=== PATIENT | female | born 1950 | race Caucasian/White ===

== ENCOUNTER 2018-10-26 18:30 | Inpatient (IN) | payer MEDICARE, OTHER, SELFPAY ==
[2018-10-26] VITALS (10 sets, daily range): BP systolic 107–151; BP diastolic 46–83; PULSE 103–120; RESP 16–28; TEMP 37.7–39.3; O2SAT 94–99; BMI 42.9
--- NOTE | 2018-10-26 18:46 | ED.SKABFB ---
HPI - Skin/Abscess/Foreign Bdy General Chief complaint: Skin/Abscess/Foreign Body Stated complaint: Sepsis, leg infection Time Seen by Provider: 10/26/18 18:36 Source: patient, family and EMS Mode of arrival: EMS Limitations: no limitations History of Present Illness HPI narrative: Patient is a 68-year-old female who presents by EMS with fever and confusion. She was actually at pharmacy on the [place] and is followed by infectious disease there as well. She history of chronic lymphedema and is prophylactically on Keflex. 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 The Augmentin apparently was just while traveling she is post be going to [place] next week. Infectious Disease put her on a stronger antibiotic when she returns the plan is for her to return to routine penicillin. She was seen by infectious disease who states that the wound in her leg is not actively infected at this time. states last night she was at her baseline and appropriate. This morning has been did not see her he was at work but patient says something was not right. She thinks it is 1997 she is unable to give good history. There has not been any noted coughing. She has had previous UTIs but denies painful or frequent urination. She is tachycardic and febrile in the ED. Related Data Home Medications Medication Instructions Recorded Confirmed albuterol sulfate 2 puff INHALATION Q6H PRN 10/26/18 10/26/18 celecoxib 200 mg PO DAILY 10/26/18 10/26/18 cholecalciferol (vitamin D3) 5,000 unit PO DAILY 10/26/18 10/26/18 [Vitamin D3] cyclobenzaprine 10 mg PO TID PRN 10/26/18 10/26/18 fexofenadine [Janet Allergy] 180 mg PO DAILY 10/26/18 10/26/18 fluticasone propionate [Flonase 1 spray INTRANASAL DAILY PRN 10/26/18 10/26/18 Allergy Relief] glipizide [Glucotrol XL] 5 mg PO DAILY 10/26/18 10/26/18 hydrochlorothiazide 50 mg PO DAILY PRN 10/26/18 10/26/18 hydrocodone-acetaminophen 2 tab PO Q4HR 10/26/18 10/26/18 insulin degludec [Tresiba 55 units SUBCUT DAILY 10/26/18 10/26/18 FlexTouch U-100] levothyroxine [Synthroid] 200 mcg PO DAILY 10/26/18 10/26/18 liraglutide [Victoza 2-Rodriguez] 1.2 mg SUBCUT DAILY 10/26/18 10/26/18 losartan 25 mg PO DAILY 10/26/18 10/26/18 montelukast [Singulair] 10 mg PO QPM 10/26/18 10/26/18 qukscckh-mhk-SG-lycopen-lutein 1 tab PO DAILY 10/26/18 10/26/18 [Centrum Silver] pregabalin 50 mg PO TID 10/26/18 10/26/18 rabeprazole [Aciphex] 20 mg PO DAILY 10/26/18 10/26/18 tolterodine [Detrol LA] 4 mg PO DAILY 10/26/18 10/26/18 Allergies Allergy/AdvReac Type Severity Reaction Status Date / Time cefamandole [From Mandol] AdvReac Verified 10/26/18 19:11 clindamycin AdvReac Verified 10/26/18 19:11 heparin AdvReac Verified 10/26/18 19:11 meperidine [From Demerol] AdvReac Verified 10/26/18 19:11 naproxen AdvReac Verified 10/26/18 19:11 NSAIDS (Non-Steroidal AdvReac Verified 10/26/18 19:11 Anti-Inflamma promethazine [From Phenergan] AdvReac Verified 10/26/18 19:11 rofecoxib [From Vioxx] AdvReac Verified 10/26/18 19:11 sulfamethoxazole AdvReac Verified 10/26/18 19:11 [From Septra] trimethoprim [From Septra] AdvReac Verified 10/26/18 19:11 Review of Systems Review of Systems ROS Unobtainable: All systems reviewed & are unremarkable except as noted in HPI and below Constitutional Denies chills, Reports fever(s), Denies lethargy and Denies weakness Eyes Denies change in vision, Denies eye discharge, Denies irritation and Denies loss of vision ENT Ears, Nose, Mouth, and Throat: Denies change in voice, Denies neck pain and Denies sore throat Cardiovascular Denies chest pain, Denies irregular heart rhythm, Denies lightheadedness, Denies palpitations, Denies dyspnea, Denies dyspnea on exertion and Denies orthopnea Respiratory Denies cough, Denies dyspnea, Denies dyspnea on exertion and Denies wheezing Gastrointestinal Gastrointestinal: Denies abdominal pain, Denies change in bowel habits, Denies diarrhea, Denies nausea and Denies vomiting Genitourinary Denies hematuria, Denies flank pain, Denies urinary incontinence and Denies urinary urgency Musculoskeletal Denies neck pain Integumentary/Breasts Denies pruritus, Denies erythema, Denies rash and Denies wounds Neurologic Denies loss of vision and Denies weakness Endocrine Denies palpitations Allergic/Immunologic Denies wheezing [facility] Medical History Bilateral leg edema (Acute) 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) Lymphedema of both lower extremities (Acute) Venous stasis dermatitis of both lower extremities (Acute) Surgical History History of total knee arthroplasty (Acute) Social History marital status: household members: spouse Smoking Status: Never smoker alcohol intake: current Social History marital status: household members: spouse Smoking Status: Never smoker alcohol intake: current Exam Initial Vital Signs Initial Vital Signs: Vital Signs Temperature 100.7 F H 10/26/18 18:50 Pulse Rate 120 H 10/26/18 18:50 Respiratory Rate 18 10/26/18 18:50 Blood Pressure 142/81 H 10/26/18 18:50 Pulse Oximetry 96 10/26/18 18:50 GENERAL: Alert confused overweight female HEENT: Head atraumatic,EOMI, pupils reactive, face symmetric, moist mucous membranes CARDIOVASCULAR: Tachycardic regular no murmur RESPIRATORY: Breath sounds equal bilaterally, no wheezes rales or rhonchi. ABDOMEN: Soft, large ventral hernia nontender EXTREMITIES: Normal range of motion, no clubbing or edema. Neurovascularly intact NEUROLOGICAL: Alert to person. Commercial Account Officer strength equal bilaterally. SKIN: Chronic wounds noted on left lateral knee packing in place no significant erythema. She does have some slight oozing. Her knee overall is tender Scores GCS [place] coma scale eye opening: Spontaneous [place] coma scale verbal response: Confused [place] coma scale motor response: Obey commands [place] coma scale total score: 14 Course Orders Ordered: ED Orders 10/26/18 18:54 XR chest 1V Stat 10/26/18 19:05 Urine Microscopic Stat 10/26/18 19:23 Blood Culture Stat Complete Blood Count AUTO DIFF Stat Comprehensive Metabolic Panel Stat Lactate (Lactic Acid) Stat Procalcitonin Stat 10/26/18 19:49 CT head/brain wo con Stat 10/27/18 00:45 Consult to Respiratory Therapy Evaluate & Treat 10/27/18 06:00 Basic Metabolic Panel Routine Complete Blood Count AUTO DIFF Routine Magnesium Routine Procalcitonin Routine 10/28/18 06:00 XR chest 2V Routine Acetaminophen (Tylenol) 650 mg PO Q6HR PRN PRN Reason: As Needed for Fever/Mild Pain Albuterol/Ipratropium (Duoneb) 3 ml INH RTQ6HR PRN PRN Reason: Shortness Of Breath Discontinued Medications Acetaminophen (Tylenol) 975 mg PO NOW ONE Stop: 10/26/18 18:54 Last Admin: 10/26/18 19:12 Dose: 975 mg Sodium Chloride (Normal Saline 0.9%) 1,000 mls @ 1,000 mls/hr IV BOLUS ONE Stop: 10/26/18 19:54 Last Infusion: 10/26/18 20:10 Dose: 0 mls/hr Admin: 10/26/18 19:29 Dose: 1,000 mls/hr Levofloxacin (Levaquin) 750 mg in 150 mls @ 100 mls/hr IV NOW ONE Stop: 10/26/18 21:31 Last Infusion: 10/26/18 23:14 Dose: 0 mls/hr Infusion: 10/26/18 23:12 Dose: 100 mls/hr Infusion: 10/26/18 22:46 Dose: 0 mls/hr Infusion: 10/26/18 21:39 Dose: 100 mls/hr Infusion: 10/26/18 20:55 Dose: 0 mls/hr Admin: 10/26/18 20:39 Dose: 100 mls/hr Vancomycin HCl 2,000 mg/ (Sodium Chloride) 500 mls @ 250 mls/hr IV NOW ONE Stop: 10/26/18 20:03 Last Infusion: 10/26/18 23:18 Dose: 250 mls/hr Infusion: 10/26/18 22:46 Dose: 0 mls/hr Infusion: 10/26/18 21:39 Dose: 250 mls/hr Infusion: 10/26/18 20:55 Dose: 0 mls/hr Admin: 10/26/18 20:40 Dose: 250 mls/hr Sodium Chloride (Normal Saline 0.9%) 1,917 mls @ 639 mls/hr 30 ml/kg infuse over 3 hr (1917 ml) IV NOW ONE Stop: 10/26/18 23:06 Last Infusion: 10/26/18 22:47 Dose: 0 mls/hr Infusion: 10/26/18 21:40 Dose: 200 mls/hr Infusion: 10/26/18 20:55 Dose: 0 mls/hr Infusion: 10/26/18 20:40 Dose: 200 mls/hr Admin: 10/26/18 19:30 Dose: 639 mls/hr Ketorolac Tromethamine (Toradol) 15 mg IV NOW ONE Stop: 10/26/18 21:19 Last Admin: 10/26/18 21:36 Dose: 15 mg Vital Signs - 8 hr 10/26/18 18:50 10/26/18 19:12 10/26/18 20:00 Temperature 100.7 F H 100.7 F H Pulse Rate 120 H 114 H Respiratory Rate 18 24 Blood Pressure 142/81 H Blood Pressure [Right Arm] 151/73 H Pulse Oximetry 96 99 10/26/18 20:45 10/26/18 21:05 10/26/18 21:14 Temperature 101.3 F H Pulse Rate 103 H 104 H Respiratory Rate 16 24 Blood Pressure Blood Pressure [Right Arm] 123/46 L 109/49 L Pulse Oximetry 96 96 10/26/18 22:00 10/26/18 22:39 10/26/18 22:40 Temperature 102.7 F H Pulse Rate 115 H 112 H Respiratory Rate 28 H 22 Blood Pressure 107/83 Blood Pressure [Right Arm] 118/78 Pulse Oximetry 96 94 10/26/18 22:55 Temperature 99.9 F H Pulse Rate 109 H Respiratory Rate 20 Blood Pressure 117/59 L Blood Pressure [Right Arm] Pulse Oximetry 95 MDM - Skin/Abscess/Foreign Bdy Lab Data Attestation: I reviewed the patient's lab results. Result diagrams: 10/26/18 19:23 10/26/18 19:23 Lab Results 10/26/18 10/26/18 10/26/18 Range/Units 19:05 19:23 19:23 WBC 19.2 H (4.5-11.0) X10^3/uL RBC 4.42 (4.0-5.2) X10^6/uL Hgb 12.7 (12.0-16.0) g/dL Hct 38.3 (36-46) % MCV 86.6 (80-100) fL MCH 28.7 (26-34) PG MCHC 33.1 (30-36) % RDW 13.3 (11.6-14.8) % Plt Count 261 (150-400) X10^3/uL Neut % (Auto) 90.2 H (50-75) % Lymph % (Auto) 3.2 L (25-40) % [place] % (Auto) 6.2 (3-14) % Eos % (Auto) 0.1 L (2-4) % Baso % (Auto) 0.3 (0-2) % Neut # (Auto) 94876 H (3733-2322) /uL Lymph # (Auto) 600 L (5606-0541) /uL [place] # (Auto) 1200 H (0-900) /uL Eos # (Auto) 0 (0-450) /uL Baso # (Auto) 100 (0-100) /uL Sodium (137-145) mmol/L Potassium (3.4-5.1) mmol/L Chloride (98-107) mmol/L Carbon Dioxide (22-32) mmol/L BUN (7-17) mg/dL Creatinine (0.52-1.04) mg/dL Estimated GFR (>60) mL/min BUN/Creatinine Ratio (6-22) Glucose (80-110) mg/dL Lactate (0.7-2.1) mmol/L Calcium (8.4-10.2) mg/dL Total Bilirubin (0.2-1.3) mg/dL AST (14-36) IU/L ALT (9-52) IU/L Alkaline Phosphatase (38-126) U/L Total Protein (6.3-8.2) g/dL Albumin (3.5-5.0) g/dL Globulin (1.7-4.1) g/dL Albumin/Globulin Ratio (1.0-2.8) Procalcitonin 1.04 H (<0.5) ng/mL Urine RBC None seen (0-5/HPF) Urine WBC 0-1/hpf (0-5/HPF) Ur Squamous Epith Cells 1-5 /hpf (0-5/HPF) Urine Bacteria None seen (None) Ur Culture Indicated? Cult not indicated 10/26/18 10/26/18 Range/Units 19:23 19:23 WBC (4.5-11.0) X10^3/uL RBC (4.0-5.2) X10^6/uL Hgb (12.0-16.0) g/dL Hct (36-46) % MCV (80-100) fL MCH (26-34) PG MCHC (30-36) % RDW (11.6-14.8) % Plt Count (150-400) X10^3/uL Neut % (Auto) (50-75) % Lymph % (Auto) (25-40) % [place] % (Auto) (3-14) % Eos % (Auto) (2-4) % Baso % (Auto) (0-2) % Neut # (Auto) (8447-7803) /uL Lymph # (Auto) (4802-8243) /uL [place] # (Auto) (0-900) /uL Eos # (Auto) (0-450) /uL Baso # (Auto) (0-100) /uL Sodium 135 L (137-145) mmol/L Potassium 3.8 (3.4-5.1) mmol/L Chloride 100 (98-107) mmol/L Carbon Dioxide 28 (22-32) mmol/L BUN 29 H (7-17) mg/dL Creatinine 0.80 (0.52-1.04) mg/dL Estimated GFR > 60.0 (>60) mL/min BUN/Creatinine Ratio 36.3 H (6-22) Glucose 128 H (80-110) mg/dL Lactate 1.0 (0.7-2.1) mmol/L Calcium 9.1 (8.4-10.2) mg/dL Total Bilirubin 0.3 (0.2-1.3) mg/dL AST 30 (14-36) IU/L ALT 26 (9-52) IU/L Alkaline Phosphatase 86 (38-126) U/L Total Protein 7.5 (6.3-8.2) g/dL Albumin 4.1 (3.5-5.0) g/dL Globulin 3.4 (1.7-4.1) g/dL Albumin/Globulin Ratio 1.2 (1.0-2.8) Procalcitonin (<0.5) ng/mL Urine RBC (0-5/HPF) Urine WBC (0-5/HPF) Ur Squamous Epith Cells (0-5/HPF) Urine Bacteria (None) Ur Culture Indicated? Urine Dip Bedside Urine Glucose Negative Bedside Urine Bilirubin - Negative Bedside Urine Ketone - Negative Urine Specific [place] 1.025 Bedside Urine Occult Blood - Negative Bedside Urine Protein +/- 15 Bedside Urine Urobilinogen - Negative Bedside Urine Nitrite - Negative Bedside Urine Leukocytes - Negative Esterase Imaging Data Chest x-ray: Radiologist's impression: PROCEDURE: XR CHEST 1V INDICATIONS: fever confusion TECHNIQUE: One view of the chest was acquired. COMPARISON: None. FINDINGS: Surgical changes and devices: None. Lungs and pleura: There is mild patchy bilateral perihilar and peribronchial opacity. No pleural effusions or pneumothorax. Mediastinum: Mediastinal contours appear normal. Heart size is normal. Bones and chest wall: No suspicious bony lesions. Overlying soft tissues appear unremarkable. IMPRESSION: Mild atypical pneumonia. Dictated by: Arnie Hayes M.D. on 10/26/2018 at 19:21 Approved by: Arnie Hayes M.D. on 10/26/2018 at 19:22 CT scan - head: Radiologist's impression: PROCEDURE: CT HEAD/BRAIN WO CON INDICATIONS: confusion TECHNIQUE: Noncontrast 4.5 mm thick angled axial sections acquired from the foramen magnum to the vertex, with coronal and sagittal reformats. For radiation dose reduction, the following was used: automated exposure control, adjustment of mA and/or kV according to patient size. COMPARISON: None. FINDINGS: Image quality: Excellent. CSF spaces: Basal cisterns are patent. No extra-axial fluid collections. The ventricles are symmetric in size and shape. Brain: No intracranial bleeds or masses. There is cerebral volume loss for age, with resultant ventricular and sulcal prominence. There are periventricular and deep white matter chronic small vessel ischemic changes. There is intracranial internal carotid artery atherosclerosis. Skull and face: Calvarium and visualized facial bones appear intact, without suspicious lesions. Sinuses: Visualized sinuses and mastoids are clear. IMPRESSION: No acute intracranial abnormality. Dictated by: Arnie Hayes M.D. on 10/26/2018 at 20:34 MDM Narrative Medical decision making narrative: Patient is clearly confused tachycardic febrile has positive SIRS. Only source of infection appears to be pneumonia. She denies any cough. Chronic wound on her left leg really does not appear infected. Infectious Disease from evaluation today notes reviewed also states that is not infected. No sign of meningitis. Previously on penicillin will give Levaquin and vancomycin. Ian MCGEE, updated patient's symptoms test results agree with admission. Discharge Plan Departure Patient Disposition: Admitted As Inpatient Clinical Impression: Pneumonia Qualifiers: Pneumonia type: due to unspecified organism Laterality: unspecified laterality Lung location: unspecified part of lung Qualified Code(s): J18.9 - Pneumonia, unspecified organism Discharge Date/Time: 10/26/18 22:46 Interventions: ED Discharge Assessment Last Done: 10/26/18 22:40 Admit Date/Time: 10/26/18 21:54 Admit Provider: Miley Edmonds
--- NOTE | 2018-10-26 18:54 | DI.RAD.S_ITS ---
PROCEDURE: XR CHEST 1V INDICATIONS: fever confusion TECHNIQUE: One view of the chest was acquired. COMPARISON: None. FINDINGS: Surgical changes and devices: None. Lungs and pleura: There is mild patchy bilateral perihilar and peribronchial opacity. No pleural effusions or pneumothorax. Mediastinum: Mediastinal contours appear normal. Heart size is normal. Bones and chest wall: No suspicious bony lesions. Overlying soft tissues appear unremarkable. IMPRESSION: Mild atypical pneumonia. Dictated by: Arnie Hayes M.D. on 10/26/2018 at 19:21 Approved by: Arnie Hayes M.D. on 10/26/2018 at 19:22
[2018-10-26 19:12] LABS: Bacteria Urine None Seen; RBC Urine None Seen (0-5/HPF)
[2018-10-26] MEDS: ACETAMINOPHEN 325 MG TABLET 975 MG PO (19:12)
[2018-10-26 19:28] LABS: Culture Indicated Urine Cult Not Indicated; Squamous Epithelial Cell Urine 1-5 /HPF (0-5/HPF); WBC Urine 0-1/HPF (0-5/HPF)
[2018-10-26] MEDS: SODIUM CHLORIDE 0.9% 1,000 ML 1000 ML IV (19:29)
[2018-10-26] MEDS: SODIUM CHLORIDE 0.9% 639 ML IV (19:30)
[2018-10-26 19:35] LABS: Add Manual Diff / Slide Review NO; Basophils Absolute Auto 100 /uL (0-100); Basophils Percent Auto 0.3 % (0-2); Eosinophils Absolute Auto 0 /uL (0-450); Eosinophils Percent Auto 0.1 % (2-4); Hematocrit 38.3 % (36-46); Hemoglobin 12.7 g/dL (12.0-16.0); Lymphocytes Absolute Auto 600 /uL (1100-4500); Lymphocytes Percent Auto 3.2 % (25-40); Mean Corpuscular HGB Conc 33.1 % (30-36); Mean Corpuscular Hemoglobin 28.7 PG (26-34); Mean Corpuscular Volume 86.6 fL (80-100); Monocytes Absolute Auto 1200 /uL (0-900); Monocytes Percent Auto 6.2 % (3-14); Neutrophils Absolute Auto 17300 /uL (1500-7000); Neutrophils Percent Auto 90.2 % (50-75); Platelet Count 261 X10^3/uL (150-400); Red Blood Cell Count 4.42 X10^6/uL (4.0-5.2); Red Cell Distribution Width 13.3 % (11.6-14.8); White Blood Cell Count 19.2 X10^3/uL (4.5-11.0)
[2018-10-26 19:47] LABS: Alanine Aminotransferase 26 IU/L (9-52); Albumin 4.1 g/dL (3.5-5.0); Albumin Globulin Ratio 1.2 (1.0-2.8); Alkaline Phosphatase 86 U/L (38-126); Aspartate Aminotransferase 30 IU/L (14-36); BUN Creatinine Ratio 36.3 (6-22); Bilirubin Total 0.3 mg/dL (0.2-1.3); Blood Urea Nitrogen 29 mg/dL (7-17); Calcium 9.1 mg/dL (8.4-10.2); Carbon Dioxide 28 mmol/L (22-32); Chloride 100 mmol/L (98-107); Estimated Glomerular Filt Rate > 60.0 mL/min (>60); Globulin 3.4 g/dL (1.7-4.1); Glucose 128 mg/dL (80-110); HEMOLYSIS < 15 (0-50); Potassium 3.8 mmol/L (3.4-5.1); Sodium 135 mmol/L (137-145); Total Protein 7.5 g/dL (6.3-8.2)
--- NOTE | 2018-10-26 19:49 | ED_ITS ---
HPI - Skin/Abscess/Foreign Bdy General Chief complaint: Skin/Abscess/Foreign Body Stated complaint: Sepsis, leg infection Time Seen by Provider: 10/26/18 18:36 Source: patient, family and EMS Mode of arrival: EMS Limitations: no limitations History of Present Illness HPI narrative: Patient is a 68-year-old female who presents by EMS with fever and confusion. She was actually at pharmacy on the [place] and is followed by infectious disease there as well. She history of chronic lymphedema and is prophylactically on Keflex. 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 The Augmentin apparently was just while traveling she is post be going to [place] next week. Infectious Disease put her on a stronger antibiotic when she returns the plan is for her to return to routine penicillin. She was seen by infectious disease who states that the wound in her leg is not actively infected at this time. states last night she was at her baseline and appropriate. This morning has been did not see her he was at work but patient says something was not right. She thinks it is 1997 she is unable to give good history. There has not been any noted coughing. She has had previous UTIs but denies painful or frequent urination. She is tachycardic and febrile in the ED. Related Data Home Medications Medication Instructions Recorded Confirmed albuterol sulfate 2 puff INHALATION Q6H PRN 10/26/18 10/26/18 celecoxib 200 mg PO DAILY 10/26/18 10/26/18 cholecalciferol (vitamin D3) 5,000 unit PO DAILY 10/26/18 10/26/18 [Vitamin D3] cyclobenzaprine 10 mg PO TID PRN 10/26/18 10/26/18 fexofenadine [Janet Allergy] 180 mg PO DAILY 10/26/18 10/26/18 fluticasone propionate [Flonase 1 spray INTRANASAL DAILY PRN 10/26/18 10/26/18 Allergy Relief] glipizide [Glucotrol XL] 5 mg PO DAILY 10/26/18 10/26/18 hydrochlorothiazide 50 mg PO DAILY PRN 10/26/18 10/26/18 hydrocodone-acetaminophen 2 tab PO Q4HR 10/26/18 10/26/18 insulin degludec [Tresiba 55 units SUBCUT DAILY 10/26/18 10/26/18 FlexTouch U-100] levothyroxine [Synthroid] 200 mcg PO DAILY 10/26/18 10/26/18 liraglutide [Victoza 2-Rodriguez] 1.2 mg SUBCUT DAILY 10/26/18 10/26/18 losartan 25 mg PO DAILY 10/26/18 10/26/18 montelukast [Singulair] 10 mg PO QPM 10/26/18 10/26/18 [id number]-lutein 1 tab PO DAILY 10/26/18 10/26/18 [Centrum Silver] pregabalin 50 mg PO TID 10/26/18 10/26/18 rabeprazole [Aciphex] 20 mg PO DAILY 10/26/18 10/26/18 tolterodine [Detrol LA] 4 mg PO DAILY 10/26/18 10/26/18 Allergies Allergy/AdvReac Type Severity Reaction Status Date / Time cefamandole [From Mandol] AdvReac Verified 10/26/18 19:11 clindamycin AdvReac Verified 10/26/18 19:11 heparin AdvReac Verified 10/26/18 19:11 meperidine [From Demerol] AdvReac Verified 10/26/18 19:11 naproxen AdvReac Verified 10/26/18 19:11 NSAIDS (Non-Steroidal AdvReac Verified 10/26/18 19:11 Anti-Inflamma promethazine [From Phenergan] AdvReac Verified 10/26/18 19:11 rofecoxib [From Vioxx] AdvReac Verified 10/26/18 19:11 sulfamethoxazole AdvReac Verified 10/26/18 19:11 [From Septra] trimethoprim [From Septra] AdvReac Verified 10/26/18 19:11 Review of Systems Review of Systems ROS Unobtainable: All systems reviewed & are unremarkable except as noted in HPI and below Constitutional Denies chills, Reports fever(s), Denies lethargy and Denies weakness Eyes Denies change in vision, Denies eye discharge, Denies irritation and Denies loss of vision ENT Ears, Nose, Mouth, and Throat: Denies change in voice, Denies neck pain and Denies sore throat Cardiovascular Denies chest pain, Denies irregular heart rhythm, Denies lightheadedness, Denies palpitations, Denies dyspnea, Denies dyspnea on exertion and Denies orthopnea Respiratory Denies cough, Denies dyspnea, Denies dyspnea on exertion and Denies wheezing Gastrointestinal Gastrointestinal: Denies abdominal pain, Denies change in bowel habits, Denies diarrhea, Denies nausea and Denies vomiting Genitourinary Denies hematuria, Denies flank pain, Denies urinary incontinence and Denies urinary urgency Musculoskeletal Denies neck pain Integumentary/Breasts Denies pruritus, Denies erythema, Denies rash and Denies wounds Neurologic Denies loss of vision and Denies weakness Endocrine Denies palpitations Allergic/Immunologic Denies wheezing [facility] Medical History Bilateral leg edema (Acute) 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) Lymphedema of both lower extremities (Acute) Venous stasis dermatitis of both lower extremities (Acute) Surgical History History of total knee arthroplasty (Acute) Social History marital status: household members: spouse Smoking Status: Never smoker alcohol intake: current Social History marital status: household members: spouse Smoking Status: Never smoker alcohol intake: current Exam Initial Vital Signs Initial Vital Signs: Vital Signs Temperature 100.7 F H 10/26/18 18:50 Pulse Rate 120 H 10/26/18 18:50 Respiratory Rate 18 10/26/18 18:50 Blood Pressure 142/81 H 10/26/18 18:50 Pulse Oximetry 96 10/26/18 18:50 GENERAL: Alert confused overweight female HEENT: Head atraumatic,EOMI, pupils reactive, face symmetric, moist mucous membranes CARDIOVASCULAR: Tachycardic regular no murmur RESPIRATORY: Breath sounds equal bilaterally, no wheezes rales or rhonchi. ABDOMEN: Soft, large ventral hernia nontender EXTREMITIES: Normal range of motion, no clubbing or edema. Neurovascularly intact NEUROLOGICAL: Alert to person. Harness Preparer strength equal bilaterally. SKIN: Chronic wounds noted on left lateral knee packing in place no significant erythema. She does have some slight oozing. Her knee overall is tender Scores GCS [place] coma scale eye opening: Spontaneous [place] coma scale verbal response: Confused [place] coma scale motor response: Obey commands [place] coma scale total score: 14 Course Orders Ordered: ED Orders 10/26/18 18:54 XR chest 1V Stat 10/26/18 19:05 Urine Microscopic Stat 10/26/18 19:23 Blood Culture Stat Complete Blood Count AUTO DIFF Stat Comprehensive Metabolic Panel Stat Lactate (Lactic Acid) Stat Procalcitonin Stat 10/26/18 19:49 CT head/brain wo con Stat 10/27/18 00:45 Consult to Respiratory Therapy Evaluate & Treat 10/27/18 06:00 Basic Metabolic Panel Routine Complete Blood Count AUTO DIFF Routine Magnesium Routine Procalcitonin Routine 10/28/18 06:00 XR chest 2V Routine Acetaminophen (Tylenol) 650 mg PO Q6HR PRN PRN Reason: As Needed for Fever/Mild Pain Albuterol/Ipratropium (Duoneb) 3 ml INH RTQ6HR PRN PRN Reason: Shortness Of Breath Discontinued Medications Acetaminophen (Tylenol) 975 mg PO NOW ONE Stop: 10/26/18 18:54 Last Admin: 10/26/18 19:12 Dose: 975 mg Sodium Chloride (Normal Saline 0.9%) 1,000 mls @ 1,000 mls/hr IV BOLUS ONE Stop: 10/26/18 19:54 Last Infusion: 10/26/18 20:10 Dose: 0 mls/hr Admin: 10/26/18 19:29 Dose: 1,000 mls/hr Levofloxacin (Levaquin) 750 mg in 150 mls @ 100 mls/hr IV NOW ONE Stop: 10/26/18 21:31 Last Infusion: 10/26/18 23:14 Dose: 0 mls/hr Infusion: 10/26/18 23:12 Dose: 100 mls/hr Infusion: 10/26/18 22:46 Dose: 0 mls/hr Infusion: 10/26/18 21:39 Dose: 100 mls/hr Infusion: 10/26/18 20:55 Dose: 0 mls/hr Admin: 10/26/18 20:39 Dose: 100 mls/hr Vancomycin HCl 2,000 mg/ (Sodium Chloride) 500 mls @ 250 mls/hr IV NOW ONE Stop: 10/26/18 20:03 Last Infusion: 10/26/18 23:18 Dose: 250 mls/hr Infusion: 10/26/18 22:46 Dose: 0 mls/hr Infusion: 10/26/18 21:39 Dose: 250 mls/hr Infusion: 10/26/18 20:55 Dose: 0 mls/hr Admin: 10/26/18 20:40 Dose: 250 mls/hr Sodium Chloride (Normal Saline 0.9%) 1,917 mls @ 639 mls/hr 30 ml/kg infuse over 3 hr (1917 ml) IV NOW ONE Stop: 10/26/18 23:06 Last Infusion: 10/26/18 22:47 Dose: 0 mls/hr Infusion: 10/26/18 21:40 Dose: 200 mls/hr Infusion: 10/26/18 20:55 Dose: 0 mls/hr Infusion: 10/26/18 20:40 Dose: 200 mls/hr Admin: 10/26/18 19:30 Dose: 639 mls/hr Ketorolac Tromethamine (Toradol) 15 mg IV NOW ONE Stop: 10/26/18 21:19 Last Admin: 10/26/18 21:36 Dose: 15 mg Vital Signs - 8 hr 10/26/18 18:50 10/26/18 19:12 10/26/18 20:00 Temperature 100.7 F H 100.7 F H Pulse Rate 120 H 114 H Respiratory Rate 18 24 Blood Pressure 142/81 H Blood Pressure [Right Arm] 151/73 H Pulse Oximetry 96 99 10/26/18 20:45 10/26/18 21:05 10/26/18 21:14 Temperature 101.3 F H Pulse Rate 103 H 104 H Respiratory Rate 16 24 Blood Pressure Blood Pressure [Right Arm] 123/46 L 109/49 L Pulse Oximetry 96 96 10/26/18 22:00 10/26/18 22:39 10/26/18 22:40 Temperature 102.7 F H Pulse Rate 115 H 112 H Respiratory Rate 28 H 22 Blood Pressure 107/83 Blood Pressure [Right Arm] 118/78 Pulse Oximetry 96 94 10/26/18 22:55 Temperature 99.9 F H Pulse Rate 109 H Respiratory Rate 20 Blood Pressure 117/59 L Blood Pressure [Right Arm] Pulse Oximetry 95 MDM - Skin/Abscess/Foreign Bdy Lab Data Attestation: I reviewed the patient's lab results. Result diagrams: 10/26/18 19:23 10/26/18 19:23 Lab Results 10/26/18 10/26/18 10/26/18 Range/Units 19:05 19:23 19:23 WBC 19.2 H (4.5-11.0) X10^3/uL RBC 4.42 (4.0-5.2) X10^6/uL Hgb 12.7 (12.0-16.0) g/dL Hct 38.3 (36-46) % MCV 86.6 (80-100) fL MCH 28.7 (26-34) PG MCHC 33.1 (30-36) % RDW 13.3 (11.6-14.8) % Plt Count 261 (150-400) X10^3/uL Neut % (Auto) 90.2 H (50-75) % Lymph % (Auto) 3.2 L (25-40) % [place] % (Auto) 6.2 (3-14) % Eos % (Auto) 0.1 L (2-4) % Baso % (Auto) 0.3 (0-2) % Neut # (Auto) 75041 H (5743-8785) /uL Lymph # (Auto) 600 L (0992-0982) /uL [place] # (Auto) 1200 H (0-900) /uL Eos # (Auto) 0 (0-450) /uL Baso # (Auto) 100 (0-100) /uL Sodium (137-145) mmol/L Potassium (3.4-5.1) mmol/L Chloride (98-107) mmol/L Carbon Dioxide (22-32) mmol/L BUN (7-17) mg/dL Creatinine (0.52-1.04) mg/dL Estimated GFR (>60) mL/min BUN/Creatinine Ratio (6-22) Glucose (80-110) mg/dL Lactate (0.7-2.1) mmol/L Calcium (8.4-10.2) mg/dL Total Bilirubin (0.2-1.3) mg/dL AST (14-36) IU/L ALT (9-52) IU/L Alkaline Phosphatase (38-126) U/L Total Protein (6.3-8.2) g/dL Albumin (3.5-5.0) g/dL Globulin (1.7-4.1) g/dL Albumin/Globulin Ratio (1.0-2.8) Procalcitonin 1.04 H (<0.5) ng/mL Urine RBC None seen (0-5/HPF) Urine WBC 0-1/hpf (0-5/HPF) Ur Squamous Epith Cells 1-5 /hpf (0-5/HPF) Urine Bacteria None seen (None) Ur Culture Indicated? Cult not indicated 10/26/18 10/26/18 Range/Units 19:23 19:23 WBC (4.5-11.0) X10^3/uL RBC (4.0-5.2) X10^6/uL Hgb (12.0-16.0) g/dL Hct (36-46) % MCV (80-100) fL MCH (26-34) PG MCHC (30-36) % RDW (11.6-14.8) % Plt Count (150-400) X10^3/uL Neut % (Auto) (50-75) % Lymph % (Auto) (25-40) % [place] % (Auto) (3-14) % Eos % (Auto) (2-4) % Baso % (Auto) (0-2) % Neut # (Auto) (8572-3375) /uL Lymph # (Auto) (5229-4325) /uL [place] # (Auto) (0-900) /uL Eos # (Auto) (0-450) /uL Baso # (Auto) (0-100) /uL Sodium 135 L (137-145) mmol/L Potassium 3.8 (3.4-5.1) mmol/L Chloride 100 (98-107) mmol/L Carbon Dioxide 28 (22-32) mmol/L BUN 29 H (7-17) mg/dL Creatinine 0.80 (0.52-1.04) mg/dL Estimated GFR > 60.0 (>60) mL/min BUN/Creatinine Ratio 36.3 H (6-22) Glucose 128 H (80-110) mg/dL Lactate 1.0 (0.7-2.1) mmol/L Calcium 9.1 (8.4-10.2) mg/dL Total Bilirubin 0.3 (0.2-1.3) mg/dL AST 30 (14-36) IU/L ALT 26 (9-52) IU/L Alkaline Phosphatase 86 (38-126) U/L Total Protein 7.5 (6.3-8.2) g/dL Albumin 4.1 (3.5-5.0) g/dL Globulin 3.4 (1.7-4.1) g/dL Albumin/Globulin Ratio 1.2 (1.0-2.8) Procalcitonin (<0.5) ng/mL Urine RBC (0-5/HPF) Urine WBC (0-5/HPF) Ur Squamous Epith Cells (0-5/HPF) Urine Bacteria (None) Ur Culture Indicated? Urine Dip Bedside Urine Glucose Negative Bedside Urine Bilirubin - Negative Bedside Urine Ketone - Negative Urine Specific [place] 1.025 Bedside Urine Occult Blood - Negative Bedside Urine Protein +/- 15 Bedside Urine Urobilinogen - Negative Bedside Urine Nitrite - Negative Bedside Urine Leukocytes - Negative Esterase Imaging Data Chest x-ray: Radiologist's impression: PROCEDURE: XR CHEST 1V INDICATIONS: fever confusion TECHNIQUE: One view of the chest was acquired. COMPARISON: None. FINDINGS: Surgical changes and devices: None. Lungs and pleura: There is mild patchy bilateral perihilar and peribronchial opacity. No pleural effusions or pneumothorax. Mediastinum: Mediastinal contours appear normal. Heart size is normal. Bones and chest wall: No suspicious bony lesions. Overlying soft tissues appear unremarkable. IMPRESSION: Mild atypical pneumonia. Dictated by: Arnie Hayes M.D. on 10/26/2018 at 19:21 Approved by: Arnie Hayes M.D. on 10/26/2018 at 19:22 CT scan - head: Radiologist's impression: PROCEDURE: CT HEAD/BRAIN WO CON INDICATIONS: confusion TECHNIQUE: Noncontrast 4.5 mm thick angled axial sections acquired from the foramen magnum to the vertex, with coronal and sagittal reformats. For radiation dose reduction, the following was used: automated exposure control, adjustment of mA and/or kV according to patient size. COMPARISON: None. FINDINGS: Image quality: Excellent. CSF spaces: Basal cisterns are patent. No extra-axial fluid collections. The ventricles are symmetric in size and shape. Brain: No intracranial bleeds or masses. There is cerebral volume loss for age, with resultant ventricular and sulcal prominence. There are periventricular and deep white matter chronic small vessel ischemic changes. There is intracranial internal carotid artery atherosclerosis. Skull and face: Calvarium and visualized facial bones appear intact, without suspicious lesions. Sinuses: Visualized sinuses and mastoids are clear. IMPRESSION: No acute intracranial abnormality. Dictated by: Arnie Hayes M.D. on 10/26/2018 at 20:34 MDM Narrative Medical decision making narrative: Patient is clearly confused tachycardic febrile has positive SIRS. Only source of infection appears to be pneumonia. She denies any cough. Chronic wound on her left leg really does not appear infected. Infectious Disease from evaluation today notes reviewed also states that is not infected. No sign of meningitis. Previously on penicillin will give Levaquin and vancomycin. Ian MCGEE, updated patient's symptoms test results agree with admission. Discharge Plan Departure Patient Disposition: Admitted As Inpatient Clinical Impression: Pneumonia Qualifiers: Pneumonia type: due to unspecified organism Laterality: unspecified laterality Lung location: unspecified part of lung Qualified Code(s): J18.9 - Pneumonia, unspecified organism Discharge Date/Time: 10/26/18 22:46 Interventions: ED Discharge Assessment Last Done: 10/26/18 22:40 Admit Date/Time: 10/26/18 21:54 Admit Provider: Miley Edmonds
[2018-10-26 20:02] LABS: Procalcitonin 1.04 ng/mL (<0.5)
[2018-10-26] MEDS: levoFLOXacin 750 MG/150 ML PIGGYBACK 100 MG IV (20:39)
[2018-10-26] MEDS: VANCOMYCIN 2,000 MG in SODIUM CHLORIDE 0.9% 500 ML 250 ML IV (20:40)
--- NOTE | 2018-10-26 20:55 | PC.NURSE ---
Pt began feeling SOB and nasal congestion after intiation of abx infusion. Infusion paused, Dr. Hastings aware, says she will go in and reassess her. Breath sounds clear. Pt's was looking for pt's afrin, informed pt that while she is here we will administered all medications, states 'well i need it now.' This RN walked to discuss with Dr. Hastings about obtaining order, while out of the room pt took her own afrin.
[2018-10-26] MEDS: KETOROLAC 60 MG/2 ML VIAL 15 MG IV (21:36)
--- NOTE | 2018-10-26 23:10 | PC.ADMIT ---
[address] [facility] [address] [facility] Admission Note: The patient,Leticia Posey,68 y/o, was given written information regarding hospital policies, unit procedures and contact persons. Patient's smoking status: Never smoker. Vital Signs - 8 hr 10/26/18 18:50 10/26/18 19:12 10/26/18 20:00 Temperature 100.7 F H 100.7 F H Pulse Rate 120 H 114 H Respiratory Rate 18 24 Blood Pressure 142/81 H Blood Pressure [Right Arm] 151/73 H Pulse Oximetry 96 99 10/26/18 20:45 10/26/18 21:05 10/26/18 21:14 Temperature 101.3 F H Pulse Rate 103 H 104 H Respiratory Rate 16 24 Blood Pressure Blood Pressure [Right Arm] 123/46 L 109/49 L Pulse Oximetry 96 96 10/26/18 22:00 10/26/18 22:39 10/26/18 22:40 Temperature 102.7 F H Pulse Rate 115 H 112 H Respiratory Rate 28 H 22 Blood Pressure 107/83 Blood Pressure [Right Arm] 118/78 Pulse Oximetry 96 94 10/26/18 22:55 Temperature 99.9 F H Pulse Rate 109 H Respiratory Rate 20 Blood Pressure 117/59 L Blood Pressure [Right Arm] Pulse Oximetry 95 Patient up from ED via stretcher. Pt was able to get out of the stretcher and ambulate to the bathroom with one assist and FWW. with patient at that time. Pt had some trouble finding words to answer admit questions, was able to fill in the blanks. Call light in reach and bed alarm on.
[2018-10-27] VITALS (13 sets, daily range): BP systolic 101–159; BP diastolic 49–72; PULSE 77–109; RESP 16–20; TEMP 36.6–37.4; O2SAT 96–100
--- NOTE | 2018-10-27 00:22 | P.HP_ITS ---
History of Present Illness Date Patient Seen: 10/27/18 Time Patient Seen: 00:21 Chief complaint: Sepsis, leg infection Narrative: The patient is a 68-year-old female with complex PMH. 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 Patient is known to have a history of re-current cellulitis of left lower extremity (with last recurrent several years ago) and lifetime penicillin prophylaxis. Recently (1 month ago by report) has had an excision of a cyst from left lower extremity. Post-procedure patient was started on 2 week course of cephalexin. She is followed by orthopedic surgery and I/D. She was seen by the infectious disease, Roni Acuna on 10/26/18. Per note from patient's visit, the I/D did not think that there was an active infectin in the LLE and did not deem drainage coming from the incision site infectious. At time of her visit cephalexin was discontinued and patient was started on ampicillin/sulbactam. Change in medication is temporary and was being made because patient has plans to travel to [place], [place]. After her return, she is to resume her routine prophylactic regimen w/ penicillin. Patient presented to the ED with fever and confusion. Until 10/26/2018 patient reports being asymptomatic. Earlier in the morning today she has developed subjective fever, chills, and confusion as the day progressed. She reports significantly more pain in the left lower extremity at around the side of an incision. There is no new left knee pain (known to have left knee orthopedic hardware in place). The drainage patient has been experiencing has been clear; however, patient's notes the drainage to be slightly more darker than before. There is no blood. There is underlying left lower extremity edema. No erythema or warmth. Known to have neuropathy and diminished sensation of lower extremities. Patient is known to have recurrent pneumonias, which frequently are classified as atypical. She is unable to recall any specific organisms that have been grown in the past. Also known to have recurrent UTIs. Denies cough, URI symptoms, purulence, chest pain, palpitations, dizziness, lightheadedness, abdominal pain, nausea, vomiting, and diarrhea. Denies urinary frequency and hematuria. ED presentation & work-up Labs, 10/26/2018 at 7:23 p.m. WBC 19.2 HGB 12.7 PLT 261 lactate 1.0 PCT 1.04 NA 135 K 3.8 CL 100 CA 9.1 ALB 4.1 GLU 128 CO2 28 BUN 29 CR 0.8 BUN/CR 36 T.Bili 0.3 AST 30 ALT 26 ALK PHOS 86 Urine (dip stick) not indicative of an infection CXR, 10/26/2018 Mild atypical pneumonia. Mild patchy bilateral linda-hilar and linda-bronchial opacity. No pleural effusions or pneumothorax. Mediastinal contours appear normal. Heart size is normal. CT Head, 10/26/2018 No intracranial bleeds or masses. Cervical volume loss for age, with resultant ventricular and sulcal prominence. Linda-ventricular and deep white matter chronic small vessel ischemic changes present. Intracranial internal carotid artery atherosclerosis. Visualized sinuses and mastoids are clear. 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) Lymphedema of both lower extremities (Acute) Venous stasis dermatitis of both lower extremities (Acute) Surgical History History of total knee arthroplasty (Acute) Social History marital status: household members: spouse Smoking Status: Never smoker alcohol intake: current Family & Social History Social History: household members spouse Prior Living Arrangements House Safety & Behavioral: Feels Safe in Current Yes Environment Been Physically Hurt or No Threatened By a Person Suicidal Ideation Description None Suicide Plan Description No Plan Tobacco & Substance use: Smoking Status Never smoker alcohol intake current alcohol intake frequency holiday/special occasion Substance Use Type does not use Meds Home Medications Medication Instructions Recorded Confirmed Type albuterol sulfate 2 puff INHALATION Q6H PRN 10/26/18 10/26/18 History celecoxib 200 mg PO DAILY 10/26/18 10/26/18 History cholecalciferol (vitamin D3) 5,000 unit PO DAILY 10/26/18 10/26/18 History [Vitamin D3] cyclobenzaprine 10 mg PO TID PRN 10/26/18 10/26/18 History fexofenadine [Janet Allergy] 180 mg PO DAILY 10/26/18 10/26/18 History fluticasone propionate [Flonase 1 spray INTRANASAL DAILY PRN 10/26/18 10/26/18 History Allergy Relief] glipizide [Glucotrol XL] 5 mg PO DAILY 10/26/18 10/26/18 History hydrochlorothiazide 50 mg PO DAILY PRN 10/26/18 10/26/18 History hydrocodone-acetaminophen 2 tab PO Q4HR 10/26/18 10/26/18 History insulin degludec [Tresiba 55 units SUBCUT DAILY 10/26/18 10/26/18 History FlexTouch U-100] levothyroxine [Synthroid] 200 mcg PO DAILY 10/26/18 10/26/18 History liraglutide [Victoza 2-Rodriguez] 1.2 mg SUBCUT DAILY 10/26/18 10/26/18 History losartan 25 mg PO DAILY 10/26/18 10/26/18 History montelukast [Singulair] 10 mg PO QPM 10/26/18 10/26/18 History moniplqf-zey-OZ-lycopen-lutein 1 tab PO DAILY 10/26/18 10/26/18 History [Centrum Silver] pregabalin 50 mg PO TID 10/26/18 10/26/18 History rabeprazole [Aciphex] 20 mg PO DAILY 10/26/18 10/26/18 History tolterodine [Detrol LA] 4 mg PO DAILY 10/26/18 10/26/18 History Allergies Allergy/AdvReac Type Severity Reaction Status Date / Time cefamandole [From Mandol] AdvReac Verified 10/26/18 19:11 clindamycin AdvReac Verified 10/26/18 19:11 heparin AdvReac Verified 10/26/18 19:11 meperidine [From Demerol] AdvReac Verified 10/26/18 19:11 naproxen AdvReac Verified 10/26/18 19:11 NSAIDS (Non-Steroidal AdvReac Verified 10/26/18 19:11 Anti-Inflamma promethazine [From Phenergan] AdvReac Verified 10/26/18 19:11 rofecoxib [From Vioxx] AdvReac Verified 10/26/18 19:11 sulfamethoxazole AdvReac Verified 10/26/18 19:11 [From Septra] trimethoprim [From Septra] AdvReac Verified 10/26/18 19:11 Review of Systems Review of Systems All systems reviewed & are unremarkable except as noted in HPI and below Exam Vital Signs (past 8 hours): - 10/26/18 18:50 10/26/18 19:12 10/26/18 20:00 Temperature 100.7 F H 100.7 F H Pulse Rate 120 H 114 H Respiratory Rate 18 24 Blood Pressure 142/81 H Blood Pressure [Right Arm] 151/73 H Pulse Oximetry 96 99 10/26/18 20:45 10/26/18 21:05 10/26/18 21:14 Temperature 101.3 F H Pulse Rate 103 H 104 H Respiratory Rate 16 24 Blood Pressure Blood Pressure [Right Arm] 123/46 L 109/49 L Pulse Oximetry 96 96 10/26/18 22:00 10/26/18 22:39 10/26/18 22:40 Temperature 102.7 F H Pulse Rate 115 H 112 H Respiratory Rate 28 H 22 Blood Pressure 107/83 Blood Pressure [Right Arm] 118/78 Pulse Oximetry 96 94 10/26/18 22:55 Temperature 99.9 F H Pulse Rate 109 H Respiratory Rate 20 Blood Pressure 117/59 L Blood Pressure [Right Arm] Pulse Oximetry 95 Oxygen Delivery Method Room Air Oxygen Flow Rate 0 Narrative Exam Narrative: Constitutional: NAD Neurologic: Awake. Alert to self and reason for hospital admission. States incorrect year and season. Forgetful. Difficulty with short-term memory. No facial asymmetry or unilateral deficits. Head: NC, AT Eyes: PERRL, EOMI, Ears: external ears normal, no otorrhea Nose: external nose normal, no rhinorrhea or epistaxis Throat: dry MM, oropharynx w/o exudate Neck: no masses, lymphadenopathy, or JVD Chest / Respiratory: equal chest rise, unlabored respiratory effort, no dyspnea or tachypnea, CTAB Heart / CV: S1S2, tachycardic, no murmur Abdomen / GI: Apparent abdominal deformity, abdominal hernia noted, soft, hyperactive bowel sounds, nontender to palpation : no suprapubic tenderness, no CVA Peripheral / Vascular: warm to touch, DP and PT pulses palpable, BLE edema L 3+ > R 1+, chronic lymphedema Musc: full ROM of upper, diminished lower extremity ROM (chronic); no pain with palpation of lower extremity joints No tenderness of left or right knee with palpation, there is tenderness of the left lateral aspect of the leg surrounding the incision site Skin: no ecchymosis or suspicious lesions / ulcers, chronic lymphedema, Left lower extremity lateral incision with purulent drainage (it's difficult to note if it's completely cloudy) Objective Labs Result Diagrams: 10/26/18 19:23 10/26/18 19:23 Labs: Laboratory Results - last 24 hr 10/26/18 10/26/18 10/26/18 19:05 19:23 19:23 WBC 19.2 H RBC 4.42 Hgb 12.7 Hct 38.3 MCV 86.6 MCH 28.7 MCHC 33.1 RDW 13.3 Plt Count 261 Neut % (Auto) 90.2 H Lymph % (Auto) 3.2 L [place] % (Auto) 6.2 Eos % (Auto) 0.1 L Baso % (Auto) 0.3 Neut # (Auto) 63577 H Lymph # (Auto) 600 L [place] # (Auto) 1200 H Eos # (Auto) 0 Baso # (Auto) 100 Sodium Potassium Chloride Carbon Dioxide BUN Creatinine Estimated GFR BUN/Creatinine Ratio Glucose Lactate Calcium Total Bilirubin AST ALT Alkaline Phosphatase Total Protein Albumin Globulin Albumin/Globulin Ratio Procalcitonin 1.04 H Urine RBC None seen Urine WBC 0-1/hpf Ur Squamous Epith Cells 1-5 /hpf Urine Bacteria None seen Ur Culture Indicated? Cult not indicated 10/26/18 10/26/18 19:23 19:23 WBC RBC Hgb Hct MCV MCH MCHC RDW Plt Count Neut % (Auto) Lymph % (Auto) [place] % (Auto) Eos % (Auto) Baso % (Auto) Neut # (Auto) Lymph # (Auto) [place] # (Auto) Eos # (Auto) Baso # (Auto) Sodium 135 L Potassium 3.8 Chloride 100 Carbon Dioxide 28 BUN 29 H Creatinine 0.80 Estimated GFR > 60.0 BUN/Creatinine Ratio 36.3 H Glucose 128 H Lactate 1.0 Calcium 9.1 Total Bilirubin 0.3 AST 30 ALT 26 Alkaline Phosphatase 86 Total Protein 7.5 Albumin 4.1 Globulin 3.4 Albumin/Globulin Ratio 1.2 Procalcitonin Urine RBC Urine WBC Ur Squamous Epith Cells Urine Bacteria Ur Culture Indicated? Assessment & Plan Assessment & Plan narrative: Patient is being admitted for atypical pneumonia, sepsis, and acute metabolic encephalopathy. Atypical pneumonia, acute, present on admission, active - blood cx pending - cxr w/ findings of atypical pneumonia, repeat CXR (pa and lateral) on 10/28/2018 - urine w/o evidence of an infection - empiric thepapy w/ vancomycin and levofloxacin - consult RT eval and treat - incentive spirometry - labs: Urine antigens, repeat CBC/BMP/Mg/PCT in am Acute metabolic encephalopathy, acute, present on admission, active - improving Suspected to be in the setting of an underlying infection - continue treating underlying infection - avoid HEAD WRESTLING COACH depressing agents, anticholinergics and opioids of possible - IV fluids and empiric therapy - neuro and LOC checks Q4H Sepsis, present on admission, active WBC 19.2, PCT 1.04, presence of an acute organ dysfunction (encephalopathy), potentially purulence drainage from the LLE wound Sources not entirely known... PNA vs atypical pneumonia - receiving IV of bolus per sepsis protocol; then continue IVF at 100 ml/hr - continue empiric therapy with vancomycin and levofloxacin - blood cultures collected in the ED, pending to be followed - obtain wound culture from draining wound site - supportive care LLE wound w/ active copious drainage, subacute, present on admission, active Known to have history of recurrent left lower extremity cellulitis (+ strep sp.), last recurrent several years ago One month s/p excision of cyst, since then has had purulent drainage which has been clear and no concern for an infection until day of admission Patient believes now the drainage is more cloudy than baseline. Developed fever and chills. - obtain wound culture - consult wound care - treat underlying sepsis - continue vancomycin and levofloxacin Essential hypertension, chronic condition, present on admission, active Normotensive. PT regimen consists of losartan 25 mg daily and HCTZ 50 mg daily. - Trend BP - Will hold home antihypertensive regimen at this time in the setting of an acute infection DM 2T, chronic condition, present on admission, stable DM controlled by reports w/ most recent A1C of 6.4% (w/in last 3 mon). AVIATION MAINTENANCE TECHNICIAN regimen consists of Glucotrol, Treciba, and Victoza. - Resume AVIATION MAINTENANCE TECHNICIAN anti glycemic regimen. Patient wishes to use own supply of proceed when Victoza. Plans to provide on 10/19/2018. In the meantime will use SSI. - Glu POC AC/HS Hypothyroidism, chronic condition, present on admission, stable - Resume AVIATION MAINTENANCE TECHNICIAN regimen of Synthroid Patient is a DNR status. Surrogate decision maker is Dereck Posey (, primary) and Nick Taty (son, secondary) Home medications reviewed and reconciled accordingly VTE prophylaxis w/ SCDs, NO HEPARIN h/o HIT Quality VTE Deep Vein Thrombosis/Pulmonary Embolism Present on Admission: No
--- NOTE | 2018-10-27 00:33 | PC.NURSE ---
Addendum entered by Collins Robb R.N. 10/27/18 01:42: 0115: Pt up to bedside commode with assistance. Wound on lt lateral lower leg draining. Allevyn dressing removed; wound is packed with gauze, which remains in wound. Drainage is creamy cash exudate, large amount. Wound cultured as ordered by EVERARDO Edmonds who is at bedside and examined wound. Culture swab sent to lab. Original Note: Data Entry Processor Note: 0020: Awake, alert, oriented X3. Vital signs stable. IVs in place in rt AC and lt hand. Vancomycin infusing in rt AC IV. Resting in bed. at bedside. Awaiting admission orders from EVERARDO Edmonds.
[2018-10-27] MEDS: ACETAMINOPHEN 325 MG TABLET 650 MG PO ×4 (02:08→23:57)
[2018-10-27 07:41] LABS: Add Manual Diff / Slide Review NO; Basophils Absolute Auto 0 /uL (0-100); Basophils Percent Auto 0.2 % (0-2); Eosinophils Absolute Auto 100 /uL (0-450); Eosinophils Percent Auto 0.3 % (2-4); Hematocrit 33.1 % (36-46); Hemoglobin 11.2 g/dL (12.0-16.0); Lymphocytes Absolute Auto 1200 /uL (1100-4500); Lymphocytes Percent Auto 7.3 % (25-40); Mean Corpuscular HGB Conc 33.8 % (30-36); Mean Corpuscular Hemoglobin 29.2 PG (26-34); Mean Corpuscular Volume 86.6 fL (80-100); Monocytes Absolute Auto 1300 /uL (0-900); Monocytes Percent Auto 7.8 % (3-14); Neutrophils Absolute Auto 13600 /uL (1500-7000); Neutrophils Percent Auto 84.4 % (50-75); Platelet Count 235 X10^3/uL (150-400); Red Blood Cell Count 3.82 X10^6/uL (4.0-5.2); Red Cell Distribution Width 13.3 % (11.6-14.8); White Blood Cell Count 16.1 X10^3/uL (4.5-11.0)
[2018-10-27 07:45] LABS: BUN Creatinine Ratio 38.6 (6-22); Blood Urea Nitrogen 27 mg/dL (7-17); Calcium 8.5 mg/dL (8.4-10.2); Carbon Dioxide 28 mmol/L (22-32); Chloride 102 mmol/L (98-107); Estimated Glomerular Filt Rate > 60.0 mL/min (>60); Glucose 99 mg/dL (80-110); HEMOLYSIS < 15 (0-50); Magnesium 1.6 mg/dL (1.6-2.3); Potassium 3.4 mmol/L (3.4-5.1); Sodium 137 mmol/L (137-145)
[2018-10-27 08:14] LABS: Procalcitonin 3.49 ng/mL (<0.5)
[2018-10-27] MEDS: glipiZIDE XL 5 MG TAB PO (08:34)
[2018-10-27] MEDS: MULTIVIT,CALC,MINS/IRON/FOLIC 1 TABLET 1 TAB PO (08:34)
[2018-10-27] MEDS: PREGABALIN 50 MG CAPSULE PO ×3 (08:35→21:55)
[2018-10-27] MEDS: CHOLECALCIFEROL (VITAMIN D3) 5,000 UNIT TABLET 5000 UNIT PO (08:35)
[2018-10-27] MEDS: LEVOTHYROXINE 100 MCG TABLET 200 MCG PO (08:35)
[2018-10-27] MEDS: LORATADINE 10 MG TABLET PO (08:36)
[2018-10-27] MEDS: VANCOMYCIN 1,500 MG/300 ML FROZ.PIGGY 200 MG IV ×2 (08:55→22:02)
[2018-10-27 09:47] LABS: Alanine Aminotransferase 17 IU/L (9-52); Albumin 3.5 g/dL (3.5-5.0); Albumin Globulin Ratio 1.1 (1.0-2.8); Alkaline Phosphatase 73 U/L (38-126); Aspartate Aminotransferase 29 IU/L (14-36); Bilirubin Total 0.4 mg/dL (0.2-1.3); Bilirubin Unconjugated 0.3 mg/dL (0.0-1.1); Globulin 3.2 g/dL (1.7-4.1); HEMOLYSIS < 15 (0-50); Total Protein 6.7 g/dL (6.3-8.2)
[2018-10-27] MEDS: OXYCODONE IR 5 MG TABLET PO ×4 (09:47→23:58)
[2018-10-27 12:10] LABS: INR 1.4 (0.9-1.3); Prothrombin Time 16.5 SECONDS (10.1-12.7)
[2018-10-27 12:12] LABS: PTT Partial Thromboplastin Tim 33 SECONDS (26.4-36.2)
[2018-10-27] MEDS: levoFLOXacin 750 MG/150 ML PIGGYBACK 100 MG IV (13:47)
--- NOTE | 2018-10-27 14:19 | PC.NURSE ---
1415 Wnd care done x 3 this shift. Wnd cont to drain yellow colored fluid, no odor noted. Wnd care consult ordered.
[2018-10-27] MEDS: MONTELUKAST 10 MG TABLET PO (17:40)
[2018-10-27] MEDS: WARFARIN 7.5 MG TABLET PO (17:40)
[2018-10-27] MEDS: INSULIN ASPART 100 UNIT/ML INSULN PEN SUBCUT (17:41)
[2018-10-27] MEDS: SODIUM CHLORIDE 0.9% FLUSH 10 ML IV ×2 (21:55)
[2018-10-27] MEDS: Liraglutide 1.2 MG 1.2 EACH SUBCUT (21:56)
[2018-10-28] VITALS (11 sets, daily range): BP systolic 124–161; BP diastolic 58–97; PULSE 79–88; RESP 16–20; TEMP 36.6–37.3; O2SAT 95–99
[2018-10-28] MEDS: OXYCODONE IR 5 MG TABLET PO ×5 (03:47→20:56)
--- NOTE | 2018-10-28 06:00 | DI.RAD.S_ITS ---
PROCEDURE: XR CHEST 2V INDICATIONS: pneumonia TECHNIQUE: 2 views of the chest were acquired. COMPARISON: [facility], [place], XR CHEST 1V, 10/26/2018, 19:05. FINDINGS: Surgical changes and devices: None. Lungs and pleura: Previous areas of bibasilar and perihilar opacities are less prominent. Mediastinum: Mediastinal contours are normal. Heart size is normal. Bones and chest wall: No suspicious bony abnormalities. Soft tissues appear unremarkable. IMPRESSION: Less prominent appearance of the previous identified these are perihilar opacities suggestive of atypical pneumonia. Dictated by: Ami Calvillo M.D. on 10/28/2018 at 12:41 Approved by: Ami Calvillo M.D. on 10/28/2018 at 12:42
[2018-10-28] MEDS: VANCOMYCIN TROUGH 1 REQUEST MISC (08:30)
[2018-10-28] MEDS: glipiZIDE XL 5 MG TAB PO (08:48)
[2018-10-28] MEDS: CHOLECALCIFEROL (VITAMIN D3) 5,000 UNIT TABLET 5000 UNIT PO (08:48)
[2018-10-28] MEDS: PREGABALIN 50 MG CAPSULE PO ×3 (08:48→20:55)
[2018-10-28] MEDS: MULTIVIT,CALC,MINS/IRON/FOLIC 1 TABLET 1 TAB PO (08:48)
[2018-10-28] MEDS: LEVOTHYROXINE 100 MCG TABLET 200 MCG PO (08:48)
[2018-10-28] MEDS: ACETAMINOPHEN 325 MG TABLET 650 MG PO ×2 (08:48→17:21)
[2018-10-28] MEDS: LORATADINE 10 MG TABLET PO (08:49)
--- NOTE | 2018-10-28 09:01 | P.PN_ITS ---
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 The patient is resting in bed comfortably. She reports decreased range of motion of left lower extremity due to swelling with mild pain. She otherwise denies any pain of her left lower extremity due to peripheral neuropathy. She endorses intermittent chronic cough with clear sputum (usually yellow or green). She endorses subjective fever and chills overnight. She has no other complaints and denies headache, ear pain, rhinitis, sore throat, shortness of breath, chest pain, abdominal pain, nausea, vomiting, fever, chills, dysuria, diarrhea or constipation. She reports chronic intermittent nausea related to large ventral hernia. She is voiding and eliminating without difficulty. She is up ambulating with assistance. Exam Vital Signs (past 8 hours): - 10/28/18 02:59 10/28/18 07:40 Temperature 99.1 F 97.8 F Pulse Rate 82 80 Respiratory Rate 18 16 Blood Pressure 124/87 161/97 H Pulse Oximetry 99 98 Fraction of Inspired Oxygen 21 Oxygen Delivery Method Room Air Oxygen Flow Rate 0 Narrative Exam Narrative: General: Older female sitting in bed and in now acute distress, well-developed, well-nourished, appropriately interactive. HEENT: Normocephalic, atraumatic. External ears without defect. Pupils equal, round, and reactive to light. Anicteric sclerae, moist conjunctivae, and no lid lag. Oropharynx free of erythema and cobble stoning with moist mucosa. Neck: Supple with full range of motion. No jugular venous distension. No lymphadenopathy or thyromegaly. Cardiovascular: Regular rate and rhythm without murmurs, rubs, or gallops appreciated. Pulmonary: Clear to auscultation bilaterally with occassional fine crackle at bases. No wheezes or rhonchi. Normal respiratory effort with no use of accessory muscles. Abdomen: Soft, bowel tones present, non-tender. Large ventral hernia that is soft but due to size non reducible and without pain. No hepatosplenomegaly or masses appreciated. Extremities: No clubbing or cyanosis. Chronic mild to moderate lower extremity lymphedema with bilateral stasis dermatitis. Chronic wound of left leg adjacent and posterior to knee with granulation tissue and milky/serous exudate. Skin: Normal temperature, turgor, and texture; no rash, ulcers, or subcutaneous nodules appreciated. Neurological: Cranial nerves grossly intact. Psychiatric: Normal mood and affect. Alert and oriented to person, place, and time. Objective Labs Result Diagrams: 10/28/18 08:34 10/27/18 06:43 Labs: Laboratory Results - last 24 hr 10/27/18 10/27/18 06:43 06:43 PT 16.5 H INR 1.4 H APTT 33 Total Bilirubin 0.4 Conjugated Bilirubin 0.0 Unconjugated Bilirubin 0.3 AST 29 ALT 17 Alkaline Phosphatase 73 Total Protein 6.7 Albumin 3.5 Globulin 3.2 Albumin/Globulin Ratio 1.1 Assessment & Plan Assessment & Plan narrative: Leticia Posey is a 68-year-old female with a complex past medical history including hypertension, morbid obesity (BMI 42.9) with prior history of gastric bypass surgery, hypothyroidism, osteoarthritis (h/o repair of multiple joints and presence of orthopedic hardware), diabetes mellitus type 2, insulin using, chronic left lower extremity lymphedema, previous left lower extremity DVT ( saphenous vein, 2000), AMBER syndrome (2004), 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 1. Acute sepsis, present on admission. Resolved. -Sepsis criteria met including: Leukocytosis (WBC 19.2), tachycardic (HR 120) PCT 1.04, presence of an acute organ dysfunction (encephalopathy) and source LLE surgical wound with purulence drainage. -Early goal-directed therapy met including: IV fluid resuscitation and broad- spectrum antibiotics.- receiving IV of bolus per sepsis protocol; then continue IVF at 100 ml/hr 2. Acute metabolic encephalopathy, present on admission. Resolved. -Secondary to underlying infection and continue to treat as below. -Avoid SWEEP PRESS OPERATOR depressing agents, anticholinergics and opioids if possible. -Continue IV fluids until adequately hydrated then discontinued. -Continued neuro checks every 4 hours until encephalopathy resolved. 3. Infected left lower extremity surgical wound with copious purulent drainage, subacute, present on admission. Active. -Known to have history of recurrent strep left lower extremity cellulitis due to chronic lymphedema with last recurrence several years ago. Patient is chronically on penicillin VK per Infectious Disease at [facility]. -Patient now status post excision of chronic left lower extremity with copious drainage which has been clear and no concern for an infection until day of admission when became purulent with associated fever and chills. -Initial WBC 19.2 and procalcitonin 1.04. Continued to monitor white count and procalcitonin now resolving. -Obtained wound culture which is preliminarily growing gram-positive cocci. -Consulted wound care for evaluation and treatment. We appreciate their time and care of the patient. Per previous provider Dr. Giraldo he had a discussion with patient's Orthopedic surgeon, Dr. Anderson, yesterday who recommended wound VAC and continued antibiotics based on wound culture results. Patient's orthopedic surgeon does not believe this is communicating with knee joint. -Continue vancomycin with dosing per pharmacist and levofloxacin 750 mg daily pending wound culture results. 4. Possible atypical pneumonia, present on admission. Resolving. -Patient presented with confusion and fever without any complaints of upper respiratory tract symptoms. Do not believe this is infectious source of sepsis and less likely that patient has atypical pneumonia. -Chest x-ray read as atypical pneumonia. Repeat chest x-ray demonstrated resolving atypical pneumonia. -Complete pneumonia workup ordered including: Respiratory viral PCR negative. Legionella urine antigen pending. Strep pneumoniae urine antigen not ordered for unclear reasons. Blood cultures have no growth to date. -Continue antibiotics as above. 5. Hypertension, chronic, present on admission. Stable. -Held antihypertensives initially due to sepsis from infection. Restarted losartan 25 mg daily today and continue to hold hydrochlorothiazide which is dosed as needed. 6. Diabetes mellitus type II, insulin using, chronic, present on admission. Stable. -Hemoglobin A1c 6.0%. -Continue home anti-hyperglycemic regimen as the patient wishes to use her own supply of Tresiba and Victoza. -Patient refusing correctional scale insulin. -Continue ACHS blood glucose checks. -Continue carbohydrate consistent diet. 7. Hypothyroidism, chronic, present on admission. Stable. -Continue home levothyroxine 200 mcg daily. Patient is a DNR status. Surrogate decision maker is Dereck Posey (, primary) and Nick Taty (son, secondary). VTE prophylaxis with SCDs and warfarin. NO HEPARIN as patient has history of AMBER. Disposition: Patient likely to discharge in 1-2 days depending on improvement in left lower extremity wound infection and plan for wound care follow-up with Orthopedic surgery and wound Care Clinic. Quality VTE Deep Vein Thrombosis/Pulmonary Embolism Present on Admission: No
[2018-10-28 09:24] LABS: Add Manual Diff / Slide Review NO; Basophils Absolute Auto 0 /uL (0-100); Basophils Percent Auto 0.3 % (0-2); Eosinophils Absolute Auto 100 /uL (0-450); Eosinophils Percent Auto 0.7 % (2-4); Hematocrit 33.3 % (36-46); Hemoglobin 11.2 g/dL (12.0-16.0); Lymphocytes Absolute Auto 1100 /uL (1100-4500); Lymphocytes Percent Auto 10.6 % (25-40); Mean Corpuscular HGB Conc 33.7 % (30-36); Mean Corpuscular Hemoglobin 29.1 PG (26-34); Mean Corpuscular Volume 86.4 fL (80-100); Monocytes Absolute Auto 900 /uL (0-900); Monocytes Percent Auto 8.6 % (3-14); Neutrophils Absolute Auto 8100 /uL (1500-7000); Neutrophils Percent Auto 79.8 % (50-75); Platelet Count 219 X10^3/uL (150-400); Red Blood Cell Count 3.85 X10^6/uL (4.0-5.2); Red Cell Distribution Width 13.7 % (11.6-14.8); White Blood Cell Count 10.2 X10^3/uL (4.5-11.0)
[2018-10-28 09:58] LABS: Vancomycin Trough 6.5 ug/mL (10-20)
[2018-10-28] MEDS: VANCOMYCIN 1,500 MG/300 ML FROZ.PIGGY 200 MG IV ×2 (10:26→20:55)
[2018-10-28] MEDS: SODIUM CHLORIDE 0.9% FLUSH 10 ML IV ×2 (10:27→21:03)
[2018-10-28 10:34] LABS: Procalcitonin 1.82 ng/mL (<0.5)
[2018-10-28 10:46] LABS: Adenovirus Not Detected (Not Detect); Bordetella pertussis Not Detected (Not Detect); Chlamydophila pneumoniae Not Detected (Not Detect); Coronavirus 229E Not Detected (Not Detect); Coronavirus HKU1 Not Detected (Not Detect); Coronavirus NL 63 Not Detected (Not Detect); Coronavirus OC43 Not Detected (Not Detect); Human Metapneumovirus Not Detected (Not Detect); Human Rhinovirus/Enterovirus Not Detected (Not Detect); Influenza A Not Detected (Not Detect); Influenza B Not Detected (Not Detect); Mycoplasma pneumoniae Not Detected (Not Detect); Parainfluenza Virus 1 Not Detected (Not Detect); Parainfluenza Virus 2 Not Detected (Not Detect); Parainfluenza Virus 3 Not Detected (Not Detect); Parainfluenza Virus 4 Not Detected (Not Detect); Respiratory Syncytial Virus Not Detected (Not Detect)
--- NOTE | 2018-10-28 13:10 | PC.NURSE ---
Wound Care Consult Note: Jadyn Alfaro RN and Dr. Darron Greer 10/27/18 Patient sitting in the recliner chair with legs elevated. Her is at her side. She has a dressing, border foam, over her left leg wound. Dr Greer removed dressing and there is a large amount of purulent drainage. The wound base is not visualized as there is slough in the base. The wound drains continuously. The wound measures 1.2 x 0.6 x 1.9. There is a tunnel at 1:00 measuring 4.0cm. This is a surgical wound from removal of seroma. Her left leg is visibly larger and it is warmer to touch. There is not erythema noted. Patient states that she has lymphedema in her left leg due to several surgeries. She has had a knee replacement and is in contact with her orthopedic surgeon. Dr. Greer cleaned the wound and took a swab culture. I redressed the wound with a superasorbant dressing and kerlix since there were no border foams available. We would like to follow up with Mrs. Posey in the wound care center upon discharge.
[2018-10-28] MEDS: levoFLOXacin 750 MG/150 ML PIGGYBACK 100 MG IV (13:25)
--- NOTE | 2018-10-28 14:34 | PC.NURSE ---
1230 Pt has been refusing coverage w/Novolog insuliln. Pt using the approved meds from home. Pt states she ate 2 cookies and drank some mocha beverage her friend gave her. Glucose is 283 per finger stick. Pt states her AM dose of insulin will cover this.
--- NOTE | 2018-10-28 16:19 | CM.IDA ---
DCP: Met w/pt and spouse at bedside, pt is a retired ICU nurse. Pt/spouse both frustrated this afternoon waiting to hear what is next in medical POC, when/how will wound vac be placed, when will pt be ready for DC home ? Kept this visit brief. Pt eager to return home, spouse to assist. Pt asks this [employer] for a walker upon DC to assist w/unsteady gait sec to edema in legs. Will discuss w/therapy team. P: DC home w/family and likely wound vac, ordered by Jadyn Alfaro RN, if pt requires it. pt wants to f/u at wound care clinic upon DC. Spouse pov to transport home. MARCELINO Mckeon
[2018-10-28] MEDS: MONTELUKAST 10 MG TABLET PO (17:21)
[2018-10-28] MEDS: WARFARIN 5 MG TABLET 10 MG PO (19:30)
[2018-10-28] MEDS: Liraglutide 1.2 MG 1.2 EACH SUBCUT (21:00)
[2018-10-29] MEDS: OXYCODONE IR 5 MG TABLET PO ×2 (00:35→11:31)
[2018-10-29] MEDS: ACETAMINOPHEN 325 MG TABLET 650 MG PO ×2 (00:35→10:04)
--- NOTE | 2018-10-29 01:53 | PC.NURSE ---
Reassessed medication administration at this time. Patient is currently sleeping.
[2018-10-29 01:58] VITALS: O2SAT 95
--- NOTE | 2018-10-29 03:57 | PC.NURSE ---
Addendum entered by Clare Maldonado R.N. 10/29/18 04:21: Left lateral knee dressing changed, weeping serous drainage noted, no swelling, redness or odor noted. Allevyn dsg applied. Patient tolerated procedure well. Original Note: Patient sitting up at bedside, able to ambulate with walker to restroom independently. Dressing on left lateral knee CDI. Denies pain at this time.
[2018-10-29 04:15] VITALS: BP 127/101; PULSE 76; RESP 16; TEMP 36.9; O2SAT 99
[2018-10-29 05:58] LABS: Add Manual Diff / Slide Review NO; Basophils Absolute Auto 0 /uL (0-100); Basophils Percent Auto 0.5 % (0-2); Eosinophils Absolute Auto 100 /uL (0-450); Eosinophils Percent Auto 1.5 % (2-4); Hemoglobin 11.1 g/dL (12.0-16.0); Lymphocytes Absolute Auto 1400 /uL (1100-4500); Lymphocytes Percent Auto 15.6 % (25-40); Mean Corpuscular HGB Conc 33.7 % (30-36); Mean Corpuscular Volume 86.1 fL (80-100); Monocytes Absolute Auto 700 /uL (0-900); Monocytes Percent Auto 7.3 % (3-14); Neutrophils Absolute Auto 6900 /uL (1500-7000); Neutrophils Percent Auto 75.1 % (50-75); Platelet Count 226 X10^3/uL (150-400); Red Blood Cell Count 3.84 X10^6/uL (4.0-5.2); Red Cell Distribution Width 13.6 % (11.6-14.8); White Blood Cell Count 9.2 X10^3/uL (4.5-11.0)
[2018-10-29 06:17] LABS: BUN Creatinine Ratio 33.3 (6-22); Blood Urea Nitrogen 20 mg/dL (7-17); Calcium 9.3 mg/dL (8.4-10.2); Carbon Dioxide 25 mmol/L (22-32); Chloride 107 mmol/L (98-107); Estimated Glomerular Filt Rate > 60.0 mL/min (>60); Glucose 97 mg/dL (80-110); HEMOLYSIS < 15 (0-50); Magnesium 1.7 mg/dL (1.6-2.3); Potassium 3.7 mmol/L (3.4-5.1); Sodium 138 mmol/L (137-145)
[2018-10-29 06:35] LABS: Procalcitonin 1.06 ng/mL (<0.5)
[2018-10-29 08:00] VITALS: BP 157/98; PULSE 77; RESP 18; TEMP 36.7; O2SAT 98
[2018-10-29 08:56] LABS: INR 1.2 (0.9-1.3); Prothrombin Time 14.5 SECONDS (10.1-12.7)
[2018-10-29 09:00] VITALS: O2SAT 98
[2018-10-29] MEDS: PREGABALIN 50 MG CAPSULE PO (10:02)
[2018-10-29] MEDS: CHOLECALCIFEROL (VITAMIN D3) 5,000 UNIT TABLET 5000 UNIT PO (10:03)
[2018-10-29] MEDS: MULTIVIT,CALC,MINS/IRON/FOLIC 1 TABLET 1 TAB PO (10:03)
[2018-10-29] MEDS: LOSARTAN 25 MG TABLET PO (10:04)
[2018-10-29] MEDS: LEVOTHYROXINE 100 MCG TABLET 200 MCG PO (10:04)
[2018-10-29] MEDS: LORATADINE 10 MG TABLET PO (10:04)
--- NOTE | 2018-10-29 10:41 | P.DS_ITS ---
History of Present Illness History of Present Illness Date Patient Seen: 10/27/18 Chief complaint: Sepsis, leg infection Narrative: Written by Miley MCGEE: The patient is a 68-year-old female with complex PMH. 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 Patient is known to have a history of re-current cellulitis of left lower extremity (with last recurrent several years ago) and lifetime penicillin prophylaxis. Recently (1 month ago by report) has had an excision of a cyst from left lower extremity. Post-procedure patient was started on 2 week course of cephalexin. She is followed by orthopedic surgery and I/D. She was seen by the infectious disease, Roni Acuna on 10/26/18. Per note from patient's visit, the I/D did not think that there was an active infectin in the LLE and did not deem drainage coming from the incision site infectious. At time of her visit cephalexin was discontinued and patient was started on ampicillin/sulbactam. Change in medication is temporary and was being made because patient has plans to travel to [place], [place]. After her return, she is to resume her routine prophylactic regimen w/ penicillin. Patient presented to the ED with fever and confusion. Until 10/26/2018 patient reports being asymptomatic. Earlier in the morning today she has developed subjective fever, chills, and confusion as the day progressed. She reports significantly more pain in the left lower extremity at around the side of an incision. There is no new left knee pain (known to have left knee orthopedic hardware in place). The drainage patient has been experiencing has been clear; however, patient's notes the drainage to be slightly more darker than before. There is no blood. There is underlying left lower extremity edema. No erythema or warmth. Known to have neuropathy and diminished sensation of lower extremities. Patient is known to have recurrent pneumonias, which frequently are classified as atypical. She is unable to recall any specific organisms that have been grown in the past. Also known to have recurrent UTIs. Denies cough, URI symptoms, purulence, chest pain, palpitations, dizziness, lightheadedness, abdominal pain, nausea, vomiting, and diarrhea. Denies urinary frequency and hematuria. Discharge Providers Provider Date of admission: 10/26/18 21:54 Discharge Date: 10/29/18 Consults: 10/27/18 00:45 Consult to Respiratory Therapy Evaluate & Treat Comment: Physician Instructions: Evaluate and treat 10/27/18 02:16 Consult to Wound Care Routine Comment: Consulting Provider: [facility] 10/27/18 17:28 Consult to General Surgery Routine Comment: Consulting Provider: Trevor Lema Reason for consultation: evaluation of possible L knee abscess Has provider been notified: Yes 10/28/18 09:00 Consult to Physical Therapy Evaluate & Treat Comment: Physician Instructions: Evaluate and Treat Discharge provider: Aspen Powers DO Summary Hospital Course Discharge Diagnosis: 1. Acute sepsis, present on admission. Resolved. 2. Acute metabolic encephalopathy, present on admission. Resolved. 3. Infected left lower extremity surgical wound with copious purulent drainage, subacute, present on admission. Active. 4. Unlikely atypical pneumonia. 5. Hypertension, chronic, present on admission. Stable. 6. Diabetes mellitus type II, insulin using, chronic, present on admission. Stable. 7. Hypothyroidism, chronic, present on admission. Stable. 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 1. Acute sepsis, present on admission. Resolved. -Sepsis criteria met including: Leukocytosis (WBC 19.2), tachycardic (HR 120) PCT 1.04, presence of an acute organ dysfunction (encephalopathy) and source LLE surgical wound with purulence drainage. -Early goal-directed therapy met including: IV fluid resuscitation and broad- spectrum antibiotics.- receiving IV of bolus per sepsis protocol; then continue IVF at 100 ml/hr 2. Acute metabolic encephalopathy, present on admission. Resolved. -Secondary to underlying infection and continue to treat as below. -Avoid [employer] depressing agents, anticholinergics and opioids if possible. -Continued IV fluids until adequately hydrated then discontinued. -Continued neuro checks every 4 hours until encephalopathy resolved. 3. Infected left lower extremity surgical wound with copious purulent drainage, subacute, present on admission. Active. -Known to have history of recurrent strep left lower extremity cellulitis due to chronic lymphedema with last recurrence several years ago. Patient is chronically on penicillin VK per Infectious Disease at [facility]. -Patient now status post excision of chronic left lower extremity with copious drainage which has been clear and no concern for an infection until day of admission when became purulent with associated fever and chills. -Initial WBC 19.2 and procalcitonin 1.04. Continued to monitor white count and procalcitonin now resolving. -Obtained wound culture which is preliminarily growing gram-positive cocci. -Consulted wound care for evaluation and treatment. We appreciate their time and care of the patient. Per previous provider Dr. Giraldo he had a discussion with patient's Orthopedic surgeon, Dr. Anderson, yesterday who recommended wound VAC and continued antibiotics based on wound culture results and does not believe this is communicating with knee joint. Patient to have wound vac placed next week per Dr. Sandhu at wound care clinic. -Continued vancomycin with dosing per pharmacist and levofloxacin 750 mg daily pending wound culture results which grew enterococcus faecalis senstive to amoxicillin. Attempted to contact patient's infectious disease specialist Dr. Acuna and was unsuccessful. [facility] ID recommended short 7 day course of Augmentin and resume pen VK with close follow-up with her ID provider. -Provided FWW for stability as patient has mild limited ROM and mild instability due to infected wound and chronic lymphedema. 4. Unlikely atypical pneumonia. -Patient presented with confusion and fever without any complaints of upper respiratory tract symptoms. Do not believe this is an active infection or source of sepsis and less likely that patient has atypical pneumonia. -Chest x-ray read as atypical pneumonia. Repeat chest x-ray demonstrated resolving possible atypical pneumonia vs atelctasis. -Complete pneumonia workup ordered including: Respiratory viral PCR negative. Legionella urine antigen pending. Strep pneumoniae urine antigen not ordered for unclear reasons. Blood cultures have no growth to date. -Continued antibiotics as above. 5. Hypertension, chronic, present on admission. Stable. -Held antihypertensives initially due to sepsis from infection. Restarted losartan 25 mg daily today and continue to hold hydrochlorothiazide which is dosed as needed. 6. Diabetes mellitus type II, insulin using, chronic, present on admission. Stable. -Hemoglobin A1c 6.0%. -Continued home anti-hyperglycemic regimen as the patient wishes to use her own supply of Tresiba and Victoza. -Patient refusing correctional scale insulin. -Continued [facility] blood glucose checks. -Continue dcarbohydrate consistent diet. 7. Hypothyroidism, chronic, present on admission. Stable. -Continued home levothyroxine 200 mcg daily. Exam Vital Signs (past 8 hours): - 10/29/18 04:15 10/29/18 08:00 Temperature 98.4 F 98.1 F Pulse Rate 76 77 Respiratory Rate 16 18 Blood Pressure 127/101 H 157/98 H Pulse Oximetry 99 98 Fraction of Inspired Oxygen 21 Oxygen Delivery Method Room Air Oxygen Flow Rate 0 Narrative Exam Narrative: General: Older female sitting in bed and in now acute distress, well-developed, well-nourished, appropriately interactive. HEENT: Normocephalic, atraumatic. External ears without defect. Pupils equal, round, and reactive to light. Anicteric sclerae, moist conjunctivae, and no lid lag. Oropharynx free of erythema and cobble stoning with moist mucosa. Neck: Supple with full range of motion. No jugular venous distension. No lymphadenopathy or thyromegaly. Cardiovascular: Regular rate and rhythm without murmurs, rubs, or gallops appreciated. Pulmonary: Clear to auscultation bilaterally with occassional fine crackle at bases. No wheezes or rhonchi. Normal respiratory effort with no use of accessory muscles. Abdomen: Soft, bowel tones present, non-tender. Large ventral hernia that is soft but due to size non reducible and without pain. No hepatosplenomegaly or masses appreciated. Extremities: No clubbing or cyanosis. Chronic mild to moderate lower extremity lymphedema with bilateral stasis dermatitis. Surgical wound of left leg adjacent and posterior to knee with mild warmth and purulent exudate, slightly improved. Skin: Normal temperature, turgor, and texture; no rash, ulcers, or subcutaneous nodules appreciated. Neurological: Cranial nerves grossly intact. Psychiatric: Anxious mood and normal affect. Alert and oriented to person, place, and time. Objective Labs Result Diagrams: 10/29/18 05:41 10/29/18 05:41 Labs: Laboratory Results - last 24 hr 10/28/18 10/29/18 10/29/18 09:03 05:41 05:41 WBC 9.2 RBC 3.84 L Hgb 11.1 L Hct 33.0 L MCV 86.1 MCH 29.0 MCHC 33.7 RDW 13.6 Plt Count 226 Neut % (Auto) 75.1 H Lymph % (Auto) 15.6 L Dukes % (Auto) 7.3 Eos % (Auto) 1.5 L Baso % (Auto) 0.5 Neut # (Auto) 6900 Lymph # (Auto) 1400 Dukes # (Auto) 700 Eos # (Auto) 100 Baso # (Auto) 0 PT INR Sodium Potassium Chloride Carbon Dioxide BUN Creatinine Estimated GFR BUN/Creatinine Ratio Glucose Calcium Magnesium Procalcitonin 1.06 H Chlamy pneumoniae PCR Not detected Adenovirus (PCR) Not detected B.parapertussis DNA PCR Not detected Coronavirus OC43 (PCR) Not detected Coronavirus HKU1 (PCR) Not detected Coronavirus 229E (PCR) Not detected Coronavirus NL63 (PCR) Not detected Human Metapneumovir PCR Not detected Influenza Type A (PCR) Not detected Influenza Type B (PCR) Not detected M. pneumoniae (PCR) Not detected Parainfluenza 1 (PCR) Not detected Parainfluenza 2 (PCR) Not detected Parainfluenza 3 (PCR) Not detected Parainfluenza 4 (PCR) Not detected RSV (PCR) Not detected Entero/Rhino (PCR) Not detected 10/29/18 10/29/18 05:41 08:28 WBC RBC Hgb Hct MCV MCH MCHC RDW Plt Count Neut % (Auto) Lymph % (Auto) Dukes % (Auto) Eos % (Auto) Baso % (Auto) Neut # (Auto) Lymph # (Auto) Dukes # (Auto) Eos # (Auto) Baso # (Auto) PT 14.5 H INR 1.2 Sodium 138 Potassium 3.7 Chloride 107 Carbon Dioxide 25 BUN 20 H Creatinine 0.60 Estimated GFR > 60.0 BUN/Creatinine Ratio 33.3 H Glucose 97 Calcium 9.3 Magnesium 1.7 Procalcitonin Chlamy pneumoniae PCR Adenovirus (PCR) B.parapertussis DNA PCR Coronavirus OC43 (PCR) Coronavirus HKU1 (PCR) Coronavirus 229E (PCR) Coronavirus NL63 (PCR) Human Metapneumovir PCR Influenza Type A (PCR) Influenza Type B (PCR) M. pneumoniae (PCR) Parainfluenza 1 (PCR) Parainfluenza 2 (PCR) Parainfluenza 3 (PCR) Parainfluenza 4 (PCR) RSV (PCR) Entero/Rhino (PCR) Discharge Plan Discharge Plan Patient Disposition: Home Discharge comment: You're being discharged home. Please follow-up at your scheduled appointment with wound care next week for your wound VAC placement and continued management of your wound, as well as, your PCP, Dr. Tam, regarding your hospitalization and continued diabetic management. Recommend your glipizide be discontinued due to risk of hypoglycemic emergency as your A1c is 6.0% and then continued titration down on your insulin as appropriate per your PCP. Please make appointments to see both Dr. Holloway and Dr. Acuna regarding continued management of your left lower extremity surgical wound. Please continue Augmentin for 7 days and then resume penicillin VK until you receive further recommendations from Dr. Acuna. You have been provided a forward wheeled walker to help with ambulation and balance and stability. Discharge Med Rec/Prescriptions Prescriptions: New amoxicillin-pot clavulanate 875-125 mg tablet 1 tab PO BID 7 Days Qty: 14 RF: 0 Continued celecoxib 200 mg capsule 200 mg PO DAILY RF: 0 rabeprazole [Aciphex] 20 mg Tablet,Delayed Release (Dr/Ec) 20 mg PO DAILY RF: 0 hydrochlorothiazide 50 mg tablet 50 mg PO DAILY PRN (Reason: Pain (Scale Score 4-6)) RF: 0 tolterodine 4 mg capsule,extended release 24hr 4 mg PO DAILY RF: 0 losartan 25 mg Tablet 25 mg PO DAILY RF: 0 montelukast [Singulair] 10 mg Tablet 10 mg PO QPM RF: 0 levothyroxine 200 mcg tablet 200 mcg PO DAILY RF: 0 pregabalin 50 mg Capsule 50 mg PO TID RF: 0 liraglutide 0.6 mg/0.1 mL (18 mg/3 mL) pen injector 1.2 mg subcut DAILY RF: 0 insulin degludec 100 unit/mL (3 mL) insulin pen 55 units subcut DAILY RF: 0 cyclobenzaprine 10 mg tablet 10 mg PO TID PRN (Reason: Muscle Spasm) RF: 0 fexofenadine [Janet Allergy] 180 mg Tablet 180 mg PO DAILY RF: 0 hydrocodone-acetaminophen 7.5-325 mg tablet 2 tab PO Q4HR RF: 0 albuterol sulfate 90 mcg/actuation Hfa Aerosol Inhaler 2 puff INHALATION Q6H PRN (Reason: SOB) RF: 0 fluticasone propionate [Flonase Allergy Relief] 50 mcg/actuation [place],Susp ension 1 spray intranasal DAILY PRN (Reason: Congestion) RF: 0 Centrum Silver 0.4-300-250 mg-mcg-mcg Tablet 1 tab PO DAILY RF: 0 cholecalciferol (vitamin D3) [Vitamin D3] 5,000 unit Tablet 5,000 unit PO DAILY RF: 0 warfarin 10 mg Tablet 10 mg PO [id number] RF: 0 Discontinued glipizide [Glucotrol XL] 5 mg Tablet Extended Release 24hr 5 mg PO DAILY RF: 0 Follow up/Referrals: Rosi Tam MD [Non-Staff] - 11/04/18 10:40 am (appt:11/04 @ 10:40 dr rios please arrive 15 minutes prior to your scheduled appointment ) Darron Sandhu MD [Physician] - 11/03/18 2:45 pm (appt:11/03 (thu) @ 2:45 check in will be seen @ 3:[address] sandhu @ wound care center located at [facility] [phone]) Provider Discharge Instructions Diet: Carb-consistent/Diabetic, Low-fat, Low-sodium and Low-cholesterol Activity: Activity as tolerated with 4 wheeled walker Other treatments: PER DR. SANDHU: CLEANSE W/ NS AND GAUZE, PAT DRY. APPLY ALGISITE, THEN XTRASORB AND SECURE WITH GAUZE ROLL. CHANGE DRESSING ONCE A DAY AND NEEDED IF SATURATING. FOLLOW UP WITH DR. SANDHU NEXT WEEK. Visit Report/Discharge Packet Instructions: DI for Wound Infection Discharges patient from system. Discharge Date/Time: 10/29/18 13:15 Quality VTE Deep Vein Thrombosis/Pulmonary Embolism Present on Admission: No
--- NOTE | 2018-10-29 11:24 | CM.DPNOTE ---
DC Note: Patient discussed in multidisciplinary rounds this morning. Pt will be DC home today and pt is eager to return home and f/u w/established outpt providers, Ortho and ID doc. Pt will f/u at the wound care clinic and wound vac will be placed in the outpt setting. Patient can be given a walker upon DC per PT team, order placed by PAULINA Jones w/verbal sign off from Dr Powers this morning. Pt experiencing decreased range of motion, pain and weakness d/t severity of her leg swelling and infection but has reported she can get around w/use of walker. P: DC home today w/spouse via pov and close outpt f/u for infection and wound healing. MARCELINO Mckeon
[2018-10-29 12:00] VITALS: BP 154/71; PULSE 78; RESP 19; TEMP 36.6; O2SAT 98
--- NOTE | 2018-10-29 13:20 | PC.NURSE ---
DISCHARGE: ALYSA NAVAS CAME UP AND GAVE WOUND DRSG SUPPLIES AND ORDERS FROM DR. SANDHU. DRSG CHANGED PER ORDERS, OLD DRSG SATURATED 50%. SEROUS FLUID. NO ODOR. WOUND EDGES INTACT. WOUND BASE WHITE ADHERENT SLOUGH. CLEANSED W/ NS AND GAUZE, APPLIED ALGISITE, AND MAXORB THEN WRAPPED WITH CLING. THE EXTRA DRSG SUPPLIES WERE SUPPLIED TO PATIENT PER ELOISE INSTRUCTION FROM WOUND CARE STOCK. PATIENT CONFIRMS UNDERSTANDING OF INSTRUCTIONS FOR DRSG CHANGE AND WOUND CARE INSTRUCTIONS, AND ALL OF THE DC INSTRUCTIONS PROVIDED INCLUDING F/U APPTS AND APPTS SHE STILL NEEDS TO SCHEDULE. PATIENT LEFT W/ SPOUSE AND ALL BELONGINGS AND PAPERWORK IN NO S/SX'S OF DISTRESS BY WC WITH BATCH OPERATOR ESCORT.
== END 2018-10-29 13:15 | disposition home or self-care (01) | DRG 862 ==
LOC: ED 21:37 → AC 21:55
PROVIDERS: Internal Medicine; Admitting Provider Nurse Practitioner Gerontology; Emergency Provider Emergency Medicine; Visit Provider Nurse Practitioner Gerontology
DX: T81.41XA Infection following a procedure, superficial incisional surgical site, initial encounter (principal); A41.9 Sepsis, unspecified organism; G93.41 Metabolic encephalopathy; R65.20 Severe sepsis without septic shock; L03.116 Cellulitis of left lower limb; Z68.41 Body mass index [BMI] 40.0-44.9, adult; E66.01 Morbid (severe) obesity due to excess calories; B95.2 Enterococcus as the cause of diseases classified elsewhere; Z16.29 Resistance to other single specified antibiotic; I10 Essential (primary) hypertension; Z98.84 Bariatric surgery status; E03.9 Hypothyroidism, unspecified; E11.9 Type 2 diabetes mellitus without complications; Z79.84 Long term (current) use of oral hypoglycemic drugs
CPT/HCPCS: 36415; 36591; 70450; 71045; 71046; 80048; 80053; 80076; 80202; 81003; 81015; 82962; 83036; 83605; 83735; 84145; 85025; 85610; 85730; 87040; 87070; 87075; 87077; 87186; 87205; 87449; 87633; 94760; 94762; 96365; 96368; 96375; 99284; 99285; J1885; J1956

== ENCOUNTER → 2018-11-03 14:57 | Outpatient (CLI) | payer OTHER, MEDICARE, SELFPAY ==
[2018-10-26 22:45] VITALS: BMI 42.9
== END ==
PROVIDERS: PCP Internal Medicine; Visit Provider Family Medicine
DX: E11.628 Type 2 diabetes mellitus with other skin complications (principal); E11.622 Type 2 diabetes mellitus with other skin ulcer; T81.31XA Disruption of external operation (surgical) wound, not elsewhere classified, initial encounter; S81.802A Unspecified open wound, left lower leg, initial encounter; I89.0 Lymphedema, not elsewhere classified; L03.116 Cellulitis of left lower limb; Z79.01 Long term (current) use of anticoagulants; I10 Essential (primary) hypertension
CPT/HCPCS: 11042; 97607; 99203; 99213

== ENCOUNTER → 2018-11-05 08:31 | Outpatient (CLI) | payer OTHER, MEDICARE, SELFPAY ==
[2018-10-26 22:45] VITALS: BMI 42.9
== END ==
PROVIDERS: PCP Internal Medicine; Visit Provider Family Medicine
DX: S81.802A Unspecified open wound, left lower leg, initial encounter (principal)
CPT/HCPCS: 99213

== ENCOUNTER → 2018-11-09 09:56 | Outpatient (CLI) | payer OTHER, MEDICARE, SELFPAY ==
[2018-10-26 22:45] VITALS: BMI 42.9
== END ==
PROVIDERS: PCP Internal Medicine; Visit Provider Family Medicine
DX: E11.628 Type 2 diabetes mellitus with other skin complications (principal); S81.802A Unspecified open wound, left lower leg, initial encounter; T81.31XA Disruption of external operation (surgical) wound, not elsewhere classified, initial encounter; I89.0 Lymphedema, not elsewhere classified; Z79.01 Long term (current) use of anticoagulants
CPT/HCPCS: 11043; 97605

== ENCOUNTER → 2018-11-12 08:51 | Outpatient (CLI) | payer MEDICARE, OTHER, SELFPAY ==
[2018-10-26 22:45] VITALS: BMI 42.9
== END ==
PROVIDERS: PCP Internal Medicine; Visit Provider Family Medicine
DX: S81.802A Unspecified open wound, left lower leg, initial encounter (principal)
CPT/HCPCS: 97605

== ENCOUNTER → 2018-11-16 09:55 | Outpatient (CLI) | payer MEDICARE, OTHER, SELFPAY ==
[2018-10-26 22:45] VITALS: BMI 42.9
== END ==
PROVIDERS: PCP Internal Medicine; Visit Provider Family Medicine
DX: T81.31XA Disruption of external operation (surgical) wound, not elsewhere classified, initial encounter (principal); I89.0 Lymphedema, not elsewhere classified; Z79.01 Long term (current) use of anticoagulants; E11.628 Type 2 diabetes mellitus with other skin complications
CPT/HCPCS: 11043; 97605

== ENCOUNTER → 2018-11-19 08:45 | Outpatient (CLI) | payer OTHER, MEDICARE, SELFPAY ==
[2018-10-26 22:45] VITALS: BMI 42.9
== END ==
PROVIDERS: PCP Internal Medicine; Visit Provider Family Medicine
DX: T81.31XA Disruption of external operation (surgical) wound, not elsewhere classified, initial encounter (principal)
CPT/HCPCS: 97605

== ENCOUNTER → 2018-11-23 09:57 | Outpatient (CLI) | payer OTHER, MEDICARE, SELFPAY ==
[2018-10-26 22:45] VITALS: BMI 42.9
== END ==
PROVIDERS: PCP Internal Medicine; Visit Provider Family Medicine
DX: E11.628 Type 2 diabetes mellitus with other skin complications (principal); S81.802A Unspecified open wound, left lower leg, initial encounter; T81.31XA Disruption of external operation (surgical) wound, not elsewhere classified, initial encounter; I89.0 Lymphedema, not elsewhere classified
CPT/HCPCS: 97597; 99214

== ENCOUNTER → 2018-11-23 11:18 | Outpatient (CLI) | payer MEDICARE, OTHER, SELFPAY ==
[2018-10-26 22:45] VITALS: BMI 42.9
[2018-11-23 12:57] LABS: Add Manual Diff / Slide Review NO; Basophils Absolute Auto 0 /uL (0-100); Basophils Percent Auto 0.5 % (0-2); Eosinophils Absolute Auto 100 /uL (0-450); Eosinophils Percent Auto 1.4 % (2-4); Hematocrit 33.7 % (36-46); Hemoglobin 11.5 g/dL (12.0-16.0); Lymphocytes Absolute Auto 1300 /uL (1100-4500); Lymphocytes Percent Auto 14.5 % (25-40); Mean Corpuscular Hemoglobin 28.9 PG (26-34); Mean Corpuscular Volume 85.1 fL (80-100); Monocytes Absolute Auto 600 /uL (0-900); Monocytes Percent Auto 6.9 % (3-14); Neutrophils Absolute Auto 7000 /uL (1500-7000); Neutrophils Percent Auto 76.7 % (50-75); Platelet Count 280 X10^3/uL (150-400); Red Blood Cell Count 3.96 X10^6/uL (4.0-5.2); Red Cell Distribution Width 13.1 % (11.6-14.8); White Blood Cell Count 9.1 X10^3/uL (4.5-11.0)
[2018-11-23 13:42] LABS: C-Reactive Protein Quant 8.7 mg/dL (<1.0)
[2018-11-23 13:57] LABS: Procalcitonin < 0.05 ng/mL (<0.5)
[2018-11-23 14:13] LABS: Erythrocyte Sedimentation Rate 105 MM/HR (0-20)
== END ==
PROVIDERS: PCP Internal Medicine; Visit Provider Family Medicine
DX: L08.9 Local infection of the skin and subcutaneous tissue, unspecified (principal)
CPT/HCPCS: 36415; 84145; 85025; 85651; 86140

== ENCOUNTER → 2018-11-26 08:34 | Outpatient (CLI) | payer OTHER, MEDICARE, SELFPAY ==
[2018-10-26 22:45] VITALS: BMI 42.9
== END ==
PROVIDERS: PCP Internal Medicine; Visit Provider Family Medicine
DX: S81.802A Unspecified open wound, left lower leg, initial encounter (principal)
CPT/HCPCS: 97605

== ENCOUNTER → 2018-11-30 09:51 | Outpatient (CLI) | payer OTHER, MEDICARE, SELFPAY ==
[2018-10-26 22:45] VITALS: BMI 42.9
== END ==
PROVIDERS: PCP Internal Medicine; Visit Provider Family Medicine
DX: E11.628 Type 2 diabetes mellitus with other skin complications (principal); T81.31XA Disruption of external operation (surgical) wound, not elsewhere classified, initial encounter; S81.802A Unspecified open wound, left lower leg, initial encounter; I89.0 Lymphedema, not elsewhere classified; Z79.01 Long term (current) use of anticoagulants
CPT/HCPCS: 11042; 97605

== ENCOUNTER → 2018-12-02 11:06 | Outpatient (CLI) | payer OTHER, MEDICARE, SELFPAY ==
[2018-10-26 22:45] VITALS: BMI 42.9
== END ==
PROVIDERS: PCP Internal Medicine; Visit Provider Family Medicine
DX: S81.802A Unspecified open wound, left lower leg, initial encounter (principal)
CPT/HCPCS: 97605; 99213

== ENCOUNTER → 2018-12-07 09:55 | Outpatient (CLI) | payer OTHER, MEDICARE, SELFPAY ==
[2018-10-26 22:45] VITALS: BMI 42.9
== END ==
PROVIDERS: PCP Internal Medicine; Visit Provider Family Medicine
DX: E11.628 Type 2 diabetes mellitus with other skin complications (principal); T81.31XA Disruption of external operation (surgical) wound, not elsewhere classified, initial encounter; S81.802A Unspecified open wound, left lower leg, initial encounter; I89.0 Lymphedema, not elsewhere classified; Z79.01 Long term (current) use of anticoagulants
CPT/HCPCS: 11042

== ENCOUNTER → 2018-12-10 10:14 | Outpatient (CLI) | payer OTHER, MEDICARE, SELFPAY ==
[2018-10-26 22:45] VITALS: BMI 42.9
== END ==
PROVIDERS: PCP Internal Medicine; Visit Provider Family Medicine
DX: S81.802A Unspecified open wound, left lower leg, initial encounter (principal)
CPT/HCPCS: 97605

== ENCOUNTER → 2018-12-14 09:52 | Outpatient (CLI) | payer OTHER, MEDICARE, SELFPAY ==
[2018-10-26 22:45] VITALS: BMI 42.9
== END ==
PROVIDERS: PCP Internal Medicine; Visit Provider Family Medicine
DX: S81.802A Unspecified open wound, left lower leg, initial encounter (principal)
CPT/HCPCS: 97605

== ENCOUNTER → 2018-12-17 09:25 | Outpatient (CLI) | payer OTHER, MEDICARE, SELFPAY ==
[2018-10-26 22:45] VITALS: BMI 42.9
== END ==
PROVIDERS: PCP Internal Medicine; Visit Provider Family Medicine
DX: S81.802A Unspecified open wound, left lower leg, initial encounter (principal)
CPT/HCPCS: 97605

== ENCOUNTER → 2018-12-21 16:57 | Outpatient (CLI) | payer OTHER, MEDICARE, SELFPAY ==
[2018-10-26 22:45] VITALS: BMI 42.9
== END ==
PROVIDERS: PCP Internal Medicine; Visit Provider Family Medicine
DX: E11.628 Type 2 diabetes mellitus with other skin complications (principal); T81.31XA Disruption of external operation (surgical) wound, not elsewhere classified, initial encounter; I89.0 Lymphedema, not elsewhere classified; Z79.01 Long term (current) use of anticoagulants
CPT/HCPCS: 11042; 97605

== ENCOUNTER → 2018-12-24 08:27 | Outpatient (CLI) | payer MEDICARE, OTHER, SELFPAY ==
[2018-10-26 22:45] VITALS: BMI 42.9
== END ==
PROVIDERS: PCP Internal Medicine; Visit Provider Family Medicine
DX: S81.802A Unspecified open wound, left lower leg, initial encounter (principal)
CPT/HCPCS: 97605

== ENCOUNTER → 2018-12-28 10:06 | Outpatient (CLI) | payer OTHER, MEDICARE, SELFPAY ==
[2018-10-26 22:45] VITALS: BMI 42.9
== END ==
PROVIDERS: PCP Internal Medicine; Visit Provider Family Medicine
DX: E11.628 Type 2 diabetes mellitus with other skin complications (principal); T81.31XA Disruption of external operation (surgical) wound, not elsewhere classified, initial encounter; S81.802A Unspecified open wound, left lower leg, initial encounter; I89.0 Lymphedema, not elsewhere classified; Z79.01 Long term (current) use of anticoagulants
CPT/HCPCS: 11042; 97605

== ENCOUNTER → 2018-12-31 10:21 | Outpatient (CLI) | payer MEDICARE, OTHER, SELFPAY ==
[2018-10-26 22:45] VITALS: BMI 42.9
== END ==
PROVIDERS: PCP Internal Medicine; Visit Provider Family Medicine
DX: S81.802A Unspecified open wound, left lower leg, initial encounter (principal)
CPT/HCPCS: 97605

== ENCOUNTER 2019-01-01 04:43 | Emergency (ER) | payer OTHER, MEDICARE, SELFPAY ==
[2018-10-26 22:45] VITALS: BMI 42.9
--- NOTE | 2019-01-01 04:49 | ED_ITS ---
HPI - General Adult General Chief complaint: Abdominal Pain Stated complaint: belly pain big time/humongous hernia Time Seen by Provider: 01/01/19 04:45 Source: patient Mode of arrival: Wheelchair Limitations: no limitations History of Present Illness HPI narrative: 68-year-old female prior history of a Christine-en-Y gastric bypass with subsequent internal hernia with a known large ventral hernia which she states she can normally reduced here for evaluation of constipation since Thursday of this week. Vomited earlier today which caused the hernia to come out and then not be able to be reduced. Patient states that normally the hernia is out however she could normally pushed back in fairly easily however she has been unable do that this evening. Related Data Home Medications Medication Instructions Recorded Confirmed Centrum Silver 1 tab PO DAILY 10/26/18 10/26/18 albuterol sulfate 2 puff INHALATION Q6H PRN 10/26/18 10/26/18 celecoxib 200 mg PO DAILY 10/26/18 10/26/18 cholecalciferol (vitamin D3) 5,000 unit PO DAILY 10/26/18 10/26/18 [Vitamin D3] cyclobenzaprine 10 mg PO TID PRN 10/26/18 10/26/18 fexofenadine [Janet Allergy] 180 mg PO DAILY 10/26/18 10/26/18 fluticasone propionate [Flonase 1 spray INTRANASAL DAILY PRN 10/26/18 10/26/18 Allergy Relief] hydrochlorothiazide 50 mg PO DAILY PRN 10/26/18 10/26/18 hydrocodone-acetaminophen 2 tab PO Q4HR 10/26/18 10/26/18 insulin degludec 55 units SUBCUT DAILY 10/26/18 10/26/18 levothyroxine 200 mcg PO DAILY 10/26/18 10/26/18 liraglutide 1.2 mg SUBCUT DAILY 10/26/18 10/26/18 losartan 25 mg PO DAILY 10/26/18 10/26/18 montelukast [Singulair] 10 mg PO QPM 10/26/18 10/26/18 pregabalin 50 mg PO TID 10/26/18 10/26/18 rabeprazole [AcipHex] 20 mg PO DAILY 10/26/18 10/26/18 tolterodine 4 mg PO DAILY 10/26/18 10/26/18 warfarin 10 mg PO QTUTHSASU 10/28/18 10/28/18 Allergies Allergy/AdvReac Type Severity Reaction Status Date / Time cefamandole [From Mandol] AdvReac Verified 10/26/18 19:11 clindamycin AdvReac Verified 10/26/18 19:11 heparin AdvReac Verified 10/26/18 19:11 meperidine [From Demerol] AdvReac Verified 10/26/18 19:11 naproxen AdvReac Verified 10/26/18 19:11 NSAIDS (Non-Steroidal AdvReac Verified 10/26/18 19:11 Anti-Inflamma promethazine [From Phenergan] AdvReac Verified 10/26/18 19:11 rofecoxib [From Vioxx] AdvReac Verified 10/26/18 19:11 sulfamethoxazole AdvReac Verified 10/26/18 19:11 [From Septra] trimethoprim [From Septra] AdvReac Verified 10/26/18 19:11 Review of Systems Constitutional Constitutional: Denies fever(s) Cardiovascular Cardiovascular: Denies chest pain and Denies dyspnea Respiratory Respiratory: Denies dyspnea Gastrointestinal Gastrointestinal: Reports abdominal pain, Reports bloating, Reports constipation and Reports vomiting Musculoskeletal Musculoskeletal: Denies myalgias and Denies arthralgias Integumentary/Breasts Skin/Breast: Denies new lesions Neurologic Neurologic: Denies behavioral changes Psychiatric Psychiatric: Denies behavioral changes Hematologic/Lymphatic Hematologic/Lymphatic: Denies easy bleeding and Denies easy bruising Patient History Medical History (Updated 01/01/19 @ 06:31 by Avelino Tavares DO) Bilateral leg edema (Acute) 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) Lymphedema of both lower extremities (Acute) Venous stasis dermatitis of both lower extremities (Acute) Surgical History (Updated 01/01/19 @ 05:08 by Avelino Tavares DO) History of Christine-en-Y gastric bypass (Acute) History of total knee arthroplasty (Acute) Social History marital status: household members: spouse Smoking Status: Never smoker alcohol intake: current alcohol intake frequency: holidays/special occasions only Substance Use Type: does not use Exam Initial Vital Signs Initial Vital Signs: Vital Signs Temperature 98.7 F 01/01/19 04:57 Pulse Rate 96 H 01/01/19 04:57 Respiratory Rate 16 01/01/19 04:57 Blood Pressure 129/48 L 01/01/19 04:57 Pulse Oximetry 93 01/01/19 04:57 Const General: cooperative Orientation: alert and awake HENMT Head: normal to inspection and normocephalic Resp Effort & Inspection: normal respiratory effort Cardio Rate: regular rate GI Palpation: soft Other: Very large ventral hernia. Somewhat able to be reduced however not completely. Patient does have tenderness to palpation in the area. Hernia comes out a soon as pressures taken off from the reduction. Skin Rashes: no rashes Neuro General: alert and awake Cognition: normal cognition Speech: speech normal Extrem General: normal to inspection and capillary refill normal Psych Appearance: grossly normal and well kempt Course Orders Ordered: ED Orders 01/01/19 04:57 CT abdomen pelvis w con Stat 01/01/19 05:00 Complete Blood Count AUTO DIFF Stat Comprehensive Metabolic Panel Stat Lactate (Lactic Acid) Stat Lipase Stat Partial Thromboplastin Time Stat Prothrombin Time INR Stat 01/01/19 06:20 Urinalysis and Microscopic Stat 01/01/19 07:00 Consult to Hospitalist Service Stat Discontinued Medications Sodium Chloride (Normal Saline 0.9%) 1,000 mls @ 1,000 mls/hr IV BOLUS ONE Stop: 01/01/19 05:55 Last Admin: 01/01/19 05:20 Dose: 1,000 mls/hr Documented by: ANA Lidocaine HCl (Urojet) 5 ml TOP NOW ONE Stop: 01/01/19 07:20 Last Admin: 01/01/19 07:36 Dose: 5 ml Documented by: [place] Morphine Sulfate (Morphine) 4 mg IV NOW ONE Stop: 01/01/19 05:17 Last Admin: 01/01/19 05:21 Dose: 4 mg Documented by: ANA Morphine Sulfate (Morphine) 4 mg IV NOW ONE Stop: 01/01/19 07:29 Last Admin: 01/01/19 07:36 Dose: 4 mg Documented by: [place] Ondansetron HCl (Zofran) 4 mg IV NOW ONE Stop: 01/01/19 05:17 Last Admin: 01/01/19 05:21 Dose: 4 mg Documented by: ANA Vital Signs Vital signs: Vital Signs - 8 hr 01/01/19 04:57 Temperature 98.7 F Pulse Rate 96 H Respiratory Rate 16 Blood Pressure 129/48 L Pulse Oximetry 93 Medical Decision Making Lab Data Lab results reviewed: Yes I reviewed the patient's lab results. Result diagrams: 01/01/19 05:00 01/01/19 05:00 Labs: Lab Results 01/01/19 01/01/19 01/01/19 Range/Units 05:00 05:00 05:00 WBC 9.7 (4.5-11.0) X10^3/uL RBC 3.96 L (4.0-5.2) X10^6/uL Hgb 11.1 L (12.0-16.0) g/dL Hct 33.0 L (36-46) % MCV 83.3 (80-100) fL MCH 27.9 (26-34) PG MCHC 33.5 (30-36) % RDW 13.7 (11.6-14.8) % Plt Count 501 H (150-400) X10^3/uL Neut % (Auto) 83.9 H (50-75) % Lymph % (Auto) 8.4 L (25-40) % [place] % (Auto) 6.0 (3-14) % Eos % (Auto) 1.3 L (2-4) % Baso % (Auto) 0.4 (0-2) % Neut # (Auto) 8200 H (8569-3857) /uL Lymph # (Auto) 800 L (2786-9064) /uL [place] # (Auto) 600 (0-900) /uL Eos # (Auto) 100 (0-450) /uL Baso # (Auto) 0 (0-100) /uL PT 22.4 H (10.1-12.7) SECONDS INR 1.9 H (0.9-1.3) APTT 41 H D (26.4-36.2) SECONDS Sodium 138 (137-145) mmol/L Potassium 3.4 (3.4-5.1) mmol/L Chloride 89 L (98-107) mmol/L Carbon Dioxide 40 H* (22-32) mmol/L BUN 34 H (7-17) mg/dL Creatinine 0.70 (0.52-1.04) mg/dL Estimated GFR > 60.0 (>60) mL/min BUN/Creatinine Ratio 48.6 H (6-22) Glucose 202 H (80-110) mg/dL Lactate (0.7-2.1) mmol/L Calcium 9.1 (8.4-10.2) mg/dL Total Bilirubin 0.5 (0.2-1.3) mg/dL AST 30 (14-36) IU/L ALT 18 (<35) IU/L Alkaline Phosphatase 129 H (38-126) U/L Total Protein 7.6 (6.3-8.2) g/dL Albumin 3.9 (3.5-5.0) g/dL Globulin 3.7 (1.7-4.1) g/dL Albumin/Globulin Ratio 1.1 (1.0-2.8) Lipase 31 (23-300) U/L Urine Color Urine Appearance Urine pH (4.5-8.0) Ur Specific [place] (1.000-1.035) Urine Protein (Negative) Urine Glucose (UA) (Negative) g/dL Urine Ketones (NEGATIVE) Urine Occult Blood (Negative) Urine Nitrate (Negative) Urine Bilirubin (NEGATIVE) Urine Urobilinogen (0.2) E.U./dL Ur Leukocyte Esterase (NEGATIVE) Urine RBC (0-5/HPF) Urine WBC (0-5/HPF) Ur Squamous Epith Cells (0-5/HPF) Urine Bacteria (None) Ur Culture Indicated? 01/01/19 01/01/19 Range/Units 05:00 06:20 WBC (4.5-11.0) X10^3/uL RBC (4.0-5.2) X10^6/uL Hgb (12.0-16.0) g/dL Hct (36-46) % MCV (80-100) fL MCH (26-34) PG MCHC (30-36) % RDW (11.6-14.8) % Plt Count (150-400) X10^3/uL Neut % (Auto) (50-75) % Lymph % (Auto) (25-40) % [place] % (Auto) (3-14) % Eos % (Auto) (2-4) % Baso % (Auto) (0-2) % Neut # (Auto) (0973-9625) /uL Lymph # (Auto) (5418-9231) /uL [place] # (Auto) (0-900) /uL Eos # (Auto) (0-450) /uL Baso # (Auto) (0-100) /uL PT (10.1-12.7) SECONDS INR (0.9-1.3) APTT (26.4-36.2) SECONDS Sodium (137-145) mmol/L Potassium (3.4-5.1) mmol/L Chloride (98-107) mmol/L Carbon Dioxide (22-32) mmol/L BUN (7-17) mg/dL Creatinine (0.52-1.04) mg/dL Estimated GFR (>60) mL/min BUN/Creatinine Ratio (6-22) Glucose (80-110) mg/dL Lactate 0.9 (0.7-2.1) mmol/L Calcium (8.4-10.2) mg/dL Total Bilirubin (0.2-1.3) mg/dL AST (14-36) IU/L ALT (<35) IU/L Alkaline Phosphatase (38-126) U/L Total Protein (6.3-8.2) g/dL Albumin (3.5-5.0) g/dL Globulin (1.7-4.1) g/dL Albumin/Globulin Ratio (1.0-2.8) Lipase (23-300) U/L Urine Color Yellow Urine Appearance Clear Urine pH 7.5 (4.5-8.0) Ur Specific [place] 1.010 (1.000-1.035) Urine Protein Negative (Negative) Urine Glucose (UA) Negative (Negative) g/dL Urine Ketones Trace H (NEGATIVE) Urine Occult Blood Negative (Negative) Urine Nitrate Negative (Negative) Urine Bilirubin Negative (NEGATIVE) Urine Urobilinogen 0.2 (0.2) E.U./dL Ur Leukocyte Esterase Trace H (NEGATIVE) Urine RBC None seen (0-5/HPF) Urine WBC 0-1/hpf (0-5/HPF) Ur Squamous Epith Cells 0-1 /hpf (0-5/HPF) Urine Bacteria None seen (None) Ur Culture Indicated? Cult not indicated Imaging Data CT scan - abdomen: Radiologist's impression: Large ventral wall hernia in the mid to lower abdomen with bowel extending through the hernia defect and distal small-bowel obstruction with transition zone within the hernia sac MDM Narrative Medical decision making narrative: Patient does not have an elevated white coun t, lactate unremarkable, CT scan concerning for small bowel obstruction. Discussed the case with Dr. Caal which General surgery who agrees to admit the patient. Discussed the case with Dr. Powers with Medicine who will follow to manage chronic medical issues. NG tube ordered here in the emergency department. Discussed the admission with the patient. She expressed understanding and agreement with plan. Discharge Plan Departure Patient Disposition: Admitted As Inpatient Clinical Impression: Small bowel obstruction Admit Date/Time: 01/01/19 07:00 Admit Provider: Marley Caal
[2019-01-01 04:57] VITALS: BP 129/48; PULSE 96; RESP 16; TEMP 37.1; O2SAT 93; BMI 42.4
--- NOTE | 2019-01-01 04:57 | DI.CT.S_ITS ---
PROCEDURE: CT ABDOMEN PELVIS W CON INDICATIONS: history of gastric bypass and known hernia with pain TECHNIQUE: After the administration of oral and intravenous contrast, 5 mm thick sections acquired from the diaphragms to the symphysis. 5 mm thick coronal and sagittal reformats were performed. For radiation dose reduction, the following was used: automated exposure control, adjustment of mA and/or kV according to patient size. COMPARISON: None. FINDINGS: Image quality: Diagnostic. ABDOMEN: Lung bases: Lung bases are clear. Heart size is normal. Solid organs: Liver is normal in size and enhancement. Gallbladder is surgically absent. Biliary system is non-dilated. A rectal mild pneumobilia probably is related to previous sphincterotomy. Pancreas enhances normally. Spleen is normal in size and enhancement. No adrenal nodules. Kidneys are normal in size and enhancement, without hydronephrosis. Inferior left renal calculi are present. Peritoneum and bowel: Mild prominence of the wall of the distal esophagus is present. There are postoperative changes of the stomach, likely related to prior gastric bypass. There is distention of the duodenum and jejunal bowel loops, which are noted to be fluid-filled and measure up to approximately 7 cm in diameter with the largest bowel loop noted to be positioned at the distal gastric bypass anastomosis site. The distal most portion of the small bowel near the terminal ileum is decompressed as it enters the cecum of the colon. There is an associated very large ventral hernia that extends into a pedunculated pannus. The transition point does occur at the inferior margin of this bowel containing hernia and likely is on the basis of the hernia itself. The colon is unremarkable with the exception of mild to moderate residual stool within the colon. No pericolonic inflammation is evident. No free fluid, loculated fluid collection or free air is identified. Nodes and vessels: No retroperitoneal or mesenteric adenopathy. Aorta and inferior vena cava are normal in caliber. There is mild aortic atherosclerosis. Bones: No acute fracture or suspicious osseous lesion is evident. Moderate degenerative changes of the mid spine are present. PELVIS: Soft tissues: The soft tissues of the lower pelvis are not well evaluated related to metallic hardware artifact from bilateral hip arthroplasties. The bladder probably is within normal limits. The uterus is not identified. The ovaries are not definitely seen. No free fluid or loculated fluid collections appreciated. There is no pelvic adenopathy. No inguinal hernias are appreciated. Bones: No suspicious bony lesions. No acute pelvic fractures are identified. There are bilateral hip arthroplasties. IMPRESSION: 1. Small obstruction with transition point noted to be within the distal ileum, which likely is related to the patient's large ventral hernia. Adhesions may also be resulting in this appearance. 2. No free fluid or free air. 3. Status post gastric bypass surgery. 4. Nonspecific wall thickening of the distal esophagus may be related to reflux esophagitis. Please correlate clinically. 5. Pneumobilia probably is related to a prior sphincterotomy and clinical correlation is advised. 6. Nonobstructing inferior left renal calculi. Note: The preliminary report provided by [facility]. is concordant with the final report. Dictated by: Keyur Mustafa M.D. on 01/01/2019 at 6:47 Approved by: Keyur Mustafa M.D. on 01/01/2019 at 6:55
[2019-01-01] MEDS: SODIUM CHLORIDE 0.9% 1,000 ML 1000 ML IV (05:20)
[2019-01-01] MEDS: ONDANSETRON 4 MG/2 ML INJ IV ×2 (05:21→08:21)
[2019-01-01] MEDS: MORPHINE 4 MG/ML INJ IV ×3 (05:21→11:27)
--- NOTE | 2019-01-01 05:28 | PC.NURSE ---
started oral contrast at 0525. after first few drinks, started with emesis. Provider aware.
[2019-01-01 05:30] LABS: Add Manual Diff / Slide Review NO; Basophils Absolute Auto 0 /uL (0-100); Basophils Percent Auto 0.4 % (0-2); Eosinophils Absolute Auto 100 /uL (0-450); Eosinophils Percent Auto 1.3 % (2-4); Hemoglobin 11.1 g/dL (12.0-16.0); Lymphocytes Absolute Auto 800 /uL (1100-4500); Lymphocytes Percent Auto 8.4 % (25-40); Mean Corpuscular HGB Conc 33.5 % (30-36); Mean Corpuscular Hemoglobin 27.9 PG (26-34); Mean Corpuscular Volume 83.3 fL (80-100); Monocytes Absolute Auto 600 /uL (0-900); Neutrophils Absolute Auto 8200 /uL (1500-7000); Neutrophils Percent Auto 83.9 % (50-75); Platelet Count 501 X10^3/uL (150-400); Red Blood Cell Count 3.96 X10^6/uL (4.0-5.2); Red Cell Distribution Width 13.7 % (11.6-14.8); White Blood Cell Count 9.7 X10^3/uL (4.5-11.0)
[2019-01-01 05:31] LABS: INR 1.9 (0.9-1.3); Prothrombin Time 22.4 SECONDS (10.1-12.7)
[2019-01-01 05:33] LABS: PTT Partial Thromboplastin Tim 41 SECONDS (26.4-36.2)
[2019-01-01 05:34] LABS: Lactate (Lactic Acid) 0.9 mmol/L (0.7-2.1)
[2019-01-01 05:35] LABS: Alanine Aminotransferase 18 IU/L (<35); Albumin 3.9 g/dL (3.5-5.0); Albumin Globulin Ratio 1.1 (1.0-2.8); Alkaline Phosphatase 129 U/L (38-126); Aspartate Aminotransferase 30 IU/L (14-36); BUN Creatinine Ratio 48.6 (6-22); Bilirubin Total 0.5 mg/dL (0.2-1.3); Blood Urea Nitrogen 34 mg/dL (7-17); Calcium 9.1 mg/dL (8.4-10.2); Chloride 89 mmol/L (98-107); Estimated Glomerular Filt Rate > 60.0 mL/min (>60); Globulin 3.7 g/dL (1.7-4.1); Glucose 202 mg/dL (80-110); HEMOLYSIS < 15 (0-50); Lipase 31 U/L (23-300); Potassium 3.4 mmol/L (3.4-5.1); Sodium 138 mmol/L (137-145); Total Protein 7.6 g/dL (6.3-8.2)
[2019-01-01 05:37] LABS: Carbon Dioxide 40 mmol/L (22-32)
[2019-01-01 07:00] LABS: Bacteria Urine None Seen; RBC Urine None Seen (0-5/HPF)
[2019-01-01 07:02] LABS: Appearance Urine UA CLEAR; Bilirubin Urine UA NEGATIVE (NEGATIVE); Color Urine UA YELLOW; Glucose Urine UA NEGATIVE (Negative); Ketones Urine UA TRACE (NEGATIVE); Leukocyte Esterase Urine UA TRACE (NEGATIVE); Nitrite Urine UA NEGATIVE (Negative); Occult Blood Urine UA NEGATIVE (Negative); Protein Urine UA NEGATIVE (Negative); Urobilinogen Urine UA 0.2 E.U./dL (0.2)
[2019-01-01 07:07] LABS: pH Urine UA 7.5 (4.5-8.0)
--- NOTE | 2019-01-01 07:09 | DI.RAD.S_ITS ---
PROCEDURE: XR CHEST 1V INDICATIONS: post NG tube placement TECHNIQUE: One view of the chest was acquired. COMPARISON: [facility], , XR CHEST 2V, 10/28/2018, 9:10. FINDINGS: Surgical changes and devices: Nasogastric tube is identified. The tip is not clearly evident, but appears to extend below the naeem. Lungs and pleura: Lungs are clear. No pleural effusions or pneumothorax. Mediastinum: Mediastinal contours appear normal. Heart size is normal. Bones and chest wall: No suspicious bony lesions. Overlying soft tissues appear unremarkable. IMPRESSION: 1. Nasogastric tube extends below the naeem. The tip is not well seen. 2. No acute cardiopulmonary process is evident. Dictated by: Keyur Mustafa M.D. on 01/01/2019 at 7:23 Approved by: Keyur Mustafa M.D. on 01/01/2019 at 7:24
[2019-01-01 07:10] LABS: Culture Indicated Urine Cult Not Indicated; Squamous Epithelial Cell Urine 0-1 /HPF (0-5/HPF); WBC Urine 0-1/HPF (0-5/HPF)
[2019-01-01] MEDS: LIDOCAINE 2% (UROJET) 5 ML GEL TOP (07:36)
--- NOTE | 2019-01-01 08:29 | DI.RAD.S_ITS ---
PROCEDURE: XR CHEST 1V INDICATIONS: NG tube placement TECHNIQUE: One view of the chest was acquired. COMPARISON: [facility], , XR CHEST 1V, 01/01/2019, 8:09. FINDINGS: Surgical changes and devices: Nasogastric tube is identified with the tip overlying the expected location of the stomach. Lungs and pleura: Lungs are clear. No pleural effusions or pneumothorax. Mediastinum: Mediastinal contours appear normal. Heart size is normal. There is aortic atherosclerosis. Bones and chest wall: No suspicious bony lesions. Overlying soft tissues appear unremarkable. IMPRESSION: NG tube is positioned with the tip overlying the upper portion of the stomach. Dictated by: Keyur Mustafa M.D. on 01/01/2019 at 7:55 Approved by: Keyur Mustafa M.D. on 01/01/2019 at 7:56
--- NOTE | 2019-01-01 08:44 | PC.NURSE ---
ng tube placed/ x ray done, pt states she is not to have ng or et tube placed. no ng, because of previous gastric bypass and has a pouch/ md aware/ surgeon who accepted admission will be notifed of this
--- NOTE | 2019-01-01 09:02 | PC.NURSE ---
surgeon here to see/ told about ng tube
--- NOTE | 2019-01-01 09:39 | P.CONS_ITS ---
History of Present Illness Consult details Date Patient Seen: 01/01/19 Time Patient Seen: 09:00 Chief complaint: abdominal pain, SBO, massive ventral hernia Reason for consult: SBO, ventral hernia Requesting provider: Avelino Tavares Narrative: This is a 68-year-old woman with complicated medical and surgical history who presents to the ER with obstructive symptoms. She normally has 2 bowel movements per week, but she has now not had a bowel movement since Thursday, 6 days ago. She had some vomiting yesterday for which she came into the ER during the night. She says she did pass gas yesterday. She had a CT scan done in the ER which shows a massive ventral hernia, extensively dilated small bowel, with a transition point within the hernia sac. It does not look like the hernia itself is causing an obstruction, rather adhesions within the hernia sac. She has a history of gastric bypass in 2010, with internal hernia and bowel perforation in 2011 requiring an open operation and small-bowel resection at [facility]. She subsequently developed a wound infection requiring an a wound VAC, and ultimately she developed a massive ventral hernia. The patient tells me it has not been repaired up until now because she was initially told that it was not dangerous because it was large and unlikely to obstruct. She had an evaluation at [facility] and was told to lose 50 lb prior to hernia repair. She tells me that she has lost 50 lb, but she has not gone back to be re-evaluated at [facility]. The patient also has a coagulopathy which includes a factory disorder as well as history of AMBER. She is on Coumadin for this. 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 She apparently has been offered an IVC filter in the past but refused to have 1. She stopped her Coumadin last week for procedure on her knee, and has restarted it. Her INR is currently 1.9. She also has an infection in her left knee, which she explains was tapped last week and a wound VAC was placed. The specific details of this procedure not known to me. She currently denies nausea. Risks of NGT placement after RYGB were discussed and declined by the patient. ROS: Ten systems negative other than as mentioned in HPI and below Constitutional: Denies fevers Cardiovascular: Denies chest pain Respiratory: Denies dyspnea; denies SOB Gastrointestinal: Reports abdominal pain, Reports bloating, Reports constipation and Reports vomiting Musculoskeletal: Denies myalgias and Denies arthralgias; left knee joint infection Skin/Breast: wound vac, knee wound; recent procedure Neurologic: Denies neurologic changes Psychiatric: Denies behavioral changes Hematologic/Lymphatic: As per HPI; baseline coagulopathy PE: GENERAL: Appears fatigued. Appears stated age. Answers questions promptly and appropriately. Vital signs noted. HENT: Normocephalic, atraumatic. Hearing intact. Oral mucosa is pink and moist. EYES: Conjunctiva pink, sclera white, no periorbital swelling. CARDIOVASCULAR: Regular rate and rhythm RESPIRATORY: Normal respiratory rate, breathing comfortably on room air. GASTROINTESTINAL: Massive ventral hernia, partially reducible; minimally TTP GENITALURINARY: No flank tenderness. MUSCULOSKELETAL: Equal tone and mass bilaterally. BLE edema SKIN: Warm, dry, soft, appropriate color for ethnicity. Left knee wound vac in place; No other lesions, rashes, or wounds. NEURO: Alert and Oriented X 3. No gross sensory deficits, or cognitive issues. PSYCH: Appropriate affect and mood. [facility] Medical History (Updated 01/01/19 @ 10:05 by Marley Caal MD) Bilateral leg edema (Acute) 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) Lymphedema of both lower extremities (Acute) Venous stasis dermatitis of both lower extremities (Acute) Surgical History (Updated 01/01/19 @ 10:05 by Marley Caal MD) History of Christine-en-Y gastric bypass (Acute) History of total knee arthroplasty (Acute) Social History marital status: household members: spouse Smoking Status: Never smoker alcohol intake: current Meds Home Medications and Allergies Home Medications Medication Instructions Recorded Confirmed Type Centrum Silver 1 tab PO DAILY 10/26/18 10/26/18 History albuterol sulfate 2 puff INHALATION Q6H PRN 10/26/18 10/26/18 History celecoxib 200 mg PO DAILY 10/26/18 10/26/18 History cholecalciferol (vitamin D3) 5,000 unit PO DAILY 10/26/18 10/26/18 History [Vitamin D3] cyclobenzaprine 10 mg PO TID PRN 10/26/18 10/26/18 History fexofenadine [Janet Allergy] 180 mg PO DAILY 10/26/18 10/26/18 History fluticasone propionate [Flonase 1 spray INTRANASAL DAILY PRN 10/26/18 10/26/18 History Allergy Relief] hydrochlorothiazide 50 mg PO DAILY PRN 10/26/18 10/26/18 History hydrocodone-acetaminophen 2 tab PO Q4HR 10/26/18 10/26/18 History insulin degludec 55 units SUBCUT DAILY 10/26/18 10/26/18 History levothyroxine 200 mcg PO DAILY 10/26/18 10/26/18 History liraglutide 1.2 mg SUBCUT DAILY 10/26/18 10/26/18 History losartan 25 mg PO DAILY 10/26/18 10/26/18 History montelukast [Singulair] 10 mg PO QPM 10/26/18 10/26/18 History pregabalin 50 mg PO TID 10/26/18 10/26/18 History rabeprazole [AcipHex] 20 mg PO DAILY 10/26/18 10/26/18 History tolterodine 4 mg PO DAILY 10/26/18 10/26/18 History warfarin 10 mg PO QTUTHSASU 10/28/18 10/28/18 History Allergies Allergy/AdvReac Type Severity Reaction Status Date / Time cefamandole [From Mandol] AdvReac Verified 10/26/18 19:11 clindamycin AdvReac Verified 10/26/18 19:11 heparin AdvReac Verified 10/26/18 19:11 meperidine [From Demerol] AdvReac Verified 10/26/18 19:11 naproxen AdvReac Verified 10/26/18 19:11 NSAIDS (Non-Steroidal AdvReac Verified 10/26/18 19:11 Anti-Inflamma promethazine [From Phenergan] AdvReac Verified 10/26/18 19:11 rofecoxib [From Vioxx] AdvReac Verified 10/26/18 19:11 sulfamethoxazole AdvReac Verified 10/26/18 19:11 [From Septra] trimethoprim [From Septra] AdvReac Verified 10/26/18 19:11 Exam Vital Signs (past 8 hours): - 01/01/19 04:57 Temperature 98.7 F Pulse Rate 96 H Respiratory Rate 16 Blood Pressure 129/48 L Pulse Oximetry 93 Oxygen Delivery Method Room Air Objective Labs Result Diagrams: 01/01/19 05:00 01/01/19 05:00 Labs: Laboratory Results - last 24 hr 01/01/19 01/01/19 01/01/19 05:00 05:00 05:00 WBC 9.7 RBC 3.96 L Hgb 11.1 L Hct 33.0 L MCV 83.3 MCH 27.9 MCHC 33.5 RDW 13.7 Plt Count 501 H Neut % (Auto) 83.9 H Lymph % (Auto) 8.4 L [place] % (Auto) 6.0 Eos % (Auto) 1.3 L Baso % (Auto) 0.4 Neut # (Auto) 8200 H Lymph # (Auto) 800 L [place] # (Auto) 600 Eos # (Auto) 100 Baso # (Auto) 0 PT 22.4 H INR 1.9 H APTT 41 H D Sodium 138 Potassium 3.4 Chloride 89 L Carbon Dioxide 40 H* BUN 34 H Creatinine 0.70 Estimated GFR > 60.0 BUN/Creatinine Ratio 48.6 H Glucose 202 H Lactate Calcium 9.1 Total Bilirubin 0.5 AST 30 ALT 18 Alkaline Phosphatase 129 H Total Protein 7.6 Albumin 3.9 Globulin 3.7 Albumin/Globulin Ratio 1.1 Lipase 31 Urine Color Urine Appearance Urine pH Ur Specific [place] Urine Protein Urine Glucose (UA) Urine Ketones Urine Occult Blood Urine Nitrate Urine Bilirubin Urine Urobilinogen Ur Leukocyte Esterase Urine RBC Urine WBC Ur Squamous Epith Cells Urine Bacteria Ur Culture Indicated? 01/01/19 01/01/19 05:00 06:20 WBC RBC Hgb Hct MCV MCH MCHC RDW Plt Count Neut % (Auto) Lymph % (Auto) [place] % (Auto) Eos % (Auto) Baso % (Auto) Neut # (Auto) Lymph # (Auto) [place] # (Auto) Eos # (Auto) Baso # (Auto) PT INR APTT Sodium Potassium Chloride Carbon Dioxide BUN Creatinine Estimated GFR BUN/Creatinine Ratio Glucose Lactate 0.9 Calcium Total Bilirubin AST ALT Alkaline Phosphatase Total Protein Albumin Globulin Albumin/Globulin Ratio Lipase Urine Color Yellow Urine Appearance Clear Urine pH 7.5 Ur Specific [place] 1.010 Urine Protein Negative Urine Glucose (UA) Negative Urine Ketones Trace H Urine Occult Blood Negative Urine Nitrate Negative Urine Bilirubin Negative Urine Urobilinogen 0.2 Ur Leukocyte Esterase Trace H Urine RBC None seen Urine WBC 0-1/hpf Ur Squamous Epith Cells 0-1 /hpf Urine Bacteria None seen Ur Culture Indicated? Cult not indicated Assessment & Plan Assessment and plan (1) Small bowel obstruction: Problem details: Transition point within hernia sac, obstructive symptoms likely due to ad hesions. The patient is passing gas as of yesterday, but no stool since Thursday. Current visit: No Status: Acute (2) Heparin induced thrombocytopenia (HIT): Problem details: Can not have heparin Current visit: No Status: Acute (3) Anticoagulated on Coumadin: Problem details: INR 1.9; recently stopped her coumadin for a procedure and restarted three days ago Current visit: Yes Status: Acute (4) Ventral hernia: Problem details: Massive ventral hernia with loss of domain; not a likely cause of her obstruction Current visit: Yes Status: Acute (5) Joint infection: Problem details: Recently had knee tapped and wound vac placed; details of this procedure are not available Current visit: Yes Status: Acute (6) Morbid obesity: Problem details: Pt says she has lost 50lbs as instructed by surgeon at prior to hernia repair. Current BMI 42.4 Current visit: Yes Status: Acute (7) History of Christine-en-Y gastric bypass: Problem details: in 2010, subsequent internal hernia and bowel perforation Current visit: Yes Status: Acute Assessment & Plan narrative: This is a 68-year-old woman with a complicated medical and surgical history. I have discussed the risks and benefits of keeping her here at [facility] and managing her obstruction nonsurgically. My initial intention I spoke with the emergency room doctor this morning was to keep her at our hospital and managed her with NPO, NG tube if we could place 1 safely, and IV fluids. Based on looking her CT scan and the fact that she was still passing gas as of yesterday, I think she truly has a partial obstruction due to adhesions, and is likely to be able to get through this without any immediate surgery, but I cannot guarantee her that. When I discussed this with the patient and her son on the phone, who is a PA in Cardiothoracic surgery, the preference of the patient and her family is to go ahead and transfer to a tertiary center in case the need for surgery arises. We have discussed the risks of going ahead with surgery here if we should be forced to do that, and with the complexity of her medical and surgical history she may be better managed at a tertiary center. She has been previously evaluated by a surgical service at [facility], and was told to lose 50 lb before she could have her ventral hernia repaired. She says she has lost this weight, and has not gone back for a re-evaluation. After lengthy discussion with the patient and her family, as well as the hospitalist and ER doctor, ultimately we have decided to attempt to transfer her back to [facility] for hopefully conservative management of her obstruction, but surgical intervention if needed. Plan: Hold anticoagulation Hold off on NG tube placement IV fluids, NPO, no need for antibiotics at this point Work on transfer to [facility] If transfer is unsuccessful please call me back
[2019-01-01 11:25] VITALS: BP 142/58; PULSE 86; RESP 18; O2SAT 97
[2019-01-01] MEDS: SODIUM CHLORIDE 0.9% 1,000 ML 150 ML IV (11:27)
--- NOTE | 2019-01-26 13:18 | PC.NURSE ---
IV fluids stopped at 1235 in ER upon transfer.
--- NOTE | 2019-03-05 14:51 | PC.NURSE ---
LATE ENTRY IV STOP TIME 1236 NS.
== END 2019-01-01 12:36 | disposition admitted as inpatient to this hospital (09) ==
LOC: ED 06:31 → AC 08:47
PROVIDERS: Emergency Medicine; Emergency Provider Emergency Medicine; PCP Internal Medicine
DX: K56.609 Unspecified intestinal obstruction, unspecified as to partial versus complete obstruction (principal); Z98.84 Bariatric surgery status; K43.9 Ventral hernia without obstruction or gangrene; E66.01 Morbid (severe) obesity due to excess calories; Z79.01 Long term (current) use of anticoagulants; R79.89 Other specified abnormal findings of blood chemistry
CPT/HCPCS: 36415; 71045; 74177; 80053; 81001; 83605; 83690; 85025; 85610; 85730; 96361; 96374; 96375; 96376; 99285; J2270; J2405; Q9967

== ENCOUNTER → 2019-01-04 09:49 | Outpatient (CLI) | payer MEDICARE, OTHER, SELFPAY ==
[2018-10-26 22:45] VITALS: BMI 42.9
== END ==
PROVIDERS: PCP Internal Medicine; Visit Provider Family Medicine
DX: E11.628 Type 2 diabetes mellitus with other skin complications (principal); T81.31XA Disruption of external operation (surgical) wound, not elsewhere classified, initial encounter; I89.0 Lymphedema, not elsewhere classified; Z79.01 Long term (current) use of anticoagulants
CPT/HCPCS: 11042; 97605

== ENCOUNTER → 2019-01-07 08:22 | Outpatient (CLI) | payer MEDICARE, OTHER, SELFPAY ==
[2018-10-26 22:45] VITALS: BMI 42.9
== END ==
PROVIDERS: PCP Internal Medicine; Visit Provider Family Medicine
DX: S81.802D Unspecified open wound, left lower leg, subsequent encounter (principal)
CPT/HCPCS: 99213

== ENCOUNTER → 2019-01-11 09:58 | Outpatient (CLI) | payer MEDICARE, OTHER, SELFPAY ==
[2018-10-26 22:45] VITALS: BMI 42.9
== END ==
PROVIDERS: PCP Internal Medicine; Visit Provider Family Medicine
DX: E11.622 Type 2 diabetes mellitus with other skin ulcer (principal); T81.31XA Disruption of external operation (surgical) wound, not elsewhere classified, initial encounter; I89.0 Lymphedema, not elsewhere classified; Z79.01 Long term (current) use of anticoagulants
CPT/HCPCS: 11042; 97605

== ENCOUNTER → 2019-01-14 08:49 | Outpatient (CLI) | payer MEDICARE, OTHER, SELFPAY ==
[2018-10-26 22:45] VITALS: BMI 42.9
== END ==
PROVIDERS: PCP Internal Medicine; Visit Provider Family Medicine
DX: S81.802A Unspecified open wound, left lower leg, initial encounter (principal)
CPT/HCPCS: 97605

== ENCOUNTER → 2019-01-18 09:46 | Outpatient (CLI) | payer OTHER, MEDICARE, SELFPAY ==
[2018-10-26 22:45] VITALS: BMI 42.9
== END ==
PROVIDERS: PCP Internal Medicine; Visit Provider Family Medicine
DX: E11.628 Type 2 diabetes mellitus with other skin complications (principal); T81.31XA Disruption of external operation (surgical) wound, not elsewhere classified, initial encounter; I89.0 Lymphedema, not elsewhere classified
CPT/HCPCS: 15271; Q4110

== ENCOUNTER → 2019-01-21 09:10 | Outpatient (CLI) | payer MEDICARE, OTHER, SELFPAY ==
[2018-10-26 22:45] VITALS: BMI 42.9
== END ==
PROVIDERS: PCP Internal Medicine; Visit Provider Family Medicine
DX: S81.802A Unspecified open wound, left lower leg, initial encounter (principal)
CPT/HCPCS: 97605

== ENCOUNTER 2019-01-21 18:49 | Emergency (ER) | payer OTHER, MEDICARE, SELFPAY ==
[2018-10-26 22:45] VITALS: BMI 42.9
[2019-01-21 18:50] VITALS: BP 158/89; PULSE 104; RESP 22; TEMP 38.2; O2SAT 99; BMI 37.5
--- NOTE | 2019-01-21 19:07 | DI.RAD.S_ITS ---
PROCEDURE: XR CHEST 1V INDICATIONS: suspected sepsis TECHNIQUE: One view of the chest was acquired. COMPARISON: [facility], CR, XR CHEST 1V, 01/01/2019, 8:30. [facility], CR, XR CHEST 1V, 01/01/2019, 8:09. FINDINGS: Surgical changes and devices: None. Lungs and pleura: Lungs are abnormal with mild interstitial prominence and reduced inspiratory volume. No pleural effusions or pneumothorax. Mediastinum: Mediastinal contours appear normal. Heart size is normal. Bones and chest wall: No suspicious bony lesions. Overlying soft tissues appear unremarkable. IMPRESSION: Pneumonia is not. Mild chronic interstitial prominence and mildly reduced inspiratory volume. Dictated by: Howard High M.D. on 01/21/2019 at 20:04 Approved by: Howard High M.D. on 01/21/2019 at 20:04
[2019-01-21] MEDS: SODIUM CHLORIDE 0.9% 1,000 ML 1000 ML IV (19:22)
[2019-01-21 19:31] LABS: Add Manual Diff / Slide Review NO; Basophils Absolute Auto 0 /uL (0-100); Basophils Percent Auto 0.4 % (0-2); Eosinophils Absolute Auto 0 /uL (0-450); Eosinophils Percent Auto 0.3 % (2-4); Hematocrit 30.8 % (36-46); Hemoglobin 10.3 g/dL (12.0-16.0); Lymphocytes Absolute Auto 700 /uL (1100-4500); Lymphocytes Percent Auto 6.1 % (25-40); Mean Corpuscular HGB Conc 33.3 % (30-36); Mean Corpuscular Hemoglobin 27.6 PG (26-34); Mean Corpuscular Volume 82.8 fL (80-100); Monocytes Absolute Auto 500 /uL (0-900); Monocytes Percent Auto 4.2 % (3-14); Neutrophils Absolute Auto 10000 /uL (1500-7000); Platelet Count 281 X10^3/uL (150-400); Red Blood Cell Count 3.72 X10^6/uL (4.0-5.2); Red Cell Distribution Width 15.1 % (11.6-14.8); White Blood Cell Count 11.2 X10^3/uL (4.5-11.0)
[2019-01-21 19:37] LABS: INR 2.4 (0.9-1.3); Prothrombin Time 28.7 SECONDS (10.1-12.7)
[2019-01-21 19:39] LABS: PTT Partial Thromboplastin Tim 42 SECONDS (26.4-36.2)
[2019-01-21 19:56] LABS: Alanine Aminotransferase 17 IU/L (<35); Albumin 3.9 g/dL (3.5-5.0); Albumin Globulin Ratio 1.1 (1.0-2.8); Alkaline Phosphatase 101 U/L (38-126); Aspartate Aminotransferase 22 IU/L (14-36); BUN Creatinine Ratio 36.7 (6-22); Bilirubin Total 0.4 mg/dL (0.2-1.3); Blood Urea Nitrogen 22 mg/dL (7-17); Carbon Dioxide 27 mmol/L (22-32); Chloride 99 mmol/L (98-107); Estimated Glomerular Filt Rate > 60.0 mL/min (>60); Globulin 3.5 g/dL (1.7-4.1); Glucose 200 mg/dL (80-110); HEMOLYSIS < 15 (0-50); Lipase 29 U/L (23-300); Potassium 4.1 mmol/L (3.4-5.1); Sodium 134 mmol/L (137-145); Total Protein 7.4 g/dL (6.3-8.2)
--- NOTE | 2019-01-21 19:56 | ED.FEVER ---
HPI - Fever General Chief Complaint: Fever Stated Complaint: Rule Out Sepsis Time Seen by Provider: 01/21/19 19:13 Source: patient and EMS Mode of arrival: EMS Limitations: no limitations History of Present Illness HPI Narrative: Patient is a 68-year-old female here for evaluation of which she thinks is a sepsis infection. She states that she has a chronic left leg/knee wound. She is currently on antibiotics for this. This is a long-term antibiotic treatment. She has a wound VAC on a small area of her left knee. She states that it was changed earlier today. States she has not been feeling well for the past couple days. Does have sinus congestion. Subjective fevers. Body aches. Related Data Home Medications Medication Instructions Recorded Confirmed Centrum Silver 1 tab PO DAILY 10/26/18 10/26/18 albuterol sulfate 2 puff INHALATION Q6H PRN 10/26/18 10/26/18 celecoxib 200 mg PO DAILY 10/26/18 10/26/18 cholecalciferol (vitamin D3) 5,000 unit PO DAILY 10/26/18 10/26/18 [Vitamin D3] cyclobenzaprine 10 mg PO TID PRN 10/26/18 10/26/18 fexofenadine [Janet Allergy] 180 mg PO DAILY 10/26/18 10/26/18 fluticasone propionate [Flonase 1 spray INTRANASAL DAILY PRN 10/26/18 10/26/18 Allergy Relief] hydrochlorothiazide 50 mg PO DAILY PRN 10/26/18 10/26/18 hydrocodone-acetaminophen 2 tab PO Q4HR 10/26/18 10/26/18 insulin degludec 55 units SUBCUT DAILY 10/26/18 10/26/18 levothyroxine 200 mcg PO DAILY 10/26/18 10/26/18 liraglutide 1.2 mg SUBCUT DAILY 10/26/18 10/26/18 losartan 25 mg PO DAILY 10/26/18 10/26/18 montelukast [Singulair] 10 mg PO QPM 10/26/18 10/26/18 pregabalin 50 mg PO TID 10/26/18 10/26/18 rabeprazole [AcipHex] 20 mg PO DAILY 10/26/18 10/26/18 tolterodine 4 mg PO DAILY 10/26/18 10/26/18 warfarin 10 mg PO QTUTHSASU 10/28/18 10/28/18 Allergies Allergy/AdvReac Type Severity Reaction Status Date / Time cefamandole [From Mandol] AdvReac Verified 10/26/18 19:11 clindamycin AdvReac Verified 10/26/18 19:11 heparin AdvReac Verified 10/26/18 19:11 meperidine [From Demerol] AdvReac Verified 10/26/18 19:11 naproxen AdvReac Verified 10/26/18 19:11 NSAIDS (Non-Steroidal AdvReac Verified 10/26/18 19:11 Anti-Inflamma promethazine [From Phenergan] AdvReac Verified 10/26/18 19:11 rofecoxib [From Vioxx] AdvReac Verified 10/26/18 19:11 sulfamethoxazole AdvReac Verified 10/26/18 19:11 [From Septra] trimethoprim [From Septra] AdvReac Verified 10/26/18 19:11 Review of Systems Constitutional Constitutional: Reports fatigue, Reports fever(s), Reports lethargy, Reports malaise and Reports weakness ENT Ears, Nose, Mouth, and Throat: Denies sore throat Comments: Sinus congestion Cardiovascular Cardiovascular: Denies chest pain and Denies dyspnea Respiratory Respiratory: Denies cough and Denies dyspnea Gastrointestinal Gastrointestinal: Denies abdominal pain and Denies vomiting Genitourinary Genitourinary: Denies dysuria Musculoskeletal Musculoskeletal: Reports myalgias and Denies arthralgias Integumentary/Breasts Skin/Breast: Denies rash Neurologic Neurologic: Denies abnormal movements, Reports confusion and Reports weakness Psychiatric Psychiatric: Reports confusion Endocrine Endocrine: Reports fatigue Hematologic/Lymphatic Hematologic/Lymphatic: Denies easy bleeding and Denies easy bruising Allergic/Immunologic Allergic/Immunologic: Denies urticaria Patient History Medical History Bilateral leg edema (Acute) 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) Lymphedema of both lower extremities (Acute) Venous stasis dermatitis of both lower extremities (Acute) Surgical History History of Christine-en-Y gastric bypass (Acute) History of total knee arthroplasty (Acute) Social History (Reviewed 01/22/19 @ 02:08 by HASMUKH Haque marital status: household members: spouse Smoking Status: Never smoker alcohol intake: current alcohol intake frequency: holidays/special occasions only Alcohol type: wine Substance Use Type: does not use Exam Initial Vital Signs Initial Vital Signs: Vital Signs Temperature 100.8 F H 01/21/19 18:50 Pulse Rate 104 H 01/21/19 18:50 Respiratory Rate 22 01/21/19 18:50 Blood Pressure 158/89 H 01/21/19 18:50 Pulse Oximetry 99 01/21/19 18:50 Const General: cooperative, healthy appearing, comfortable, well developed and No acute distress Orientation: alert, awake and oriented x3 HENMT Head: normal to inspection and normocephalic Resp Effort & Inspection: normal respiratory effort Auscultation: clear to auscultation bilaterally Cardio Rate: regular rate Rhythm: regular rhythm GI Inspection: non-distended Palpation: soft Skin Other: Wound VAC lateral aspect left knee. No surrounding erythema. Appears to be working well Neuro General: alert and awake Cognition: normal cognition Speech: speech normal Motor: muscle tone normal throughout Extrem General: normal to inspection and capillary refill normal Psych Appearance: grossly normal and well kempt Course Orders Ordered: ED Orders 01/21/19 19:07 XR chest 1V Stat EKG-12 Lead Stat RT Consult Eval and Treat Now 01/21/19 19:20 Complete Blood Count AUTO DIFF Stat Comprehensive Metabolic Panel Stat Lactate (Lactic Acid) Stat Lipase Stat Partial Thromboplastin Time Stat Procalcitonin Stat Prothrombin Time INR Stat 01/21/19 19:52 Blood Culture Stat Discontinued Medications Hydrocodone Bitart/Acetaminophen ([place] 5/325) 1 tab PO NOW ONE Stop: 01/21/19 21:40 Last Admin: 01/21/19 21:45 Dose: 1 tab Documented by: OLIVIER Sodium Chloride (Normal Saline 0.9%) 1,000 mls @ 1,000 mls/hr IV BOLUS ONE Stop: 01/21/19 20:06 Last Infusion: 01/21/19 21:01 Dose: 0 mls/hr Documented by: Admin: 01/21/19 19:22 Dose: 1,000 mls/hr Documented by: UNA Oxymetazoline HCl (Afrin) 2 sprays NASAL NOW ONE Stop: 01/21/19 19:58 Last Admin: 01/21/19 20:32 Dose: 2 sprays Documented by: OLIVIER Vital Signs Vital signs: Vital Signs - 8 hr 01/21/19 18:50 01/21/19 21:15 Temperature 100.8 F H Pulse Rate 104 H 98 H Respiratory Rate 22 18 Blood Pressure 158/89 H Blood Pressure [Left Arm] 161/83 H Pulse Oximetry 99 98 MDM - Fever Lab Data Attestation: I reviewed the patient's lab results. Result diagrams: 01/21/19 19:20 01/21/19 19:20 Labs: Lab Results 01/21/19 01/21/19 01/21/19 Range/Units 19:20 19:20 19:20 WBC 11.2 H (4.5-11.0) X10^3/uL RBC 3.72 L (4.0-5.2) X10^6/uL Hgb 10.3 L (12.0-16.0) g/dL Hct 30.8 L (36-46) % MCV 82.8 (80-100) fL MCH 27.6 (26-34) PG MCHC 33.3 (30-36) % RDW 15.1 H (11.6-14.8) % Plt Count 281 (150-400) X10^3/uL Neut % (Auto) 89.0 H (50-75) % Lymph % (Auto) 6.1 L (25-40) % [place] % (Auto) 4.2 (3-14) % Eos % (Auto) 0.3 L (2-4) % Baso % (Auto) 0.4 (0-2) % Neut # (Auto) 27444 H (4524-3141) /uL Lymph # (Auto) 700 L (4573-4863) /uL [place] # (Auto) 500 (0-900) /uL Eos # (Auto) 0 (0-450) /uL Baso # (Auto) 0 (0-100) /uL PT 28.7 H (10.1-12.7) SECONDS INR 2.4 H (0.9-1.3) APTT 42 H (26.4-36.2) SECONDS Sodium (137-145) mmol/L Potassium (3.4-5.1) mmol/L Chloride (98-107) mmol/L Carbon Dioxide (22-32) mmol/L BUN (7-17) mg/dL Creatinine (0.52-1.04) mg/dL Estimated GFR (>60) mL/min BUN/Creatinine Ratio (6-22) Glucose (80-110) mg/dL Lactate (0.7-2.1) mmol/L Calcium (8.4-10.2) mg/dL Total Bilirubin (0.2-1.3) mg/dL AST (14-36) IU/L ALT (<35) IU/L Alkaline Phosphatase (38-126) U/L Total Protein (6.3-8.2) g/dL Albumin (3.5-5.0) g/dL Globulin (1.7-4.1) g/dL Albumin/Globulin Ratio (1.0-2.8) Lipase (23-300) U/L Procalcitonin < 0.05 (<0.5) ng/mL 01/21/19 01/21/19 Range/Units 19:20 19:20 WBC (4.5-11.0) X10^3/uL RBC (4.0-5.2) X10^6/uL Hgb (12.0-16.0) g/dL Hct (36-46) % MCV (80-100) fL MCH (26-34) PG MCHC (30-36) % RDW (11.6-14.8) % Plt Count (150-400) X10^3/uL Neut % (Auto) (50-75) % Lymph % (Auto) (25-40) % [place] % (Auto) (3-14) % Eos % (Auto) (2-4) % Baso % (Auto) (0-2) % Neut # (Auto) (3392-3012) /uL Lymph # (Auto) (5055-3114) /uL [place] # (Auto) (0-900) /uL Eos # (Auto) (0-450) /uL Baso # (Auto) (0-100) /uL PT (10.1-12.7) SECONDS INR (0.9-1.3) APTT (26.4-36.2) SECONDS Sodium 134 L (137-145) mmol/L Potassium 4.1 (3.4-5.1) mmol/L Chloride 99 (98-107) mmol/L Carbon Dioxide 27 (22-32) mmol/L BUN 22 H (7-17) mg/dL Creatinine 0.60 (0.52-1.04) mg/dL Estimated GFR > 60.0 (>60) mL/min BUN/Creatinine Ratio 36.7 H (6-22) Glucose 200 H (80-110) mg/dL Lactate 1.0 (0.7-2.1) mmol/L Calcium 9.0 (8.4-10.2) mg/dL Total Bilirubin 0.4 (0.2-1.3) mg/dL AST 22 (14-36) IU/L ALT 17 (<35) IU/L Alkaline Phosphatase 101 (38-126) U/L Total Protein 7.4 (6.3-8.2) g/dL Albumin 3.9 (3.5-5.0) g/dL Globulin 3.5 (1.7-4.1) g/dL Albumin/Globulin Ratio 1.1 (1.0-2.8) Lipase 29 (23-300) U/L Procalcitonin (<0.5) ng/mL Urine Dip Bedside Urine Glucose Negative Bedside Urine Bilirubin - Negative Bedside Urine Ketone - Negative Urine Specific [place] 1.015 Bedside Urine Occult Blood - Negative Bedside Urine pH 6.0 Bedside Urine Protein +/- 15 Bedside Urine Urobilinogen - Negative Bedside Urine Nitrite - Negative Bedside Urine Leukocytes - Negative Esterase Imaging Data Chest x-ray: Radiologist's impression: [address] [address] XRay Report Signed Patient: Leticia Posey [facility]#: [id number] : [id number]:[id number] Age/Sex: 68 / FDate of Service: 01/21/19 Loc: ED Accession Number: [id number] Procedure: XR chest 1V Ordering Provider: Avelino Tavares D.O. PROCEDURE: XR CHEST 1V INDICATIONS: suspected sepsis TECHNIQUE: One view of the chest was acquired. COMPARISON: [facility], CR, XR CHEST 1V, 01/01/2019, 8:30. [facility], CR, XR CHEST 1V, 01/01/2019, 8:09. FINDINGS: Surgical changes and devices: None. Lungs and pleura: Lungs are abnormal with mild interstitial prominence and reduced inspiratory volume. No pleural effusions or pneumothorax. Mediastinum: Mediastinal contours appear normal. Heart size is normal. Bones and chest wall: No suspicious bony lesions. Overlying soft tissues appear unremarkable. IMPRESSION: Pneumonia is not. Mild chronic interstitial prominence and mildly reduced inspiratory volume. Dictated by: Howard High M.D. on 01/21/2019 at 20:04 Approved by: Howard High M.D. on 01/21/2019 at 20:04 ECG Data Attestation: I personally reviewed and interpreted this ECG as follows: Prior ECG tracings: not available for review Interpretation: Sinus tachycardia Ventricular rate 104 Normal axis Normal QRS Normal QTC Nonspecific ST T wave changes MDM Narrative Medical decision making narrative: Patient has a slight leukocytosis and low-grade fever however normal lactate and negative procalcitonin. She is nontoxic appearing. Has generalized body aches. She is currently on long-term antibiotics for an infection of her left leg however this does appear well. There is no signs of cellulitis. The wound VAC is in place and appears to be operating appropriately. Patient clinically does not have pneumonia and chest x-ray is not definitive for pneumonia. Has had abdominal issues in the past however this does not appear to be the case today. I do not feel the patient needs admitted to the hospital. I do not feel that the patient needs changes to any of her antibiotics. I do not feel the patient needs a abdominal CT given her physical exam. Family seems somewhat concerned about her symptoms stating that they are ?not normal ?for her. I did express understanding of this however I told them that her leg looks well when her labs are very reassuring. I informed them that I did not feel that we needed to change any of her antibiotics. I did not have a specific source of infection. Informed them that I did not feel that she needed admitted to the hospital. I did encourage them to return to the emergency department if any of her symptoms worsened. Also informed her that it would be baker for her to stop using her daily Afrin. She states she was very congested upon arrival here to the emergency department and asked for Afrin to help with this. We did discuss other decongestants she could use to include Claritin or Janet or Zyrtec. Discharge Plan Departure Patient Disposition: Home Clinical Impression: Generalized body aches, Congestion of nasal sinus Fatigue Qualifiers: Fatigue type: unspecified Qualified Code(s): R53.83 - Other fatigue Discharge Date/Time: 01/21/19 21:55 Instructions: DI for Fatigue, Antihistamine/Decongestant (By mouth) Activity Restrictions/Additional Instructions: Your labs today do not support a systemic infection such as sepsis. I recommend you continue all of your medications as directed. Contact your primary provider for follow-up. Return to the emergency department for any new or worsening symptoms Prescriptions: No Action celecoxib 200 mg capsule 200 mg PO DAILY RF: 0 rabeprazole [AcipHex] 20 mg Tablet,Delayed Release (Dr/Ec) 20 mg PO DAILY RF: 0 hydrochlorothiazide 50 mg tablet 50 mg PO DAILY PRN (Reason: Pain (Scale Score 4-6)) RF: 0 tolterodine 4 mg capsule,extended release 24hr 4 mg PO DAILY RF: 0 losartan 25 mg Tablet 25 mg PO DAILY RF: 0 montelukast [Singulair] 10 mg Tablet 10 mg PO QPM RF: 0 levothyroxine 200 mcg tablet 200 mcg PO DAILY RF: 0 pregabalin 50 mg Capsule 50 mg PO TID RF: 0 liraglutide 0.6 mg/0.1 mL (18 mg/3 mL) pen injector 1.2 mg subcut DAILY RF: 0 insulin degludec 100 unit/mL (3 mL) insulin pen 55 units subcut DAILY RF: 0 cyclobenzaprine 10 mg tablet 10 mg PO TID PRN (Reason: Muscle Spasm) RF: 0 fexofenadine [Janet Allergy] 180 mg Tablet 180 mg PO DAILY RF: 0 hydrocodone-acetaminophen 7.5-325 mg tablet 2 tab PO Q4HR RF: 0 albuterol sulfate 90 mcg/actuation Hfa Aerosol Inhaler 2 puff INHALATION Q6H PRN (Reason: SOB) RF: 0 fluticasone propionate [Flonase Allergy Relief] 50 mcg/actuation [place],Suspension 1 spray intranasal DAILY PRN (Reason: Congestion) RF: 0 Centrum Silver 0.4-300-250 mg-mcg-mcg Tablet 1 tab PO DAILY RF: 0 cholecalciferol (vitamin D3) [Vitamin D3] 5,000 unit Tablet 5,000 unit PO DAILY RF: 0 war[facility]in 10 [facility]: 0 Referrals: Dannhaur,Rosi C, MD [Primary Care Provider] -
[2019-01-21 20:07] LABS: Procalcitonin < 0.05 ng/mL (<0.5)
[2019-01-21] MEDS: OXYMETAZOLINE NASAL SPRAY 30 ML 2 SPRAYS NASAL (20:32)
[2019-01-21 21:15] VITALS: BP 161/83; PULSE 98; RESP 18; O2SAT 98
[2019-01-21] MEDS: HYDROCODONE/ACET 5/325 TABLET 1 TAB PO (21:45)
--- NOTE | 2019-01-21 22:09 | PC.NURSE ---
Pt has a wound vac to LLE, negative pressure good, intact
== END 2019-01-21 21:55 | disposition home or self-care (01) ==
PROVIDERS: Emergency Provider Emergency Medicine; PCP Internal Medicine
DX: R09.81 Nasal congestion (principal); R52 Pain, unspecified; R53.83 Other fatigue; Z79.01 Long term (current) use of anticoagulants; R00.0 Tachycardia, unspecified
CPT/HCPCS: 36415; 71045; 80053; 81003; 83605; 83690; 84145; 85025; 85610; 85730; 87040; 93005; 99283; 99285

== ENCOUNTER → 2019-01-25 10:23 | Outpatient (CLI) | payer MEDICARE, OTHER, SELFPAY ==
[2018-10-26 22:45] VITALS: BMI 42.9
== END ==
PROVIDERS: PCP Internal Medicine; Visit Provider Family Medicine
DX: E11.628 Type 2 diabetes mellitus with other skin complications (principal); T81.31XA Disruption of external operation (surgical) wound, not elsewhere classified, initial encounter; I89.0 Lymphedema, not elsewhere classified; Z79.01 Long term (current) use of anticoagulants
CPT/HCPCS: 97597

== ENCOUNTER → 2019-02-01 09:42 | Outpatient (CLI) | payer MEDICARE, OTHER, SELFPAY ==
[2018-10-26 22:45] VITALS: BMI 42.9
== END ==
PROVIDERS: PCP Internal Medicine; Visit Provider Family Medicine
DX: E11.628 Type 2 diabetes mellitus with other skin complications (principal); T81.31XA Disruption of external operation (surgical) wound, not elsewhere classified, initial encounter; I89.0 Lymphedema, not elsewhere classified; Z79.01 Long term (current) use of anticoagulants; R60.0 Localized edema
CPT/HCPCS: 15271; Q4110

== ENCOUNTER → 2019-02-04 09:18 | Outpatient (CLI) | payer MEDICARE, OTHER, SELFPAY ==
[2018-10-26 22:45] VITALS: BMI 42.9
== END ==
PROVIDERS: PCP Internal Medicine; Visit Provider Family Medicine
DX: S81.802A Unspecified open wound, left lower leg, initial encounter (principal)
CPT/HCPCS: 97605

== ENCOUNTER → 2019-02-08 09:54 | Outpatient (CLI) | payer MEDICARE, OTHER, SELFPAY ==
[2018-10-26 22:45] VITALS: BMI 42.9
== END ==
PROVIDERS: PCP Internal Medicine; Visit Provider Family Medicine
DX: S81.802A Unspecified open wound, left lower leg, initial encounter (principal)
CPT/HCPCS: 15271; Q4110

== ENCOUNTER → 2019-02-11 08:28 | Outpatient (CLI) | payer MEDICARE, OTHER, SELFPAY ==
[2018-10-26 22:45] VITALS: BMI 42.9
== END ==
PROVIDERS: PCP Internal Medicine; Visit Provider Family Medicine
DX: S81.802A Unspecified open wound, left lower leg, initial encounter (principal); R60.0 Localized edema
CPT/HCPCS: 97605

== ENCOUNTER → 2019-02-15 09:56 | Outpatient (CLI) | payer MEDICARE, OTHER, SELFPAY ==
[2018-10-26 22:45] VITALS: BMI 42.9
== END ==
PROVIDERS: PCP Internal Medicine; Visit Provider Family Medicine
DX: E11.628 Type 2 diabetes mellitus with other skin complications (principal); T81.31XA Disruption of external operation (surgical) wound, not elsewhere classified, initial encounter; I89.0 Lymphedema, not elsewhere classified; Z79.01 Long term (current) use of anticoagulants
CPT/HCPCS: 97597

== ENCOUNTER → 2019-02-18 08:26 | Outpatient (CLI) | payer MEDICARE, OTHER, SELFPAY ==
[2018-10-26 22:45] VITALS: BMI 42.9
== END ==
PROVIDERS: PCP Internal Medicine; Visit Provider Family Medicine
DX: S81.802A Unspecified open wound, left lower leg, initial encounter (principal); R60.0 Localized edema
CPT/HCPCS: 97605

== ENCOUNTER → 2019-02-22 09:49 | Outpatient (CLI) | payer MEDICARE, OTHER, SELFPAY ==
[2018-10-26 22:45] VITALS: BMI 42.9
== END ==
PROVIDERS: PCP Internal Medicine; Visit Provider Family Medicine
DX: E11.628 Type 2 diabetes mellitus with other skin complications (principal); T81.31XA Disruption of external operation (surgical) wound, not elsewhere classified, initial encounter; I89.0 Lymphedema, not elsewhere classified; Z79.01 Long term (current) use of anticoagulants
CPT/HCPCS: 15271; Q4110

== ENCOUNTER → 2019-03-01 11:04 | Outpatient (CLI) | payer MEDICARE, OTHER, SELFPAY ==
[2018-10-26 22:45] VITALS: BMI 42.9
== END ==
PROVIDERS: PCP Internal Medicine; Visit Provider Family Medicine
DX: E11.628 Type 2 diabetes mellitus with other skin complications (principal); T81.31XA Disruption of external operation (surgical) wound, not elsewhere classified, initial encounter; R60.0 Localized edema; Z79.01 Long term (current) use of anticoagulants
CPT/HCPCS: 97597

== ENCOUNTER 2019-03-01 16:48 | Inpatient (IN) | payer MEDICARE, OTHER, SELFPAY ==
[2019-03-01] VITALS (9 sets, daily range): BP systolic 106–175; BP diastolic 39–97; PULSE 95–118; RESP 12–22; TEMP 37.4–39.2; O2SAT 92–96; BMI 43.0
--- NOTE | 2019-03-01 17:08 | DI.RAD.S_ITS ---
PROCEDURE: XR CHEST 1V INDICATIONS: suspected sepsis TECHNIQUE: One view of the chest was acquired. COMPARISON: [facility], CR, XR CHEST 1V, 01/21/2019, 19:42. FINDINGS: Surgical changes and devices: None. Lungs and pleura: Mild chronic interstitial prominence. No acute infiltrates. No pleural effusions or pneumothorax. Mediastinum: Mediastinal contours appear normal. Heart size is normal. Bones and chest wall: No suspicious bony lesions. Overlying soft tissues appear unremarkable. IMPRESSION: Mild chronic interstitial prominence. Dictated by: Dani Murray M.D. on 03/01/2019 at 18:55 Approved by: Dani Murray M.D. on 03/01/2019 at 18:57
[2019-03-01] MEDS: SODIUM CHLORIDE 0.9% 1,000 ML 1000 ML IV (17:30)
--- NOTE | 2019-03-01 17:57 | PC.NURSE ---
Patient was incontinent of urine in bed. Bed linens changed with this EDRN and Daiana BUTTERFIELD. Patient is in severe pain throughout body, especially in left knee and right arm. Patient feels hot to the touch and is in considerable discomfort crying out loudly as we turned her. She has wound vac to left knee from infection from knee surgery. Patient reports she last took ibuprofen this morning, I spoke with Dr. Baca and verbal order for toradol 30mg was given at this time. Knee does not look red, swollen, or inflamed, no output from wound vac.
[2019-03-01 17:58] LABS: Add Manual Diff / Slide Review NO; Basophils Absolute Auto 100 /uL (0-100); Basophils Percent Auto 0.4 % (0-2); Eosinophils Absolute Auto 0 /uL (0-450); Eosinophils Percent Auto 0.1 % (2-4); Hematocrit 33.2 % (36-46); Lymphocytes Absolute Auto 600 /uL (1100-4500); Lymphocytes Percent Auto 4.1 % (25-40); Mean Corpuscular HGB Conc 33.3 % (30-36); Mean Corpuscular Hemoglobin 27.1 PG (26-34); Mean Corpuscular Volume 81.4 fL (80-100); Monocytes Absolute Auto 500 /uL (0-900); Monocytes Percent Auto 3.6 % (3-14); Neutrophils Absolute Auto 13200 /uL (1500-7000); Neutrophils Percent Auto 91.8 % (50-75); Platelet Count 308 X10^3/uL (150-400); Red Blood Cell Count 4.08 X10^6/uL (4.0-5.2); Red Cell Distribution Width 15.9 % (11.6-14.8); White Blood Cell Count 14.3 X10^3/uL (4.5-11.0)
[2019-03-01] MEDS: KETOROLAC 60 MG/2 ML VIAL 30 MG IV (18:02)
[2019-03-01 18:04] LABS: INR 2.1 (0.9-1.3); Prothrombin Time 24.4 SECONDS (10.1-12.7)
[2019-03-01 18:07] LABS: PTT Partial Thromboplastin Tim 38 SECONDS (26.4-36.2)
[2019-03-01 18:08] LABS: Lactate (Lactic Acid) 1.1 mmol/L (0.7-2.1)
[2019-03-01 18:09] LABS: Alanine Aminotransferase 21 IU/L (<35); Albumin 4.1 g/dL (3.5-5.0); Albumin Globulin Ratio 1.1 (1.0-2.8); Alkaline Phosphatase 137 U/L (38-126); Aspartate Aminotransferase 26 IU/L (14-36); BUN Creatinine Ratio 31.4 (6-22); Bilirubin Total 0.4 mg/dL (0.2-1.3); Blood Urea Nitrogen 22 mg/dL (7-17); Calcium 9.1 mg/dL (8.4-10.2); Carbon Dioxide 25 mmol/L (22-32); Chloride 98 mmol/L (98-107); Estimated Glomerular Filt Rate > 60.0 mL/min (>60); Globulin 3.6 g/dL (1.7-4.1); Glucose 204 mg/dL (80-110); HEMOLYSIS < 15 (0-50); Lipase 17 U/L (23-300); Potassium 4.6 mmol/L (3.4-5.1); Sodium 134 mmol/L (137-145); Total Protein 7.7 g/dL (6.3-8.2)
--- NOTE | 2019-03-01 18:11 | ED.FEVER ---
HPI - Fever <Amanda Walterspedrito, DO - Last Filed: 03/09/19 11:42> General Chief Complaint: Fever Stated Complaint: Possible sepsis Time Seen by Provider: 03/01/19 17:37 Source: patient and family Mode of arrival: EMS Limitations: no limitations History of Present Illness HPI Narrative: Patient is a 68-year-old female with history of hypertension, obesity, diabetes lymphedema DVT multiple episodes of sepsis presenting with fever and confusion. states that 2 days ago she was normal and at baseline and yesterday she started feeling his week fatigued today she started complaining of pain all over and is very confused and unable to answer questions. She has a wound VAC on her left leg which is she is followed for by Orthopedics for a cyst removal. She was actually seen evaluated for that today and that appears well there's no gross drainage or erythema. He is currently febrile with a fever of 102 in the emergency department. She was unable to give me the year or explained to be what happened she just says she hurts all over. MD complaint: fever, malaise and weakness Onset (ago): day(s) (2) Related Data Home Medications Medication Instructions Recorded Confirmed Centrum Silver 1 tab PO DAILY 10/26/18 03/03/19 albuterol sulfate 2 puff INHALATION Q6H PRN 10/26/18 03/03/19 celecoxib 200 mg PO DAILY 10/26/18 03/01/19 cholecalciferol (vitamin D3) 5,000 unit PO DAILY 10/26/18 03/03/19 [Vitamin D3] cyclobenzaprine 10 mg PO TID PRN 10/26/18 03/01/19 fexofenadine [Janet Allergy] 180 mg PO DAILY 10/26/18 03/03/19 fluticasone propionate [Flonase 1 spray INTRANASAL DAILY PRN 10/26/18 03/01/19 Allergy Relief] hydrochlorothiazide 50 mg PO DAILY 10/26/18 03/01/19 hydrocodone-acetaminophen 2 tab PO Q4HR PRN 10/26/18 03/01/19 insulin degludec 55 units SUBCUT DAILY 10/26/18 03/03/19 levothyroxine 200 mcg PO DAILY 10/26/18 03/03/19 liraglutide 1.2 mg SUBCUT DAILY 10/26/18 03/01/19 losartan 25 mg PO DAILY 10/26/18 03/01/19 montelukast [Singulair] 10 mg PO QPM 10/26/18 03/01/19 pregabalin 50 mg PO TID 10/26/18 03/01/19 rabeprazole [AcipHex] 20 mg PO DAILY 10/26/18 03/01/19 tolterodine 4 mg PO DAILY 10/26/18 03/01/19 ondansetron HCl 4 mg PO TID PRN 03/01/19 03/01/19 warfarin See Rx Instructions .ROUTE .COMPLEX 03/01/19 03/02/19 Previous Rx's Medication Instructions Recorded doxycycline hyclate 100 mg PO BID 7 Days #14 tab 03/03/19 Allergies Allergy/AdvReac Type Severity Reaction Status Date / Time cefamandole [From Mandol] AdvReac Verified 03/03/19 08:55 clindamycin AdvReac Verified 03/03/19 08:55 heparin AdvReac Verified 03/03/19 08:55 meperidine [From Demerol] AdvReac Verified 03/03/19 08:55 naproxen AdvReac Verified 03/03/19 08:55 NSAIDS (Non-Steroidal AdvReac Verified 03/03/19 08:55 Anti-Inflamma promethazine [From Phenergan] AdvReac Verified 03/03/19 08:55 rofecoxib [From Vioxx] AdvReac Verified 03/03/19 08:55 sulfamethoxazole AdvReac Verified 03/03/19 08:55 [From Septra] trimethoprim [From Septra] AdvReac Verified 03/03/19 08:55 Review of Systems <Amanda Hastings DO - Last Filed: 03/09/19 11:42> Review of Systems ROS Unobtainable: All systems reviewed & are unremarkable except as noted in HPI and below Constitutional Constitutional: Reports body ache(s), Reports fatigue, Reports fever(s) and Reports lethargy Cardiovascular Cardiovascular: Reports chest pain, Reports rapid heart rate, Denies lightheadedness and Denies dyspnea Respiratory Respiratory: Denies cough and Denies dyspnea Gastrointestinal Gastrointestinal: Denies abdominal pain and Denies nausea Integumentary/Breasts Skin/Breast: Reports as per HPI Endocrine Endocrine: Reports fatigue Patient History <Amanda Hastings DO - Last Filed: 03/09/19 11:42> Medical History Bilateral leg edema (Acute) Diabetes (Acute) 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) Lymphedema of both lower extremities (Acute) Venous stasis dermatitis of both lower extremities (Acute) Surgical History History of Christine-en-Y gastric bypass (Acute) History of total knee arthroplasty (Acute) Social History (System 03/03/19 @ 08:55 by Beverley Liz) marital status: household members: spouse Smoking Status: Never smoker alcohol intake: current Smoking Status: Never smoker alcohol intake frequency: holidays/special occasions only Alcohol type: wine Substance Use Type: does not use Exam <Amanda Hastings DO - Last Filed: 03/09/19 11:42> Initial Vital Signs Initial Vital Signs: Vital Signs Temperature 102.6 F H 03/01/19 16:51 Pulse Rate 118 H 03/01/19 16:51 Respiratory Rate 22 03/01/19 16:51 Blood Pressure 175/53 H 03/01/19 16:51 Pulse Oximetry 94 03/01/19 16:51 GENERAL: Confused elderly female HEENT: Head atraumatic,EOMI, pupils reactive, face symmetric CARDIOVASCULAR: Regular rate and rhythm without murmurs, rubs or gallops. RESPIRATORY: Breath sounds equal bilaterally, no wheezes rales or rhonchi. ABDOMEN: Soft, ventral hernia noted, nontender EXTREMITIES: Normal range of motion, no clubbing or edema. Neurovascularly intact NEUROLOGICAL: Alert and oriented x1, moving all extremities SKIN: Warm, dry, no laceration, no petechiae, no rashes or lesions. <Marley Caal MD - Last Filed: 03/01/19 19:39> Initial Vital Signs Initial Vital Signs: Vital Signs Temperature 102.6 F H 03/01/19 16:51 Pulse Rate 118 H 03/01/19 16:51 Respiratory Rate 22 03/01/19 16:51 Blood Pressure 175/53 H 03/01/19 16:51 Pulse Oximetry 94 03/01/19 16:51 Scores <Amanda Hastings DO - Last Filed: 03/09/19 11:42> GCS [place] coma scale eye opening: To sound [place] coma scale verbal response: Confused [place] coma scale motor response: Localising [place] coma scale total score: 12 Course <Amanda Hastings DO - Last Filed: 03/09/19 11:42> Orders Ordered: Discontinued Medications Acetaminophen (Tylenol) 975 mg PO NOW ONE Stop: 03/01/19 18:20 Last Admin: 03/01/19 18:27 Dose: 975 mg Documented by: SHERWIN Acetaminophen (Tylenol) 650 mg PO Q6HR PRN PRN Reason: Fever/Mild Pain (1-3) Last Admin: 03/02/19 19:57 Dose: 650 mg Documented by: Admin: 03/02/19 14:18 Dose: 650 mg Documented by: Admin: 03/02/19 06:47 Dose: 650 mg Documented by: Admin: 03/02/19 01:01 Dose: 650 mg Documented by: ALFRED Acetaminophen (Tylenol) 325 mg PO Q4HR [facility] Last Admin: 03/03/19 14:41 Dose: Not Given Documented by: BALDO Hydrocodone Bitart/Acetaminophen ([place] 10/325) 1 tab PO Q4HR PRN PRN Reason: Pain, Moderate (4-6) Last Admin: 03/03/19 14:42 Dose: 1 tab Documented by: BALDO Hydrocodone Bitart/Acetaminophen ([place] 5/325) 1 tab PO Q4HR PRN PRN Reason: Pain, Moderate (4-6) Last Admin: 03/03/19 14:43 Dose: 1 tab Documented by: BALDO Albuterol (Ventolin Hfa) 2 puff INH RTQ6HR PRN PRN Reason: Shortness Of Breath Amitriptyline HCl (Elavil) 50 mg PO NOW ONE Stop: 03/02/19 06:41 Last Admin: 03/02/19 08:29 Dose: Not Given Documented by: ENEDELIA Amitriptyline HCl (Elavil) 50 mg PO BEDTIME [facility] Last Admin: 03/02/19 22:36 Dose: 50 mg Documented by: DAKOTA Celecoxib (Celebrex) 200 mg PO DAILY [facility] Last Admin: 03/02/19 08:29 Dose: Not Given Documented by: ENEDELIA Cyclobenzaprine HCl (Flexeril) 10 mg PO TID PRN PRN Reason: Muscle Spasm Last Admin: 03/02/19 19:57 Dose: 10 mg Documented by: Admin: 03/02/19 10:17 Dose: 10 mg Documented by: Admin: 03/02/19 01:00 Dose: 10 mg Documented by: ALFRED Dextrose (D50w) 25 gm IV PRN PRN PRN Reason: Hypoglycemia Hydrochlorothiazide (Hydrochlorothiazide) 50 mg PO DAILY [facility] Last Admin: 03/03/19 08:37 Dose: 50 mg Documented by: BALDO Hydromorphone HCl (Dilaudid) 1 mg IV NOW ONE Stop: 03/01/19 19:05 Last Admin: 03/01/19 19:09 Dose: 1 mg Documented by: SHERWIN Hydromorphone HCl (Dilaudid) 0.5 mg IV Q6HR PRN PRN Reason: Pain, Moderate (4-6) Hydromorphone HCl (Dilaudid) 1 mg IV Q6HR PRN PRN Reason: Pain, Severe (7-10) Last Admin: 03/01/19 23:51 Dose: 1 mg Documented by: ALFRED Hydromorphone HCl (Dilaudid) 1 mg IV NOW ONE Stop: 03/02/19 02:21 Last Admin: 03/02/19 02:47 Dose: 1 mg Documented by: ALFRED Hydromorphone HCl (Dilaudid) 1 mg IV Q4HR PRN PRN Reason: Pain, Severe (7-10) Last Admin: 03/03/19 09:47 Dose: 1 mg Documented by: Admin: 03/03/19 01:38 Dose: 1 mg Documented by: Admin: 03/02/19 19:58 Dose: 1 mg Documented by: Admin: 03/02/19 15:57 Dose: 1 mg Documented by: Admin: 03/02/19 06:18 Dose: 1 mg Documented by: ALFRED Hydromorphone HCl (Dilaudid) 0.5 mg IV Q4HR PRN PRN Reason: Pain, Moderate (4-6) Hydromorphone HCl (Dilaudid) 2 mg PO Q3H PRN PRN Reason: Pain, Severe (7-10) Last Admin: 03/03/19 12:23 Dose: 2 mg Documented by: Admin: 03/03/19 08:37 Dose: 2 mg Documented by: Admin: 03/03/19 05:30 Dose: 2 mg Documented by: Admin: 03/03/19 00:14 Dose: 2 mg Documented by: Admin: 03/02/19 20:11 Dose: 2 mg Documented by: Admin: 03/02/19 17:14 Dose: 2 mg Documented by: Admin: 03/02/19 14:22 Dose: 2 mg Documented by: Admin: 03/02/19 11:32 Dose: 2 mg Documented by: Admin: 03/02/19 08:29 Dose: 2 mg Documented by: ENEDELIA Hydromorphone HCl (Dilaudid) 0.5 mg IV Q4HR PRN PRN Reason: Pain, Moderate (4-6) Sodium Chloride (Normal Saline 0.9%) 1,000 mls @ 1,000 mls/hr IV BOLUS ONE Stop: 03/01/19 18:07 Last Infusion: 03/01/19 19:13 Dose: 0 mls/hr Documented by: Admin: 03/01/19 17:30 Dose: 1,000 mls/hr Documented by: SHERWIN Sodium Chloride (Normal Saline 0.9%) 1,000 mls @ 1,000 mls/hr IV BOLUS ONE Stop: 03/01/19 20:45 Last Admin: 03/01/19 19:51 Dose: Not Given Documented by: JC Sodium Chloride (Normal Saline 0.9%) 3,741 mls @ 1,247 mls/hr 30 ml/kg infuse over 3 hr (3741 ml) IV NOW ONE Stop: 03/01/19 22:45 Last Infusion: 03/01/19 21:51 Dose: 1,247 mls/hr Documented by: Admin: 03/01/19 19:50 Dose: 1,247 mls/hr Documented by: JC Ceftriaxone Sodium/Dextrose (Rocephin) 1 gm in 50 mls @ 100 mls/hr IV NOW ONE Stop: 03/01/19 20:39 Last Admin: 03/01/19 21:11 Dose: Not Given Documented by: JC Vancomycin HCl/Dextrose (Vancomycin) 2,000 mg in 400 mls @ 200 mls/hr IV NOW ONE Stop: 03/01/19 22:09 Last Infusion: 03/01/19 21:52 Dose: 200 mls/hr Documented by: Admin: 03/01/19 21:09 Dose: 200 mls/hr Documented by: JC Piperacillin/Tazobactam/Dextrose (Zosyn) 3.375 gm in 50 mls @ 100 mls/hr IV NOW ONE Stop: 03/01/19 20:53 Last Infusion: 03/01/19 21:09 Dose: 0 mls/hr Documented by: Admin: 03/01/19 20:34 Dose: 100 mls/hr Documented by: JC Ceftriaxone Sodium/Dextrose (Rocephin) 1 gm in 50 mls @ 100 mls/hr IV NOW ONE Stop: 03/01/19 21:44 Last Admin: 03/01/19 23:43 Dose: Not Given Documented by: ALFRED Sodium Chloride (Normal Saline 0.9%) 1,000 mls @ 75 mls/hr IV CONT [facility] Last Infusion: 03/02/19 16:00 Dose: 0 mls/hr Documented by: Admin: 03/02/19 14:48 Dose: 75 mls/hr Documented by: Infusion: 03/02/19 07:15 Dose: 75 mls/hr Documented by: Admin: 03/02/19 00:21 Dose: 150 mls/hr Documented by: ALFRED Vancomycin HCl/Dextrose (Vancomycin) 2,000 mg in 400 mls @ 200 mls/hr IV Q12H [facility] Last Admin: 03/02/19 03:21 Dose: Not Given Documented by: ALANAPAVEGA Piperacillin/Tazobactam/Dextrose (Zosyn) 3.375 gm in 50 mls @ 100 mls/hr IV Q8H [facility] Last Admin: 03/03/19 15:14 Dose: 100 mls/hr Documented by: Infusion: 03/03/19 07:51 Dose: 0 mls/hr Documented by: Admin: 03/03/19 06:50 Dose: 100 mls/hr Documented by: Infusion: 03/03/19 00:12 Dose: 0 mls/hr Documented by: Admin: 03/02/19 22:46 Dose: 100 mls/hr Documented by: Infusion: 03/02/19 16:30 Dose: 0 mls/hr Documented by: Admin: 03/02/19 15:55 Dose: 100 mls/hr Documented by: Infusion: 03/02/19 09:00 Dose: 0 mls/hr Documented by: Admin: 03/02/19 08:14 Dose: 100 mls/hr Documented by: Infusion: 03/02/19 00:25 Dose: 100 mls/hr Documented by: Admin: 03/01/19 23:51 Dose: 100 mls/hr Documented by: ALFRED Vancomycin HCl/Dextrose (Vancomycin) 2,000 mg in 400 mls @ 200 mls/hr IV Q12H [facility] Last Infusion: 03/03/19 10:35 Dose: 0 mls/hr Documented by: Admin: 03/03/19 08:31 Dose: 200 mls/hr Documented by: Infusion: 03/02/19 22:39 Dose: 0 mls/hr Documented by: Admin: 03/02/19 20:28 Dose: 200 mls/hr Documented by: Infusion: 03/02/19 12:15 Dose: 0 mls/hr Documented by: Admin: 03/02/19 10:01 Dose: 200 mls/hr Documented by: ENEDELIA Insulin Aspart (Novolog Flexpen) 0 unit SUBCUT [facility]; Protocol Last Admin: 03/03/19 16:29 Dose: 4 unit Documented by: ADDIE Cosigned by: ANSON Admin: 03/03/19 12:20 Dose: 2 unit Documented by: BALDO Cosigned by: YKUN Admin: 03/03/19 07:50 Dose: Not Given Documented by: Admin: 03/02/19 21:18 Dose: 2 unit Documented by: DAKOTA Cosigned by: SERGIO Admin: 03/02/19 17:12 Dose: 2 unit Documented by: DAKOTA Cosigned by: SERGIO Admin: 03/02/19 12:34 Dose: 2 unit Documented by: BALDO Cosigned by: LHROCHERRY Insulin Glargine (Lantus Solostar (Pen)) 50 unit SUBCUT 2100 [facility] Last Admin: 03/02/19 21:19 Dose: 50 unit Documented by: DAKOTA Cosigned by: SERGIO Ketorolac Tromethamine (Toradol) 30 mg IV NOW ONE Stop: 03/01/19 17:56 Last Admin: 03/01/19 18:02 Dose: 30 mg Documented by: SHERWIN Ketorolac Tromethamine (Toradol) 15 mg IV NOW ONE Stop: 03/02/19 00:14 Last Admin: 03/02/19 01:00 Dose: 15 mg Documented by: ALFRED Ketorolac Tromethamine (Toradol) 15 mg IV Q8H [facility] Stop: 03/07/19 21:39 Last Admin: 03/03/19 05:30 Dose: 15 mg Documented by: Admin: 03/02/19 22:35 Dose: 15 mg Documented by: DAKOTA Levothyroxine Sodium (Synthroid) 200 mcg PO 0600 [facility] Losartan Potassium (Cozaar) 25 mg PO DAILY [facility] Last Admin: 03/03/19 08:30 Dose: Not Given Documented by: BALDO Naloxone HCl (Narcan) 0.2 mg IV Q2MIN PRN PRN Reason: Opiate Reversal Ondansetron HCl (Zofran) 4 mg IV Q6HR [facility] Last Admin: 03/03/19 12:19 Dose: Not Given Documented by: Admin: 03/03/19 05:37 Dose: Not Given Documented by: Admin: 03/03/19 00:11 Dose: Not Given Documented by: Admin: 03/02/19 17:21 Dose: Not Given Documented by: Admin: 03/02/19 12:00 Dose: Not Given Documented by: Admin: 03/02/19 06:09 Dose: Not Given Documented by: Admin: 03/02/19 01:01 Dose: Not Given Documented by: ALFRED Ondansetron HCl (Zofran) 4 mg IV Q6HR PRN PRN Reason: Nausea Oxycodone HCl (Percolone) 15 mg PO Q4HR [facility] Last Admin: 03/03/19 14:41 Dose: Not Given Documented by: BALDO Pantoprazole Sodium (Protonix) 20 mg PO 0600 [facility] Last Admin: 03/02/19 06:07 Dose: 20 mg Documented by: ALFRED Pantoprazole Sodium (Protonix) 40 mg PO DAILY [facility] Last Admin: 03/03/19 08:30 Dose: 40 mg Documented by: Admin: 03/02/19 08:27 Dose: Not Given Documented by: ENEDELIA Pregabalin (Lyrica) 50 mg PO TID [facility] Last Admin: 03/03/19 14:44 Dose: 50 mg Documented by: Admin: 03/03/19 08:31 Dose: 50 mg Documented by: Admin: 03/02/19 20:00 Dose: 50 mg Documented by: Admin: 03/02/19 14:18 Dose: 50 mg Documented by: Admin: 03/02/19 08:28 Dose: 50 mg Documented by: ENEDELIA Sodium Chloride (Normal Saline 0.9% Flush) 10 ml IV PRN PRN PRN Reason: Flush Last Admin: 03/03/19 06:50 Dose: 10 ml Documented by: Admin: 03/03/19 05:31 Dose: 10 ml Documented by: Admin: 03/03/19 01:38 Dose: 10 ml Documented by: Admin: 03/02/19 22:36 Dose: 10 ml Documented by: Admin: 03/02/19 19:58 Dose: 10 ml Documented by: SERGIO Tolterodine Tartrate (Detrol La) 4 mg PO DAILY [facility] Last Admin: 03/03/19 08:30 Dose: 4 mg Documented by: Admin: 03/02/19 09:52 Dose: 4 mg Documented by: ENEDELIA Vancomycin HCl (Vancomycin Trough) 1 request [place] 0730 [facility] Stop: 03/03/19 07:31 Last Admin: 03/03/19 08:31 Dose: 1 request Documented by: BALDO Vancomycin HCl (Vancomycin Trough) 1 request [place] NOW ONE Stop: 03/06/19 07:31 Warfarin Sodium (Coumadin) 10 mg PO 1700 [facility] Last Admin: 03/03/19 16:29 Dose: 10 mg Documented by: Admin: 03/02/19 17:10 Dose: 10 mg Documented by: DAKOTA Vital Signs Vital signs: Vital Signs - 8 hr 03/01/19 16:51 03/01/19 18:00 03/01/19 18:27 Temperature 102.6 F H 102 F H Pulse Rate 118 H 115 H Respiratory Rate 22 12 Blood Pressure 175/53 H Blood Pressure [Left Arm] 136/97 H Pulse Oximetry 94 94 03/01/19 18:30 03/01/19 19:15 03/01/19 19:25 Temperature 101.5 F H 101.5 F H Pulse Rate 118 H Respiratory Rate 16 Blood Pressure Blood Pressure [Left Arm] 154/66 H Pulse Oximetry 96 03/01/19 20:01 Temperature 99.9 F H Pulse Rate 116 H Respiratory Rate 16 Blood Pressure Blood Pressure [Left Arm] 120/59 L Pulse Oximetry 92 <Marley Caal MD - Last Filed: 03/01/19 19:39> Orders Ordered: Discontinued Medications Acetaminophen (Tylenol) 975 mg PO NOW ONE Stop: 03/01/19 18:20 Last Admin: 03/01/19 18:27 Dose: 975 mg Documented by: SHERWIN Acetaminophen (Tylenol) 650 mg PO Q6HR PRN PRN Reason: Fever/Mild Pain (1-3) Last Admin: 03/02/19 19:57 Dose: 650 mg Documented by: Admin: 03/02/19 14:18 Dose: 650 mg Documented by: Admin: 03/02/19 06:47 Dose: 650 mg Documented by: Admin: 03/02/19 01:01 Dose: 650 mg Documented by: ALFRED Acetaminophen (Tylenol) 325 mg PO Q4HR [facility] Last Admin: 03/03/19 14:41 Dose: Not Given Documented by: BALDO Hydrocodone Bitart/Acetaminophen ([place] 10/325) 1 tab PO Q4HR PRN PRN Reason: Pain, Moderate (4-6) Last Admin: 03/03/19 14:42 Dose: 1 tab Documented by: BALDO Hydrocodone Bitart/Acetaminophen ([place] 5/325) 1 tab PO Q4HR PRN PRN Reason: Pain, Moderate (4-6) Last Admin: 03/03/19 14:43 Dose: 1 tab Documented by: BALDO Albuterol (Ventolin Hfa) 2 puff INH RTQ6HR PRN PRN Reason: Shortness Of Breath Amitriptyline HCl (Elavil) 50 mg PO NOW ONE Stop: 03/02/19 06:41 Last Admin: 03/02/19 08:29 Dose: Not Given Documented by: ENEDELIA Amitriptyline HCl (Elavil) 50 mg PO BEDTIME [facility] Last Admin: 03/02/19 22:36 Dose: 50 mg Documented by: DAKOTA Celecoxib (Celebrex) 200 mg PO DAILY [facility] Last Admin: 03/02/19 08:29 Dose: Not Given Documented by: ENEDELIA Cyclobenzaprine HCl (Flexeril) 10 mg PO TID PRN PRN Reason: Muscle Spasm Last Admin: 03/02/19 19:57 Dose: 10 mg Documented by: Admin: 03/02/19 10:17 Dose: 10 mg Documented by: Admin: 03/02/19 01:00 Dose: 10 mg Documented by: ALFRED Dextrose (D50w) 25 gm IV PRN PRN PRN Reason: Hypoglycemia Hydrochlorothiazide (Hydrochlorothiazide) 50 mg PO DAILY [facility] Last Admin: 03/03/19 08:37 Dose: 50 mg Documented by: BALDO Hydromorphone HCl (Dilaudid) 1 mg IV NOW ONE Stop: 03/01/19 19:05 Last Admin: 03/01/19 19:09 Dose: 1 mg Documented by: SHERWIN Hydromorphone HCl (Dilaudid) 0.5 mg IV Q6HR PRN PRN Reason: Pain, Moderate (4-6) Hydromorphone HCl (Dilaudid) 1 mg IV Q6HR PRN PRN Reason: Pain, Severe (7-10) Last Admin: 03/01/19 23:51 Dose: 1 mg Documented by: ALFRED Hydromorphone HCl (Dilaudid) 1 mg IV NOW ONE Stop: 03/02/19 02:21 Last Admin: 03/02/19 02:47 Dose: 1 mg Documented by: ALFRED Hydromorphone HCl (Dilaudid) 1 mg IV Q4HR PRN PRN Reason: Pain, Severe (7-10) Last Admin: 03/03/19 09:47 Dose: 1 mg Documented by: Admin: 03/03/19 01:38 Dose: 1 mg Documented by: Admin: 03/02/19 19:58 Dose: 1 mg Documented by: Admin: 03/02/19 15:57 Dose: 1 mg Documented by: Admin: 03/02/19 06:18 Dose: 1 mg Documented by: ALFRED Hydromorphone HCl (Dilaudid) 0.5 mg IV Q4HR PRN PRN Reason: Pain, Moderate (4-6) Hydromorphone HCl (Dilaudid) 2 mg PO Q3H PRN PRN Reason: Pain, Severe (7-10) Last Admin: 03/03/19 12:23 Dose: 2 mg Documented by: Admin: 03/03/19 08:37 Dose: 2 mg Documented by: Admin: 03/03/19 05:30 Dose: 2 mg Documented by: Admin: 03/03/19 00:14 Dose: 2 mg Documented by: Admin: 03/02/19 20:11 Dose: 2 mg Documented by: Admin: 03/02/19 17:14 Dose: 2 mg Documented by: Admin: 03/02/19 14:22 Dose: 2 mg Documented by: Admin: 03/02/19 11:32 Dose: 2 mg Documented by: Admin: 03/02/19 08:29 Dose: 2 mg Documented by: ENEDELIA Hydromorphone HCl (Dilaudid) 0.5 mg IV Q4HR PRN PRN Reason: Pain, Moderate (4-6) Sodium Chloride (Normal Saline 0.9%) 1,000 mls @ 1,000 mls/hr IV BOLUS ONE Stop: 03/01/19 18:07 Last Infusion: 03/01/19 19:13 Dose: 0 mls/hr Documented by: Admin: 03/01/19 17:30 Dose: 1,000 mls/hr Documented by: SHERWIN Sodium Chloride (Normal Saline 0.9%) 1,000 mls @ 1,000 mls/hr IV BOLUS ONE Stop: 03/01/19 20:45 Last Admin: 03/01/19 19:51 Dose: Not Given Documented by: JC Sodium Chloride (Normal Saline 0.9%) 3,741 mls @ 1,247 mls/hr 30 ml/kg infuse over 3 hr (3741 ml) IV NOW ONE Stop: 03/01/19 22:45 Last Infusion: 03/01/19 21:51 Dose: 1,247 mls/hr Documented by: Admin: 03/01/19 19:50 Dose: 1,247 mls/hr Documented by: JC Ceftriaxone Sodium/Dextrose (Rocephin) 1 gm in 50 mls @ 100 mls/hr IV NOW ONE Stop: 03/01/19 20:39 Last Admin: 03/01/19 21:11 Dose: Not Given Documented by: JC Vancomycin HCl/Dextrose (Vancomycin) 2,000 mg in 400 mls @ 200 mls/hr IV NOW ONE Stop: 03/01/19 22:09 Last Infusion: 03/01/19 21:52 Dose: 200 mls/hr Documented by: Admin: 03/01/19 21:09 Dose: 200 mls/hr Documented by: JC Piperacillin/Tazobactam/Dextrose (Zosyn) 3.375 gm in 50 mls @ 100 mls/hr IV NOW ONE Stop: 03/01/19 20:53 Last Infusion: 03/01/19 21:09 Dose: 0 mls/hr Documented by: Admin: 03/01/19 20:34 Dose: 100 mls/hr Documented by: JC Ceftriaxone Sodium/Dextrose (Rocephin) 1 gm in 50 mls @ 100 mls/hr IV NOW ONE Stop: 03/01/19 21:44 Last Admin: 03/01/19 23:43 Dose: Not Given Documented by: ALFRED Sodium Chloride (Normal Saline 0.9%) 1,000 mls @ 75 mls/hr IV CONT [facility] Last Infusion: 03/02/19 16:00 Dose: 0 mls/hr Documented by: Admin: 03/02/19 14:48 Dose: 75 mls/hr Documented by: Infusion: 03/02/19 07:15 Dose: 75 mls/hr Documented by: Admin: 03/02/19 00:21 Dose: 150 mls/hr Documented by: ALFRED Vancomycin HCl/Dextrose (Vancomycin) 2,000 mg in 400 mls @ 200 mls/hr IV Q12H [facility] Last Admin: 03/02/19 03:21 Dose: Not Given Documented by: ALFRED Piperacillin/Tazobactam/Dextrose (Zosyn) 3.375 gm in 50 mls @ 100 mls/hr IV Q8H [facility] Last Admin: 03/03/19 15:14 Dose: 100 mls/hr Documented by: Infusion: 03/03/19 07:51 Dose: 0 mls/hr Documented by: Admin: 03/03/19 06:50 Dose: 100 mls/hr Documented by: Infusion: 03/03/19 00:12 Dose: 0 mls/hr Documented by: Admin: 03/02/19 22:46 Dose: 100 mls/hr Documented by: Infusion: 03/02/19 16:30 Dose: 0 mls/hr Documented by: Admin: 03/02/19 15:55 Dose: 100 mls/hr Documented by: Infusion: 03/02/19 09:00 Dose: 0 mls/hr Documented by: Admin: 03/02/19 08:14 Dose: 100 mls/hr Documented by: Infusion: 03/02/19 00:25 Dose: 100 mls/hr Documented by: Admin: 03/01/19 23:51 Dose: 100 mls/hr Documented by: ALFRED Vancomycin HCl/Dextrose (Vancomycin) 2,000 mg in 400 mls @ 200 mls/hr IV Q12H [facility] Last Infusion: 03/03/19 10:35 Dose: 0 mls/hr Documented by: Admin: 03/03/19 08:31 Dose: 200 mls/hr Documented by: Infusion: 03/02/19 22:39 Dose: 0 mls/hr Documented by: Admin: 03/02/19 20:28 Dose: 200 mls/hr Documented by: Infusion: 03/02/19 12:15 Dose: 0 mls/hr Documented by: Admin: 03/02/19 10:01 Dose: 200 mls/hr Documented by: ENEDELIA Insulin Aspart (Novolog Flexpen) 0 unit SUBCUT ACHS RIGOBERTO; Protocol Last Admin: 03/03/19 16:29 Dose: 4 unit Documented by: ADDIE Cosigned by: ANSON Admin: 03/03/19 12:20 Dose: 2 unit Documented by: BALDO Cosigned by: YKUN Admin: 03/03/19 07:50 Dose: Not Given Documented by: Admin: 03/02/19 21:18 Dose: 2 unit Documented by: DAKOTA Cosigned by: SERGIO Admin: 03/02/19 17:12 Dose: 2 unit Documented by: DAKOTA Cosigned by: ESRGIO Admin: 03/02/19 12:34 Dose: 2 unit Documented by: BALDO Cosigned by: MARIELA Insulin Glargine (Lantus Solostar (Pen)) 50 unit SUBCUT 2100 [facility] Last Admin: 03/02/19 21:19 Dose: 50 unit Documented by: DAKOTA Cosigned by: SERGIO Ketorolac Tromethamine (Toradol) 30 mg IV NOW ONE Stop: 03/01/19 17:56 Last Admin: 03/01/19 18:02 Dose: 30 mg Documented by: SHERWIN Ketorolac Tromethamine (Toradol) 15 mg IV NOW ONE Stop: 03/02/19 00:14 Last Admin: 03/02/19 01:00 Dose: 15 mg Documented by: ALFRED Ketorolac Tromethamine (Toradol) 15 mg IV Q8H [facility] Stop: 03/07/19 21:39 Last Admin: 03/03/19 05:30 Dose: 15 mg Documented by: Admin: 03/02/19 22:35 Dose: 15 mg Documented by: DAKOTA Levothyroxine Sodium (Synthroid) 200 mcg PO 0600 [facility] Losartan Potassium (Cozaar) 25 mg PO DAILY [facility] Last Admin: 03/03/19 08:30 Dose: Not Given Documented by: BALDO Naloxone HCl (Narcan) 0.2 mg IV Q2MIN PRN PRN Reason: Opiate Reversal Ondansetron HCl (Zofran) 4 mg IV Q6HR [facility] Last Admin: 03/03/19 12:19 Dose: Not Given Documented by: Admin: 03/03/19 05:37 Dose: Not Given Documented by: Admin: 03/03/19 00:11 Dose: Not Given Documented by: Admin: 03/02/19 17:21 Dose: Not Given Documented by: Admin: 03/02/19 12:00 Dose: Not Given Documented by: Admin: 03/02/19 06:09 Dose: Not Given Documented by: Admin: 03/02/19 01:01 Dose: Not Given Documented by: ALFRED Ondansetron HCl (Zofran) 4 mg IV Q6HR PRN PRN Reason: Nausea Oxycodone HCl (Percolone) 15 mg PO Q4HR [facility] Last Admin: 03/03/19 14:41 Dose: Not Given Documented by: BALDO Pantoprazole Sodium (Protonix) 20 mg PO 0600 [facility] Last Admin: 03/02/19 06:07 Dose: 20 mg Documented by: ALFRED Pantoprazole Sodium (Protonix) 40 mg PO DAILY [facility] Last Admin: 03/03/19 08:30 Dose: 40 mg Documented by: Admin: 03/02/19 08:27 Dose: Not Given Documented by: ENEDELIA Pregabalin (Lyrica) 50 mg PO TID [facility] Last Admin: 03/03/19 14:44 Dose: 50 mg Documented by: Admin: 03/03/19 08:31 Dose: 50 mg Documented by: Admin: 03/02/19 20:00 Dose: 50 mg Documented by: Admin: 03/02/19 14:18 Dose: 50 mg Documented by: Admin: 03/02/19 08:28 Dose: 50 mg Documented by: ENEDELIA Sodium Chloride (Normal Saline 0.9% Flush) 10 ml IV PRN PRN PRN Reason: Flush Last Admin: 03/03/19 06:50 Dose: 10 ml Documented by: Admin: 03/03/19 05:31 Dose: 10 ml Documented by: Admin: 03/03/19 01:38 Dose: 10 ml Documented by: Admin: 03/02/19 22:36 Dose: 10 ml Documented by: Admin: 03/02/19 19:58 Dose: 10 ml Documented by: SERGIO Tolterodine Tartrate (Detrol La) 4 mg PO DAILY [facility] Last Admin: 03/03/19 08:30 Dose: 4 mg Documented by: Admin: 03/02/19 09:52 Dose: 4 mg Documented by: ENEDELIA Vancomycin HCl (Vancomycin Trough) 1 request MIS 0715 [facility] Stop: 03/03/19 07:31 Last Admin: 03/03/19 08:31 Dose: 1 request Documented by: BALDO Vancomycin HCl (Vancomycin Trough) 1 request [place] [facility] Stop: 03/06/19 07:31 Warfarin Sodium (Coumadin) 10 mg PO 1700 [facility] Last Admin: 03/03/19 16:29 Dose: 10 mg Documented by: Admin: 03/02/19 17:10 Dose: 10 mg Documented by: DAK[place] Vital Signs Vital signs: Vital Signs - 8 hr 03/01/19 16:51 03/01/19 18:00 03/01/19 18:27 Temperature 102.6 F H 102 F H Pulse Rate 118 H 115 H Respiratory Rate 22 12 Blood Pressure 175/53 H Blood Pressure [Left Arm] 136/97 H Pulse Oximetry 94 94 03/01/19 18:30 03/01/19 19:15 03/01/19 19:25 Temperature 101.5 F H 101.5 F H Pulse Rate 118 H Respiratory Rate 16 Blood Pressure Blood Pressure [Left Arm] 154/66 H Pulse Oximetry 96 03/01/19 20:01 Temperature 99.9 F H Pulse Rate 116 H Respiratory Rate 16 Blood Pressure Blood Pressure [Left Arm] 120/59 L Pulse Oximetry 92 MDM - Fever <Amanda Hastings DO - Last Filed: 03/09/19 11:42> Lab Data Attestation: I reviewed the patient's lab results. Result diagrams: 03/03/19 15:25 03/03/19 05:55 Labs: Lab Results 03/01/19 03/01/19 03/01/19 Range/Units 17:05 17:37 17:37 WBC 14.3 H (4.5-11.0) X10^3/uL RBC 4.08 (4.0-5.2) X10^6/uL Hgb 11.0 L (12.0-16.0) g/dL Hct 33.2 L (36-46) % MCV 81.4 (80-100) fL MCH 27.1 (26-34) PG MCHC 33.3 (30-36) % RDW 15.9 H (11.6-14.8) % Plt Count 308 (150-400) X10^3/uL Neut % (Auto) 91.8 H (50-75) % Lymph % (Auto) 4.1 L (25-40) % [place] % (Auto) 3.6 (3-14) % Eos % (Auto) 0.1 L (2-4) % Baso % (Auto) 0.4 (0-2) % Neut # (Auto) 73693 H (2887-1190) /uL Lymph # (Auto) 600 L (6563-7418) /uL [place] # (Auto) 500 (0-900) /uL Eos # (Auto) 0 (0-450) /uL Baso # (Auto) 100 (0-100) /uL PT 24.4 H (10.1-12.7) SECONDS INR 2.1 H (0.9-1.3) APTT 38 H D (26.4-36.2) SECONDS Sodium (137-145) mmol/L Potassium (3.4-5.1) mmol/L Chloride (98-107) mmol/L Carbon Dioxide (22-32) mmol/L BUN (7-17) mg/dL Creatinine (0.52-1.04) mg/dL Estimated GFR (>60) mL/min BUN/Creatinine Ratio (6-22) Glucose (80-110) mg/dL Lactate (0.7-2.1) mmol/L Calcium (8.4-10.2) mg/dL Magnesium (1.6-2.3) mg/dL Total Bilirubin (0.2-1.3) mg/dL AST (14-36) IU/L ALT (<35) IU/L Alkaline Phosphatase (38-126) U/L Total Creatine Kinase (30-135) U/L CK-MB (CK-2) CK-MB (CK-2) Rel Index Troponin I (0.01-0.034) ng/mL Total Protein (6.3-8.2) g/dL Albumin (3.5-5.0) g/dL Globulin (1.7-4.1) g/dL Albumin/Globulin Ratio (1.0-2.8) Lipase (23-300) U/L Procalcitonin (<0.5) ng/mL Urine Color Urine Appearance Urine pH (4.5-8.0) Ur Specific [place] (1.000-1.035) Urine Protein (Negative) Urine Glucose (UA) (Negative) g/dL Urine Ketones (NEGATIVE) Urine Occult Blood (Negative) Urine Nitrate (Negative) Urine Bilirubin (NEGATIVE) Urine Urobilinogen (0.2) E.U./dL Ur Leukocyte Esterase (NEGATIVE) Urine RBC (0-5/HPF) Urine WBC (0-5/HPF) Ur Squamous Epith Cells (0-5/HPF) Amorphous Sediment Urine Bacteria (None) Urine Mucus (Negative) Ur Culture Indicated? Chlamy pneumoniae PCR (Not Detect) Adenovirus (PCR) (Not Detect) B.parapertussis DNA PCR (Not Detect) Coronavirus OC43 (PCR) (Not Detect) Coronavirus HKU1 (PCR) (Not Detect) Coronavirus 229E (PCR) (Not Detect) Coronavirus NL63 (PCR) (Not Detect) Human Metapneumovir PCR (Not Detect) Influenza A (RT-PCR) Flu a negative (NEGATIVE) Influenza Type A (PCR) (Not Detect) Influenza B (RT-PCR) Flu b negative (NEGATIVE) Influenza Type B (PCR) (Not Detect) M. pneumoniae (PCR) (Not Detect) Parainfluenza 1 (PCR) (Not Detect) Parainfluenza 2 (PCR) (Not Detect) Parainfluenza 3 (PCR) (Not Detect) Parainfluenza 4 (PCR) (Not Detect) RSV (PCR) (Not Detect) Entero/Rhino (PCR) (Not Detect) 03/01/19 03/01/19 03/01/19 Range/Units 17:37 17:37 17:37 WBC (4.5-11.0) X10^3/uL RBC (4.0-5.2) X10^6/uL Hgb (12.0-16.0) g/dL Hct (36-46) % MCV (80-100) fL MCH (26-34) PG MCHC (30-36) % RDW (11.6-14.8) % Plt Count (150-400) X10^3/uL Neut % (Auto) (50-75) % Lymph % (Auto) (25-40) % [place] % (Auto) (3-14) % Eos % (Auto) (2-4) % Baso % (Auto) (0-2) % Neut # (Auto) (5091-8651) /uL Lymph # (Auto) (0882-0356) /uL [place] # (Auto) (0-900) /uL Eos # (Auto) (0-450) /uL Baso # (Auto) (0-100) /uL PT (10.1-12.7) SECONDS INR (0.9-1.3) APTT (26.4-36.2) SECONDS Sodium 134 L (137-145) mmol/L Potassium 4.6 (3.4-5.1) mmol/L Chloride 98 (98-107) mmol/L Carbon Dioxide 25 (22-32) mmol/L BUN 22 H (7-17) mg/dL Creatinine 0.70 (0.52-1.04) mg/dL Estimated GFR > 60.0 (>60) mL/min BUN/Creatinine Ratio 31.4 H (6-22) Glucose 204 H (80-110) mg/dL Lactate 1.1 (0.7-2.1) mmol/L Calcium 9.1 (8.4-10.2) mg/dL Magnesium (1.6-2.3) mg/dL Total Bilirubin 0.4 (0.2-1.3) mg/dL AST 26 (14-36) IU/L ALT 21 (<35) IU/L Alkaline Phosphatase 137 H (38-126) U/L Total Creatine Kinase (30-135) U/L CK-MB (CK-2) CK-MB (CK-2) Rel Index Troponin I (0.01-0.034) ng/mL Total Protein 7.7 (6.3-8.2) g/dL Albumin 4.1 (3.5-5.0) g/dL Globulin 3.6 (1.7-4.1) g/dL Albumin/Globulin Ratio 1.1 (1.0-2.8) Lipase 17 L (23-300) U/L Procalcitonin 1.15 H (<0.5) ng/mL Urine Color Urine Appearance Urine pH (4.5-8.0) Ur Specific [place] (1.000-1.035) Urine Protein (Negative) Urine Glucose (UA) (Negative) g/dL Urine Ketones (NEGATIVE) Urine Occult Blood (Negative) Urine Nitrate (Negative) Urine Bilirubin (NEGATIVE) Urine Urobilinogen (0.2) E.U./dL Ur Leukocyte Esterase (NEGATIVE) Urine RBC (0-5/HPF) Urine WBC (0-5/HPF) Ur Squamous Epith Cells (0-5/HPF) Amorphous Sediment Urine Bacteria (None) Urine Mucus (Negative) Ur Culture Indicated? Chlamy pneumoniae PCR (Not Detect) Adenovirus (PCR) (Not Detect) B.parapertussis DNA PCR (Not Detect) Coronavirus OC43 (PCR) (Not Detect) Coronavirus HKU1 (PCR) (Not Detect) Coronavirus 229E (PCR) (Not Detect) Coronavirus NL63 (PCR) (Not Detect) Human Metapneumovir PCR (Not Detect) Influenza A (RT-PCR) (NEGATIVE) Influenza Type A (PCR) (Not Detect) Influenza B (RT-PCR) (NEGATIVE) Influenza Type B (PCR) (Not Detect) M. pneumoniae (PCR) (Not Detect) Parainfluenza 1 (PCR) (Not Detect) Parainfluenza 2 (PCR) (Not Detect) Parainfluenza 3 (PCR) (Not Detect) Parainfluenza 4 (PCR) (Not Detect) RSV (PCR) (Not Detect) Entero/Rhino (PCR) (Not Detect) 03/01/19 03/01/19 03/01/19 Range/Units 17:37 17:37 18:39 WBC (4.5-11.0) X10^3/uL RBC (4.0-5.2) X10^6/uL Hgb (12.0-16.0) g/dL Hct (36-46) % MCV (80-100) fL MCH (26-34) PG MCHC (30-36) % RDW (11.6-14.8) % Plt Count (150-400) X10^3/uL Neut % (Auto) (50-75) % Lymph % (Auto) (25-40) % [place] % (Auto) (3-14) % Eos % (Auto) (2-4) % Baso % (Auto) (0-2) % Neut # (Auto) (8621-3470) /uL Lymph # (Auto) (4004-1411) /uL [place] # (Auto) (0-900) /uL Eos # (Auto) (0-450) /uL Baso # (Auto) (0-100) /uL PT (10.1-12.7) SECONDS INR (0.9-1.3) APTT (26.4-36.2) SECONDS Sodium (137-145) mmol/L Potassium (3.4-5.1) mmol/L Chloride (98-107) mmol/L Carbon Dioxide (22-32) mmol/L BUN (7-17) mg/dL Creatinine (0.52-1.04) mg/dL Estimated GFR (>60) mL/min BUN/Creatinine Ratio (6-22) Glucose (80-110) mg/dL Lactate (0.7-2.1) mmol/L Calcium (8.4-10.2) mg/dL Magnesium 1.6 (1.6-2.3) mg/dL Total Bilirubin (0.2-1.3) mg/dL AST (14-36) IU/L ALT (<35) IU/L Alkaline Phosphatase (38-126) U/L Total Creatine Kinase 25 L (30-135) U/L CK-MB (CK-2) TNP CK-MB (CK-2) Rel Index TNP Troponin I < 0.012 (0.01-0.034) ng/mL Total Protein (6.3-8.2) g/dL Albumin (3.5-5.0) g/dL Globulin (1.7-4.1) g/dL Albumin/Globulin Ratio (1.0-2.8) Lipase (23-300) U/L Procalcitonin (<0.5) ng/mL Urine Color Urine Appearance Urine pH (4.5-8.0) Ur Specific [place] (1.000-1.035) Urine Protein (Negative) Urine Glucose (UA) (Negative) g/dL Urine Ketones (NEGATIVE) Urine Occult Blood (Negative) Urine Nitrate (Negative) Urine Bilirubin (NEGATIVE) Urine Urobilinogen (0.2) E.U./dL Ur Leukocyte Esterase (NEGATIVE) Urine RBC (0-5/HPF) Urine WBC (0-5/HPF) Ur Squamous Epith Cells (0-5/HPF) Amorphous Sediment Urine Bacteria (None) Urine Mucus (Negative) Ur Culture Indicated? Chlamy pneumoniae PCR Not detected (Not Detect) Adenovirus (PCR) Not detected (Not Detect) B.parapertussis DNA PCR Not detected (Not Detect) Coronavirus OC43 (PCR) Not detected (Not Detect) Coronavirus HKU1 (PCR) Not detected (Not Detect) Coronavirus 229E (PCR) Not detected (Not Detect) Coronavirus NL63 (PCR) Not detected (Not Detect) Human Metapneumovir PCR Not detected (Not Detect) Influenza A (RT-PCR) (NEGATIVE) Influenza Type A (PCR) Not detected (Not Detect) Influenza B (RT-PCR) (NEGATIVE) Influenza Type B (PCR) Not detected (Not Detect) M. pneumoniae (PCR) Not detected (Not Detect) Parainfluenza 1 (PCR) Not detected (Not Detect) Parainfluenza 2 (PCR) Not detected (Not Detect) Parainfluenza 3 (PCR) Not detected (Not Detect) Parainfluenza 4 (PCR) Not detected (Not Detect) RSV (PCR) Not detected (Not Detect) Entero/Rhino (PCR) Not detected (Not Detect) 03/01/19 Range/Units 19:00 WBC (4.5-11.0) X10^3/uL RBC (4.0-5.2) X10^6/uL Hgb (12.0-16.0) g/dL Hct (36-46) % MCV (80-100) fL MCH (26-34) PG MCHC (30-36) % RDW (11.6-14.8) % Plt Count (150-400) X10^3/uL Neut % (Auto) (50-75) % Lymph % (Auto) (25-40) % [place] % (Auto) (3-14) % Eos % (Auto) (2-4) % Baso % (Auto) (0-2) % Neut # (Auto) (9232-6638) /uL Lymph # (Auto) (5977-0400) /uL [place] # (Auto) (0-900) /uL Eos # (Auto) (0-450) /uL Baso # (Auto) (0-100) /uL PT (10.1-12.7) SECONDS INR (0.9-1.3) APTT (26.4-36.2) SECONDS Sodium (137-145) mmol/L Potassium (3.4-5.1) mmol/L Chloride (98-107) mmol/L Carbon Dioxide (22-32) mmol/L BUN (7-17) mg/dL Creatinine (0.52-1.04) mg/dL Estimated GFR (>60) mL/min BUN/Creatinine Ratio (6-22) Glucose (80-110) mg/dL Lactate (0.7-2.1) mmol/L Calcium (8.4-10.2) mg/dL Magnesium (1.6-2.3) mg/dL Total Bilirubin (0.2-1.3) mg/dL AST (14-36) IU/L ALT (<35) IU/L Alkaline Phosphatase (38-126) U/L Total Creatine Kinase (30-135) U/L CK-MB (CK-2) CK-MB (CK-2) Rel Index Troponin I (0.01-0.034) ng/mL Total Protein (6.3-8.2) g/dL Albumin (3.5-5.0) g/dL Globulin (1.7-4.1) g/dL Albumin/Globulin Ratio (1.0-2.8) Lipase (23-300) U/L Procalcitonin (<0.5) ng/mL Urine Color Yellow Urine Appearance Clear Urine pH 5.0 (4.5-8.0) Ur Specific [place] 1.015 (1.000-1.035) Urine Protein Negative (Negative) Urine Glucose (UA) Negative (Negative) g/dL Urine Ketones 1+ H (NEGATIVE) Urine Occult Blood 2+ H (Negative) Urine Nitrate Negative (Negative) Urine Bilirubin Negative (NEGATIVE) Urine Urobilinogen 0.2 (0.2) E.U./dL Ur Leukocyte Esterase Negative (NEGATIVE) Urine RBC 10-30/hpf H (0-5/HPF) Urine WBC 1-5/hpf (0-5/HPF) Ur Squamous Epith Cells 0-1 /hpf (0-5/HPF) Amorphous Sediment 1+ Urine Bacteria None seen (None) Urine Mucus 1+ H (Negative) Ur Culture Indicated? Cult not indicated Chlamy pneumoniae PCR (Not Detect) Adenovirus (PCR) (Not Detect) B.parapertussis DNA PCR (Not Detect) Coronavirus OC43 (PCR) (Not Detect) Coronavirus HKU1 (PCR) (Not Detect) Coronavirus 229E (PCR) (Not Detect) Coronavirus NL63 (PCR) (Not Detect) Human Metapneumovir PCR (Not Detect) Influenza A (RT-PCR) (NEGATIVE) Influenza Type A (PCR) (Not Detect) Influenza B (RT-PCR) (NEGATIVE) Influenza Type B (PCR) (Not Detect) M. pneumoniae (PCR) (Not Detect) Parainfluenza 1 (PCR) (Not Detect) Parainfluenza 2 (PCR) (Not Detect) Parainfluenza 3 (PCR) (Not Detect) Parainfluenza 4 (PCR) (Not Detect) RSV (PCR) (Not Detect) Entero/Rhino (PCR) (Not Detect) Imaging Data Chest x-ray: Radiologist's Impression: PROCEDURE: XR CHEST 1V INDICATIONS: suspected sepsis TECHNIQUE: One view of the chest was acquired. COMPARISON: [facility], CR, XR CHEST 1V, 01/21/2019, 19:42. FINDINGS: Surgical changes and devices: None. Lungs and pleura: Mild chronic interstitial prominence. No acute infiltrates. No pleural effusions or pneumothorax. Mediastinum: Mediastinal contours appear normal. Heart size is normal. Bones and chest wall: No suspicious bony lesions. Overlying soft tissues appear unremarkable. IMPRESSION: Mild chronic interstitial prominence. Dictated by: Dani Murray M.D. on 03/01/2019 at 18:55 CT scan - abdomen/pelvis: Radiologist's Impression: PROCEDURE: CT ABDOMEN PELVIS W CON INDICATIONS: pain hx of SBO and hernia TECHNIQUE: After the administration of intravenous contrast, 5 mm thick sections acquired from the diaphragm to the symphysis. 5 mm coronal and sagittal reformats were acquired. For radiation dose reduction, the following was used: automated exposure control, adjustment of mA and/or kV according to patient size. COMPARISON: [facility], CT, CT ABDOMEN PELVIS W CON, 01/01/2019, 5:08. FINDINGS: Image quality: Excellent. ABDOMEN: Lung bases: Lung bases are clear. Heart size is normal. Solid organs: Liver is normal in size and enhancement. Gallbladder is surgically absent.. Biliary system is non dilated. Pancreas enhances normally. Spleen is normal in size and enhancement. No adrenal nodules. Kidneys demonstrate normal size and enhancement, without hydronephrosis. Peritoneum and bowel: Gastric bypass. Question partial bowel obstruction within the very large ventral hernia. A significant portion of the bowel is present within the hernia. Nodes and vessels: No retroperitoneal or mesenteric adenopathy by size criteria. Aorta and inferior vena cava are normal in size. Miscellaneous: Remarkably large ventral hernia containing a significant portion of the bowel loops. Question partial small bowel obstruction within the hernia. PELVIS: Genitourinary: Bladder wall thickness is normal. Miscellaneous: No inguinal hernias or adenopathy. Uterus is surgically absent. Bones: No suspicious bony lesions. No vertebral body compression fractures. IMPRESSION: Very large ventral hernia with question of partial small bowel obstruction within the hernia. Dictated by: Dani Murray M.D. on 03/01/2019 at 20:04 ECG Data Attestation: I personally reviewed and interpreted this ECG as follows: Prior ECG tracings: available for review Interpretation: Sinus tachycardia rate 123 p.r. interval 120 QRS [address] elevation depression or T-wave inversion full similar to previous EKG MDM Narrative Medical decision making narrative: Patient is septic she has a fever of 102 tachycardic extremely confused. She has presented like this in September found to have infection in her wound is. At this time respiratory panel influenza x-ray and urine are negative. She was admitted in December with small bowel obstruction she is not actually vomiting however difficult to examine her abdomen based on her mental status so CT abdomen pelvis was ordered. It does show questionable bowel obstruction however as patient's fever has come down she has become more alert says that she is not vomiting and she has no increased pain to at this time unlikely to be partial bowel obstruction. My she is covered with Zosyn and vancomycin for possible strep in her left lower leg wound she apparently takes Augmentin as a prophylactic daily but has not taken it today due to her confusion <Marley Caal MD - Last Filed: 03/01/19 19:39> Lab Data Labs: Lab Results 03/01/19 03/01/19 03/01/19 Range/Units 17:05 17:37 17:37 WBC 14.3 H (4.5-11.0) X10^3/uL RBC 4.08 (4.0-5.2) X10^6/uL Hgb 11.0 L (12.0-16.0) g/dL Hct 33.2 L (36-46) % MCV 81.4 (80-100) fL MCH 27.1 (26-34) PG MCHC 33.3 (30-36) % RDW 15.9 H (11.6-14.8) % Plt Count 308 (150-400) X10^3/uL Neut % (Auto) 91.8 H (50-75) % Lymph % (Auto) 4.1 L (25-40) % [place] % (Auto) 3.6 (3-14) % Eos % (Auto) 0.1 L (2-4) % Baso % (Auto) 0.4 (0-2) % Neut # (Auto) 72427 H (2054-5232) /uL Lymph # (Auto) 600 L (1629-3218) /uL [place] # (Auto) 500 (0-900) /uL Eos # (Auto) 0 (0-450) /uL Baso # (Auto) 100 (0-100) /uL PT 24.4 H (10.1-12.7) SECONDS INR 2.1 H (0.9-1.3) APTT 38 H D (26.4-36.2) SECONDS Sodium (137-145) mmol/L Potassium (3.4-5.1) mmol/L Chloride (98-107) mmol/L Carbon Dioxide (22-32) mmol/L BUN (7-17) mg/dL Creatinine (0.52-1.04) mg/dL Estimated GFR (>60) mL/min BUN/Creatinine Ratio (6-22) Glucose (80-110) mg/dL Lactate (0.7-2.1) mmol/L Calcium (8.4-10.2) mg/dL Magnesium (1.6-2.3) mg/dL Total Bilirubin (0.2-1.3) mg/dL AST (14-36) IU/L ALT (<35) IU/L Alkaline Phosphatase (38-126) U/L Total Creatine Kinase (30-135) U/L CK-MB (CK-2) CK-MB (CK-2) Rel Index Troponin I (0.01-0.034) ng/mL Total Protein (6.3-8.2) g/dL Albumin (3.5-5.0) g/dL Globulin (1.7-4.1) g/dL Albumin/Globulin Ratio (1.0-2.8) Lipase (23-300) U/L Procalcitonin (<0.5) ng/mL Urine Color Urine Appearance Urine pH (4.5-8.0) Ur Specific [place] (1.000-1.035) Urine Protein (Negative) Urine Glucose (UA) (Negative) g/dL Urine Ketones (NEGATIVE) Urine Occult Blood (Negative) Urine Nitrate (Negative) Urine Bilirubin (NEGATIVE) Urine Urobilinogen (0.2) E.U./dL Ur Leukocyte Esterase (NEGATIVE) Urine RBC (0-5/HPF) Urine WBC (0-5/HPF) Ur Squamous Epith Cells (0-5/HPF) Amorphous Sediment Urine Bacteria (None) Urine Mucus (Negative) Ur Culture Indicated? Chlamy pneumoniae PCR (Not Detect) Adenovirus (PCR) (Not Detect) B.parapertussis DNA PCR (Not Detect) Coronavirus OC43 (PCR) (Not Detect) Coronavirus HKU1 (PCR) (Not Detect) Coronavirus 229E (PCR) (Not Detect) Coronavirus NL63 (PCR) (Not Detect) Human Metapneumovir PCR (Not Detect) Influenza A (RT-PCR) Flu a negative (NEGATIVE) Influenza Type A (PCR) (Not Detect) Influenza B (RT-PCR) Flu b negative (NEGATIVE) Influenza Type B (PCR) (Not Detect) M. pneumoniae (PCR) (Not Detect) Parainfluenza 1 (PCR) (Not Detect) Parainfluenza 2 (PCR) (Not Detect) Parainfluenza 3 (PCR) (Not Detect) Parainfluenza 4 (PCR) (Not Detect) RSV (PCR) (Not Detect) Entero/Rhino (PCR) (Not Detect) 03/01/19 03/01/19 03/01/19 Range/Units 17:37 17:37 17:37 WBC (4.5-11.0) X10^3/uL RBC (4.0-5.2) X10^6/uL Hgb (12.0-16.0) g/dL Hct (36-46) % MCV (80-100) fL MCH (26-34) PG MCHC (30-36) % RDW (11.6-14.8) % Plt Count (150-400) X10^3/uL Neut % (Auto) (50-75) % Lymph % (Auto) (25-40) % [place] % (Auto) (3-14) % Eos % (Auto) (2-4) % Baso % (Auto) (0-2) % Neut # (Auto) (3772-7761) /uL Lymph # (Auto) (7763-2873) /uL [place] # (Auto) (0-900) /uL Eos # (Auto) (0-450) /uL Baso # (Auto) (0-100) /uL PT (10.1-12.7) SECONDS INR (0.9-1.3) APTT (26.4-36.2) SECONDS Sodium 134 L (137-145) mmol/L Potassium 4.6 (3.4-5.1) mmol/L Chloride 98 (98-107) mmol/L Carbon Dioxide 25 (22-32) mmol/L BUN 22 H (7-17) mg/dL Creatinine 0.70 (0.52-1.04) mg/dL Estimated GFR > 60.0 (>60) mL/min BUN/Creatinine Ratio 31.4 H (6-22) Glucose 204 H (80-110) mg/dL Lactate 1.1 (0.7-2.1) mmol/L Calcium 9.1 (8.4-10.2) mg/dL Magnesium (1.6-2.3) mg/dL Total Bilirubin 0.4 (0.2-1.3) mg/dL AST 26 (14-36) IU/L ALT 21 (<35) IU/L Alkaline Phosphatase 137 H (38-126) U/L Total Creatine Kinase (30-135) U/L CK-MB (CK-2) CK-MB (CK-2) Rel Index Troponin I (0.01-0.034) ng/mL Total Protein 7.7 (6.3-8.2) g/dL Albumin 4.1 (3.5-5.0) g/dL Globulin 3.6 (1.7-4.1) g/dL Albumin/Globulin Ratio 1.1 (1.0-2.8) Lipase 17 L (23-300) U/L Procalcitonin 1.15 H (<0.5) ng/mL Urine Color Urine Appearance Urine pH (4.5-8.0) Ur Specific [place] (1.000-1.035) Urine Protein (Negative) Urine Glucose (UA) (Negative) g/dL Urine Ketones (NEGATIVE) Urine Occult Blood (Negative) Urine Nitrate (Negative) Urine Bilirubin (NEGATIVE) Urine Urobilinogen (0.2) E.U./dL Ur Leukocyte Esterase (NEGATIVE) Urine RBC (0-5/HPF) Urine WBC (0-5/HPF) Ur Squamous Epith Cells (0-5/HPF) Amorphous Sediment Urine Bacteria (None) Urine Mucus (Negative) Ur Culture Indicated? Chlamy pneumoniae PCR (Not Detect) Adenovirus (PCR) (Not Detect) B.parapertussis DNA PCR (Not Detect) Coronavirus OC43 (PCR) (Not Detect) Coronavirus HKU1 (PCR) (Not Detect) Coronavirus 229E (PCR) (Not Detect) Coronavirus NL63 (PCR) (Not Detect) Human Metapneumovir PCR (Not Detect) Influenza A (RT-PCR) (NEGATIVE) Influenza Type A (PCR) (Not Detect) Influenza B (RT-PCR) (NEGATIVE) Influenza Type B (PCR) (Not Detect) M. pneumoniae (PCR) (Not Detect) Parainfluenza 1 (PCR) (Not Detect) Parainfluenza 2 (PCR) (Not Detect) Parainfluenza 3 (PCR) (Not Detect) Parainfluenza 4 (PCR) (Not Detect) RSV (PCR) (Not Detect) Entero/Rhino (PCR) (Not Detect) 03/01/19 03/01/19 03/01/19 Range/Units 17:37 17:37 18:39 WBC (4.5-11.0) X10^3/uL RBC (4.0-5.2) X10^6/uL Hgb (12.0-16.0) g/dL Hct (36-46) % MCV (80-100) fL MCH (26-34) PG MCHC (30-36) % RDW (11.6-14.8) % Plt Count (150-400) X10^3/uL Neut % (Auto) (50-75) % Lymph % (Auto) (25-40) % [place] % (Auto) (3-14) % Eos % (Auto) (2-4) % Baso % (Auto) (0-2) % Neut # (Auto) (6044-6384) /uL Lymph # (Auto) (4355-5752) /uL [place] # (Auto) (0-900) /uL Eos # (Auto) (0-450) /uL Baso # (Auto) (0-100) /uL PT (10.1-12.7) SECONDS INR (0.9-1.3) APTT (26.4-36.2) SECONDS Sodium (137-145) mmol/L Potassium (3.4-5.1) mmol/L Chloride (98-107) mmol/L Carbon Dioxide (22-32) mmol/L BUN (7-17) mg/dL Creatinine (0.52-1.04) mg/dL Estimated GFR (>60) mL/min BUN/Creatinine Ratio (6-22) Glucose (80-110) mg/dL Lactate (0.7-2.1) mmol/L Calcium (8.4-10.2) mg/dL Magnesium 1.6 (1.6-2.3) mg/dL Total Bilirubin (0.2-1.3) mg/dL AST (14-36) IU/L ALT (<35) IU/L Alkaline Phosphatase (38-126) U/L Total Creatine Kinase 25 L (30-135) U/L CK-MB (CK-2) TNP CK-MB (CK-2) Rel Index TNP Troponin I < 0.012 (0.01-0.034) ng/mL Total Protein (6.3-8.2) g/dL Albumin (3.5-5.0) g/dL Globulin (1.7-4.1) g/dL Albumin/Globulin Ratio (1.0-2.8) Lipase (23-300) U/L Procalcitonin (<0.5) ng/mL Urine Color Urine Appearance Urine pH (4.5-8.0) Ur Specific [place] (1.000-1.035) Urine Protein (Negative) Urine Glucose (UA) (Negative) g/dL Urine Ketones (NEGATIVE) Urine Occult Blood (Negative) Urine Nitrate (Negative) Urine Bilirubin (NEGATIVE) Urine Urobilinogen (0.2) E.U./dL Ur Leukocyte Esterase (NEGATIVE) Urine RBC (0-5/HPF) Urine WBC (0-5/HPF) Ur Squamous Epith Cells (0-5/HPF) Amorphous Sediment Urine Bacteria (None) Urine Mucus (Negative) Ur Culture Indicated? Chlamy pneumoniae PCR Not detected (Not Detect) Adenovirus (PCR) Not detected (Not Detect) B.parapertussis DNA PCR Not detected (Not Detect) Coronavirus OC43 (PCR) Not detected (Not Detect) Coronavirus HKU1 (PCR) Not detected (Not Detect) Coronavirus 229E (PCR) Not detected (Not Detect) Coronavirus NL63 (PCR) Not detected (Not Detect) Human Metapneumovir PCR Not detected (Not Detect) Influenza A (RT-PCR) (NEGATIVE) Influenza Type A (PCR) Not detected (Not Detect) Influenza B (RT-PCR) (NEGATIVE) Influenza Type B (PCR) Not detected (Not Detect) M. pneumoniae (PCR) Not detected (Not Detect) Parainfluenza 1 (PCR) Not detected (Not Detect) Parainfluenza 2 (PCR) Not detected (Not Detect) Parainfluenza 3 (PCR) Not detected (Not Detect) Parainfluenza 4 (PCR) Not detected (Not Detect) RSV (PCR) Not detected (Not Detect) Entero/Rhino (PCR) Not detected (Not Detect) 03/01/19 Range/Units 19:00 WBC (4.5-11.0) X10^3/uL RBC (4.0-5.2) X10^6/uL Hgb (12.0-16.0) g/dL Hct (36-46) % MCV (80-100) fL MCH (26-34) PG MCHC (30-36) % RDW (11.6-14.8) % Plt Count (150-400) X10^3/uL Neut % (Auto) (50-75) % Lymph % (Auto) (25-40) % [place] % (Auto) (3-14) % Eos % (Auto) (2-4) % Baso % (Auto) (0-2) % Neut # (Auto) (1581-7678) /uL Lymph # (Auto) (2665-1397) /uL [place] # (Auto) (0-900) /uL Eos # (Auto) (0-450) /uL Baso # (Auto) (0-100) /uL PT (10.1-12.7) SECONDS INR (0.9-1.3) APTT (26.4-36.2) SECONDS Sodium (137-145) mmol/L Potassium (3.4-5.1) mmol/L Chloride (98-107) mmol/L Carbon Dioxide (22-32) mmol/L BUN (7-17) mg/dL Creatinine (0.52-1.04) mg/dL Estimated GFR (>60) mL/min BUN/Creatinine Ratio (6-22) Glucose (80-110) mg/dL Lactate (0.7-2.1) mmol/L Calcium (8.4-10.2) mg/dL Magnesium (1.6-2.3) mg/dL Total Bilirubin (0.2-1.3) mg/dL AST (14-36) IU/L ALT (<35) IU/L Alkaline Phosphatase (38-126) U/L Total Creatine Kinase (30-135) U/L CK-MB (CK-2) CK-MB (CK-2) Rel Index Troponin I (0.01-0.034) ng/mL Total Protein (6.3-8.2) g/dL Albumin (3.5-5.0) g/dL Globulin (1.7-4.1) g/dL Albumin/Globulin Ratio (1.0-2.8) Lipase (23-300) U/L Procalcitonin (<0.5) ng/mL Urine Color Yellow Urine Appearance Clear Urine pH 5.0 (4.5-8.0) Ur Specific [place] 1.015 (1.000-1.035) Urine Protein Negative (Negative) Urine Glucose (UA) Negative (Negative) g/dL Urine Ketones 1+ H (NEGATIVE) Urine Occult Blood 2+ H (Negative) Urine Nitrate Negative (Negative) Urine Bilirubin Negative (NEGATIVE) Urine Urobilinogen 0.2 (0.2) E.U./dL Ur Leukocyte Esterase Negative (NEGATIVE) Urine RBC 10-30/hpf H (0-5/HPF) Urine WBC 1-5/hpf (0-5/HPF) Ur Squamous Epith Cells 0-1 /hpf (0-5/HPF) Amorphous Sediment 1+ Urine Bacteria None seen (None) Urine Mucus 1+ H (Negative) Ur Culture Indicated? Cult not indicated Chlamy pneumoniae PCR (Not Detect) Adenovirus (PCR) (Not Detect) B.parapertussis DNA PCR (Not Detect) Coronavirus OC43 (PCR) (Not Detect) Coronavirus HKU1 (PCR) (Not Detect) Coronavirus 229E (PCR) (Not Detect) Coronavirus NL63 (PCR) (Not Detect) Human Metapneumovir PCR (Not Detect) Influenza A (RT-PCR) (NEGATIVE) Influenza Type A (PCR) (Not Detect) Influenza B (RT-PCR) (NEGATIVE) Influenza Type B (PCR) (Not Detect) M. pneumoniae (PCR) (Not Detect) Parainfluenza 1 (PCR) (Not Detect) Parainfluenza 2 (PCR) (Not Detect) Parainfluenza 3 (PCR) (Not Detect) Parainfluenza 4 (PCR) (Not Detect) RSV (PCR) (Not Detect) Entero/Rhino (PCR) (Not Detect) Discharge Plan Departure Patient Disposition: Admitted As Inpatient Clinical Impression: Sepsis Qualifiers: Sepsis type: sepsis due to unspecified organism Sepsis acute organ dysfunction status: unspecified Qualified Code(s): A41.9 - Sepsis, unspecified organism Discharge Date/Time: 03/01/19 21:53 Instructions: Sepsis, DI for Sepsis -- Adult Referrals: Rosi Tam MD [Primary Care Provider] - Admit Date/Time: 03/01/19 20:46 Admit Provider: Kemar Lawrence
[2019-03-01 18:24] LABS: Influenza A - CEPHEID Flu A NEGATIVE (NEGATIVE); Influenza B - CEPHEID Flu B NEGATIVE (NEGATIVE)
[2019-03-01] MEDS: ACETAMINOPHEN 325 MG TABLET 975 MG PO (18:27)
[2019-03-01 18:29] LABS: Creatine Kinase 25 U/L (30-135)
[2019-03-01 18:31] LABS: Procalcitonin 1.15 ng/mL (<0.5)
[2019-03-01 18:43] LABS: Troponin I < 0.012 ng/mL (0.01-0.034)
--- NOTE | 2019-03-01 19:04 | DI.CT.S_ITS ---
PROCEDURE: CT ABDOMEN PELVIS W CON INDICATIONS: pain hx of SBO and hernia TECHNIQUE: After the administration of intravenous contrast, 5 mm thick sections acquired from the diaphragm to the symphysis. 5 mm coronal and sagittal reformats were acquired. For radiation dose reduction, the following was used: automated exposure control, adjustment of mA and/or kV according to patient size. COMPARISON: [facility], CT, CT ABDOMEN PELVIS W CON, 01/01/2019, 5:08. FINDINGS: Image quality: Excellent. ABDOMEN: Lung bases: Lung bases are clear. Heart size is normal. Solid organs: Liver is normal in size and enhancement. Gallbladder is surgically absent.. Biliary system is non dilated. Pancreas enhances normally. Spleen is normal in size and enhancement. No adrenal nodules. Kidneys demonstrate normal size and enhancement, without hydronephrosis. Peritoneum and bowel: Gastric bypass. Question partial bowel obstruction within the very large ventral hernia. A significant portion of the bowel is present within the hernia. Nodes and vessels: No retroperitoneal or mesenteric adenopathy by size criteria. Aorta and inferior vena cava are normal in size. Miscellaneous: Remarkably large ventral hernia containing a significant portion of the bowel loops. Question partial small bowel obstruction within the hernia. PELVIS: Genitourinary: Bladder wall thickness is normal. Miscellaneous: No inguinal hernias or adenopathy. Uterus is surgically absent. Bones: No suspicious bony lesions. No vertebral body compression fractures. IMPRESSION: Very large ventral hernia with question of partial small bowel obstruction within the hernia. Dictated by: Dani Murray M.D. on 03/01/2019 at 20:04 Approved by: Dani Murray M.D. on 03/01/2019 at 20:09
[2019-03-01] MEDS: HYDROMORPHONE 1 MG INJ IV ×2 (19:09→23:51)
[2019-03-01 19:12] LABS: Bacteria Urine None Seen
[2019-03-01 19:17] LABS: Appearance Urine UA CLEAR; Bilirubin Urine UA NEGATIVE (NEGATIVE); Color Urine UA YELLOW; Glucose Urine UA NEGATIVE (Negative); Ketones Urine UA 1+ (NEGATIVE); Leukocyte Esterase Urine UA NEGATIVE (NEGATIVE); Nitrite Urine UA NEGATIVE (Negative); Occult Blood Urine UA 2+ (Negative); Protein Urine UA NEGATIVE (Negative); Specific Gravity Urine UA 1.015 (1.000-1.035); Urobilinogen Urine UA 0.2 E.U./dL (0.2)
[2019-03-01] MEDS: SODIUM CHLORIDE 0.9% 1247 ML IV (19:50)
[2019-03-01 20:00] LABS: Amorphous Sediment Urine 1+; Culture Indicated Urine Cult Not Indicated; Mucus Urine 1+ (Negative); RBC Urine 10-30/HPF (0-5/HPF); Squamous Epithelial Cell Urine 0-1 /HPF (0-5/HPF); WBC Urine 1-5/HPF (0-5/HPF)
[2019-03-01 20:03] LABS: Adenovirus Not Detected (Not Detect); Bordetella pertussis Not Detected (Not Detect); Chlamydophila pneumoniae Not Detected (Not Detect); Coronavirus 229E Not Detected (Not Detect); Coronavirus HKU1 Not Detected (Not Detect); Coronavirus NL 63 Not Detected (Not Detect); Coronavirus OC43 Not Detected (Not Detect); Human Metapneumovirus Not Detected (Not Detect); Human Rhinovirus/Enterovirus Not Detected (Not Detect); Influenza A Not Detected (Not Detect); Influenza B Not Detected (Not Detect); Mycoplasma pneumoniae Not Detected (Not Detect); Parainfluenza Virus 1 Not Detected (Not Detect); Parainfluenza Virus 2 Not Detected (Not Detect); Parainfluenza Virus 3 Not Detected (Not Detect); Parainfluenza Virus 4 Not Detected (Not Detect); Respiratory Syncytial Virus Not Detected (Not Detect)
[2019-03-01] MEDS: PIPERACILLIN-TAZO 3.375 GM/50 ML FROZ.PIGGY IV ×2 (20:34→23:51)
[2019-03-01] MEDS: VANCOMYCIN 2,000 MG/400 ML PIGGYBACK 200 MG IV (21:09)
--- NOTE | 2019-03-01 22:23 | PC.NURSE ---
PATIENT TRANSFERED TO BED WITH SLIDER,RIGHT WRIST PAIN,ICE PACKED. ROOM AIR BREATH SOUNDS CLEAR.WOUND VAC TO LEFT KNEE IN PLACE PATIENTS STATES HE WILL BRING IN CHARGING CORD TOMORROW,NOT DRAINAGE OUT AT THIS TIME.LARGE VENTRAL HERNIA .SEPTIC PROT.FLUIDS INFUSING ALONG WITH VANCO.HUNG IN ER. ALARM ON
[2019-03-01 23:45] LABS: Magnesium 1.6 mg/dL (1.6-2.3)
[2019-03-02] VITALS (9 sets, daily range): BP systolic 125–151; BP diastolic 63–84; PULSE 62–102; RESP 16–20; TEMP 36.9–38.3; O2SAT 93–99
[2019-03-02] MEDS: SODIUM CHLORIDE 0.9% 1,000 ML 150 ML IV (00:21)
--- NOTE | 2019-03-02 00:26 | P.HP_ITS ---
History of Present Illness History of Present Illness Date Patient Seen: 03/01/19 Time Patient Seen: 23:32 Chief complaint: Possible sepsis Narrative: Ms. Leticia Posey is a 68-year-old female with complex PMH. 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 Patient was noticed by her to have generalized pain yesterday with associated chills. Today he went to wake the patient for routine medication and found her to be incoherent prompting him to call EMS. The patient was seen earlier in the day by orthopedics and had wound VAC changed to her left lower extremity for a history of recurrent cellulitis of left lower extremity on chronic prophylactic antibiotics. She is followed by orthopedic surgery and I/D. She is followed by Dr. Acuna, infectious disease. The patient has associated symptoms of fevers chills bodyaches most significantly pain in her right wrist which is related to a fall over 1 week ago and has been bleed evaluated. She denies headaches or dizziness has no nasal congestion or sore throat. She denies chest pain or palpitations and has no shortness of ifrah ath cough or wheezing. Denies complaints abdominal pain but does have a history gastric bypass and takes AcipHex. She denies change in stooling habits with her last bowel movement yesterday. She denies urinary symptoms with no urgency frequency or hematuria. Upon arrival to the ER the patient is found to be febrile with a temperature of 102.6?, tachycardic at 118, blood pressure 170/53, respiratory rate 22 saturating 94% on room air. Patient worked up with imaging with a chest x-ray showing interstitial prominence, normal heart size. Abdominal pelvic CT was completed demonstrating a large ventral hernia containing bowel with a possible partial small-bowel obstruction within the hernia per radiologist interpretation. Twelve lead EKG demonstrates sinus tachycardia rate of 123, septal infarct with Q-waves in V1 and 2. No ectopy or evidence of block or ischemia. On laboratory analysis the patient has with elevated white count of 14.3 hemoglobin 11.0 and hematocrit 33.2 with platelets of 308. She has neutrophilia at 91.8%. On coagulation she has a PT of 24.4 with an INR 2.1 and PTT of 38. Her chemistries within normal limits and has a BUN of 22 and creatinine is 0.7. Liver functions within normal limits and albumin is 4.1. She has a procalcitonin that is 1.15, lactic acid of 1.1, respiratory panel is negative. Patient presents with sepsis and receives IV bolus per sepsis protocol and started on vancomycin 2 g in the ER. She also received Rocephin 1 g IV while in the ER. 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) Lymphedema of both lower extremities (Acute) Venous stasis dermatitis of both lower extremities (Acute) Surgical History History of Christine-en-Y gastric bypass (Acute) History of total knee arthroplasty (Acute) Family & Social History Social History: household members spouse Safety & Behavioral: Feels Safe in Current Yes Environment Been Physically Hurt or No Threatened By a Person Suicidal Ideation Description None Suicide Plan Description No Plan Tobacco & Substance use: Smoking Status Never smoker alcohol intake current alcohol intake frequency holiday/special occasion Substance Use Type does not use Comment: The patient is and lives with her in a single family home. She is adopted and of which she knows about her family history is t hat they are in relatively good health. Smoking: Patient denies using tobacco products. Alcohol: Occasional social drinking on special occasions. Substance use: Patient denies recreation pharmaceuticals, herbal or cannabis products. Advanced directives: Patient is DNR status with Dereck Posey (, primary) and Nick [place]kill (son, secondary) designated surrogate decision makers. Meds Home Medications and Allergies Home Medications Medication Instructions Recorded Confirmed Type Centrum Silver 1 tab PO DAILY 10/26/18 10/26/18 History albuterol sulfate 2 puff INHALATION Q6H PRN 10/26/18 10/26/18 History celecoxib 200 mg PO DAILY 10/26/18 03/01/19 History cholecalciferol (vitamin D3) 5,000 unit PO DAILY 10/26/18 10/26/18 History [Vitamin D3] cyclobenzaprine 10 mg PO TID PRN 10/26/18 03/01/19 History fexofenadine [Janet Allergy] 180 mg PO DAILY 10/26/18 10/26/18 History fluticasone propionate [Flonase 1 spray INTRANASAL DAILY PRN 10/26/18 03/01/19 History Allergy Relief] hydrochlorothiazide 50 mg PO DAILY 10/26/18 03/01/19 History hydrocodone-acetaminophen 2 tab PO Q4HR PRN 10/26/18 03/01/19 History insulin degludec 55 units SUBCUT DAILY 10/26/18 10/26/18 History levothyroxine mcg PO DAILY 10/26/18 10/26/18 History liraglutide 1.2 mg SUBCUT DAILY 10/26/18 03/01/19 History losartan 25 mg PO DAILY 10/26/18 03/01/19 History montelukast [Singulair] 10 mg PO QPM 10/26/18 03/01/19 History pregabalin 50 mg PO TID 10/26/18 03/01/19 History rabeprazole [AcipHex] 20 mg PO DAILY 10/26/18 03/01/19 History tolterodine 4 mg PO DAILY 10/26/18 03/01/19 History amoxicillin-pot clavulanate 1 tab PO BID 03/01/19 03/01/19 History ondansetron HCl 4 mg PO TID PRN 03/01/19 03/01/19 History warfarin See Rx Instructions .ROUTE .COMPLEX 03/01/19 03/02/19 History Allergies Allergy/AdvReac Type Severity Reaction Status Date / Time cefamandole [From Mandol] AdvReac Verified 10/26/18 19:11 clindamycin AdvReac Verified 10/26/18 19:11 heparin AdvReac Verified 10/26/18 19:11 meperidine [From Demerol] AdvReac Verified 10/26/18 19:11 naproxen AdvReac Verified 10/26/18 19:11 NSAIDS (Non-Steroidal AdvReac Verified 10/26/18 19:11 Anti-Inflamma promethazine [From Phenergan] AdvReac Verified 10/26/18 19:11 rofecoxib [From Vioxx] AdvReac Verified 10/26/18 19:11 sulfamethoxazole AdvReac Verified 10/26/18 19:11 [From Septra] trimethoprim [From Septra] AdvReac Verified 10/26/18 19:11 Review of Systems Review of Systems Narrative: All systems are reviewed and are unremarkable and noted in the HPI above. Exam Vital Signs (past 8 hours): - 03/01/19 16:51 03/01/19 18:00 03/01/19 18:27 Temperature 102.6 F H 102 F H Pulse Rate 118 H 115 H Respiratory Rate 22 12 Blood Pressure 175/53 H Blood Pressure [Left Arm] 136/97 H Pulse Oximetry 94 94 03/01/19 18:30 03/01/19 19:15 03/01/19 19:25 Temperature 101.5 F H 101.5 F H Pulse Rate 118 H Respiratory Rate 16 Blood Pressure Blood Pressure [Left Arm] 154/66 H Pulse Oximetry 96 03/01/19 20:01 03/01/19 21:56 Temperature 99.9 F H 101 F H Pulse Rate 116 H 95 H Respiratory Rate 16 19 Blood Pressure 106/39 L Blood Pressure [Left Arm] 120/59 L Pulse Oximetry 92 94 Oxygen Delivery Method Room Air Oxygen Flow Rate 0 Narrative Exam Narrative: GENERAL APPEARANCE: well developed, morbidly obese female in obvious discomfort. HEENT: Normocephalic, PERRLA, conjunctiva clear, EOMs intact, no rhinorrhea, mucous membranes are moist and pink without lesions or exudate. NECK/THYROID: neck supple, no JVD, no carotid bruit, no thyromegaly, trachea midline. LYMPH NODES: no cervical or supraclavicular lymphadenopathy. SKIN: [place], warm and dry, no visible lesions, rashes, ulcerations or petechiae. HEART: regular rate and rhythm, S1-S2, 1/6 systolic murmur, no rubs or gallops, brisk capillary refill, trace pedal edema LUNGS: clear to auscultation bilaterally, no coarseness crackles or wheezing, no cough present CHEST: Symmetrical movement, no accessory muscle use, good tidal volume. ABDOMEN: Large ventral hernia right lower abdomen, nontender to palpation, no organomegaly, no flank tenderness, active bowel tones. EXTREMITIES: Marked pain right wrist, no pain with passive range of motion, pain manifests with pronation, moves all extremities, strength is 5/5 and symmetrical, no deformities or joint effusions. NEUROLOGIC: AAO x4, cranial nerves II-XII grossly intact, peripheral neuropathy with blunted sensation bilateral feet, hearing grossly normal to speech. PSYCH: Good judgment, linear thought process, cooperative, appropriate with stable behavior. Objective Labs Result Diagrams: 03/01/19 17:37 03/01/19 17:37 Labs: Laboratory Results - last 24 hr 03/01/19 03/01/19 03/01/19 17:05 17:37 17:37 WBC 14.3 H RBC 4.08 Hgb 11.0 L Hct 33.2 L MCV 81.4 MCH 27.1 MCHC 33.3 RDW 15.9 H Plt Count 308 Neut % (Auto) 91.8 H Lymph % (Auto) 4.1 L [place] % (Auto) 3.6 Eos % (Auto) 0.1 L Baso % (Auto) 0.4 Neut # (Auto) 64068 H Lymph # (Auto) 600 L [place] # (Auto) 500 Eos # (Auto) 0 Baso # (Auto) 100 PT 24.4 H INR 2.1 H APTT 38 H D Sodium Potassium Chloride Carbon Dioxide BUN Creatinine Estimated GFR BUN/Creatinine Ratio Glucose Lactate Calcium Magnesium Total Bilirubin AST ALT Alkaline Phosphatase Total Creatine Kinase CK-MB (CK-2) CK-MB (CK-2) Rel Index Troponin I Total Protein Albumin Globulin Albumin/Globulin Ratio Lipase Procalcitonin Urine Color Urine Appearance Urine pH Ur Specific [place] Urine Protein Urine Glucose (UA) Urine Ketones Urine Occult Blood Urine Nitrate Urine Bilirubin Urine Urobilinogen Ur Leukocyte Esterase Urine RBC Urine WBC Ur Squamous Epith Cells Amorphous Sediment Urine Bacteria Urine Mucus Ur Culture Indicated? Chlamy pneumoniae PCR Adenovirus (PCR) B.parapertussis DNA PCR Coronavirus OC43 (PCR) Coronavirus HKU1 (PCR) Coronavirus 229E (PCR) Coronavirus NL63 (PCR) Human Metapneumovir PCR Influenza A (RT-PCR) Flu a negative Influenza Type A (PCR) Influenza B (RT-PCR) Flu b negative Influenza Type B (PCR) M. pneumoniae (PCR) Parainfluenza 1 (PCR) Parainfluenza 2 (PCR) Parainfluenza 3 (PCR) Parainfluenza 4 (PCR) RSV (PCR) Entero/Rhino (PCR) 03/01/19 03/01/19 03/01/19 17:37 17:37 17:37 WBC RBC Hgb Hct MCV MCH MCHC RDW Plt Count Neut % (Auto) Lymph % (Auto) [place] % (Auto) Eos % (Auto) Baso % (Auto) Neut # (Auto) Lymph # (Auto) [place] # (Auto) Eos # (Auto) Baso # (Auto) PT INR APTT Sodium 134 L Potassium 4.6 Chloride 98 Carbon Dioxide 25 BUN 22 H Creatinine 0.70 Estimated GFR > 60.0 BUN/Creatinine Ratio 31.4 H Glucose 204 H Lactate 1.1 Calcium 9.1 Magnesium Total Bilirubin 0.4 AST 26 ALT 21 Alkaline Phosphatase 137 H Total Creatine Kinase CK-MB (CK-2) CK-MB (CK-2) Rel Index Troponin I Total Protein 7.7 Albumin 4.1 Globulin 3.6 Albumin/Globulin Ratio 1.1 Lipase 17 L Procalcitonin 1.15 H Urine Color Urine Appearance Urine pH Ur Specific [place] Urine Protein Urine Glucose (UA) Urine Ketones Urine Occult Blood Urine Nitrate Urine Bilirubin Urine Urobilinogen Ur Leukocyte Esterase Urine RBC Urine WBC Ur Squamous Epith Cells Amorphous Sediment Urine Bacteria Urine Mucus Ur Culture Indicated? Chlamy pneumoniae PCR Adenovirus (PCR) B.parapertussis DNA PCR Coronavirus OC43 (PCR) Coronavirus HKU1 (PCR) Coronavirus 229E (PCR) Coronavirus NL63 (PCR) Human Metapneumovir PCR Influenza A (RT-PCR) Influenza Type A (PCR) Influenza B (RT-PCR) Influenza Type B (PCR) M. pneumoniae (PCR) Parainfluenza 1 (PCR) Parainfluenza 2 (PCR) Parainfluenza 3 (PCR) Parainfluenza 4 (PCR) RSV (PCR) Entero/Rhino (PCR) 03/01/19 03/01/19 03/01/19 17:37 17:37 18:39 WBC RBC Hgb Hct MCV MCH MCHC RDW Plt Count Neut % (Auto) Lymph % (Auto) [place] % (Auto) Eos % (Auto) Baso % (Auto) Neut # (Auto) Lymph # (Auto) [place] # (Auto) Eos # (Auto) Baso # (Auto) PT INR APTT Sodium Potassium Chloride Carbon Dioxide BUN Creatinine Estimated GFR BUN/Creatinine Ratio Glucose Lactate Calcium Magnesium 1.6 Total Bilirubin AST ALT Alkaline Phosphatase Total Creatine Kinase 25 L CK-MB (CK-2) TNP CK-MB (CK-2) Rel Index TNP Troponin I < 0.012 Total Protein Albumin Globulin Albumin/Globulin Ratio Lipase Procalcitonin Urine Color Urine Appearance Urine pH Ur Specific [place] Urine Protein Urine Glucose (UA) Urine Ketones Urine Occult Blood Urine Nitrate Urine Bilirubin Urine Urobilinogen Ur Leukocyte Esterase Urine RBC Urine WBC Ur Squamous Epith Cells Amorphous Sediment Urine Bacteria Urine Mucus Ur Culture Indicated? Chlamy pneumoniae PCR Not detected Adenovirus (PCR) Not detected B.parapertussis DNA PCR Not detected Coronavirus OC43 (PCR) Not detected Coronavirus HKU1 (PCR) Not detected Coronavirus 229E (PCR) Not detected Coronavirus NL63 (PCR) Not detected Human Metapneumovir PCR Not detected Influenza A (RT-PCR) Influenza Type A (PCR) Not detected Influenza B (RT-PCR) Influenza Type B (PCR) Not detected M. pneumoniae (PCR) Not detected Parainfluenza 1 (PCR) Not detected Parainfluenza 2 (PCR) Not detected Parainfluenza 3 (PCR) Not detected Parainfluenza 4 (PCR) Not detected RSV (PCR) Not detected Entero/Rhino (PCR) Not detected 03/01/19 19:00 WBC RBC Hgb Hct MCV MCH MCHC RDW Plt Count Neut % (Auto) Lymph % (Auto) [place] % (Auto) Eos % (Auto) Baso % (Auto) Neut # (Auto) Lymph # (Auto) [place] # (Auto) Eos # (Auto) Baso # (Auto) PT INR APTT Sodium Potassium Chloride Carbon Dioxide BUN Creatinine Estimated GFR BUN/Creatinine Ratio Glucose Lactate Calcium Magnesium Total Bilirubin AST ALT Alkaline Phosphatase Total Creatine Kinase CK-MB (CK-2) CK-MB (CK-2) Rel Index Troponin I Total Protein Albumin Globulin Albumin/Globulin Ratio Lipase Procalcitonin Urine Color Yellow Urine Appearance Clear Urine pH 5.0 Ur Specific [place] 1.015 Urine Protein Negative Urine Glucose (UA) Negative Urine Ketones 1+ H Urine Occult Blood 2+ H Urine Nitrate Negative Urine Bilirubin Negative Urine Urobilinogen 0.2 Ur Leukocyte Esterase Negative Urine RBC 10-30/hpf H Urine WBC 1-5/hpf Ur Squamous Epith Cells 0-1 /hpf Amorphous Sediment 1+ Urine Bacteria None seen Urine Mucus 1+ H Ur Culture Indicated? Cult not indicated Chlamy pneumoniae PCR Adenovirus (PCR) B.parapertussis DNA PCR Coronavirus OC43 (PCR) Coronavirus HKU1 (PCR) Coronavirus 229E (PCR) Coronavirus NL63 (PCR) Human Metapneumovir PCR Influenza A (RT-PCR) Influenza Type A (PCR) Influenza B (RT-PCR) Influenza Type B (PCR) M. pneumoniae (PCR) Parainfluenza 1 (PCR) Parainfluenza 2 (PCR) Parainfluenza 3 (PCR) Parainfluenza 4 (PCR) RSV (PCR) Entero/Rhino (PCR) Assessment & Plan Assessment & Plan narrative: This is a 60-year-old female patient presents to the ER with altered mental status febrile and tachycardic and body aches. 1. Sepsis without hypotension, acute, present on admission, active. -the patient has had progressive illness for the past 2 days marked by pain fevers and chills becoming incoherent today. -The patient positive infection markers including a white blood cell count of 14.3, procalcitonin 1.15. Lactic acid is 1.1 and has a negative respiratory panel. -chest x-rays negative for pneumonia, CT abdomen without an identified source of infection or abscess, urinalysis is negative for infection. -patient has received fluid bolus per sepsis protocol. -blood cultures obtained in the emergency department. -empiric therapy with vancomycin 2 g IV started in the ER will continue every 12 hours, pharmacy to dose, Zosyn 3.375 g IV every 8 hours. -patient with bilateral wrist pain right much greater than left concurrent with onset of fevers and chills believes secondary to inflammatory process. 2. Acute metabolic encephalopathy, acute, related to underlying infection and fever, present on admission, improving - continue treating underlying infection -patient is improved with reduction in fever and fluid repletion. - IV fluids and empiric therapy -acetaminophen as needed for fevers. 3. Chronic wound left lower leg, present on admission, active -history of recurrent left lower extremity cellulitis, last culture revealing Enterococcus fascialis sensitive to vancomycin. -patient seen by orthopedics today for wound evaluation and change of wound VAC. -no purulent drainage evident, left lower extremity is warm to touch with slight redness coloration, presumed source of sepsis. -treat with vancomycin and Zosyn. 4. Diabetes type 2, insulin dependent, controlled, chronic, present on admission, active. -patient's blood sugar on admission is 204, her most recent hemoglobin A1c in September was 6.5% -will obtained fingerstick blood sugars AC and HS. -continue patient's home regimen of detemir insulin 55 units subcutaneously daily and Victoza 1.5 mg 3 times daily. -ordered correctional insulin low scale -medium carbohydrate diet. 5. Essential hypertension, chronic, present on admission, active. -blood pressure admission is 170/53. -patient received IV fluid 30 milliliters/kilos per sepsis protocol. Blood pressure remains 151/71. -will continue patient's home regimen of losartan 25 mg daily but will hold hydrochlorothiazide. -will follow blood pressure and adjust therapy is indicated. 6. Ventral hernia, chronic, stable. -large ventral hernia containing bowel loops identified on abdominal pelvic CT, radiologist read indicates possible partial obstruction. -patient denies abdominal pain on palpation, bowel tones present and active. -no change in stooling habits with last bowel movement yesterday. 7. Hypothyroidism, chronic, stable -continue patient's home regimen of levothyroxine 200 mcg daily except for 400 mcg Sundays. VTE prophylaxis: Bilateral SCDs, heparin contraindicated due to heparin-induced thrombocytopenia, on warfarin therapy. Diet: Medium carbohydrate IV fluid: Normal saline 75 cc/hour The patient is admitted to the hospital due to the severity of her symptoms and risk of complications and adverse events. The patient is admitted as an inpatient with expected length stay to be greater than 2 midnights. Scores GCS [place] coma scale eye opening: Spontaneous [place] coma scale verbal response: Orientated [place] coma scale motor response: Obey commands [place] coma scale total score: 15 SOFA PaO2/FIO2: < 400 mmHg Platelets: >= 150 Bilirubin: < 1.2 mg/dL Hypotension: MAP >= 70 mmHg [place] Coma Scale: 15 Renal: < 1.2 mg/dL SOFA Score: 1 Quality VTE Deep Vein Thrombosis/Pulmonary Embolism Present on Admission: Yes
[2019-03-02] MEDS: CYCLOBENZAPRINE 10 MG TABLET PO ×3 (01:00→19:57)
[2019-03-02] MEDS: KETOROLAC 15 MG/ML VIAL IV ×2 (01:00→22:35)
[2019-03-02] MEDS: ACETAMINOPHEN 325 MG TABLET 650 MG PO ×4 (01:01→19:57)
[2019-03-02] MEDS: HYDROMORPHONE 2 MG INJ 1 MG IV (02:47)
--- NOTE | 2019-03-02 03:00 | PC.NURSE ---
Addendum entered by Alexandria Day R.N. 03/02/19 06:53: Patient still having pain 6-09/08. Toy MCGEE notified and ordered 50mg Amitryptaline one time dose at 0645. Original Note: Came on shift, patient was still receiving bolus of fluids and in 12/10 pain. Patient has been groaning and grimacing. Patient and was aggravated that they hadn't been seen by provider yet. I reassured them that the provider would be in as soon as he could. I personally notified Toy MCGEE at 0015 that patient was in writhing pain. Orders were placed for pain medication. Pain has been monitored after medication administration, Patient's pain level has continued to be at an 8/10 this night, Toy MCGEE notified at 0230. 1 mg Dilaudid now ordered, and dilaudid orders were changed to Q4, per verbal order from TOY MCGEE. Will continue to monitor. Patient was given a fan, cold wash cloth for face. Patient is weak and having a hard time ambulating. Patient has been asking to use the bed dave instead of bedside commode or bathroom. Patient AxOx4, Temp elevated 100.7, VSS, pt is tachy high 90's. Denies nausea. Patient has distended abdomen from hernia, complains of bilateral wrist pain, but more so on the Right wrist. Patient has bilateral lower leg neuropathy. Patient has lower leg and foot edema 2+ non pitting, along with bilateral hand edema 1+. Bed is low and locked, bed alarm is on, call light within reach.
[2019-03-02] MEDS: PANTOPRAZOLE 20 MG TABLET PO (06:07)
[2019-03-02] MEDS: HYDROMORPHONE 1 MG INJ IV ×3 (06:18→19:58)
[2019-03-02 06:19] LABS: Add Manual Diff / Slide Review NO; Basophils Absolute Auto 0 /uL (0-100); Basophils Percent Auto 0.4 % (0-2); Eosinophils Absolute Auto 0 /uL (0-450); Eosinophils Percent Auto 0.3 % (2-4); Hematocrit 28.6 % (36-46); Hemoglobin 9.6 g/dL (12.0-16.0); Lymphocytes Absolute Auto 800 /uL (1100-4500); Lymphocytes Percent Auto 7.6 % (25-40); Mean Corpuscular HGB Conc 33.5 % (30-36); Mean Corpuscular Hemoglobin 27.5 PG (26-34); Mean Corpuscular Volume 82.1 fL (80-100); Monocytes Absolute Auto 700 /uL (0-900); Monocytes Percent Auto 6.8 % (3-14); Neutrophils Absolute Auto 9200 /uL (1500-7000); Neutrophils Percent Auto 84.9 % (50-75); Platelet Count 251 X10^3/uL (150-400); Red Blood Cell Count 3.48 X10^6/uL (4.0-5.2); Red Cell Distribution Width 16.4 % (11.6-14.8); White Blood Cell Count 10.9 X10^3/uL (4.5-11.0)
[2019-03-02 06:23] LABS: INR 1.8 (0.9-1.3); Prothrombin Time 21.6 SECONDS (10.1-12.7)
[2019-03-02 06:30] LABS: BUN Creatinine Ratio 33.3 (6-22); Blood Urea Nitrogen 20 mg/dL (7-17); Calcium 8.1 mg/dL (8.4-10.2); Carbon Dioxide 23 mmol/L (22-32); Chloride 105 mmol/L (98-107); Estimated Glomerular Filt Rate > 60.0 mL/min (>60); Glucose 123 mg/dL (80-110); HEMOLYSIS < 15 (0-50); Potassium 3.5 mmol/L (3.4-5.1); Sodium 137 mmol/L (137-145)
--- NOTE | 2019-03-02 07:53 | PC.NURSE ---
Addendum entered by Charity Monahan R.N. 03/02/19 09:14: KATELYN Sun-float position observed pt's Dereck attach wound vac to machine at 0910 Original Note: Day Shift- Spoke with Dr. Giraldo at 0754 regarding pt's pain management. Pt teary, moaning out loud in pain with no on in her room. Also requested PT consult for pt as pt is having minimal OOB movement and requesting bedpan to void.
[2019-03-02] MEDS: PIPERACILLIN-TAZO 3.375 GM/50 ML FROZ.PIGGY IV ×3 (08:14→22:46)
[2019-03-02] MEDS: PREGABALIN 50 MG CAPSULE PO ×3 (08:28→20:00)
[2019-03-02] MEDS: HYDROMORPHONE 2 MG TABLET PO ×5 (08:29→20:11)
--- NOTE | 2019-03-02 09:26 | DI.RAD.S_ITS ---
PROCEDURE: XR ELBOW LT 2V INDICATIONS: L elbow pain TECHNIQUE: 2 views of the elbow were acquired. COMPARISON: [facility], CR, XR FOREARM RT 2V, 03/02/2019, 10:02. [facility], CR, XR HAND RT MIN 3V, 03/02/2019, 9:58. FINDINGS: Bones: No fractures or dislocations. No suspicious bony lesions. Age-appropriate bony degenerative changes are seen. Soft tissues: No definite elbow joint effusion. No suspicious soft tissue calcifications. IMPRESSION: No acute plain film abnormality is seen. Dictated by: Nicholas Garcia M.D. on 03/02/2019 at 9:13 Approved by: Nicholas Garcia M.D. on 03/02/2019 at 9:16
--- NOTE | 2019-03-02 09:27 | DI.RAD.S_ITS ---
PROCEDURE: XR FOREARM RT 2V INDICATIONS: RUE / wrist pain TECHNIQUE: 2 views of the forearm were acquired. COMPARISON: [facility], CR, XR HAND RT MIN 3V, 03/02/2019, 9:58. [facility], CR, XR ELBOW LT 2V, 03/02/2019, 9:49. FINDINGS: Bones: No fractures or dislocations. No suspicious bony lesions. Age-appropriate bony degenerative changes are seen. Soft tissues: No suspicious soft tissue calcifications or masses. An antecubital Angiocath can be seen. IMPRESSION: No acute bony injury is seen. Dictated by: Nicholas Garcia M.D. on 03/02/2019 at 9:16 Approved by: Nicholas Garcia M.D. on 03/02/2019 at 9:17
--- NOTE | 2019-03-02 09:27 | DI.RAD.S_ITS ---
PROCEDURE: XR HAND RT MIN 3V INDICATIONS: RUE / wrist , thenar eminence ecchymosis TECHNIQUE: 3 views of the hand(s) acquired. COMPARISON: None. FINDINGS: Evaluation is limited, secondary to the patient's inability to fully cooperate with the examination. Bones: No fractures or dislocations. Carpal bones are normally aligned. No suspicious bony lesions. Age-appropriate bony degenerative changes are seen. Postoperative changes are seen, with removal of the trapezium. Soft tissues: Soft tissue swelling is seen. No suspicious soft tissue calcifications. Calcification is noted of the distal arteries. This degree of calcification is typically seen in patients with a long-standing history of diabetes. Please correlate with a history of such. IMPRESSION: Limited study demonstrating soft tissue swelling. Dictated by: Nicholas Garcia M.D. on 03/02/2019 at 9:17 Approved by: Nicholas Garcia M.D. on 03/02/2019 at 9:19
[2019-03-02] MEDS: TOLTERODINE LA 4 MG PO (09:52)
[2019-03-02] MEDS: VANCOMYCIN 2,000 MG/400 ML PIGGYBACK 200 MG IV ×2 (10:01→20:28)
--- NOTE | 2019-03-02 11:22 | PM.PN.1 ---
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 She is feeling somewhat improved this morning. Her left leg never had any redness, but was quite warm. Her feels that it is improved today. However her joint pain has been uncontrolled to this point requiring IV Dilaudid. Radiographic imaging was obtained which did not show any fractures or erosions in her joint. There are also no noted effusions. Exam Vital Signs (past 8 hours): - 03/02/19 05:50 03/02/19 06:36 03/02/19 08:00 Temperature 99.8 F H 100.8 F H 98.7 F Pulse Rate 102 H 100 H Respiratory Rate 18 20 Blood Pressure 150/84 H 138/75 Pulse Oximetry 99 95 03/02/19 09:07 Temperature Pulse Rate 99 H Respiratory Rate 16 Blood Pressure Pulse Oximetry 96 Oxygen Delivery Method Room Air Oxygen Flow Rate 0 Narrative Exam Narrative: GENERAL APPEARANCE: Well developed, well nourished, appears to be pain. SKIN: Inspection of the skin reveals mild ecchymoses over her right thenar eminence. She has some venous stasis skin changes of her lower extremities. HEENT: The sclerae were anicteric and conjunctivae were pink and moist. Extraocular movements were intact and pupils were equal, round with normal accommodation. External inspection of the ears and nose showed no scars, lesions, or masses. Lips, teeth, and gums showed normal mucosa. The oral mucosa, hard and soft palate, tongue and posterior pharynx were unremarkable. NECK: Supple and symmetric. There was no thyroid enlargement, and no tenderness, or masses were felt. CHEST: Normal AP diameter and normal contour without any kyphoscoliosis. LUNGS: Auscultation of the lungs revealed no wheezes, rhonchi, or rales. CARDIOVASCULAR: There was a regular rate and rhythm without any murmurs, gallops, rubs. Peripheral pulses were 2+ and symmetric. ABDOMEN: Soft and nontender with normal bowel sounds. No ascites was noted. Easily reducible large hernia is present. MUSCULOSKELETAL: Tenderness to right wrist with active and passive range of motion. No obvious effusion to R wrist or hands. No warmth noted. Mild ecchymosis noted as above to the her right upper extremity. Left elbow she has tenderness on both her medial and lateral epicondyles. LLE is warmer compared to RLE, but only mildly. EXTREMITIES: No cyanosis, clubbing. There is bilateral upper extremity and lower extremity edema, this is nonpitting. NEUROLOGIC: Alert and oriented x 3. Normal affect. Gait was normal. Strength is +5/5 in the Upper Extremities and Lower Extremities Bilaterally. Sensation to touch was normal. Objective Labs Result Diagrams: 03/02/19 06:06 03/02/19 06:06 Labs: Laboratory Results - last 24 hr 03/01/19 03/01/19 03/01/19 17:05 17:37 17:37 WBC 14.3 H RBC 4.08 Hgb 11.0 L Hct 33.2 L MCV 81.4 MCH 27.1 MCHC 33.3 RDW 15.9 H Plt Count 308 Neut % (Auto) 91.8 H Lymph % (Auto) 4.1 L Sandoval % (Auto) 3.6 Eos % (Auto) 0.1 L Baso % (Auto) 0.4 Neut # (Auto) 72388 H Lymph # (Auto) 600 L Sandoval # (Auto) 500 Eos # (Auto) 0 Baso # (Auto) 100 PT 24.4 H INR 2.1 H APTT 38 H D Sodium Potassium Chloride Carbon Dioxide BUN Creatinine Estimated GFR BUN/Creatinine Ratio Glucose Lactate Calcium Magnesium Total Bilirubin AST ALT Alkaline Phosphatase Total Creatine Kinase CK-MB (CK-2) CK-MB (CK-2) Rel Index Troponin I Total Protein Albumin Globulin Albumin/Globulin Ratio Lipase Procalcitonin Urine Color Urine Appearance Urine pH Ur Specific [place] Urine Protein Urine Glucose (UA) Urine Ketones Urine Occult Blood Urine Nitrate Urine Bilirubin Urine Urobilinogen Ur Leukocyte Esterase Urine RBC Urine WBC Ur Squamous Epith Cells Amorphous Sediment Urine Bacteria Urine Mucus Ur Culture Indicated? Chlamy pneumoniae PCR Adenovirus (PCR) B.parapertussis DNA PCR Coronavirus OC43 (PCR) Coronavirus HKU1 (PCR) Coronavirus 229E (PCR) Coronavirus NL63 (PCR) Human Metapneumovir PCR Influenza A (RT-PCR) Flu a negative Influenza Type A (PCR) Influenza B (RT-PCR) Flu b negative Influenza Type B (PCR) M. pneumoniae (PCR) Parainfluenza 1 (PCR) Parainfluenza 2 (PCR) Parainfluenza 3 (PCR) Parainfluenza 4 (PCR) RSV (PCR) Entero/Rhino (PCR) 03/01/19 03/01/19 03/01/19 17:37 17:37 17:37 WBC RBC Hgb Hct MCV MCH MCHC RDW Plt Count Neut % (Auto) Lymph % (Auto) Sandoval % (Auto) Eos % (Auto) Baso % (Auto) Neut # (Auto) Lymph # (Auto) Sandoval # (Auto) Eos # (Auto) Baso # (Auto) PT INR APTT Sodium 134 L Potassium 4.6 Chloride 98 Carbon Dioxide 25 BUN 22 H Creatinine 0.70 Estimated GFR > 60.0 BUN/Creatinine Ratio 31.4 H Glucose 204 H Lactate 1.1 Calcium 9.1 Magnesium Total Bilirubin 0.4 AST 26 ALT 21 Alkaline Phosphatase 137 H Total Creatine Kinase CK-MB (CK-2) CK-MB (CK-2) Rel Index Troponin I Total Protein 7.7 Albumin 4.1 Globulin 3.6 Albumin/Globulin Ratio 1.1 Lipase 17 L Procalcitonin 1.15 H Urine Color Urine Appearance Urine pH Ur Specific [place] Urine Protein Urine Glucose (UA) Urine Ketones Urine Occult Blood Urine Nitrate Urine Bilirubin Urine Urobilinogen Ur Leukocyte Esterase Urine RBC Urine WBC Ur Squamous Epith Cells Amorphous Sediment Urine Bacteria Urine Mucus Ur Culture Indicated? Chlamy pneumoniae PCR Adenovirus (PCR) B.parapertussis DNA PCR Coronavirus OC43 (PCR) Coronavirus HKU1 (PCR) Coronavirus 229E (PCR) Coronavirus NL63 (PCR) Human Metapneumovir PCR Influenza A (RT-PCR) Influenza Type A (PCR) Influenza B (RT-PCR) Influenza Type B (PCR) M. pneumoniae (PCR) Parainfluenza 1 (PCR) Parainfluenza 2 (PCR) Parainfluenza 3 (PCR) Parainfluenza 4 (PCR) RSV (PCR) Entero/Rhino (PCR) 03/01/19 03/01/19 03/01/19 17:37 17:37 18:39 WBC RBC Hgb Hct MCV MCH MCHC RDW Plt Count Neut % (Auto) Lymph % (Auto) Sandoval % (Auto) Eos % (Auto) Baso % (Auto) Neut # (Auto) Lymph # (Auto) Sandoval # (Auto) Eos # (Auto) Baso # (Auto) PT INR APTT Sodium Potassium Chloride Carbon Dioxide BUN Creatinine Estimated GFR BUN/Creatinine Ratio Glucose Lactate Calcium Magnesium 1.6 Total Bilirubin AST ALT Alkaline Phosphatase Total Creatine Kinase 25 L CK-MB (CK-2) TNP CK-MB (CK-2) Rel Index TNP Troponin I < 0.012 Total Protein Albumin Globulin Albumin/Globulin Ratio Lipase Procalcitonin Urine Color Urine Appearance Urine pH Ur Specific [place] Urine Protein Urine Glucose (UA) Urine Ketones Urine Occult Blood Urine Nitrate Urine Bilirubin Urine Urobilinogen Ur Leukocyte Esterase Urine RBC Urine WBC Ur Squamous Epith Cells Amorphous Sediment Urine Bacteria Urine Mucus Ur Culture Indicated? Chlamy pneumoniae PCR Not detected Adenovirus (PCR) Not detected B.parapertussis DNA PCR Not detected Coronavirus OC43 (PCR) Not detected Coronavirus HKU1 (PCR) Not detected Coronavirus 229E (PCR) Not detected Coronavirus NL63 (PCR) Not detected Human Metapneumovir PCR Not detected Influenza A (RT-PCR) Influenza Type A (PCR) Not detected Influenza B (RT-PCR) Influenza Type B (PCR) Not detected M. pneumoniae (PCR) Not detected Parainfluenza 1 (PCR) Not detected Parainfluenza 2 (PCR) Not detected Parainfluenza 3 (PCR) Not detected Parainfluenza 4 (PCR) Not detected RSV (PCR) Not detected Entero/Rhino (PCR) Not detected 03/01/19 03/02/19 03/02/19 19:00 06:06 06:06 WBC 10.9 RBC 3.48 L Hgb 9.6 L Hct 28.6 L MCV 82.1 MCH 27.5 MCHC 33.5 RDW 16.4 H Plt Count 251 Neut % (Auto) 84.9 H Lymph % (Auto) 7.6 L Sandoval % (Auto) 6.8 Eos % (Auto) 0.3 L Baso % (Auto) 0.4 Neut # (Auto) 9200 H Lymph # (Auto) 800 L Sandoval # (Auto) 700 Eos # (Auto) 0 Baso # (Auto) 0 PT 21.6 H INR 1.8 H APTT Sodium Potassium Chloride Carbon Dioxide BUN Creatinine Estimated GFR BUN/Creatinine Ratio Glucose Lactate Calcium Magnesium Total Bilirubin AST ALT Alkaline Phosphatase Total Creatine Kinase CK-MB (CK-2) CK-MB (CK-2) Rel Index Troponin I Total Protein Albumin Globulin Albumin/Globulin Ratio Lipase Procalcitonin Urine Color Yellow Urine Appearance Clear Urine pH 5.0 Ur Specific [place] 1.015 Urine Protein Negative Urine Glucose (UA) Negative Urine Ketones 1+ H Urine Occult Blood 2+ H Urine Nitrate Negative Urine Bilirubin Negative Urine Urobilinogen 0.2 Ur Leukocyte Esterase Negative Urine RBC 10-30/hpf H Urine WBC 1-5/hpf Ur Squamous Epith Cells 0-1 /hpf Amorphous Sediment 1+ Urine Bacteria None seen Urine Mucus 1+ H Ur Culture Indicated? Cult not indicated Chlamy pneumoniae PCR Adenovirus (PCR) B.parapertussis DNA PCR Coronavirus OC43 (PCR) Coronavirus HKU1 (PCR) Coronavirus 229E (PCR) Coronavirus NL63 (PCR) Human Metapneumovir PCR Influenza A (RT-PCR) Influenza Type A (PCR) Influenza B (RT-PCR) Influenza Type B (PCR) M. pneumoniae (PCR) Parainfluenza 1 (PCR) Parainfluenza 2 (PCR) Parainfluenza 3 (PCR) Parainfluenza 4 (PCR) RSV (PCR) Entero/Rhino (PCR) 03/02/19 06:06 WBC RBC Hgb Hct MCV MCH MCHC RDW Plt Count Neut % (Auto) Lymph % (Auto) Sandoval % (Auto) Eos % (Auto) Baso % (Auto) Neut # (Auto) Lymph # (Auto) Sandoval # (Auto) Eos # (Auto) Baso # (Auto) PT INR APTT Sodium 137 Potassium 3.5 Chloride 105 Carbon Dioxide 23 BUN 20 H Creatinine 0.60 Estimated GFR > 60.0 BUN/Creatinine Ratio 33.3 H Glucose 123 H Lactate Calcium 8.1 L Magnesium Total Bilirubin AST ALT Alkaline Phosphatase Total Creatine Kinase CK-MB (CK-2) CK-MB (CK-2) Rel Index Troponin I Total Protein Albumin Globulin Albumin/Globulin Ratio Lipase Procalcitonin Urine Color Urine Appearance Urine pH Ur Specific [place] Urine Protein Urine Glucose (UA) Urine Ketones Urine Occult Blood Urine Nitrate Urine Bilirubin Urine Urobilinogen Ur Leukocyte Esterase Urine RBC Urine WBC Ur Squamous Epith Cells Amorphous Sediment Urine Bacteria Urine Mucus Ur Culture Indicated? Chlamy pneumoniae PCR Adenovirus (PCR) B.parapertussis DNA PCR Coronavirus OC43 (PCR) Coronavirus HKU1 (PCR) Coronavirus 229E (PCR) Coronavirus NL63 (PCR) Human Metapneumovir PCR Influenza A (RT-PCR) Influenza Type A (PCR) Influenza B (RT-PCR) Influenza Type B (PCR) M. pneumoniae (PCR) Parainfluenza 1 (PCR) Parainfluenza 2 (PCR) Parainfluenza 3 (PCR) Parainfluenza 4 (PCR) RSV (PCR) Entero/Rhino (PCR) Assessment & Plan Assessment & Plan narrative: Leticia Posey is a 68-year-old female with a complex past medical history including hypertension, morbid obesity (BMI 42.9) with prior history of gastric bypass surgery, hypothyroidism, osteoarthritis (h/o repair of multiple joints and presence of orthopedic hardware), diabetes mellitus type 2, insulin using, chronic left lower extremity lymphedema, previous left lower extremity DVT (saphenous vein, 2000), AMBER syndrome (2004), 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 However, imaging to this point has been unrevealing of another possible source. 1. Left leg subcutaneous infection, acute on chronic, present on admission -patient presented with warmness of her left lower extremity, she had a recent change in her wound VAC and this could potentially be the source of infection. She has a history of subcutaneous staph infections per report. However she appeared quite ill on admission and potentially her infectious source has not revealed itself as of this time. Her imaging has been unremarkable as of this time. She will remain on Zosyn and vancomycin. -the patient has had progressive illness for the past 2 days marked by pain fevers and chills becoming incoherent. -The patient positive infection markers including a white blood cell count of 14.3, procalcitonin 1.15. Lactic acid is 1.1 and has a negative respiratory panel. Will continue to monitor procalcitonin. -chest x-rays negative for pneumonia, CT abdomen without an identified source of infection or abscess, urinalysis is negative for infection. -patient received fluid bolus per sepsis protocol. -blood cultures obtained in the emergency department. -empiric therapy with vancomycin 2 g IV started in the ER will continue every 12 hours, pharmacy to dose, Zosyn 3.375 g IV every 8 hours. -patient with bilateral wrist pain right much greater than left concurrent with onset of fevers, imaging not showing any effusion and patient did have a fall approximately 1 week ago. No concern at this time for septic joint, however will continue to monitor. -DVT unlikely as patient is on warfarin. 2. Acute metabolic encephalopathy, acute, related to underlying infection and fever, present on admission, improving - continue treating underlying infection as noted above -patient is improved with reduction in fever and fluid repletion. - IV fluids and empiric therapy -acetaminophen as needed for fevers. 3. Chronic wound left lower leg, present on admission, active -history of recurrent left lower extremity cellulitis, last culture revealing Enterococcus fascialis sensitive to vancomycin. -patient seen by orthopedics on the day of admission for wound evaluation and change of wound VAC. -no purulent drainage evident, left lower extremity is warm to touch, presumed source of infection at this time as noted above. -treat with vancomycin and Zosyn. 4. Diabetes type 2, insulin dependent, controlled, chronic, present on admission, active. -patient's blood sugar on admission is 204, her most recent hemoglobin A1c in September was 6.5% -will obtained fingerstick blood sugars AC and HS. -continue patient's home regimen of detemir insulin 55 units subcutaneously daily and Victoza 1.5 mg 3 times daily. -ordered correctional insulin low scale -medium carbohydrate diet. 5. Essential hypertension, chronic, present on admission, active. -blood pressure admission is 170/53. -patient received IV fluid 30 milliliters/kilos per sepsis protocol. Blood pressure remains 151/71. -will continue patient's home regimen of losartan 25 mg daily and HCTZ. -will follow blood pressure and adjust therapy is indicated. 6. Ventral hernia, chronic, stable. -large ventral hernia containing bowel loops identified on abdominal pelvic CT, radiologist read indicates possible partial obstruction. This is unlikely clinically based on her symptoms. -patient denies abdominal pain on palpation, bowel tones present and active. -no change in stooling habits with last bowel movement yesterday. 7. Hypothyroidism, chronic, stable -continue patient's home regimen of levothyroxine 200 mcg daily except for 400 mcg Sundays. VTE prophylaxis: on warfarin therapy. Diet: Medium carbohydrate Quality VTE Deep Vein Thrombosis/Pulmonary Embolism Present on Admission: Yes
--- NOTE | 2019-03-02 11:45 | CM.IDA ---
Initial DCP Assessment Note: Pt is a 68 yo female, resident of [place]. Pt presents w/fever and confusion, pt has a wound vac on her left leg, hospitalist ruling out sepsis process, pt followed by I+D, wound care and Ortho team outpt. PCP: Rosi Tam Payer: [facility]/ [employer] Met w/pt and spouse David at bedside to introduce role. Pt appears very ill but does open eyes to say hello. Spouse appears upset but denies needs from this IRON ERECTOR. Kept this visit brief. Reviewed above w/RN Charity and she explained pt/spouse have been very appropriate in rm but do seem to be anxious and tired in the setting of pt's multiple medical complications in the last 6 months. This IRON ERECTOR will remain available to assess further as medical POC unfolds. Return home w/supportive family and close outpt f/u is expected at this time. MARCELINO Mckeon Discharge Planning/Care Management CM Discharge Assessment Start: 03/02/19 11:40 Freq: Status: Active Protocol: Document 03/02/19 11:41 LIAM (Rec: 03/02/19 11:45 LIAM [id number]) Discharge Planning Assessment Assigned Veneer Patcher MARCELINO Bhatia DPOA/Assigned Designee Name David Posey spouse Contact Information [phone] Advance Directives? Yes Advance Directives on File No History Provided By Patient Prior Living Arrangements House Household Members spouse Type of transporation used prior to Relies on Others admit Independent with ADL's No: Mostly Is patient alert and oriented? Yes Caregiver for Another No Barriers to Discharge Yes Comment Pt is very sick today and DC needs are unclear at this time Whiteboard Updated in Patient Room with Yes name and ext. # of Veneer Patcher Review Status In Process
--- NOTE | 2019-03-02 11:47 | PT-IP ANOTE ---
03/02/19 at 1129: Pt refuses PT d/t pain in wrists, elbows and legs. Nsg arriving to give more pain medication. Pt agrees to PT consult next date.
[2019-03-02] MEDS: INSULIN ASPART 100 UNIT/ML INSULN PEN SUBCUT ×3 (12:34→21:18)
--- NOTE | 2019-03-02 14:03 | PC.NURSE ---
Addendum entered by Charity Monahan R.N. 03/02/19 14:20: Calf SCD ordered, left off during shift due to BLE pain and discomfort. Pt was also sensitive to blankets on BLE, requesting on/off mostly with a sheet on and hovered over foot rail to avoid weight on BLE. Original Note: Day Shift- Pt A&OX4, does intermittently forget day of week, follows commands. Crying/moaning in pain this AM. New order for Dilaudid po prn given at 0825 and 1135, for pain 9-10/10 all over, BUE, coccyx due to positioning, BLE. Reports chest muscle discomfort, repositioned and this helped. Denies nausea. PRN Flexeril given at 1015 with little to no effect. Pt hypersensitive to touch to BUE, that are supported on pillows, pt does voluntarily move BUE but can not maintain holding water cup or spoon in pudding, needs assistance to eat/drink. Swallows pills whole with water without difficulty. Pt does assist in repositioning on/off bedpan in bed shifting hips, unable to hold onto bed side rails when turned. Voiding qs on bedpan, back, coccyx, buttock, steven area, groin skin intact. Pt repositioned in bed with each bed dave use using ROMMEL bed tilt function. Spoke with Pt's son Nick by pt's phone, was asking if an ECHO was necessary. Spoke to Dr. Giraldo at 1442, made aware, no new orders at this time. Left outer knee wound vac dressing CDI, portable wound vac machine suction to 125. Dereck states pt's next appointment with Dr. Greer is this coming Thursday and the wound VAC is to be left on until that appointment. Pt states her last BM was 02/28. At home has BM 2 times per week. At 1400, pt moved from room 206 to 214 with all belongings, pt's Dereck was present.
[2019-03-02] MEDS: SODIUM CHLORIDE 0.9% 1,000 ML 75 ML IV (14:48)
--- NOTE | 2019-03-02 14:55 | PC.NURSE ---
Assumed care of patient at 1400 for this shift, Patient was being transported by BOX LIDDER into new room. Patient laying in bed, states her pain is starting to increase again. Medicated with oral dilaudid and tylenol as ordered, patient currently asleep and allowed to rest. Her is at bedside, states she is improving from yesterday. IV fluids infusing as ordered, bed alarm on for safety, call light within reach. Report off to evening shift.
[2019-03-02] MEDS: WARFARIN 5 MG TABLET 10 MG PO (17:10)
--- NOTE | 2019-03-02 18:51 | PC.NURSE ---
Assumed care of pt at 1500. Pt sleeping in bed during bedside hand-off. Awakens to use bedpan to void. Voiding frequently. Generalized weakness and pain reported; pt can only slightly lift arms without assistance. Dinner tray set-up, pt able to feed her self slowly but reports difficulty with the activity. Reports pain when arms or hands are touched. Medicated per MAR with IV and PO Dilaudid. Repositioning frequently for pressure injury prevention. Elevating arms/hands on pillows. Wound vac to LLE set to 125 mmhg per wound care settings. Supportive spouse at bedside. Calling appropriately for needs.
[2019-03-02] MEDS: SODIUM CHLORIDE 0.9% FLUSH 10 ML IV ×2 (19:58→22:36)
[2019-03-02] MEDS: INSULIN GLARGINE 100 UNIT/ML 3ML PEN 50 UNIT SUBCUT (21:19)
[2019-03-02] MEDS: AMITRIPTYLINE 25 MG TABLET 50 MG PO (22:36)
[2019-03-03] MEDS: HYDROMORPHONE 2 MG TABLET PO ×4 (00:14→12:23)
[2019-03-03 00:34] VITALS: BP 137/69; PULSE 99; RESP 16; TEMP 37.7; O2SAT 94
[2019-03-03] MEDS: SODIUM CHLORIDE 0.9% FLUSH 10 ML IV ×3 (01:38→06:50)
[2019-03-03] MEDS: HYDROMORPHONE 1 MG INJ IV ×2 (01:38→09:47)
[2019-03-03 05:00] VITALS: BP 151/85; PULSE 91; RESP 16; TEMP 36.9; O2SAT 96
[2019-03-03] MEDS: KETOROLAC 15 MG/ML VIAL IV (05:30)
[2019-03-03 06:16] LABS: Add Manual Diff / Slide Review NO; Basophils Absolute Auto 0 /uL (0-100); Basophils Percent Auto 0.6 % (0-2); Eosinophils Absolute Auto 200 /uL (0-450); Eosinophils Percent Auto 2.1 % (2-4); Hematocrit 26.1 % (36-46); Hemoglobin 8.7 g/dL (12.0-16.0); Lymphocytes Absolute Auto 1300 /uL (1100-4500); Lymphocytes Percent Auto 15.1 % (25-40); Mean Corpuscular HGB Conc 33.4 % (30-36); Mean Corpuscular Hemoglobin 27.2 PG (26-34); Mean Corpuscular Volume 81.5 fL (80-100); Monocytes Absolute Auto 800 /uL (0-900); Monocytes Percent Auto 9.6 % (3-14); Neutrophils Absolute Auto 6300 /uL (1500-7000); Neutrophils Percent Auto 72.6 % (50-75); Platelet Count 236 X10^3/uL (150-400); Red Cell Distribution Width 15.9 % (11.6-14.8); White Blood Cell Count 8.7 X10^3/uL (4.5-11.0)
[2019-03-03 06:24] LABS: INR 1.8 (0.9-1.3); Prothrombin Time 20.7 SECONDS (10.1-12.7)
[2019-03-03 06:30] LABS: Blood Urea Nitrogen 18 mg/dL (7-17); Calcium 8.5 mg/dL (8.4-10.2); Carbon Dioxide 26 mmol/L (22-32); Chloride 104 mmol/L (98-107); Estimated Glomerular Filt Rate > 60.0 mL/min (>60); Glucose 129 mg/dL (80-110); HEMOLYSIS < 15 (0-50); Magnesium 1.7 mg/dL (1.6-2.3); Potassium 3.6 mmol/L (3.4-5.1); Sodium 136 mmol/L (137-145)
[2019-03-03 06:45] LABS: Procalcitonin 0.94 ng/mL (<0.5)
[2019-03-03] MEDS: PIPERACILLIN-TAZO 3.375 GM/50 ML FROZ.PIGGY IV ×2 (06:50→15:14)
[2019-03-03 08:00] VITALS: BP 139/71; PULSE 75; RESP 16; TEMP 36.9; O2SAT 96
[2019-03-03 08:13] LABS: Vancomycin Trough 16.6 ug/mL (10-20)
[2019-03-03] MEDS: TOLTERODINE LA 4 MG PO (08:30)
[2019-03-03] MEDS: PANTOPRAZOLE 40 MG TABLET PO (08:30)
[2019-03-03] MEDS: VANCOMYCIN TROUGH 1 REQUEST MISC (08:31)
[2019-03-03] MEDS: VANCOMYCIN 2,000 MG/400 ML PIGGYBACK 200 MG IV (08:31)
[2019-03-03] MEDS: PREGABALIN 50 MG CAPSULE PO ×2 (08:31→14:44)
[2019-03-03] MEDS: hydroCHLOROthiazide 25 MG TABLET 50 MG PO (08:37)
--- NOTE | 2019-03-03 11:09 | PT.IIE ---
Current Diagnoses Sepsis, unspecified organism (03/01/19) Surgical History (This Medical Record has been edited. Action required.) History of Christine-en-Y gastric bypass (Acute) History of total knee arthroplasty (Acute) Medical History (This Medical Record has been edited. Action required.) Bilateral leg edema (Acute) Diabetes (Acute) 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) Lymphedema of both lower extremities (Acute) Venous stasis dermatitis of both lower extremities (Acute) Physical Therapy Inpatient Evaluation/Re-Eval M1 PT/OT-IP Prior Functional Status Start: 03/02/19 11:07 Freq: NEEDED Status: Active Protocol: Document 03/03/19 08:55 HH (Rec: 03/03/19 11:09 [id number]) Medical Review Prior Functional Status Medical History Reviewed Yes Communication able to make needs known, no deficit noted. Mobility and Gait independent for home and community mobility with a portable wound vac but occasionally use FWW/ cane for long distance walk/ if she got fatigue. She sometimes needed 's WOOD GOUGER to stand up from low chair. Pt's stated pt amb with a wobbly gait (excessive lateral shift) and not good at amb on uneven surface. Pt did not have a fall recently. Activities of Daily Living and IADL's Independent for ADLs and IADLs . Prior Functional Level (Other details) Pt c/o ongoing B shd pain L worse than R than she has difficulty reaching overhead and lifting. Social History Household Members spouse Living Arrangements House Number of Floors (Floors) One Floor Number of Stairs To Enter/Railing? 2 4 platform steps and a 3' door threshold for front entrance (Pt prefers front entrance) 4 steps with B rail for garage entrance. Home Environment High Toilet,Walk in Shower,Tub /Shower Home Equipment Front Wheel Walker,Straight Cane,Hand Held Shower,Long Handled Shoe Horn,Corporate Communications Specialist,Sock Aid Employment Status Retired Additional Social History Comment Leticia Posey lives with David who is also retired. David is very active and able to assist pt 22/09. 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 Pt currently has a wound vac on her L knee since Sep, 2018 due to cyst removal M2 PT-IP Current Condition Start: 03/02/19 11:07 Freq: NEEDED Status: Active Protocol: Document 03/03/19 08:55 HH (Rec: 03/03/19 11:09 [email or web address]) Physical Therapy Current Condition Current Condition Evaluation Date 03/03/19 Treatment Diagnosis Sepsis, Confusion, increased weakness, difficulty in walking Onset Date 03/01/19 Weight Bearing Status Weight Bearing Status Full Weight Bearing M3 PT-IP Subjective Start: 03/02/19 11:07 Freq: NEEDED Status: Active Protocol: Document 03/03/19 08:55 HH (Rec: 03/03/19 11:09 [email or web address]) Subjective Physical Therapy Visit Type Type Initial Evaluation Visit Start Time 08:55 Visit Stop Time 09:30 Total Visit Minutes 35 Notes Pt's attended session. Pt has wound vac on L knee and IV attached. Number of CONCERT PROMOTER Visits 0 Physical Therapy Visit Comments Patient Comments I feel a lot better today and i was able to get to the chair with nurse's assistance. Patient Goals To return home with . Therapy Pain Assessment Pain When Pain Assessed During Mobility Pain Present Pain Present Pain Reported Location Generalized Intensity 7 Scale Used Tavera-Babb (Faces) Description Aching Pain Behaviors Facial Grimacing M4 PT-IP Mobility and Gait Start: 03/02/19 11:07 Freq: NEEDED Status: Active Protocol: Document 03/03/19 08:55 HH (Rec: 03/03/19 11:09 [email or web address]) PT-Transfer Assessment Sit to and From Stand Sit to and from Stand Moderate Assistance,1 Person Assistance,Use of Upper Extremities Equipment Transfer Assistive Device Gait Belt,Front Wheeled Walker Orthotic/Prosthetic Devices or Brace: No Transfers Transfer Destination Bed,Chair,Toilet Transfer Technique amb with FWW Transfer Ability Level of Assist Contact Guard Assistance, Minimal Assistance,1 Person Assistance,Use of Upper Extremities Comments Mobility Comments Pt was up in bedside chair upon assessment. BP at 133/61. Pt was able to scoot to edge of chair independently. Pt's David assisted pt to krystal portable wound vac since pt has severe L shoulder pain. Pt attempted 3 times to stand up by pushing off through chair armrest but unsuccessful due to her B wrist pain R worse than L. David then assisted pt through mod WOOD GOUGER at pt's R forearm for pull to stand. Pt amb half of the AC unit with CGA and returned to chair. She then requested to use bathroom with David's assistance with same aforementionied mod WOOD GOUGER. Pt then amb to toilet with SBA for descent with grab bar. David then mod WOOD GOUGER pt for pull to stand and amb back to chair with chair alarm within reach. BP at 162/76 after mobility and pt stated this is normal d/t her ongoing severe joint pain. Gait Assessment Gait Gait Assistance Required: Contact Guard Assist Distance (Feet) 180 Able to Maintain Weight Bearing Status Yes During Gait Assistive Devices Assistive Device None,Gait Belt,Front Wheeled Walker Orthotic/Prosthetic Devices or Brace: No Gait Deviations General Gait Pattern Decreased Stride Length, Decreased Feet Clearance, Flexed Trunk,Lateral Trunk Lean,Narrow Based Gait Factors Limiting Gait Function Factors Limiting Gait Function Decreased Activity Tolerance, Decreased Sensation,Decreased Strength,Limited Range of Motion,Pain,Poor Balance Comments Gait Comments Pt was able to amb half of the AC unit with CG. Pt demonstrates wobbly gait with FWW and c/o joint pain for shoulders and hips & knees. Pt reports she does not feel safe not to use FWW for gait trianing yet but she did attempt finger touch with FWW but her gait showed increased lateral shift. Pt also has difficulty fully WB on her wrist due to severe pain for radial deviation. Stair Climbing Assessment Comments Stair Climbing Comments Pt amb to stairs but reports she does not feel stronge and steady enough to attempt. PT-Balance Assessment Sitting Balance and Reactions Static Sitting Balance Ability Normal Dynamic Sitting Balance Ability Normal Standing Balance and Reactions Static Standing Balance Ability Good Dynamic Standing Balance Ability Good Device Used FWW M5 PT-IP Objective Assessments Start: 03/02/19 11:07 Freq: NEEDED Status: Active Protocol: Document 03/03/19 08:55 (Rec: 03/03/19 11:09 [email or web address]) Orientation Orientation/Cognition Level of Alertness Alert Orientation Name,Age,Birthday,Month,Date, Year,Day of Week,Place, Situation Language Function Ability No Deficits Noted Safety Awareness Understands Safety Issues Memory Description No Deficits Noted Gross Range of Motion Upper Extremity ROM Assessment Bilaterally Impaired Impairments unable to raise arm overhead but able to reach behind her head very slowly (L worse than R) B wrist stayed at ulnar deviated positions due to severe pain during radial deviation. Lower Extremity ROM Assessment Right Impaired Impairments R limited ankle DF d/t previous ankle fusion. Strength Upper Extremity Strength Shoulder 2+/5 Elbow 4/5 Wrist 2+/5 Hand 3+/5 Lower Extremity Strength Assessment Within Functional Limits Hip 4/5 Knee 4/5 Ankle 4/5 Coordination Assessment Gross Coordination Gross Coordination WNL Sensation Assessment Sensation Gross Sensation WNL Muscle Tone Muscle Tone WNL Yes M6 PT-IP Treatment Start: 03/02/19 11:07 Freq: NEEDED Status: Active Protocol: Document 03/03/19 08:55 HH (Rec: 03/03/19 11:09 [email or web address]) Physical Therapy Treatment Education Education Provided Precautions,Weight Bearing Status,Post-Op Packet,Safety M7 PT-IP Assessment and Plan Start: 03/02/19 11:07 Freq: NEEDED Status: Active Protocol: Document 03/03/19 08:55 HH (Rec: 03/03/19 11:09 [email or web address]) PT Summary Assessment and Plan Potential Rehabilitation Potential Good Status of Condition at Evaluation Evolving Summary Impairments Pain,ROM,Strength,Balance,Bed Mobility,Transfers,Gait, Activity Tolerance Assessment Summary Pt is 68 yo female admitted to for increased confusion and sepsis d/t LLE subcutaneous infection. Pt appears to be Ax O x 4 today and significantly improved mobility. She was able to amb half of the AC unit with FWW with CGA but unable to attempt stairs training due to joint pain and decreased balance. Pt also has difficulty standing up from chair and needed 's David mod WOOD GOUGER. However, David is very attentive and helpful who has been primary CG for pt for her previous multiple joint surgeries. Pt is expected to be d/c home with Kiko's assistance and attend outpt wound care clinic once her pain level is managed and complete stair assessment. Goals Bed Mobility Goal Contact Guard Assistance Transfer Goal Contact Guard Assistance,Front Wheeled Walker Gait Goal Contact Guard Assistance,Front Wheel Walker Gait Distance 250 Other Goals climb 3 platform steps with FWW and CG Days to Meet Goals 5 Frequency of Treatment Frequency Of Treatment Once a Day Treatment Plan Physical Therapy Treatment Plan Bed Mobility Training,Transfer Training,Gait Training, Therapeutic Exercise,Balance Retraining,Post Op Education, Discharge Planning,Hot or Cold Pack,Neuromuscular Re-ed Other Recommendations and Next Treatment climb 3 platform steps with Focus FWW and CG check VSS Recommendations To Nursing Amount of Assist Needed 1 Person Assist Discharge Recommendations PT Discharge Recommendations Home with Assistance, Outpatient PT
[2019-03-03] MEDS: INSULIN ASPART 100 UNIT/ML INSULN PEN SUBCUT ×2 (12:20→16:29)
[2019-03-03 12:42] VITALS: BP 148/77; PULSE 85; RESP 19; TEMP 36.7; O2SAT 98
[2019-03-03 12:56] VITALS: BMI 42.8
--- NOTE | 2019-03-03 13:15 | DIET.PN ---
Dietary Progress Note Assessment: 68y F c L leg infection who has hx of HTN, obesity, s/p alice en y gastric bypass 2004, OA, DM2 referred to nutrition for high BMI. Pt taking all appropriate bariatric supps including ferrous gluconate, MVI, calcium, biotin. Pt takes Triceba in am and Vitosa in pm which recently brought her A1c down to 6.0 from 7.9. Pt has artificial hips, knees and one ankle. Reports physical activity is difficult because of this. HT: 170.1cm WT: 124kg UBW: pt highest wt was 443# before gastric surgery, current wt is pt's lowest to date. BMI: 42.8 Labs:BG 123-204 H MNA: 14 Damon: 15 Nutrition Diagnosis: none Interventions: Recc pt prioritize PRO foods first, then vegetables and fruits followed by carbs as stomach pouch has limited capacity. Recc pt find physical activity within her functional capacity to support cardiovascular health. Diet Order:CCD EER:2000kcal, 125g PRO (1g/kg), 3.7L fluids Monitoring/Evaluations: as requested
[2019-03-03] MEDS: HYDROCODONE/ACET 10/325 TABLET 1 TAB PO (14:42)
[2019-03-03] MEDS: HYDROCODONE/ACET 5/325 TABLET 1 TAB PO (14:43)
[2019-03-03 15:25] VITALS: BP 149/82; PULSE 83; RESP 17; TEMP 37.3; O2SAT 96
[2019-03-03 15:38] LABS: Add Manual Diff / Slide Review NO; Basophils Absolute Auto 100 /uL (0-100); Basophils Percent Auto 0.6 % (0-2); Eosinophils Absolute Auto 200 /uL (0-450); Eosinophils Percent Auto 2.8 % (2-4); Hematocrit 27.5 % (36-46); Hemoglobin 9.2 g/dL (12.0-16.0); Lymphocytes Absolute Auto 1100 /uL (1100-4500); Lymphocytes Percent Auto 12.6 % (25-40); Mean Corpuscular HGB Conc 33.4 % (30-36); Mean Corpuscular Hemoglobin 27.2 PG (26-34); Mean Corpuscular Volume 81.3 fL (80-100); Monocytes Absolute Auto 700 /uL (0-900); Monocytes Percent Auto 8.2 % (3-14); Neutrophils Absolute Auto 6600 /uL (1500-7000); Neutrophils Percent Auto 75.8 % (50-75); Platelet Count 270 X10^3/uL (150-400); Red Blood Cell Count 3.39 X10^6/uL (4.0-5.2); Red Cell Distribution Width 15.6 % (11.6-14.8); White Blood Cell Count 8.8 X10^3/uL (4.5-11.0)
--- NOTE | 2019-03-03 16:28 | P.DS_ITS ---
History of Present Illness History of Present Illness Date Patient Seen: 03/03/19 Time Patient Seen: 16:28 Chief complaint: Possible sepsis Narrative: As per EVERARDO Lanza: Ms. Leticia Posey is a 68-year-old female with complex PMH. 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 Patient was noticed by her to have generalized pain yesterday with associated chills. Today he went to wake the patient for routine medication and found her to be incoherent prompting him to call EMS. The patient was seen earlier in the day by orthopedics and had wound VAC changed to her left lower extremity for a history of recurrent cellulitis of left lower extremity on chronic prophylactic antibiotics. She is followed by orthopedic surgery and I/D. She is followed by Dr. Acuna, infectious disease. The patient has associated symptoms of fevers chills bodyaches most significantly pain in her right wrist which is related to a fall over 1 week ago and has been bleed evaluated. She denies headaches or dizziness has no nasal congestion or sore throat. She denies chest pain or palpitations and has no shortness of breath cough or wheezing. Denies complaints abdominal pain but does have a history gastric bypass and takes AcipHex. She denies change in stooling habits with her last bowel movement yesterday. She denies urinary symptoms with no urgency frequency or hematuria. Upon arrival to the ER the patient is found to be febrile with a temperature of 102.6?, tachycardic at 118, blood pressure 170/53, respiratory rate 22 saturating 94% on room air. Patient worked up with imaging with a chest x-ray showing interstitial prominence, normal heart size. Abdominal pelvic CT was completed demonstrating a large ventral hernia containing bowel with a possible partial small-bowel obstruction within the hernia per radiologist interpretation. Twelve lead EKG demonstrates sinus tachycardia rate of 123, septal infarct with Q-waves in V1 and 2. No ectopy or evidence of block or ischemia. On laboratory analysis the patient has with elevated white count of 14.3 hemoglobin 11.0 and hematocrit 33.2 with platelets of 308. She has neutrophilia at 91.8%. On coagulation she has a PT of 24.4 with an INR 2.1 and PTT of 38. Her chemistries within normal limits and has a BUN of 22 and creatinine is 0.7. Liver functions within normal limits and albumin is 4.1. She has a procalcitonin that is 1.15, lactic acid of 1.1, respiratory panel is negative. Patient presents with sepsis and receives IV bolus per sepsis protocol and started on vancomycin 2 g in the ER. She also received Rocephin 1 g IV while in the ER. Discharge Providers Provider Date of admission: 03/01/19 20:46 Discharge Date: 03/03/19 Primary care physician: Rosi Tam MD Consults: 03/01/19 23:26 Consult to Dietitian, Adult Routine Comment: Reason For Exam: Obesity, BMI 43.1, diabetes 03/02/19 09:01 Consult to Physical Therapy Evaluate & Treat Comment: Physician Instructions: Evaluate and Treat Discharge provider: Kemar Giraldo DO Summary Hospital Course Discharge Diagnosis: 1. Left leg soft tissue infection, acute on chronic, present on admission - 2. Acute metabolic encephalopathy, acute, related to underlying infection and fever, present on admission, resolved 3. Chronic wound left lower leg, present on admission, active 4. Diabetes type 2, insulin dependent, controlled, chronic, present on admission, active. 5. Essential hypertension, chronic, present on admission, active. 6. Ventral hernia, chronic, stable. 7. 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 Ultimately, however, no source of infection was truly identified. She improved on Zosyn and vancomycin. She did have some upper extremity wrist pain that improved when IV fluids were held and she elevated her upper extremity. She is being discharged on doxycycline. She will follow-up with her primary care provider and wound care next week as previously scheduled. 1. Left leg subcutaneous infection, acute on chronic, present on admission, improved-patient presented with warmness of her left lower extremity, she had a recent change in her wound VAC and this could potentially be the source of infection. She has a history of subcutaneous staph infections. She appeared quite ill on admission and there was concern for other etiologies, however none were found. Her imaging was unremarkable. She ultimately improved on Zosyn and vancomycin, she will be discharged on doxycycline for the next week. She will follow-up with wound care as previously scheduled next week. -the patient has had progressive illness for the past 2 days marked by pain fe vers and chills becoming incoherent. Her mental status improved and she was back to baseline upon discharge. -The patient positive infection markers including a white blood cell count of 14.3, procalcitonin 1.15. Lactic acid is 1.1 and has a negative respiratory panel. Procalcitonin did down trend. -chest x-rays negative for pneumonia, CT abdomen without an identified source of infection or abscess, urinalysis is negative for infection. -patient received fluid bolus per sepsis protocol. -blood cultures obtained in the emergency department have no growth today. -patient with bilateral wrist pain right much greater than left concurrent with onset of fevers, imaging not showing any effusion and patient did have a fall approximately 1 week ago. No concern for septic joint. Her wrist pain did improve when fluids were stopped, and she was quite edematous which also improved. -DVT unlikely as patient is on warfarin. 2. Acute metabolic encephalopathy, acute, related to underlying infection and fever, present on admission, resolved - continue treating underlying infection as noted above -patient is improved with reduction in fever and fluid repletion. - IV fluids and empiric therapy -acetaminophen as needed for fevers. 3. Chronic wound left lower leg, present on admission, active -history of recurrent left lower extremity cellulitis, last culture revealing Enterococcus fascialis sensitive to vancomycin. -patient seen by orthopedics on the day of admission for wound evaluation and change of wound VAC. -no purulent drainage evident, left lower extremity was warm to touch, presumed source of infection at this time as noted above. 4. Diabetes type 2, insulin dependent, controlled, chronic, present on admission, active. -patient's blood sugar on admission is 204, her most recent hemoglobin A1c in September was 6.5% -patient can resume home management 5. Essential hypertension, chronic, present on admission, active. -continue home blood pressure medications 6. Ventral hernia, chronic, stable. -large ventral hernia containing bowel loops identified on abdominal pelvic CT, radiologist read indicates possible partial obstruction. This is unlikely clinically based on her symptoms. -patient denies abdominal pain on palpation, bowel tones present and active. -no change in stooling habits with last bowel movement on day of discharge. 7. Hypothyroidism, chronic, stable -continue patient's home regimen of levothyroxine 200 mcg daily except for 400 mcg Sundays. 8. Acute on chronic anemia, MCV 81 -on arrival patient's hemoglobin was initially 11, this down trended to 8.7. This is likely related to hemodilution, and based on lab work she was probably slightly hemoconcentrated on arrival as well. As once fluid was stopped patient's hemoglobin improved to 9.2. She is on oral iron therapy as an outpatient. She can follow-up with her primary care provider for further management. VTE prophylaxis: on warfarin therapy. Status at Discharge Cognitive/behavioral status at discharge: oriented Overall status at discharge: patient is back to baseline Time Spent with Patient Time spent: Greater than 30 minutes Exam Vital Signs (past 8 hours): - 03/03/19 12:42 03/03/19 15:25 Temperature 98.0 F 99.1 F Pulse Rate 85 83 Respiratory Rate 19 17 Blood Pressure 148/77 H 149/82 H Pulse Oximetry 98 96 Oxygen Delivery Method Room Air Oxygen Flow Rate 0 Narrative Exam Narrative: GENERAL APPEARANCE: Well developed, well nourished, appears to be pain. SKIN: Inspection of the skin reveals mild ecchymoses over her right thenar eminence. She has some venous stasis skin changes of her lower extremities. HEENT: The sclerae were anicteric and conjunctivae were pink and moist. Extraocular movements were intact and pupils were equal, round with normal accommodation. External inspection of the ears and nose showed no scars, lesions, or masses. Lips, teeth, and gums showed normal mucosa. The oral mucosa, hard and soft palate, tongue and posterior pharynx were unremarkable. NECK: Supple and symmetric. There was no thyroid enlargement, and no tenderness, or masses were felt. CHEST: Normal AP diameter and normal contour without any kyphoscoliosis. LUNGS: Auscultation of the lungs revealed no wheezes, rhonchi, or rales. CARDIOVASCULAR: There was a regular rate and rhythm without any murmurs, gallops, rubs. Peripheral pulses were 2+ and symmetric. ABDOMEN: Soft and nontender with normal bowel sounds. No ascites was noted. Easily reducible large hernia is present. MUSCULOSKELETAL: Tenderness to right wrist with active and passive range of motion. No obvious effusion to R wrist or hands. No warmth noted. Mild ecchymosis noted as above to the her right upper extremity. Left elbow she has tenderness on both her medial and lateral epicondyles. LLE is warmer compared to RLE, but only mildly. EXTREMITIES: No cyanosis, clubbing. There is bilateral upper extremity and lower extremity edema, this is nonpitting. NEUROLOGIC: Alert and oriented x 3. Normal affect. Gait was normal. Strength is +5/5 in the Upper Extremities and Lower Extremities Bilaterally. Sensation to touch was normal. Objective Labs Result Diagrams: 03/03/19 15:25 03/03/19 05:55 Labs: Laboratory Results - last 24 hr 03/03/19 03/03/19 03/03/19 05:55 05:55 05:55 WBC 8.7 RBC 3.20 L Hgb 8.7 L Hct 26.1 L MCV 81.5 MCH 27.2 MCHC 33.4 RDW 15.9 H Plt Count 236 Neut % (Auto) 72.6 Lymph % (Auto) 15.1 L Baxter % (Auto) 9.6 Eos % (Auto) 2.1 Baso % (Auto) 0.6 Neut # (Auto) 6300 Lymph # (Auto) 1300 Baxter # (Auto) 800 Eos # (Auto) 200 Baso # (Auto) 0 PT 20.7 H INR 1.8 H Sodium Potassium Chloride Carbon Dioxide BUN Creatinine Estimated GFR BUN/Creatinine Ratio Glucose Calcium Magnesium Procalcitonin 0.94 H Vancomycin Trough 03/03/19 03/03/19 03/03/19 05:55 07:35 15:25 WBC 8.8 RBC 3.39 L Hgb 9.2 L Hct 27.5 L MCV 81.3 MCH 27.2 MCHC 33.4 RDW 15.6 H Plt Count 270 Neut % (Auto) 75.8 H Lymph % (Auto) 12.6 L Baxter % (Auto) 8.2 Eos % (Auto) 2.8 Baso % (Auto) 0.6 Neut # (Auto) 6600 Lymph # (Auto) 1100 Baxter # (Auto) 700 Eos # (Auto) 200 Baso # (Auto) 100 PT INR Sodium 136 L Potassium 3.6 Chloride 104 Carbon Dioxide 26 BUN 18 H Creatinine 0.60 Estimated GFR > 60.0 BUN/Creatinine Ratio 30.0 H Glucose 129 H Calcium 8.5 Magnesium 1.7 Procalcitonin Vancomycin Trough 16.6 Discharge Plan Discharge Plan Patient Disposition: Home Discharge comment: You were admitted to the hospital with high fevers. A source of infection was not officially identified but could be a recurrence of cellulitis based on your exam when you arrived. You had some upper extremity swelling that was likely related to excess fluid. Keep your upper extremity elevated as much as possible while resting. You improved on the antibiotics zosyn and vancomycin while an inpatient. You are being discharged on doxycycline and should follow up with your outpatient care team as currently scheduled. Discharge orders & Medications Prescriptions: New doxycycline hyclate 100 mg tablet 100 mg PO BID 7 Days Qty: 14 RF: 0 Continued celecoxib 200 mg capsule 200 mg PO DAILY RF: 0 rabeprazole [AcipHex] 20 mg Tablet,Delayed Release (Dr/Ec) 20 mg PO DAILY RF: 0 hydrochlorothiazide 50 mg tablet 50 mg PO DAILY RF: 0 tolterodine 4 mg capsule,extended release 24hr 4 mg PO DAILY RF: 0 losartan 25 mg Tablet 25 mg PO DAILY RF: 0 montelukast [Singulair] 10 mg Tablet 10 mg PO QPM RF: 0 levothyroxine 200 mcg tablet 200 mcg PO DAILY RF: 0 pregabalin 50 mg Capsule 50 mg PO TID RF: 0 liraglutide 0.6 mg/0.1 mL (18 mg/3 mL) pen injector 1.2 mg subcut DAILY RF: 0 insulin degludec 100 unit/mL (3 mL) insulin pen 55 units subcut DAILY RF: 0 cyclobenzaprine 10 mg tablet 10 mg PO TID PRN (Reason: Muscle Spasm) RF: 0 fexofenadine [Janet Allergy] 180 mg Tablet 180 mg PO DAILY RF: 0 hydrocodone-acetaminophen 7.5-325 mg tablet 2 tab PO Q4HR PRN (Reason: pain) RF: 0 albuterol sulfate 90 mcg/actuation Hfa Aerosol Inhaler 2 puff INHALATION Q6H PRN (Reason: SOB) RF: 0 fluticasone propionate [Flonase Allergy Relief] 50 mcg/actuation Lillian,Suspension 1 spray intranasal DAILY PRN (Reason: Congestion) RF: 0 Centrum Silver 0.4-300-250 mg-mcg-mcg Tablet 1 tab PO DAILY RF: 0 cholecalciferol (vitamin D3) [Vitamin D3] 5,000 unit Tablet 5,000 unit PO DAILY RF: 0 ondansetron HCl 4 mg tablet 4 mg PO TID PRN (Reason: Nausea) RF: 0 warfarin 5 mg tablet See Rx Instructions .ROUTE .COMPLEX RF: 0 Discontinued amoxicillin-pot clavulanate 875-125 mg tablet 1 tab PO BID RF: 0 Follow up/Referrals: Rosi Tam MD [Primary Care Provider] - Diet/Activity/Treatments Diet: Diet as Tolerated and Carb-consistent/Diabetic Activity: As tolerated Discharge Data Primary Care Provider: Rosi Tam Quality VTE Deep Vein Thrombosis/Pulmonary Embolism Present on Admission: Yes
[2019-03-03] MEDS: WARFARIN 5 MG TABLET 10 MG PO (16:29)
--- NOTE | 2019-03-03 17:35 | PC.NURSE ---
Discharge- Patient d/c'ed home. discharged tiffanie nd education reviewed with patient and signed. IV removed. Tele monitor removed. Patients spouse packed up all personal belongings. Patient levft via wheelchair to private car with all persoanl belongings.
== END 2019-03-03 17:34 | disposition home or self-care (01) | DRG 602 ==
LOC: ED 19:00 → AC 20:47
PROVIDERS: Emergency Medicine; Internal Medicine; Admitting Provider Nurse Practitioner Adult Health; Emergency Provider Emergency Medicine; PCP Internal Medicine; Visit Provider Nurse Practitioner Adult Health
DX: L03.116 Cellulitis of left lower limb (principal); G93.41 Metabolic encephalopathy; Z68.41 Body mass index [BMI] 40.0-44.9, adult; D75.82 Heparin induced thrombocytopenia (HIT); E66.01 Morbid (severe) obesity due to excess calories; R40.2352 Coma scale, best motor response, localizes pain, at arrival to emergency department; R40.2242 Coma scale, best verbal response, confused conversation, at arrival to emergency department; R40.2132 Coma scale, eyes open, to sound, at arrival to emergency department; E11.9 Type 2 diabetes mellitus without complications; M25.532 Pain in left wrist; M25.531 Pain in right wrist; I10 Essential (primary) hypertension; E03.9 Hypothyroidism, unspecified; S81.802D Unspecified open wound, left lower leg, subsequent encounter; L08.89 Other specified local infections of the skin and subcutaneous tissue; B95.2 Enterococcus as the cause of diseases classified elsewhere; K43.9 Ventral hernia without obstruction or gangrene; Z98.84 Bariatric surgery status; Z96.0 Presence of urogenital implants; Z79.4 Long term (current) use of insulin
CPT/HCPCS: 36415; 71045; 73070; 73090; 73130; 74177; 80048; 80053; 80202; 81001; 82550; 82962; 83605; 83690; 83735; 84145; 84484; 85025; 85610; 85730; 87040; 87502; 87633; 93005; 94760; 94762; 96361; 96365; 96367; 96375; 97161; 97530; 97597; 99284; J1170; J1885; J2543

== ENCOUNTER → 2019-03-08 09:39 | Outpatient (CLI) | payer MEDICARE, OTHER, SELFPAY ==
[2019-03-01 22:05] VITALS: BMI 43.0
== END ==
PROVIDERS: PCP Internal Medicine; Visit Provider Family Medicine
DX: E11.628 Type 2 diabetes mellitus with other skin complications (principal); T81.31XA Disruption of external operation (surgical) wound, not elsewhere classified, initial encounter; I89.0 Lymphedema, not elsewhere classified; Z79.01 Long term (current) use of anticoagulants
CPT/HCPCS: 99213

== ENCOUNTER → 2019-03-22 09:53 | Outpatient (CLI) | payer MEDICARE, OTHER, SELFPAY ==
[2019-03-01 22:05] VITALS: BMI 43.0
== END ==
PROVIDERS: PCP Internal Medicine; Visit Provider Family Medicine
DX: T81.31XA Disruption of external operation (surgical) wound, not elsewhere classified, initial encounter (principal); I89.0 Lymphedema, not elsewhere classified; Z79.01 Long term (current) use of anticoagulants; E11.628 Type 2 diabetes mellitus with other skin complications; R60.0 Localized edema
CPT/HCPCS: 11042

== ENCOUNTER → 2019-03-25 13:56 | Outpatient (CLI) | payer MEDICARE, OTHER, SELFPAY ==
[2019-03-01 22:05] VITALS: BMI 43.0
== END ==
PROVIDERS: PCP Internal Medicine; Visit Provider Family Medicine
DX: S81.802A Unspecified open wound, left lower leg, initial encounter (principal)
CPT/HCPCS: 97607

== ENCOUNTER → 2019-03-29 09:53 | Outpatient (CLI) | payer MEDICARE, OTHER, SELFPAY ==
[2019-03-01 22:05] VITALS: BMI 43.0
== END ==
PROVIDERS: PCP Internal Medicine; Visit Provider Family Medicine
DX: T81.31XA Disruption of external operation (surgical) wound, not elsewhere classified, initial encounter (principal); I89.0 Lymphedema, not elsewhere classified; Z79.01 Long term (current) use of anticoagulants; E11.628 Type 2 diabetes mellitus with other skin complications
CPT/HCPCS: 15271; Q4110

== ENCOUNTER → 2019-04-05 09:55 | Outpatient (CLI) | payer MEDICARE, OTHER, SELFPAY ==
[2019-03-01 22:05] VITALS: BMI 43.0
== END ==
PROVIDERS: PCP Internal Medicine; Referring Provider Internal Medicine; Visit Provider Family Medicine
DX: I89.0 Lymphedema, not elsewhere classified (principal); E11.622 Type 2 diabetes mellitus with other skin ulcer; T81.31XA Disruption of external operation (surgical) wound, not elsewhere classified, initial encounter; R60.0 Localized edema
CPT/HCPCS: 97597

== ENCOUNTER → 2019-04-12 10:54 | Outpatient (CLI) | payer MEDICARE, OTHER, SELFPAY ==
[2019-03-01 22:05] VITALS: BMI 43.0
== END ==
PROVIDERS: PCP Internal Medicine; Referring Provider Internal Medicine; Visit Provider Family Medicine
DX: T81.31XA Disruption of external operation (surgical) wound, not elsewhere classified, initial encounter (principal); I89.0 Lymphedema, not elsewhere classified; E11.628 Type 2 diabetes mellitus with other skin complications; Z79.01 Long term (current) use of anticoagulants
CPT/HCPCS: 11042; 97607

== ENCOUNTER → 2019-04-19 13:24 | Outpatient (CLI) | payer MEDICARE, OTHER, SELFPAY ==
[2018-10-26 22:45] VITALS: BMI 42.9
[2019-03-01 22:05] VITALS: BMI 43.0
== END ==
PROVIDERS: PCP Internal Medicine; Referring Provider Family Medicine; Visit Provider Family Medicine
DX: E11.628 Type 2 diabetes mellitus with other skin complications (principal); T81.31XA Disruption of external operation (surgical) wound, not elsewhere classified, initial encounter; I89.0 Lymphedema, not elsewhere classified; Z79.01 Long term (current) use of anticoagulants
CPT/HCPCS: 15271; 97597; Q4110

== ENCOUNTER → 2019-04-26 09:44 | Outpatient (CLI) | payer MEDICARE, OTHER, SELFPAY ==
[2019-03-01 22:05] VITALS: BMI 43.0
== END ==
PROVIDERS: PCP Internal Medicine; Referring Provider Emergency Medicine; Visit Provider Family Medicine
DX: S81.802A Unspecified open wound, left lower leg, initial encounter (principal)
CPT/HCPCS: 99213

== ENCOUNTER → 2019-05-02 10:50 | Outpatient (CLI) | payer MEDICARE, OTHER, SELFPAY ==
[2019-03-01 22:05] VITALS: BMI 43.0
== END ==
PROVIDERS: PCP Internal Medicine; Referring Provider Emergency Medicine; Visit Provider Family Medicine
DX: E11.628 Type 2 diabetes mellitus with other skin complications (principal); T81.31XA Disruption of external operation (surgical) wound, not elsewhere classified, initial encounter; R60.0 Localized edema; I89.0 Lymphedema, not elsewhere classified; Z79.01 Long term (current) use of anticoagulants
CPT/HCPCS: 99213

== ENCOUNTER → 2019-05-10 09:40 | Outpatient (CLI) | payer MEDICARE, OTHER, SELFPAY ==
[2019-03-01 22:05] VITALS: BMI 43.0
== END ==
PROVIDERS: PCP Internal Medicine; Referring Provider Emergency Medicine; Visit Provider Family Medicine
DX: I87.2 Venous insufficiency (chronic) (peripheral) (principal); L97.821 Non-pressure chronic ulcer of other part of left lower leg limited to breakdown of skin; I89.0 Lymphedema, not elsewhere classified; Z79.01 Long term (current) use of anticoagulants
CPT/HCPCS: 11042

== ENCOUNTER → 2019-10-24 09:25 | Outpatient (CLI) | payer MEDICARE, OTHER, SELFPAY ==
[2019-03-01 22:05] VITALS: BMI 43.0
== END ==
PROVIDERS: PCP Internal Medicine; Referring Provider Internal Medicine; Visit Provider Family Medicine
DX: S81.002A Unspecified open wound, left knee, initial encounter (principal); T84.54XA Infection and inflammatory reaction due to internal left knee prosthesis, initial encounter; E11.622 Type 2 diabetes mellitus with other skin ulcer
CPT/HCPCS: 99213; 99214

== ENCOUNTER → 2019-11-08 11:41 | Outpatient (CLI) | payer MEDICARE, OTHER, SELFPAY ==
[2019-03-01 22:05] VITALS: BMI 43.0
== END ==
PROVIDERS: PCP Internal Medicine; Referring Provider Internal Medicine; Visit Provider Family Medicine
DX: S81.002A Unspecified open wound, left knee, initial encounter (principal); T84.54XA Infection and inflammatory reaction due to internal left knee prosthesis, initial encounter; E11.622 Type 2 diabetes mellitus with other skin ulcer; I89.0 Lymphedema, not elsewhere classified; R60.0 Localized edema
CPT/HCPCS: 87070; 87075; 87205; 99213; 99214

== ENCOUNTER 2019-11-13 21:54 | Inpatient (IN) | payer MEDICARE, OTHER, SELFPAY ==
[2019-03-01 22:05] VITALS: BMI 43.0
[2019-11-13 21:54] VITALS: BP 146/66; PULSE 101; RESP 20; TEMP 38.7; O2SAT 95; BMI 41.0
[2019-11-13] MEDS: SODIUM CHLORIDE 0.9% 1,000 ML 1000 ML IV (22:19)
[2019-11-13 22:23] LABS: Add Manual Diff / Slide Review NO; Basophils Absolute Auto 0 /uL (0-100); Basophils Percent Auto 0.4 % (0-2); Eosinophils Absolute Auto 100 /uL (0-450); Eosinophils Percent Auto 0.5 % (2-4); Hematocrit 30.1 % (36-46); Hemoglobin 9.8 g/dL (12.0-16.0); Lymphocytes Absolute Auto 900 /uL (1100-4500); Lymphocytes Percent Auto 7.1 % (25-40); Mean Corpuscular HGB Conc 32.6 % (30-36); Mean Corpuscular Hemoglobin 26.4 PG (26-34); Mean Corpuscular Volume 80.8 fL (80-100); Monocytes Absolute Auto 500 /uL (0-900); Monocytes Percent Auto 4.3 % (3-14); Neutrophils Absolute Auto 10600 /uL (1500-7000); Neutrophils Percent Auto 87.7 % (50-75); Platelet Count 295 X10^3/uL (150-400); Red Blood Cell Count 3.73 X10^6/uL (4.0-5.2); Red Cell Distribution Width 16.2 % (11.6-14.8); White Blood Cell Count 12.1 X10^3/uL (4.5-11.0)
[2019-11-13] MEDS: ACETAMINOPHEN 325 MG TABLET 650 MG PO (22:25)
[2019-11-13 22:29] LABS: Lactate (Lactic Acid) 0.9 mmol/L (0.7-2.1)
[2019-11-13 22:30] LABS: Alanine Aminotransferase 20 IU/L (<35); Albumin 3.6 g/dL (3.5-5.0); Albumin Globulin Ratio 0.9 (1.0-2.8); Alkaline Phosphatase 109 U/L (38-126); Aspartate Aminotransferase 25 IU/L (14-36); Bilirubin Total 0.4 mg/dL (0.2-1.3); Blood Urea Nitrogen 24 mg/dL (7-17); Calcium 8.5 mg/dL (8.4-10.2); Carbon Dioxide 31 mmol/L (22-32); Chloride 97 mmol/L (98-107); Estimated Glomerular Filt Rate > 60.0 mL/min (>60); Globulin 3.8 g/dL (1.7-4.1); Glucose 121 mg/dL (80-110); HEMOLYSIS < 15 (0-50); Lipase 18 U/L (23-300); Potassium 3.7 mmol/L (3.4-5.1); Sodium 135 mmol/L (137-145); Total Protein 7.4 g/dL (6.3-8.2)
[2019-11-13 22:37] LABS: INR 2.2 (0.9-1.3); Prothrombin Time 25.6 SECONDS (10.1-12.7)
[2019-11-13 22:39] LABS: PTT Partial Thromboplastin Tim 36 SECONDS (26.4-36.2)
[2019-11-13] MEDS: SODIUM CHLORIDE 0.9% 1188.41 ML IV (22:39)
[2019-11-13 22:42] VITALS: PULSE 100; RESP 24
[2019-11-13 22:46] VITALS: BP 134/55; PULSE 99; RESP 15; O2SAT 90
[2019-11-13 23:00] VITALS: BP 137/54; PULSE 95; RESP 25; O2SAT 97
[2019-11-13 23:00] LABS: Appearance Urine UA CLEAR; Bilirubin Urine UA NEGATIVE (NEGATIVE); Color Urine UA YELLOW; Glucose Urine UA NEGATIVE (Negative); Ketones Urine UA NEGATIVE (NEGATIVE); Leukocyte Esterase Urine UA NEGATIVE (NEGATIVE); Nitrite Urine UA NEGATIVE (Negative); Occult Blood Urine UA 2+ (Negative); Protein Urine UA NEGATIVE (Negative); Urobilinogen Urine UA 0.2 E.U./dL (0.2)
--- NOTE | 2019-11-13 23:05 | ED.GENADULT ---
HPI - General Adult General Chief complaint: Fever Stated complaint: Fever Time Seen by Provider: 11/13/19 22:00 Source: patient and EMS Mode of arrival: EMS Limitations: no limitations History of Present Illness HPI narrative: 69-year-old female. Insulin-dependent diabetic. This unknown abdominal hernia. Has had a gastric bypass in the past also has a known left knee wound. Is being seen by wound care here for evaluation of a couple days of worsening fatigue, fevers, body aches, pain. She states that she did fall a couple days ago. Her picked her up. Has been ambulatory. Since then she has had worsening body aches. States she did hit the right side of her chest. Has had some cough and chest pain with deep inspiration since then. Has had no known sick contacts. 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, Related Data Home Medications Medication Instructions Recorded Confirmed Centrum Silver 1 tab PO DAILY 10/26/18 03/03/19 albuterol sulfate 2 puff INHALATION Q6H PRN 10/26/18 03/03/19 celecoxib 200 mg PO DAILY 10/26/18 03/01/19 cholecalciferol (vitamin D3) 5,000 unit PO DAILY 10/26/18 03/03/19 [Vitamin D3] cyclobenzaprine 10 mg PO TID PRN 10/26/18 03/01/19 fexofenadine [Janet Allergy] 180 mg PO DAILY 10/26/18 03/03/19 fluticasone propionate [Flonase 1 spray INTRANASAL DAILY PRN 10/26/18 03/01/19 Allergy Relief] hydrochlorothiazide 50 mg PO DAILY 10/26/18 03/01/19 hydrocodone-acetaminophen 2 tab PO Q4HR PRN 10/26/18 03/01/19 insulin degludec 55 units SUBCUT DAILY 10/26/18 03/03/19 levothyroxine 200 mcg PO DAILY 10/26/18 03/03/19 liraglutide 1.2 mg SUBCUT DAILY 10/26/18 03/01/19 losartan 25 mg PO DAILY 10/26/18 03/01/19 montelukast [Singulair] 10 mg PO QPM 10/26/18 03/01/19 pregabalin 50 mg PO TID 10/26/18 03/01/19 rabeprazole [AcipHex] 20 mg PO DAILY 10/26/18 03/01/19 tolterodine 4 mg PO DAILY 10/26/18 03/01/19 ondansetron HCl 4 mg PO TID PRN 03/01/19 03/01/19 warfarin See Rx Instructions .ROUTE .COMPLEX 03/01/19 03/02/19 Allergies Allergy/AdvReac Type Severity Reaction Status Date / Time cefamandole [From Mandol] AdvReac Verified 11/13/19 22:14 clindamycin AdvReac Verified 11/13/19 22:14 heparin AdvReac Verified 11/13/19 22:14 meperidine [From Demerol] AdvReac Verified 11/13/19 22:14 naproxen AdvReac Verified 11/13/19 22:14 NSAIDS (Non-Steroidal AdvReac Verified 11/13/19 22:14 Anti-Inflamma promethazine [From Phenergan] AdvReac Verified 11/13/19 22:14 rofecoxib [From Vioxx] AdvReac Verified 11/13/19 22:14 sulfamethoxazole AdvReac Verified 11/13/19 22:14 [From Septra] trimethoprim [From Septra] AdvReac Verified 11/13/19 22:14 Review of Systems Constitutional Constitutional: Reports body ache(s), Reports chills, Reports fatigue, Reports fever(s), Reports headache(s), Reports malaise and Reports weakness Eyes Eyes: Denies change in vision ENT Ears, Nose, Mouth, and Throat: Reports headache(s), Denies sinus pain and Denies sore throat Cardiovascular Cardiovascular: Denies chest pain and Denies dyspnea Respiratory Respiratory: Reports cough, Denies pain on inspiration, Reports pain with cough and Denies dyspnea Comments: Right-sided chest wall pain Gastrointestinal Gastrointestinal: Denies abdominal pain, Denies nausea and Denies vomiting Genitourinary Genitourinary: Denies dysuria Genitourinary: Denies dysuria Musculoskeletal Comments: Left knee pain, left hip pain, Integumentary/Breasts Comments: Wound to left leg Neurologic Neurologic: Denies behavioral changes, Reports headache(s) and Reports weakness Psychiatric Psychiatric: Denies behavioral changes Endocrine Endocrine: Reports fatigue Hematologic/Lymphatic Comments: On Coumadin Allergic/Immunologic Allergic/Immunologic: Denies urticaria 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) Lymphedema of both lower extremities (Acute) Venous stasis dermatitis of both lower extremities (Acute) Surgical History (System 03/03/19 @ 08:55 by Beverley Liz) History of Christine-en-Y gastric bypass (Acute) History of total knee arthroplasty (Acute) Social History marital status: household members: spouse Smoking Status: Never smoker alcohol intake: current Smoking Status: Never smoker alcohol intake frequency: holidays/special occasions only Alcohol type: wine Substance Use Type: does not use Exam Initial Vital Signs Initial Vital Signs: Vital Signs Temperature 101.6 F H 11/13/19 21:54 Pulse Rate 101 H 11/13/19 21:54 Respiratory Rate 20 11/13/19 21:54 Blood Pressure 146/66 H 11/13/19 21:54 Pulse Oximetry 95 11/13/19 21:54 Const General: cooperative and comfortable Limitations: mental status not altered HENMT Head: normal to inspection and normocephalic Resp Effort & Inspection: normal respiratory effort Auscultation: clear to auscultation bilaterally Cardio Rate: tachycardic Rhythm: regular rhythm Pulses: radial pulses present GI Palpation: soft and hernia (Ventral hernia) Skin Other: Patient with a 1 cm x 2 cm open wound to the left anterior knee over the distal patella tendon over the tibial tuberosity. No surrounding erythema. Is draining clear fluid Neuro General: patient alert, patient awake and patient oriented x3 Cognition: normal cognition Speech: speech normal Extrem General: edema (Left lower that) Other: Tender to palpation left knee. Psych Appearance: well kempt Scores GCS [place] coma scale eye opening: Spontaneous [place] coma scale verbal response: Orientated [place] coma scale motor response: Obey commands [place] coma scale total score: 15 Course Orders Ordered: ED Orders 11/13/19 22:03 EKG-12 Lead Stat 11/13/19 22:10 Blood Culture Stat Complete Blood Count AUTO DIFF Stat Comprehensive Metabolic Panel Stat Lactate (Lactic Acid) Stat Lipase Stat Partial Thromboplastin Time Stat Procalcitonin Stat Prothrombin Time INR Stat 11/13/19 22:40 Urinalysis and Microscopic Stat Urine Culture Stat 11/13/19 23:06 XR knee LT 3V Stat XR ribs RT min 3V w CXR1V Stat 11/13/19 23:12 COVID19 -ED/INPAT/OR/L&D Stat 11/14/19 00:20 Wound Culture and Gram Stain Stat Sodium Chloride (Normal Saline 0.9%) 3,565.23 mls @ 1,188.41 mls/hr 30 ml/kg infuse over 3 hr (3565.23 ml) IV NOW ONE Stop: 11/14/19 01:14 Last Admin: 11/13/19 22:39 Dose: 1,188.41 mls/hr Documented by: PEDRO Vancomycin HCl (Vancomycin) 1,000 mg in 200 mls @ 200 mls/hr IV NOW ONE Stop: 11/14/19 00:35 Last Infusion: 11/14/19 00:16 Dose: 200 mls/hr Documented by: Infusion: 11/14/19 00:00 Dose: 0 mls/hr Documented by: Admin: 11/13/19 23:59 Dose: 200 mls/hr Documented by: REBECA Piperacillin/Tazobactam/Dextrose (Zosyn) 3.375 gm in 50 mls @ 100 mls/hr IV NOW ONE Stop: 11/14/19 00:50 Discontinued Medications Acetaminophen (Tylenol) 650 mg PO NOW ONE Stop: 11/13/19 22:21 Last Admin: 11/13/19 22:38 Dose: Not Given Documented by: PEDRO Sodium Chloride (Normal Saline 0.9%) 1,000 mls @ 1,000 mls/hr IV BOLUS ONE Stop: 11/13/19 23:02 Last Admin: 11/13/19 22:39 Dose: Not Given Documented by: PEDRO Ibuprofen (Advil) 800 mg PO NOW ONE Stop: 11/13/19 23:06 Last Admin: 11/13/19 23:14 Dose: 800 mg Documented by: PEDRO Morphine Sulfate (Morphine) 4 mg IV NOW ONE Stop: 11/14/19 00:22 Last Admin: 11/14/19 00:26 Dose: 4 mg Documented by: KWAME Oxymetazoline HCl (Afrin) 2 sprays NASAL NOW ONE Stop: 11/13/19 23:06 Last Admin: 11/13/19 23:13 Dose: 2 sprays Documented by: PEDRO Vital Signs Vital signs: Vital Signs - 8 hr 11/13/19 21:54 11/13/19 22:42 11/13/19 22:46 Temperature 101.6 F H Pulse Rate 101 H 100 H 99 H Respiratory Rate 20 24 15 Blood Pressure 146/66 H 134/55 L Pulse Oximetry 95 90 L 11/13/19 23:00 11/13/19 23:21 11/13/19 23:30 Temperature Pulse Rate 95 H 92 H 94 H Respiratory Rate 25 H 20 29 H Blood Pressure 137/54 L 125/56 L Pulse Oximetry 97 93 11/14/19 00:00 11/14/19 00:10 11/14/19 00:16 Temperature 99.0 F Pulse Rate 92 H 92 H Respiratory Rate 16 21 Blood Pressure 117/57 L Pulse Oximetry 94 94 Medical Decision Making Medical Records Medical records reviewed: Yes I reviewed the patient's medical records. Lab Data Lab results reviewed: Yes I reviewed the patient's lab results. Result diagrams: 11/13/19 22:10 11/13/19 22:10 Labs: Lab Results 11/13/19 11/13/19 11/13/19 Range/Units 22:10 22:10 22:10 WBC 12.1 H (4.5-11.0) X10^3/uL RBC 3.73 L (4.0-5.2) X10^6/uL Hgb 9.8 L (12.0-16.0) g/dL Hct 30.1 L (36-46) % MCV 80.8 (80-100) fL MCH 26.4 (26-34) PG MCHC 32.6 (30-36) % RDW 16.2 H (11.6-14.8) % Plt Count 295 (150-400) X10^3/uL Neut % (Auto) 87.7 H (50-75) % Lymph % (Auto) 7.1 L (25-40) % [place] % (Auto) 4.3 (3-14) % Eos % (Auto) 0.5 L (2-4) % Baso % (Auto) 0.4 (0-2) % Neut # (Auto) 38996 H (1937-5778) /uL Lymph # (Auto) 900 L (9339-2544) /uL [place] # (Auto) 500 (0-900) /uL Eos # (Auto) 100 (0-450) /uL Baso # (Auto) 0 (0-100) /uL PT (10.1-12.7) SECONDS INR (0.9-1.3) APTT (26.4-36.2) SECONDS Sodium 135 L (137-145) mmol/L Potassium 3.7 (3.4-5.1) mmol/L Chloride 97 L (98-107) mmol/L Carbon Dioxide 31 (22-32) mmol/L BUN 24 H (7-17) mg/dL Creatinine 0.75 (0.52-1.04) mg/dL Estimated GFR > 60.0 (>60) mL/min BUN/Creatinine Ratio 32.0 H (6-22) Glucose 121 H (80-110) mg/dL Lactate 0.9 (0.7-2.1) mmol/L Calcium 8.5 (8.4-10.2) mg/dL Total Bilirubin 0.4 (0.2-1.3) mg/dL AST 25 (14-36) IU/L ALT 20 (<35) IU/L Alkaline Phosphatase 109 (38-126) U/L Total Protein 7.4 (6.3-8.2) g/dL Albumin 3.6 (3.5-5.0) g/dL Globulin 3.8 (1.7-4.1) g/dL Albumin/Globulin Ratio 0.9 L (1.0-2.8) Lipase 18 L (23-300) U/L Procalcitonin (<0.5) ng/mL Urine Color Urine Appearance Urine pH (4.5-8.0) Ur Specific [place] (1.000-1.035) Urine Protein (Negative) Urine Glucose (UA) (Negative) g/dL Urine Ketones (NEGATIVE) Urine Occult Blood (Negative) Urine Nitrate (Negative) Urine Bilirubin (NEGATIVE) Urine Urobilinogen (0.2) E.U./dL Ur Leukocyte Esterase (NEGATIVE) Urine RBC (0-5/HPF) Urine WBC (0-5/HPF) Ur Squamous Epith Cells (0-5/HPF) Urine Bacteria (None) Ur Culture Indicated? COVID-19 PCR (Negative) 11/13/19 11/13/19 11/13/19 Range/Units 22:10 22:10 22:40 WBC (4.5-11.0) X10^3/uL RBC (4.0-5.2) X10^6/uL Hgb (12.0-16.0) g/dL Hct (36-46) % MCV (80-100) fL MCH (26-34) PG MCHC (30-36) % RDW (11.6-14.8) % Plt Count (150-400) X10^3/uL Neut % (Auto) (50-75) % Lymph % (Auto) (25-40) % [place] % (Auto) (3-14) % Eos % (Auto) (2-4) % Baso % (Auto) (0-2) % Neut # (Auto) (7631-2052) /uL Lymph # (Auto) (6480-6991) /uL [place] # (Auto) (0-900) /uL Eos # (Auto) (0-450) /uL Baso # (Auto) (0-100) /uL PT 25.6 H (10.1-12.7) SECONDS INR 2.2 H (0.9-1.3) APTT 36 D (26.4-36.2) SECONDS Sodium (137-145) mmol/L Potassium (3.4-5.1) mmol/L Chloride (98-107) mmol/L Carbon Dioxide (22-32) mmol/L BUN (7-17) mg/dL Creatinine (0.52-1.04) mg/dL Estimated GFR (>60) mL/min BUN/Creatinine Ratio (6-22) Glucose (80-110) mg/dL Lactate (0.7-2.1) mmol/L Calcium (8.4-10.2) mg/dL Total Bilirubin (0.2-1.3) mg/dL AST (14-36) IU/L ALT (<35) IU/L Alkaline Phosphatase (38-126) U/L Total Protein (6.3-8.2) g/dL Albumin (3.5-5.0) g/dL Globulin (1.7-4.1) g/dL Albumin/Globulin Ratio (1.0-2.8) Lipase (23-300) U/L Procalcitonin 0.07 (<0.5) ng/mL Urine Color Yellow Urine Appearance Clear Urine pH 5.0 (4.5-8.0) Ur Specific [place] 1.020 (1.000-1.035) Urine Protein Negative (Negative) Urine Glucose (UA) Negative (Negative) g/dL Urine Ketones Negative (NEGATIVE) Urine Occult Blood 2+ H (Negative) Urine Nitrate Negative (Negative) Urine Bilirubin Negative (NEGATIVE) Urine Urobilinogen 0.2 (0.2) E.U./dL Ur Leukocyte Esterase Negative (NEGATIVE) Urine RBC 5-10/hpf H (0-5/HPF) Urine WBC 0-1/hpf (0-5/HPF) Ur Squamous Epith Cells 1-5 /hpf (0-5/HPF) Urine Bacteria Occasional (0-1) (None) Ur Culture Indicated? Culture not indicate COVID-19 PCR (Negative) 11/13/19 Range/Units 23:12 WBC (4.5-11.0) X10^3/uL RBC (4.0-5.2) X10^6/uL Hgb (12.0-16.0) g/dL Hct (36-46) % MCV (80-100) fL MCH (26-34) PG MCHC (30-36) % RDW (11.6-14.8) % Plt Count (150-400) X10^3/uL Neut % (Auto) (50-75) % Lymph % (Auto) (25-40) % [place] % (Auto) (3-14) % Eos % (Auto) (2-4) % Baso % (Auto) (0-2) % Neut # (Auto) (9831-7039) /uL Lymph # (Auto) (3754-1222) /uL [place] # (Auto) (0-900) /uL Eos # (Auto) (0-450) /uL Baso # (Auto) (0-100) /uL PT (10.1-12.7) SECONDS INR (0.9-1.3) APTT (26.4-36.2) SECONDS Sodium (137-145) mmol/L Potassium (3.4-5.1) mmol/L Chloride (98-107) mmol/L Carbon Dioxide (22-32) mmol/L BUN (7-17) mg/dL Creatinine (0.52-1.04) mg/dL Estimated GFR (>60) mL/min BUN/Creatinine Ratio (6-22) Glucose (80-110) mg/dL Lactate (0.7-2.1) mmol/L Calcium (8.4-10.2) mg/dL Total Bilirubin (0.2-1.3) mg/dL AST (14-36) IU/L ALT (<35) IU/L Alkaline Phosphatase (38-126) U/L Total Protein (6.3-8.2) g/dL Albumin (3.5-5.0) g/dL Globulin (1.7-4.1) g/dL Albumin/Globulin Ratio (1.0-2.8) Lipase (23-300) U/L Procalcitonin (<0.5) ng/mL Urine Color Urine Appearance Urine pH (4.5-8.0) Ur Specific [place] (1.000-1.035) Urine Protein (Negative) Urine Glucose (UA) (Negative) g/dL Urine Ketones (NEGATIVE) Urine Occult Blood (Negative) Urine Nitrate (Negative) Urine Bilirubin (NEGATIVE) Urine Urobilinogen (0.2) E.U./dL Ur Leukocyte Esterase (NEGATIVE) Urine RBC (0-5/HPF) Urine WBC (0-5/HPF) Ur Squamous Epith Cells (0-5/HPF) Urine Bacteria (None) Ur Culture Indicated? COVID-19 PCR Negative (Negative) Imaging Data Extremity x-ray #1: Attestation: I personally reviewed and interpreted this imaging study as follows: My Impression: No fractures dislocation of left knee Rib series right: Attestation: I personally reviewed and interpreted this imaging study as follows: My Impression: No obvious fractures. No focal consolidations no pneumothorax ECG Data Attestation: I personally reviewed and interpreted this ECG as follows: Prior ECG tracings: not available for review Interpretation: Sinus rhythm Ventricular rate 100 Normal axis Normal QRS Normal QTC Nonspecific ST T wave changes MDM Narrative Medical decision making narrative: Patient is coving negative. The rib series on the right shows no obvious fractures and no obvious pneumonia. Urine does not show any signs of an infection. She has no abdominal pain. No GI symptoms. No upper respiratory infection like symptoms. There is no fractures of the left knee noted on exam. Patient was febrile and tachycardic and does have a leukocytosis although no specific source of infection was found. Her presentation today is very similar to what it was at the end of last year where she was admitted and placed on vancomycin and Zosyn and improved without specific source of infection found. She was given antibiotics here in the ER. Was never hypotensive. Was not altered. Blood cultures were obtained. Discussed the case with SANGITA Lawrence the night hospitalist who will admit for further evaluation treatment. Discussed all this with the patient and her who is at bedside. 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
--- NOTE | 2019-11-13 23:06 | DI.RAD.S_ITS ---
PROCEDURE: XR KNEE LT 3V INDICATIONS: Pain after fall hand has infection TECHNIQUE: 3 views of the knee were acquired. COMPARISON: None. FINDINGS: Bones: No fracture. Left knee arthroplasty hardware appears intact. Expected postoperative alignment. Scattered vascular and dystrophic calcifications IMPRESSION: No fracture. If the patient's symptoms do not improve recommend followup radiographs in 10 days to assess for healing sclerosis/occult injury. Dictated by: Sebastien Tavera M.D. on 11/14/2019 at 8:48 Approved by: Sebastien Tavera M.D. on 11/14/2019 at 8:58
--- NOTE | 2019-11-13 23:06 | DI.RAD.S_ITS ---
PROCEDURE: XR RIBS RT MIN 3V W CXR 1V INDICATIONS: Fell for right-sided rib pain eval for fractures TECHNIQUE: 2 views of the right ribs were acquired, along with a single view chest. COMPARISON: None. FINDINGS: Surgical changes and devices: None. Bones and chest wall: No fractures or dislocations. No suspicious bony lesions. Overlying soft tissues appear unremarkable. Lungs and pleura: No pleural effusions or pneumothorax. Lungs appear clear. Mediastinum: Mediastinal contours appear normal. Heart size is normal. IMPRESSION: No fracture. If the patient's symptoms do not improve recommend followup radiographs in 10 days to assess for healing sclerosis/occult injury. Dictated by: Sebastien Tavera M.D. on 11/14/2019 at 8:58 Approved by: Sebastien Tavera M.D. on 11/14/2019 at 9:00
[2019-11-13] MEDS: OXYMETAZOLINE NASAL SPRAY 30 ML 2 SPRAYS NASAL (23:13)
[2019-11-13] MEDS: IBUPROFEN 400 MG TABLET 800 MG PO (23:14)
[2019-11-13 23:18] LABS: Procalcitonin 0.07 ng/mL (<0.5)
[2019-11-13 23:19] LABS: RBC Urine 5-10/HPF (0-5/HPF); Squamous Epithelial Cell Urine 1-5 /HPF (0-5/HPF); WBC Urine 0-1/HPF (0-5/HPF)
[2019-11-13 23:20] LABS: Bacteria Urine Occasional (0-1)
[2019-11-13 23:21] VITALS: BP 125/56; PULSE 92; RESP 20; O2SAT 93
[2019-11-13 23:30] VITALS: PULSE 94; RESP 29
[2019-11-13 23:59] LABS: COVID19 -Nasal RAPID Negative (Negative)
[2019-11-13] MEDS: VANCOMYCIN 1,000 MG/200 ML PIGGYBACK 200 MG IV (23:59)
[2019-11-14] VITALS (14 sets, daily range): BP systolic 102–120; BP diastolic 46–94; PULSE 73–96; RESP 16–21; TEMP 36.4–37.2; O2SAT 92–100; BMI 41.0
[2019-11-14] MEDS: MORPHINE 4 MG/ML INJ IV (00:26)
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
[2019-11-14 01:48] LABS: Magnesium 1.7 mg/dL (1.6-2.3)
--- NOTE | 2019-11-14 02:10 | DI.MRI.S_ITS ---
PROCEDURE: MR KNEE LT WO/W CON INDICATIONS: Cellulitis, rule out septic joint status post TKA TECHNIQUE: Noncontrast sagittal PD fast spin echo and T2 fast spin echo with fat saturation, sagittal 3-D FLASH with fat saturation; coronal T1 spin echo and PD fast spin echo with fat saturation, and axial T1 spin echo and PD fast spin echo with fat saturation through the knee. Post-contrast axial, coronal, and sagittal T1 spin echo with fat saturation through the knee. COMPARISON: [facility], CR, XR KNEE LT 3V, 11/13/2019, 23:04. FINDINGS: Image quality: Diagnostic. Patient motion and significant susceptibility artifact from left knee prosthesis is seen.. Bones and joints: Patient is status post left total knee arthroplasty. Significant susceptibility artifacts are noted limits evaluation of osseous structures. There is no fracture or dislocation. Mild marrow edema in distal femoral shaft and proximal tibial shaft is seen most likely represent stress related changes. No cortical erosion or suspicious intraosseous lesion is seen. No patellar subluxation is noted. No abnormal intraosseous enhancement. Soft tissues: There is no significant joint effusion. Distal quadriceps tendon and patellar tendon are grossly intact. Cruciate ligaments are not well visualized on this study. Medial and lateral collateral ligaments are suboptimally seen. No popliteal cyst is seen. No gross intra-articular loose body. No gross muscle or soft tissue abnormality is noted. No abnormal soft tissue enhancement. IMPRESSION: 1. Limited study due to patient motion and susceptibility artifact secondary to left knee prosthesis. 2. No fracture or dislocation. No gross hardware failure. Mild edema in distal femur and proximal tibia adjacent to the surgical hardware likely represent stress related changes. 3. No significant joint effusion is seen to suggest septic joint. No area of gross abnormal soft tissue enhancement. Dictated by: Sang Petersen M.D. on 11/14/2019 at 16:06 Approved by: Sang Petersen M.D. on 11/14/2019 at 16:19
[2019-11-14] MEDS: HYDROMORPHONE 1 MG INJ IV ×4 (02:22→20:32)
[2019-11-14 03:12] LABS: Hemoglobin A1C% w Est Avg Glu 6.5 % (4.0-6.0)
[2019-11-14] MEDS: PIPERACILLIN-TAZO 3.375 GM/50 ML FROZ.PIGGY IV ×3 (03:12→17:06)
--- NOTE | 2019-11-14 03:42 | PC.ADMIT ---
1980 [facility] Admission Note: The patient,Leticia Posey, 69 y/o, was given written information regarding hospital policies, unit procedures and contact persons. Patient's smoking status: Never smoker. Pt arrived via gurney at 0120. Transferred to bed via slide board due to pain in L knee. Admit done. Med Req done by FLUME WORKER. Pt c/o of R shoulder pain and L knee pain, well controlled w/1 mg Dilaudid. L knee ulcer redressed w/Xerofoam and coversite. Pt notes that this wound usually has a high output and may need to be redressed soon. Wound care consult is ordered. Call light within reach, bed low and locked. Pt currently resting comfortably. Vital Signs - 8 hr 11/13/19 21:54 11/13/19 22:42 11/13/19 22:46 Temperature 101.6 F H Pulse Rate 101 H 100 H 99 H Respiratory Rate 20 24 15 Blood Pressure 146/66 H 134/55 L Pulse Oximetry 95 90 L 11/13/19 23:00 11/13/19 23:21 11/13/19 23:30 Temperature Pulse Rate 95 H 92 H 94 H Respiratory Rate 25 H 20 29 H Blood Pressure 137/54 L 125/56 L Pulse Oximetry 97 93 11/14/19 00:00 11/14/19 00:10 11/14/19 00:16 Temperature 99.0 F Pulse Rate 92 H 92 H Respiratory Rate 16 21 Blood Pressure 117/57 L Pulse Oximetry 94 94 11/14/19 00:20 11/14/19 00:30 11/14/19 01:23 Temperature 98.4 F Pulse Rate 96 H 96 H 87 Respiratory Rate 20 18 18 Blood Pressure 105/51 L 113/48 L Pulse Oximetry 93 92 95 11/14/19 02:25 Temperature Pulse Rate Respiratory Rate 18 Blood Pressure Pulse Oximetry 95
[2019-11-14 03:50] LABS: C-Reactive Protein Quant 13.3 mg/dL (<1.0)
[2019-11-14] MEDS: OXYCODONE IR 5 MG TABLET PO (03:54)
[2019-11-14] MEDS: SODIUM CHLORIDE 0.9% 1,000 ML 75 ML IV ×2 (04:04→20:52)
[2019-11-14 04:43] LABS: Adenovirus Not Detected (Not Detect); Bordetella pertussis Not Detected (Not Detect); Chlamydophila pneumoniae Not Detected (Not Detect); Coronavirus 229E Not Detected (Not Detect); Coronavirus HKU1 Not Detected (Not Detect); Coronavirus NL 63 Not Detected (Not Detect); Coronavirus OC43 Not Detected (Not Detect); Human Metapneumovirus Not Detected (Not Detect); Human Rhinovirus/Enterovirus Not Detected (Not Detect); Influenza A Not Detected (Not Detect); Influenza B Not Detected (Not Detect); Mycoplasma pneumoniae Not Detected (Not Detect); Parainfluenza Virus 1 Not Detected (Not Detect); Parainfluenza Virus 2 Not Detected (Not Detect); Parainfluenza Virus 3 Not Detected (Not Detect); Parainfluenza Virus 4 Not Detected (Not Detect); Respiratory Syncytial Virus Not Detected (Not Detect)
[2019-11-14] MEDS: LEVOTHYROXINE 100 MCG TABLET 200 MCG PO (05:53)
[2019-11-14] MEDS: ACETAMINOPHEN 325 MG TABLET 650 MG PO ×5 (05:53→20:46)
[2019-11-14 06:04] LABS: Add Manual Diff / Slide Review NO; Basophils Absolute Auto 0 /uL (0-100); Basophils Percent Auto 0.3 % (0-2); Eosinophils Absolute Auto 200 /uL (0-450); Eosinophils Percent Auto 1.8 % (2-4); Hemoglobin 8.6 g/dL (12.0-16.0); Lymphocytes Absolute Auto 1400 /uL (1100-4500); Lymphocytes Percent Auto 16.2 % (25-40); Mean Corpuscular HGB Conc 32.9 % (30-36); Mean Corpuscular Hemoglobin 26.8 PG (26-34); Mean Corpuscular Volume 81.5 fL (80-100); Monocytes Absolute Auto 800 /uL (0-900); Monocytes Percent Auto 9.5 % (3-14); Neutrophils Absolute Auto 6100 /uL (1500-7000); Neutrophils Percent Auto 72.2 % (50-75); Platelet Count 243 X10^3/uL (150-400); Red Blood Cell Count 3.19 X10^6/uL (4.0-5.2); Red Cell Distribution Width 16.2 % (11.6-14.8); White Blood Cell Count 8.4 X10^3/uL (4.5-11.0)
[2019-11-14 06:05] LABS: INR 2.1 (0.9-1.3); Prothrombin Time 24.5 SECONDS (10.1-12.7)
[2019-11-14 06:08] LABS: BUN Creatinine Ratio 28.2 (6-22); Blood Urea Nitrogen 24 mg/dL (7-17); Calcium 7.9 mg/dL (8.4-10.2); Carbon Dioxide 30 mmol/L (22-32); Chloride 102 mmol/L (98-107); Estimated Glomerular Filt Rate > 60.0 mL/min (>60); Glucose 83 mg/dL (80-110); HEMOLYSIS < 15 (0-50); Potassium 3.1 mmol/L (3.4-5.1); Sodium 138 mmol/L (137-145)
[2019-11-14] MEDS: PANTOPRAZOLE 40 MG TABLET PO (06:14)
[2019-11-14] MEDS: OXYMETAZOLINE NASAL SPRAY 30 ML 2 SPRAYS NASAL (06:35)
[2019-11-14] MEDS: POTASSIUM CHLORIDE 20 MEQ TAB 40 MEQ PO (06:36)
[2019-11-14] MEDS: PREGABALIN 50 MG CAPSULE PO ×3 (08:44→20:32)
[2019-11-14] MEDS: CELECOXIB 200 MG CAPSULE PO (08:45)
--- NOTE | 2019-11-14 09:28 | CM.DANOTE ---
Patient is a 69 year old female who was admitted on 11/14/19 for Fever. Pt has [facility] and [employer] for insurance and her PCP is Dr. Rosi Tam. EMR was reviewed. Per MD, pt with hx of chronic skin ulcer and her leg and ongoing cellulitis and admitted for increased fatigue and loss of balance due to likely leg cellulitis. Wound Consult ordered and pending and pt is an established pt at baseline at [facility]. PT ordered and pending and will follow up with pt regarding her concern with her shoulder pain and FWW. Ortho Consult ordered and pending with Dr. Rubio for pt's left knee pain and previously scheduled appt with [facility] for next week or later in the month. Pt was last admitted to [facility] in Mar 2019 for similar and was able to d/c home with supportive and outpt follow up. SW met bedside with pt and explained role and pt confirms that she lives at home with her in [place] and has local supportive son and DIL. Pt is mostly independent with ADL's and is available and supportive for assist whenever needed. Pt goes to [facility] at baseline and aware that Dr. Ibrahim will meet bedside for consultation for wound/dressing change. Pt denies any hx of HH or SNF and has managed with outpt follow up appointments. Pt uses walker at baseline for longer distances and does not anticipate need at d/c. Pt has some frustration that her body has not been healing for the past 2 years with recurrent infections and wound care needs but states that her of almost 50 years is very patient and a good caregiver and they are planning a big 50th wedding anniversary for this next year. Plan: SW to follow for Wound and Ortho Consult recommendations and PT working bedside with pt right now to confirm safe d/c plan of home with spouse assist and family support and any further d/c planning needs. MARCELINO Nicolas Discharge Planning/Care Management Advanced directive, confirm from FAMILY Start: 11/14/19 02:15 Freq: Q24H Status: Active Protocol: Document 11/14/19 02:15 RM (Rec: 11/14/19 03:29 RM [id number]) Advance Directive, confirm on record Time 03:29 Person contacted Copy received No Copy received No Advanced directive available on record No CM Discharge Assessment Start: 11/14/19 09:26 Freq: Status: Active Protocol: Document 11/14/19 09:26 BF (Rec: 11/14/19 09:28 BF [id number]) Discharge Planning Assessment Assigned Game Bird Farmer MARCELINO Richardson DPOA/Assigned Designee Name spouse David Contact Information [phone] Advance Directives? Yes Advance Directives on File No History Provided By Patient,Significant Other, Medical Record Has Patient been admitted in last 30 No days? Prior Living Arrangements House Household Members spouse Type of transporation used prior to Relies on Others admit Independent with ADL's Yes Is patient alert and oriented? Yes Needs Assistance With Home Chores / Shopping Caregiver for Another No Comment Pending PT eval and recommendations for likely home Barriers to Discharge No Discharge Plan Home Referrals Initiated None needed Whiteboard Updated in Patient Room with Yes name and ext. # of Game Bird Farmer Review Status In Process Please Provide Date Initial DC 11/14/19 Assessment Was Performed Next Review Type Continued Stay Review
[2019-11-14] MEDS: OXYCODONE 5 MG/5 ML ORAL SOLUTION 10 MG PO ×3 (09:40→23:37)
[2019-11-14] MEDS: INSULIN DEGLUDEC 55 UNIT 55 EACH SUBCUT (09:45)
[2019-11-14] MEDS: TOLTERODINE LA 4 MG PO (09:46)
[2019-11-14] MEDS: CHOLECALCIFEROL (VITAMIN D3) 5,000 UNIT TABLET 5000 UNIT PO (09:46)
[2019-11-14] MEDS: VANCOMYCIN 1,500 MG/300 ML FROZ.PIGGY 200 MG IV ×2 (09:48→20:47)
--- NOTE | 2019-11-14 11:33 | PT.IIE ---
Current Diagnoses Cellulitis of left lower limb (11/14/19) Surgical History (Last Updated 11/14/19 @ 04:19 by EVERARDO Lanza) Hip replacement planned (Acute) History of ankle fusion (Acute) History of (Acute) History of carpal tunnel repair (Acute) History of cholecystectomy (Acute) History of hysterectomy (Acute) History of Christine-en-Y gastric bypass (Acute) History of total knee arthroplasty (Acute) History of total left hip arthroplasty (Acute) History of ureter stent (Acute) Medical History (Last Updated 11/14/19 @ 04:19 by EVERARDO Lanza) Anticoagulated on Coumadin (Inactive) Bilateral leg edema (Acute) Diabetes (Acute) 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) Joint infection (Inactive) Kidney stones (Acute) Lymphedema of both lower extremities (Acute) Morbid obesity (Inactive) Osteomyelitis (Acute) Pyelonephritis (Acute) Venous stasis dermatitis of both lower extremities (Acute) Ventral hernia (Inactive) Physical Therapy Inpatient Evaluation/Re-Eval M1 PT/OT-IP Prior Functional Status Start: 11/14/19 08:58 Freq: NEEDED Status: Active Protocol: Document 11/14/19 10:55 HH (Rec: 11/14/19 11:33 [id number]) Medical Review Prior Functional Status Medical History Reviewed Yes Diet/Fluid Consistency Regular Communication able to make needs known, no deficits noted. Mobility and Gait independent for home and community mobility with the use of FWW/ SPC depends on her overall body / L knee pain. Pt recently acquired power scooter and power w/c for long distance mobility. Pt stated she walked with a wobbly gait and had multiple falls by tripping over obstacles/ weakness witihn the past year. Activities of Daily Living and IADL's independent for ADLs and some assisted if needed from for IADLS Prior Functional Level (Other details) pt c/o ongoing B shd pain L worse than R and difficulty WB through L shoulder on walker during long distance amb. Social History Household Members spouse Living Arrangements House Number of Floors (Floors) One Floor Number of Stairs To Enter/Railing? 2x 4 PF steps and 3 door threshold for front entrance ( pt prefers front entrance) 4 FRANKLYN with B rails for garage entrance Home Environment High Toilet,Walk in Shower,Tub /Shower Home Equipment Front Wheel Walker,Straight Cane,Power Wheelchair/Scooter, Hand Held Shower,Long Handled Shoe Horn,Certified Orthotist,Sock Aid Employment Status Unemployed Additional Social History Comment Leticia lives with David who is also retired. David is very active and albe to assist pt 22/09. Pt with a complex PMH inclding HTN, morbid obesity BMI 43, with prior hx of gastric bypass sx, hypothyroidism, OA (h/o repair of multiple joints), DM II, chronic L LE lymphedema, previous L LE DVT, AMBER syndrome, recurrent strep cellulitis, of LLE, ventral hernia s/p repair with chronic large defect, ureterolithiasis s/p ureteral stent, 07/18, pt had a wound vac on her L knee from August- Dec d/t cyst removal. M2 PT-IP Current Condition Start: 11/14/19 08:58 Freq: NEEDED Status: Active Protocol: Document 11/14/19 10:55 (Rec: 11/14/19 11:33 [id number]) Physical Therapy Current Condition Current Condition Evaluation Date 11/14/19 Treatment Diagnosis Cellulitis of LLE, fever, increased fatigue, recent GLF Onset Date 11/13/19 Weight Bearing Status Weight Bearing Status Weight Bear as Tolerated M3 PT-IP Subjective Start: 11/14/19 08:58 Freq: NEEDED Status: Active Protocol: Document 11/14/19 10:55 (Rec: 11/14/19 11:33 [id number]) Subjective Physical Therapy Visit Type Type Initial Evaluation Visit Start Time 09:43 Visit Stop Time 10:30 Total Visit Minutes 47 Number of MORTGAGE LOAN REVIEWER Visits 0 Physical Therapy Visit Comments Patient Comments Im feeling better today and i would like to try a 4WW since regular walk kills my shoulder Patient Goals to regain her strength and mobility Therapy Pain Assessment Pain When Pain Assessed During Mobility Pain Present Pain Present Pain Reported Location Left Shoulder Intensity 3 Scale Used Tavera-Babb (Faces) Description Acute,Pressure Pain Management Techniques Timing of Activity with Medications Left Knee Intensity 3 Scale Used Tavera-Babb (Faces) Description Acute,Pressure Pain Management Techniques Timing of Activity with Medications M4 PT-IP Mobility and Gait Start: 11/14/19 08:58 Freq: NEEDED Status: Active Protocol: Document 11/14/19 10:55 (Rec: 11/14/19 11:33 HH [id number]) PT-Bed Mobility Assessment Rolling Type of Rolling Roll to Left Level of Assist Standby Assistance Supine to Sit Supine to Sit Standby Assistance Scooting Scooting to Edge of Bed Standby Assistance PT-Transfer Assessment Sit to and From Stand Sit to and from Stand Contact Guard Assistance Equipment Transfer Assistive Device Gait Belt,Front Wheeled Walker Orthotic/Prosthetic Devices or Brace: No Transfers Transfer Destination Bed,Chair,Toilet Transfer Technique FWW & 4WW Transfer Ability Level of Assist Contact Guard Assistance,Use of Upper Extremities Comments Mobility Comments Pt was in bed receiving medication from nursing staff upon PT arrival. Pt appeared to be AxO x 4 and very talkative. She was able to provide detailed social/ surgical hx. BP in supine = 111/52. She agreed to mobilize with PT but requested to use bathroom first. She completed to rolling to L then SL to sit with UE help to push from bed . She was able to bring RLE to mid [place] and krystal sock but needed PT assistance for L LE d/t poor knee flexion. Pt then stood up with stagger stance( Lfoot out) FWW CGA and amb to bathroom. She was able to stand step pivot to toilet and stood unsupportedly to doff her underwear followed by using L grab bars to descend properly with stagger stance. Pt voided and able to complete pericare. She used B UEs on L grab to pull to stand then proceed to amb with PT. Pt did self care in front of sink counter with minimal support for 5 mins. She then was given a 4WW to amb with PT. Pt completed approx 180 ft CGA with step over pattern but noticead limited L knee flexion and wobbly gait. She Pt was instructed to use 4WW to park against wall for a sitting break for 2 mins. She was able to walk back to room and transferred herself slowly with armrests support CGA. Pt rested comfortably in chair with call light placed within reach. Gait Assessment Gait Gait Assistance Required: Contact Guard Assist Distance (Feet) 180 Able to Maintain Weight Bearing Status Yes During Gait Assistive Devices Assistive Device Gait Belt,Front Wheeled Walker ,4 Wheeled Walker Orthotic/Prosthetic Devices or Brace: No Gait Deviations General Gait Pattern Antalgic,Decreased Stride Length,Decreased Feet Clearance,Lateral Trunk Lean Factors Limiting Gait Function Factors Limiting Gait Function Decreased Activity Tolerance, Decreased Strength,Limited Range of Motion,Pain,Poor Balance,Poor Safety Awareness Comments Gait Comments see mobility comments Stair Climbing Assessment Comments Stair Climbing Comments have not assessed yet d/t fatigue PT-Balance Assessment Sitting Balance and Reactions Static Sitting Balance Ability Normal Dynamic Sitting Balance Ability Normal Standing Balance and Reactions Static Standing Balance Ability Good Dynamic Standing Balance Ability Good Device Used FWW/ 4WW M5 PT-IP Objective Assessments Start: 11/14/19 08:58 Freq: NEEDED Status: Active Protocol: Document 11/14/19 10:55 (Rec: 11/14/19 11:33 [id number]) Orientation Orientation/Cognition Level of Alertness Alert Orientation Name,Age,Birthday,Month,Date, Year,Day of Week,Place, Situation Language Function Ability No Deficits Noted Safety Awareness Understands Safety Issues Memory Description No Deficits Noted Gross Range of Motion Upper Extremity ROM Assessment Left Impaired Impairments L UE barely able to reach behind of her head Lower Extremity ROM Assessment Left Impaired Impairments L knee AROM ~90 degrees, R knee ~ 110-120 Strength Upper Extremity Strength Assessment Left Impaired Shoulder 3/5 Elbow 4/5 Wrist 4/5 Lower Extremity Strength Assessment Left Impaired Hip 4/5 Knee 3+/5 Ankle 4/5 Coordination Assessment Gross Coordination Gross Coordination WNL Sensation Assessment Comments Sensation Comments pt has a 2x2 square gauze at tibial tuberosity with mild drainage noted upon assessment . M6 PT-IP Treatment Start: 11/14/19 08:58 Freq: NEEDED Status: Active Protocol: Document 11/14/19 10:55 (Rec: 11/14/19 11:33 [id number]) Physical Therapy Treatment Education Education Provided Safety M7 PT-IP Assessment and Plan Start: 11/14/19 08:58 Freq: NEEDED Status: Active Protocol: Document 11/14/19 10:55 (Rec: 11/14/19 11:33 [id number]) PT Summary Assessment and Plan Potential Rehabilitation Potential Excellent Status of Condition at Evaluation Stable Summary Impairments Pain,ROM,Strength,Balance,Bed Mobility,Transfers,Gait, Activity Tolerance Assessment Summary This is a low complexity evalution for this 64 yo female admitted to for recurrent cellulitus on LLE with fever, generalized weakness. Pt was admitted with similar issue in Jan, 2019 but able to recover and went home. Her PLOF was mod Independent with FWW / SPC occasionally depends on her pain level. Pt has a very complicated PMH but David is her CG and very helpful. Upon PT assessment, pt did fairly well and requested for trial with 4WW d /t her ongoing L shoulder pain . Pt overall completed toileting, amb with both FWW/ 4WW with CGA safely so she is somewhat close to baseline. Expect pt to complete steps with B rails/ PF steps with FWW prior to d/c home with assistance as needed and outpatient PT to improve her mobility and strength. Goals Bed Mobility Goal Standby Assistance Transfer Goal Standby Assistance,Front Wheeled Walker Gait Goal Standby Assistance,Front Wheel Walker Gait Distance 250 Other Goals 3 PF steps with FWW or 4 FRANKLYN with Brails Days to Meet Goals 3 Frequency of Treatment Frequency Of Treatment Once a Day Treatment Plan Physical Therapy Treatment Plan Bed Mobility Training,Transfer Training,Gait Training, Therapeutic Exercise,Balance Retraining,Discharge Planning, Hot or Cold Pack,Neuromuscular Re-ed Other Recommendations and Next Treatment 3 PF steps with FWW Focus or 4 FRANKLYN with Brails pt prefers to use FWW Recommendations To Nursing Amount of Assist Needed 1 Person Assist Discharge Recommendations PT Discharge Recommendations Home with Assistance, Outpatient PT Transportation Needs at Discharge Private Vehicle
--- NOTE | 2019-11-14 14:16 | DIET.PN ---
Dietary Progress Note Assessment: Ms. 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 She fell 2 days ago when she lost her balance getting up from the commode in the middle of the night. She landed on her buttock also landing on her right chest. She has had a decreased appetite since gastric bypass, but does not follow any particular dietary restrictions other than Vitamin K as she is on warfarin. She states extensive knowledge of diabetes as she has a history as a elementary educator. She does not count carbs, but tries to avoid sweets as they cause GI complications. She takes Bydureon for glycemic control. States she has novolog, but only takes it if her blood glucose is elevated rather than before meals. HT: 170.18cm WT: 118.84kg BMI: 41.0 (morbid obese) Labs: A1c: 6.5 MNA: n/a Damon: 20 Nutrition Diagnosis: Altered nutrition related lab values r/t endocrine dysfunction aeb elevated plasma glucose and A1c, noncompliance with modified diet, lack of physical activity. Interventions: 1. Provided information on post bariatric and carb consistent diet. Discussed recommended servings of protein and carbs at each meal. 2. Discussed medication management. Provided instruction on appropriate use of humalog. Diet Order: CCD EER: [id number] dianna (12-15 dianna/kg); 95-118g (0.8-1g/kg) Monitoring/Evaluations: weight, PO's, labs
--- NOTE | 2019-11-14 14:28 | PM.EVENT ---
Event Note Date Patient Seen: 11/14/19 Event Note: Patient seen and examined. She continues to have drainage from the left lower extremity. She is awaiting her MRI. Dr. Ibrahim from wound care will be by this afternoon to evaluate the wound as well. Will consult Dr. Rubio from Ortho once MRI is packed. Will continue antibiotics as prescribed.
[2019-11-14] MEDS: EXENATIDE MICROSPHERES 2 MG 2 EACH SUBCUT (17:06)
[2019-11-14] MEDS: WARFARIN 5 MG TABLET 7.5 MG PO (17:13)
[2019-11-14] MEDS: MONTELUKAST 10 MG TABLET PO (17:13)
[2019-11-15 00:25] VITALS: BP 123/68; PULSE 80; RESP 20; TEMP 36.1; O2SAT 98
[2019-11-15] MEDS: PIPERACILLIN-TAZO 3.375 GM/50 ML FROZ.PIGGY IV ×2 (00:30→08:36)
[2019-11-15] MEDS: ACETAMINOPHEN 325 MG TABLET 650 MG PO ×4 (00:33→14:34)
[2019-11-15] MEDS: HYDROMORPHONE 1 MG INJ IV ×3 (01:13→14:38)
[2019-11-15 05:10] VITALS: BP 140/63; PULSE 84; RESP 18; TEMP 35.9; O2SAT 96
[2019-11-15] MEDS: OXYCODONE 5 MG/5 ML ORAL SOLUTION 10 MG PO ×2 (05:59→11:34)
[2019-11-15] MEDS: LEVOTHYROXINE 100 MCG TABLET 200 MCG PO (06:00)
[2019-11-15] MEDS: PANTOPRAZOLE 40 MG TABLET PO (06:00)
[2019-11-15 06:41] LABS: INR 1.9 (0.9-1.3); Prothrombin Time 21.9 SECONDS (10.1-12.7)
[2019-11-15 06:45] LABS: BUN Creatinine Ratio 29.7 (6-22); Blood Urea Nitrogen 22 mg/dL (7-17); Calcium 8.7 mg/dL (8.4-10.2); Carbon Dioxide 29 mmol/L (22-32); Chloride 104 mmol/L (98-107); Estimated Glomerular Filt Rate > 60.0 mL/min (>60); Glucose 76 mg/dL (80-110); HEMOLYSIS < 15 (0-50); Potassium 4.2 mmol/L (3.4-5.1); Sodium 138 mmol/L (137-145)
[2019-11-15 08:05] VITALS: BP 120/56; PULSE 19; RESP 19; TEMP 36.4; O2SAT 96
[2019-11-15] MEDS: CHOLECALCIFEROL (VITAMIN D3) 5,000 UNIT TABLET 5000 UNIT PO (08:38)
[2019-11-15] MEDS: CELECOXIB 200 MG CAPSULE PO (08:38)
[2019-11-15 08:39] VITALS: PULSE 73; RESP 16; O2SAT 98
[2019-11-15] MEDS: INSULIN DEGLUDEC 55 UNIT 55 EACH SUBCUT (08:39)
[2019-11-15] MEDS: PREGABALIN 50 MG CAPSULE PO ×2 (08:47→14:34)
[2019-11-15] MEDS: TOLTERODINE LA 4 MG PO (08:47)
[2019-11-15] MEDS: LOSARTAN 25 MG TABLET PO (08:48)
[2019-11-15] MEDS: VANCOMYCIN 1,500 MG/300 ML FROZ.PIGGY 200 MG IV (09:27)
--- NOTE | 2019-11-15 10:40 | DI.RAD.S_ITS ---
PROCEDURE: XR HIP W PEL IF DONE LT 2V INDICATIONS: hip pain TECHNIQUE: AP pelvis and lateral view of the left hip acquired. COMPARISON: None. FINDINGS: Bones: Patient is status post left hip arthroplasty, with hardware components in expected positions. The hip joint appears congruent. The visualized bony structures appear intact. Soft tissues: Overlying postoperative changes are noted. No suspicious soft tissue densities. IMPRESSION: Post left total hip arthroplasty changes with anatomic alignment. Dictated by: Sang Petersen M.D. on 11/15/2019 at 12:01 Approved by: Sang Petersen M.D. on 11/15/2019 at 12:02
[2019-11-15 11:25] VITALS: BP 135/70; PULSE 74; RESP 18; TEMP 36.5; O2SAT 96
--- NOTE | 2019-11-15 11:39 | PT-IP ANOTE ---
Checked on pt twice this morning, pt requesting pain meds before tx session.
--- NOTE | 2019-11-15 12:15 | PT.IPTN ---
Current Diagnoses Cellulitis of left lower limb (11/14/19) Physical Therapy Treatment Note M2 PT-IP Current Condition Start: 11/14/19 08:58 Freq: NEEDED Status: Active Protocol: Document 11/14/19 10:55 HH (Rec: 11/14/19 11:33 HH [id number]) Physical Therapy Current Condition Current Condition Evaluation Date 11/14/19 Treatment Diagnosis Cellulitis of LLE, fever, increased fatigue, recent GLF Onset Date 11/13/19 Weight Bearing Status Weight Bearing Status Weight Bear as Tolerated M3 PT-IP Subjective Start: 11/14/19 08:58 Freq: NEEDED Status: Active Protocol: Document 11/15/19 11:56 CLB (Rec: 11/15/19 14:25 CLB [id number]) Subjective Physical Therapy Visit Type Type Treatment Note Visit Start Time 11:56 Visit Stop Time 12:15 Total Visit Minutes 19 Number of SPECIALTY DEVELOPMENT CONSULTANT Visits 1 Physical Therapy Visit Comments Patient Comments Pt willing to participate with therapy. Therapy Pain Assessment Pain When Pain Assessed During Mobility Pain Present Pain Present Pain Reported M4 PT-IP Mobility and Gait Start: 11/14/19 08:58 Freq: NEEDED Status: Active Protocol: Document 11/15/19 11:56 CLB (Rec: 11/15/19 14:25 CLB [id number]) PT-Transfer Assessment Sit to and From Stand Sit to and from Stand Standby Assistance Equipment Transfer Assistive Device Gait Belt,Front Wheeled Walker Orthotic/Prosthetic Devices or Brace: No Transfers Transfer Destination Bed,Chair,Wheelchair Transfer Technique Stand Step Pivot Transfer Ability Level of Assist Standby Assistance,Use of Upper Extremities Comments Mobility Comments Pt sitting on EOB upon arrival , requiring assist to krystal socks. Pt stood SBA and ambulated in babb ~250ft to therapy stairs [facility]. Pt climbed PF step with FWW CGA then climbed three steps with bilateral rails SBA. Pt rode WC back to room transferring SBA from WC to chair. Pt left in chair reclined with all needs within reach and present. Gait Assessment Gait Gait Assistance Required: Standby Assistance Distance (Feet) 250 Able to Maintain Weight Bearing Status Yes During Gait Assistive Devices Assistive Device Gait Belt,Front Wheeled Walker Gait Deviations General Gait Pattern Antalgic,Decreased Stride Length,Decreased Feet Clearance,Lateral Trunk Lean Factors Limiting Gait Function Factors Limiting Gait Function Decreased Activity Tolerance, Decreased Strength,Limited Range of Motion,Pain,Poor Balance Comments Gait Comments Pt ambulated ~250ft with FWW/ SBA. Pt with steady gait and good safety awareness. Stair Climbing Assessment Evaluation Level of Assist On Stairs Standby Assistance,Contact Guard Assistance Devices Stair Climbing Assistive Devices Front Wheel Walker,Left Railing,Right Railing Technique/Endurance Stair Climbing Direction Ascend and Descend Stair Climbing Technique Step to Step Number of Steps Climbed 4 Stair Climbing Set # Repetitions (reps) 2 Comments Stair Climbing Comments Pt climbed PF step CGA with FWW and three steps SBA with bilateral rails. M5 PT-IP Objective Assessments Start: 11/14/19 08:58 Freq: NEEDED Status: Active Protocol: Document 11/14/19 10:55 HH (Rec: 11/14/19 11:33 [id number]) Orientation Orientation/Cognition Level of Alertness Alert Orientation Name,Age,Birthday,Month,Date, Year,Day of Week,Place, Situation Language Function Ability No Deficits Noted Safety Awareness Understands Safety Issues Memory Description No Deficits Noted Gross Range of Motion Upper Extremity ROM Assessment Left Impaired Impairments L UE barely able to reach behind of her head Lower Extremity ROM Assessment Left Impaired Impairments L knee AROM ~90 degrees, R knee ~ 110-120 Strength Upper Extremity Strength Assessment Left Impaired Shoulder 3/5 Elbow 4/5 Wrist 4/5 Lower Extremity Strength Assessment Left Impaired Hip 4/5 Knee 3+/5 Ankle 4/5 Coordination Assessment Gross Coordination Gross Coordination WNL Sensation Assessment Comments Sensation Comments pt has a 2x2 square gauze at tibial tuberosity with mild drainage noted upon assessment . M6 PT-IP Treatment Start: 11/14/19 08:58 Freq: NEEDED Status: Active Protocol: Document 11/14/19 10:55 HH (Rec: 11/14/19 11:33 [id number]) Physical Therapy Treatment Education Education Provided Safety M7 PT-IP Assessment and Plan Start: 11/14/19 08:58 Freq: NEEDED Status: Active Protocol: Document 11/15/19 11:56 CLB (Rec: 11/15/19 14:25 CLB [id number]) PT Summary Assessment and Plan Potential Rehabilitation Potential Excellent Status of Condition at Evaluation Stable Summary Impairments Pain,ROM,Strength,Balance,Bed Mobility,Transfers,Gait, Activity Tolerance Assessment Summary Pt requiring SBA for sit<> stand and transfers. Pt able to ambulate in babb ~250ft SBA with FWW and climb stairs with assisting with CGA on PF step. Goals Bed Mobility Goal Standby Assistance Transfer Goal Standby Assistance,Front Wheeled Walker Gait Goal Standby Assistance,Front Wheel Walker Gait Distance 250 Other Goals 3 PF steps with FWW or 4 FRANKLYN with Brails Days to Meet Goals 3 Frequency of Treatment Frequency Of Treatment Once a Day Treatment Plan Physical Therapy Treatment Plan Bed Mobility Training,Transfer Training,Gait Training, Therapeutic Exercise,Balance Retraining,Discharge Planning, Hot or Cold Pack,Neuromuscular Re-ed Other Recommendations and Next Treatment 3 PF steps with FWW Focus or 4 FRANKLYN with Brails pt prefers to use FWW Recommendations To Nursing Amount of Assist Needed 1 Person Assist Discharge Recommendations PT Discharge Recommendations Home with Assistance, Outpatient PT Transportation Needs at Discharge Private Vehicle
--- NOTE | 2019-11-15 12:35 | CM.DPC ---
Addendum entered by Sushma Craft LPN 11/15/19 12:41: PT note of yesterday shows that pt did well and PT/Joseph is recommending home with OUTPT PT when pt is ready to leave hospital. this could change once a plan is determined to manage the ongoing wound care issues in pt's knee. Original Note: DCP: continued: case received, EMR reviewed and met with pt and her Dereck briefly during Team Bedside Rounds. Reviewed DCPlanner notes of yesterday from MARCELINO Richardson. Dr. Jennings explained to all that Dr. Rubio would be seeing pt today and that wound care physician Dr. Ibrahim would be here to see pt with some recommendations. DCP team will continue to follow closely as d/c needs become clearer.
--- NOTE | 2019-11-15 13:06 | P.CONS_ITS ---
History of Present Illness Consult details Date Patient Seen: 11/15/19 Time Patient Seen: 13:01 Chief complaint: Fever Reason for consult: Left knee wound with history of left total knee arthroplasty Requesting provider: Krystyna Jennings Narrative: This is a complex 69-year-old female who is been followed by Dr. Holloway for years. She has a history of bilateral total knee arthroplasty and bilateral total hip arthroplasty. She had a left total knee arthroplasty in 2002. She then developed swelling basically a goose egg on the lateral aspect of her left knee and ultimately underwent removal of what was felt to be a lymphatic pouch. It ultimately healed. There was long standing concerns regarding low-grade sepsis of the left knee and she has been followed by infectious disease up in [place] Dr. Acuna. She notes that her left knee is having some moderate pain. She was referred to Orthopedics at the [facility]. She did not like the practitioner she saw especially since he started with the 1st option of amputation of her left leg for long-standing infection. Other than a secondary surgery for surgery for removal of a lymphocele she has not had multiple operations on the left leg other than the left total knee arthroplasty. Meds Home Medications and Allergies Home Medications Medication Instructions Recorded Confirmed Type Centrum Silver 1 tab PO DAILY 10/26/18 11/14/19 History albuterol sulfate 2 puff INHALATION Q6H PRN 10/26/18 11/14/19 History celecoxib 200 mg PO DAILY 10/26/18 11/14/19 History cholecalciferol (vitamin D3) 5,000 unit PO DAILY 10/26/18 11/14/19 History [Vitamin D3] cyclobenzaprine 10 mg PO TID PRN 10/26/18 11/14/19 History fexofenadine [Janet Allergy] 180 mg PO DAILY 10/26/18 11/14/19 History fluticasone propionate [Flonase 1 spray INTRANASAL DAILY PRN 10/26/18 11/14/19 History Allergy Relief] hydrochlorothiazide 50 mg PO DAILY 10/26/18 11/14/19 History hydrocodone-acetaminophen 2 tab PO Q4HR PRN 10/26/18 11/14/19 History insulin degludec 30 units SUBCUT DAILY 10/26/18 11/14/19 History levothyroxine 200 mcg PO DAILY 10/26/18 11/14/19 History montelukast [Singulair] 10 mg PO QPM 10/26/18 11/14/19 History pregabalin 50 mg PO TID 10/26/18 11/14/19 History rabeprazole [AcipHex] 20 mg PO DAILY 10/26/18 11/14/19 History tolterodine 4 mg PO DAILY 10/26/18 11/14/19 History warfarin 7.5 mg PO DAILY 03/01/19 11/14/19 History Humalog KwikPen Insulin See Rx Instructions .ROUTE .COMPLEX 11/14/19 11/14/19 History exenatide microspheres [Bydureon 2 mg SUBCUT WEEKLY 11/14/19 11/14/19 History BCise] levothyroxine [Synthroid] 400 mcg PO USEASDIRECTD 11/14/19 11/14/19 History oxycodone 5 mg PO Q4H PRN 11/14/19 11/14/19 History Allergies Allergy/AdvReac Type Severity Reaction Status Date / Time cefamandole [From Mandol] AdvReac Verified 11/13/19 22:14 clindamycin AdvReac Verified 11/13/19 22:14 heparin AdvReac Verified 11/13/19 22:14 meperidine [From Demerol] AdvReac Verified 11/13/19 22:14 naproxen AdvReac Verified 11/13/19 22:14 NSAIDS (Non-Steroidal AdvReac Verified 11/13/19 22:14 Anti-Inflamma promethazine [From Phenergan] AdvReac Verified 11/13/19 22:14 rofecoxib [From Vioxx] AdvReac Verified 11/13/19 22:14 sulfamethoxazole AdvReac Verified 11/13/19 22:14 [From Septra] trimethoprim [From Septra] AdvReac Verified 11/13/19 22:14 Review of Systems Review of Systems Narrative: Denies fevers or chills recently, notes that the right lower extremities doing reasonably well. She has had intermittent episodes of sepsis over the years and has been on antibiotic she thinks for about 10 years. Exam Vital Signs (past 8 hours): - 11/15/19 05:10 11/15/19 08:05 11/15/19 08:39 Temperature 96.6 F L 97.6 F Pulse Rate 84 19 L 73 Respiratory Rate 18 19 16 Blood Pressure 140/63 120/56 L Pulse Oximetry 96 96 98 11/15/19 11:25 Temperature 97.7 F Pulse Rate 74 Respiratory Rate 18 Blood Pressure 135/70 Pulse Oximetry 96 Oxygen Delivery Method Room Air Oxygen Flow Rate 0 Narrative Exam Narrative: She is resting comfortably HEENT is benign lungs are clear, abdomen is obese but benign, the left leg she has an open wound on the anterior aspect of the left knee are range of motion is 0 to 90?, she has minimal pain with range of motion in her left hip Objective Labs Result Diagrams: 11/14/19 05:45 11/15/19 06:30 Labs: Laboratory Results - last 24 hr 11/15/19 11/15/19 06:30 06:30 PT 21.9 H INR 1.9 H Sodium 138 Potassium 4.2 Chloride 104 Carbon Dioxide 29 BUN 22 H Creatinine 0.74 Estimated GFR > 60.0 BUN/Creatinine Ratio 29.7 H Glucose 76 L Calcium 8.7 Assessment & Plan Assessment & Plan narrative: Impression is 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 She has a wound on the anterior aspect of her left knee which probably represents a low-grade sinus. Sedimentation rate is 105. She has been chronically on antibiotics since of some of her cultures have been no growth. I think we need to fully review her records told her that if she needs a revision of her left knee arthroplasty especially is a two-stage exchange arthroplasty would be most appropriate for her to see Dr. Cummings through our clinic to see if he feels that he can pursue this. She does have an established relationship with Dr. Acuna from Infectious Disease. She has a sinus but does not appear to be acutely ill with her current infection. Her white count was elevated but has responded to antibiotics.
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
[2019-11-15 16:19] VITALS: BP 145/64; PULSE 88; RESP 19; TEMP 36.6; O2SAT 94
[2019-11-15] MEDS: ONDANSETRON 4 MG/2 ML INJ IV (16:59)
--- NOTE | 2019-11-15 17:40 | PC.NURSE ---
-medicated with zofran 4gm ivp for some Nausea DC home with via private vehicle. will follow up with fabienne ramey as outpt.
== END 2019-11-15 17:30 | disposition home or self-care (01) | DRG 560 ==
LOC: ED 11-14 00:23 → AC 11-14 00:26
PROVIDERS: Admitting Provider Nurse Practitioner Adult Health; Emergency Provider Emergency Medicine; PCP Internal Medicine; Referring Provider Emergency Medicine; Visit Provider Nurse Practitioner Adult Health
DX: T84.54XA Infection and inflammatory reaction due to internal left knee prosthesis, initial encounter (principal); L03.116 Cellulitis of left lower limb; Z68.41 Body mass index [BMI] 40.0-44.9, adult; L97.821 Non-pressure chronic ulcer of other part of left lower leg limited to breakdown of skin; T81.83XA Persistent postprocedural fistula, initial encounter; E66.01 Morbid (severe) obesity due to excess calories; D75.82 Heparin induced thrombocytopenia (HIT); D64.9 Anemia, unspecified; G89.4 Chronic pain syndrome; L98.8 Other specified disorders of the skin and subcutaneous tissue; I10 Essential (primary) hypertension; E03.9 Hypothyroidism, unspecified; E11.9 Type 2 diabetes mellitus without complications; Z79.4 Long term (current) use of insulin; Z98.84 Bariatric surgery status; Z79.01 Long term (current) use of anticoagulants; Z86.718 Personal history of other venous thrombosis and embolism; Z79.891 Long term (current) use of opiate analgesic; Z96.653 Presence of artificial knee joint, bilateral
CPT/HCPCS: 36415; 71101; 73502; 73562; 73723; 80048; 80053; 81001; 82962; 83036; 83605; 83690; 83735; 84145; 85025; 85610; 85730; 86140; 87040; 87070; 87086; 87205; 87633; 87635; 93005; 93010; 94668; 94760; 94762; 96361; 96365; 96375; 97116; 97161; 97530; 99285; A9270; A9579; J1170; J2270; J2405; J2543

== ENCOUNTER → 2019-11-22 10:54 | Outpatient (CLI) | payer MEDICARE, OTHER, SELFPAY ==
[2019-11-14 00:50] VITALS: BMI 41.0
== END ==
PROVIDERS: PCP Internal Medicine; Referring Provider Internal Medicine; Visit Provider Family Medicine
DX: S81.002A Unspecified open wound, left knee, initial encounter (principal); T84.54XA Infection and inflammatory reaction due to internal left knee prosthesis, initial encounter; E11.622 Type 2 diabetes mellitus with other skin ulcer; I89.0 Lymphedema, not elsewhere classified; R60.0 Localized edema
CPT/HCPCS: 99213

== ENCOUNTER → 2019-12-13 09:47 | Outpatient (CLI) | payer MEDICARE, OTHER, SELFPAY ==
[2019-11-14 00:50] VITALS: BMI 41.0
== END ==
PROVIDERS: PCP Internal Medicine; Referring Provider Internal Medicine; Visit Provider Family Medicine
DX: S81.002A Unspecified open wound, left knee, initial encounter (principal); T84.54XA Infection and inflammatory reaction due to internal left knee prosthesis, initial encounter; E11.622 Type 2 diabetes mellitus with other skin ulcer; I89.0 Lymphedema, not elsewhere classified; R60.0 Localized edema
CPT/HCPCS: 99213

== ENCOUNTER → 2020-04-09 07:24 | Outpatient (CLI) | payer MEDICARE, OTHER, SELFPAY ==
[2019-11-14 00:50] VITALS: BMI 41.0
--- NOTE | 2020-04-09 | DI.RAD.S_ITS ---
PROCEDURE: FL FLUOROSCOPY >1HR COMPARISON: Outside Facility, RG, XR KNEE 3V LEFT, 03/26/2020, 9:24. INDICATIONS: Infection and inflammatory reaction due to other i TECHNIQUE: The risks, benefits, and alternatives of the procedure were discussed with the patient in detail and informed consent was obtained. The knee was prepped and draped in the usual sterile fashion. 1% lidocaine was used for local anesthesia. The knee joint was approached from a lateral approach and then subsequently from an anterior approach with an 18 gauge needle. A small amount of Isovue 300 contrast material was used to confirm intra-articular positioning. The joint was maximally aspirated and aspirated fluid was sent for laboratory analysis. FINDINGS: Preprocedure images demonstrate fixation of the knee with a metallic varun with the presence of a methylmethacrylate spacer. The knee was approached from the lateral aspect and approximately 1 mL of bloody fluid was obtained. A small amount of contrast material was injected to confirm intra-articular positioning. Aspiration was again attempted, which did not yield additional joint fluid. The knee was then approached from anteriorly, and aspiration was again attempted without yielding additional fluid. A single spot fluoroscopic image demonstrates a small amount of intra-articular contrast material and a blunted needle demonstrating the position of the anterior approach. IMPRESSION: Left knee joint aspiration performed with approximately 1 mL of bloody fluid obtained and sent for laboratory analysis. No significant joint effusion was found. Recommend correlation with clinical findings and follow-up of laboratory results. Dictated by: Ricardo Jade M.D. on 04/09/2020 at 12:06 Approved by: Ricardo Jade M.D. on 04/09/2020 at 12:19
[2020-04-09 10:02] LABS: Crystals Body Fluid - IN-HOUSE NONE Present
== END ==
PROVIDERS: PCP Internal Medicine; Referring Provider Internal Medicine
DX: T84.59XD Infection and inflammatory reaction due to other internal joint prosthesis, subsequent encounter (principal); Z96.659 Presence of unspecified artificial knee joint
CPT/HCPCS: 76000; 87070; 87075; 87102; 87205; 89060

== ENCOUNTER → 2020-04-23 12:18 | Outpatient (CLI) | payer MEDICARE, OTHER, SELFPAY ==
[2019-11-14 00:50] VITALS: BMI 41.0
--- NOTE | 2020-04-23 12:22 | DI.RAD.S_ITS ---
PROCEDURE: FL FLUOROSCOPY >1HR COMPARISON: [facility], , [place] FLUOROSCOPY >1HR, 04/09/2020, 9:26. INDICATIONS: Infection and inflammatory reaction due to other i FINDINGS: After obtaining informed consent the medial aspect of the left knee region was prepared and draped in sterile fashion and anesthetized with 1% lidocaine. Utilizing sequential fluoroscopic guidance a 20 gauge spinal needle was advanced into the expected region of the suprapatellar bursal space in this patient who has undergone prior patellar resection. The positioning of access was just above the upper margin of antibiotic impregnated bone-cement, maintaining joint with between the distal femur and the proximal tibial plateau. A medullary varun crosses through the middle 3rd of each of these osseous structures, extending above and below the imaging margin. Nonbacteriostatic saline was utilized to advance fluid into the access pathway, and also a small amount of nonionic contrast was advanced to confirm access to the medial joint space anteriorly.. Limits fluid was not aspirated. Blood-tinged fluid was aspirated, and provided to the clinical laboratory for culture and sensitivity analysis. Only a small amount of fluid was obtained, approximately 1 cc provided in the 1st collection tube and 1 cc provided in the 2nd. IMPRESSION: A significant fluid collection is not accessed by this procedure nor was it accessed recently in a separate attempt 04/09/20. The current fluid obtained does not appear purulence, is blood tinged, and if there is a clinical concern for an abscess cavity or other on tapped fluid collection further assessment utilizing contrast-enhanced CT scanning to assist in detecting an undrained fluid collection for CT-guided aspiration would be recommended in the future. Dictated by: Howard High M.D. on 04/23/2020 at 16:00 Approved by: Howard High M.D. on 04/23/2020 at 16:04
[2020-04-23 18:51] LABS: Body Fluid Appearance SLIGHTLY CLOUDY; Body Fluid Clotted? NO CLOTS PRESENT; Body Fluid Color RED; Body Fluid Red Blood Cells 120000 /uL; Body Fluid Tot Nucleated Cells 210 /uL; Eosinophils Body Fluid 0 %; Mononuclear WBC Body Fluid 20 %; Other Cells Body Fluid 0 %; Polynuclear WBC Body Fluid 80 %
== END ==
PROVIDERS: PCP Internal Medicine; Referring Provider Orthopaedic Surgery; Visit Provider Orthopaedic Surgery
DX: T84.59XD Infection and inflammatory reaction due to other internal joint prosthesis, subsequent encounter (principal); Z96.659 Presence of unspecified artificial knee joint
CPT/HCPCS: 20610; 76000; 77002; 89051

== ENCOUNTER 2021-10-01 09:30 | Inpatient (IN) | payer MEDICARE, OTHER, SELFPAY ==
[2019-11-14 00:50] VITALS: BMI 41.0
[2021-10-01] VITALS (21 sets, daily range): BP systolic 106–178; BP diastolic 55–85; PULSE 86–98; RESP 18; TEMP 36.3–37.2; O2SAT 91–99; BMI 41.3
[2021-10-01] MEDS: ONDANSETRON 4 MG/2 ML INJ IV (10:59)
[2021-10-01] MEDS: SODIUM CHLORIDE 0.9% 1,000 ML 1000 ML IV (11:00)
[2021-10-01 11:04] LABS: Add Manual Diff / Slide Review NO; Basophils Absolute Auto 0 /uL (0-100); Basophils Percent Auto 0.4 % (0-2); Eosinophils Absolute Auto 100 /uL (0-450); Eosinophils Percent Auto 0.8 % (2-4); Hematocrit 39.4 % (36-46); Lymphocytes Absolute Auto 1000 /uL (1100-4500); Mean Corpuscular HGB Conc 32.9 % (30-36); Mean Corpuscular Hemoglobin 29.1 PG (26-34); Mean Corpuscular Volume 88.5 fL (80-100); Monocytes Absolute Auto 500 /uL (0-900); Monocytes Percent Auto 4.7 % (3-14); Neutrophils Absolute Auto 9400 /uL (1500-7000); Neutrophils Percent Auto 85.1 % (50-75); Platelet Count 267 X10^3/uL (150-400); Red Blood Cell Count 4.45 X10^6/uL (4.0-5.2); Red Cell Distribution Width 13.8 % (11.6-14.8); White Blood Cell Count 11.1 X10^3/uL (4.5-11.0)
[2021-10-01 11:19] LABS: Alanine Aminotransferase 20 IU/L (<35); Albumin 4.4 g/dL (3.5-5.0); Albumin Globulin Ratio 1.3 (1.0-2.8); Alkaline Phosphatase 99 U/L (38-126); Aspartate Aminotransferase 31 IU/L (14-36); BUN Creatinine Ratio 22.7 (6-22); Bilirubin Total 0.6 mg/dL (0.2-1.3); Blood Urea Nitrogen 39 mg/dL (7-17); Calcium 8.6 mg/dL (8.4-10.2); Carbon Dioxide 23 mmol/L (22-32); Chloride 105 mmol/L (98-107); Estimated Glomerular Filt Rate 31 mL/min (>60); Globulin 3.4 g/dL (1.7-4.1); Glucose 169 mg/dL (80-110); HEMOLYSIS < 15 (0-50); Lipase 37 U/L (23-300); Potassium 4.3 mmol/L (3.4-5.1); Sodium 138 mmol/L (137-145); Total Protein 7.8 g/dL (6.3-8.2)
--- NOTE | 2021-10-01 11:27 | ED_ITS ---
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 She says that she is having pelvic pain floor she is having some right lower quadrant pain. No chest pain or shortness of breath. She has not any fever chills. She thinks she is passing gas. She does not have regular bowel movements secondary to gastric bypass surgery. Related Data Home Medications Medication Instructions Recorded Confirmed albuterol sulfate 90 mcg/actuation 2 puff inhalation Q6H PRN SOB 10/26/18 11/14/19 aerosol inhaler celecoxib 200 mg capsule 200 mg PO DAILY 10/26/18 11/14/19 cholecalciferol (vitamin D3) 125 5,000 unit PO DAILY 10/26/18 11/14/19 mcg (5,000 unit) tablet (Vitamin D3) cyclobenzaprine 10 mg tablet 10 mg PO TID PRN Muscle Spasm 10/26/18 11/14/19 fexofenadine 180 mg tablet 180 mg PO DAILY 10/26/18 11/14/19 (Janet Allergy) fluticasone propionate 50 1 spray intranasal DAILY PRN 10/26/18 11/14/19 mcg/actuation nasal Congestion spray,suspension (Flonase Allergy Relief) hydrochlorothiazide 50 mg tablet 50 mg PO DAILY 10/26/18 11/14/19 hydrocodone 7.5 mg-acetaminophen 2 tab PO Q4HR PRN pain 10/26/18 11/14/19 325 mg tablet insulin degludec 100 unit/mL (3 30 units SUBCUT DAILY 10/26/18 11/14/19 mL) subcutaneous pen levothyroxine 200 mcg tablet 200 mcg PO DAILY 10/26/18 11/14/19 montelukast 10 mg tablet 10 mg PO QPM 10/26/18 11/14/19 (Singulair) kdhiltwl-wjq-utabv acid 0.4 1 tab PO DAILY 10/26/18 11/14/19 mg-lycopene 300 mcg-lutein 250 mcg tablet (Centrum Silver) pregabalin 50 mg capsule 50 mg PO TID 10/26/18 11/14/19 rabeprazole 20 mg tablet,delayed 20 mg PO DAILY 10/26/18 11/14/19 release (AcipHex) tolterodine 4 mg capsule,extended 4 mg PO DAILY 10/26/18 11/14/19 release 24 hr warfarin 5 mg tablet 7.5 mg PO DAILY 03/01/19 11/14/19 Humalog KwikPen Insulin See Rx Instructions .Route .COMPLEX 11/14/19 11/14/19 exenatide microspheres 2 mg/0.85 2 mg SUBCUT WEEKLY 11/14/19 11/14/19 mL subcutaneous auto-injector (Bydureon BCise) levothyroxine 200 mcg tablet 400 mcg PO USEASDIRECTD 11/14/19 11/14/19 (Synthroid) oxycodone 5 mg/5 mL oral solution 5 mg PO Q4H PRN Pain, Severe 11/14/19 11/14/19 Allergies Allergy/AdvReac Type Severity Reaction Status Date / Time cefamandole [From Mandol] AdvReac Verified 10/01/21 11:17 clindamycin AdvReac Verified 10/01/21 11:17 heparin AdvReac Verified 10/01/21 11:17 meperidine [From Demerol] AdvReac Verified 10/01/21 11:17 naproxen AdvReac Verified 10/01/21 11:17 NSAIDS (Non-Steroidal AdvReac Verified 10/01/21 11:17 Anti-Inflamma promethazine [From Phenergan] AdvReac Verified 10/01/21 11:17 rofecoxib [From Vioxx] AdvReac Verified 10/01/21 11:17 sulfamethoxazole AdvReac Verified 10/01/21 11:17 [From Septra] trimethoprim [From Septra] AdvReac Verified 10/01/21 11:17 Review of Systems Review of Systems Narrative: GENERAL: Denies chills, fatigue, malaise, fever, sweats, travel HEENT: Denies sinus pain, ear pain, sore throat, difficulty swallowing, neck pain RESPIRATORY: Denies dyspnea, cough, wheezing, hemoptysis, sputum. CARDIOVASCULAR: Denies chest pain, palpitations, orthopnea, edema GASTROINTESTINAL: See HPI : Denies dysuria, frequency, incontinence, hematuria, urinary retention, flank pain. MUSCULOSKELETAL: Denies weakness, joint pain, or bony pain SKIN: No rash, no erythema, no pruritus NEUROLOGIC: Denies weakness, dizziness, headache, numbness, change in speech, confusion PSYCHIATRIC: No concerning psychosocial issues. 12 point review of systems is negative except for those stated above and HPI Patient History Medical History (Updated 10/01/21 @ 16:01 by Amanda Hastings DO) Anticoagulated on Coumadin Bilateral leg edema Diabetes Heparin induced thrombocytopenia (HIT) Joint infection Kidney stones Lymphedema of both lower extremities Morbid obesity Osteomyelitis Pyelonephritis Venous stasis dermatitis of both lower extremities Ventral hernia Surgical History Hip replacement planned History of ankle fusion History of History of carpal tunnel repair History of cholecystectomy History of hysterectomy History of Christine-en-Y gastric bypass History of total knee arthroplasty History of total left hip arthroplasty History of ureter stent Social History marital status: household members: spouse Smoking Status: Never smoker alcohol intake: current Smoking Status: Never smoker alcohol intake frequency: holidays/special occasions only Alcohol type: wine Substance Use Type: does not use Exam Initial Vital Signs Initial Vital Signs: Vital Signs Temperature 98.9 F 10/01/21 09:40 Pulse Rate 97 H 10/01/21 09:40 Respiratory Rate 18 10/01/21 09:40 Blood Pressure 161/75 H 10/01/21 09:40 Pulse Oximetry 99 10/01/21 09:40 Oxygen Delivery Method 10/01/21 09:40 GENERAL: 71-year-old female appears uncomfortable HEENT: Head atraumatic,EOMI, pupils reactive, face symmetric, [moist] mucous membranes CARDIOVASCULAR: Regular rate and rhythm without murmurs, rubs or gallops. RESPIRATORY: Breath sounds equal bilaterally, no wheezes rales or rhonchi. ABDOMEN: Large hernia prior it is tight and more tender in the right lower quadrant area. EXTREMITIES: Normal range of motion, no clubbing or edema. Neurovascularly intact NEUROLOGICAL: Alert and oriented x4.Normal gait and speech. Cranial nerves II through XII grossly intact. SKIN: Warm, dry, no laceration, no petechiae, no rashes or lesions. Course Orders Ordered: ED Orders 10/01/21 10:45 Complete Blood Count AUTO DIFF Stat Comprehensive Metabolic Panel Stat Lactate (Lactic Acid) Stat Lipase Stat Prothrombin Time INR Stat 10/01/21 10:47 COVID19 -Nasal RAPID/Pre-Proc Stat 10/01/21 11:43 CT abdomen pelvis w con Stat 10/01/21 12:00 Ictotest Urine Stat Urine Culture Stat Urine Microscopic Stat Hydromorphone HCl (Hydromorphone 1 Mg Inj) 1 mg IV Q4H PRN PRN Reason: Breakthrough pain only (8-10) Last Admin: 10/01/21 14:29 Dose: 1 mg Documented By: TWYLA Discontinued Medications Hydromorphone HCl (Hydromorphone 1 Mg Inj) 1 mg IV NOW ONE Stop: 10/01/21 11:44 Last Admin: 10/01/21 11:54 Dose: 1 mg Documented By: TWYLA Hydromorphone HCl (Hydromorphone 1 Mg Inj) 1 mg IV NOW ONE Stop: 10/01/21 14:01 Last Admin: 10/01/21 16:46 Dose: Not Given Documented By: CARLENE Hydromorphone HCl (Hydromorphone 0.5 Mg Inj) 1 mg IV Q4H PRN PRN Reason: Breakthrough pain only (8-10) Sodium Chloride (Normal Saline 0.9%) 1,000 mls @ 1,000 mls/hr IV BOLUS ONE Stop: 10/01/21 12:43 Last Infusion: 10/01/21 12:02 Dose: 0 mls/hr Documented By: Admin: 10/01/21 11:00 Dose: 1,000 mls/hr Documented By: TWYLA Levofloxacin (Levaquin) 750 mg in 150 mls @ 100 mls/hr IV NOW ONE Stop: 10/01/21 15:38 Last Admin: 10/01/21 16:56 Dose: Not Given Documented By: CARLENE Lidocaine HCl (Lidocaine 4% (Lownsp-K-Oio) 160 Mg/4 Ml Kit) 160 mg TOP NOW ONE Stop: 10/01/21 16:06 Lidocaine HCl (Lidocaine Jelly 2% 5 Ml) 1 applic TOP NOW ONE Stop: 10/01/21 16:16 Ondansetron HCl (Ondansetron 4 Mg/2 Ml Inj) 4 mg IV NOW ONE Stop: 10/01/21 10:52 Last Admin: 10/01/21 10:59 Dose: 4 mg Documented By: AMU Vital Signs Vital signs: Vital Signs - 8 hr 10/01/21 10:00 10/01/21 10:00 10/01/21 10:30 Pulse Rate 90 Blood Pressure 156/85 H 169/79 H Pulse Oximetry 95 10/01/21 10:30 10/01/21 11:00 10/01/21 11:01 Pulse Rate 87 87 Blood Pressure 169/74 H Pulse Oximetry 97 97 10/01/21 11:01 10/01/21 11:30 10/01/21 11:31 Pulse Rate 90 86 Blood Pressure 178/82 H Pulse Oximetry 97 96 10/01/21 11:31 10/01/21 12:27 10/01/21 12:28 Pulse Rate 88 94 H Blood Pressure 129/60 Pulse Oximetry 96 95 10/01/21 12:28 10/01/21 12:30 10/01/21 12:31 Pulse Rate 92 H 92 H Blood Pressure 106/57 L Pulse Oximetry 94 93 10/01/21 12:31 10/01/21 13:00 10/01/21 13:00 Pulse Rate 93 H 91 H Blood Pressure 139/66 Pulse Oximetry 93 91 10/01/21 13:30 10/01/21 13:30 10/01/21 14:00 Pulse Rate 92 H Blood Pressure 150/66 H 155/76 H Pulse Oximetry 92 10/01/21 14:00 Pulse Rate 98 H Blood Pressure Pulse Oximetry 96 MDM - Abdominal Pain Lab Data Result diagrams: 10/01/21 10:45 10/01/21 10:45 Labs: Lab Results 10/01/21 10/01/21 10/01/21 Range/Units 10:45 10:45 10:45 WBC 11.1 H (4.5-11.0) X10^3/uL RBC 4.45 (4.0-5.2) X10^6/uL Hgb 13.0 (12.0-16.0) g/dL Hct 39.4 (36-46) % MCV 88.5 (80-100) fL MCH 29.1 (26-34) PG MCHC 32.9 (30-36) % RDW 13.8 (11.6-14.8) % Plt Count 267 (150-400) X10^3/uL Neut % (Auto) 85.1 H (50-75) % Lymph % (Auto) 9.0 L (25-40) % [place] % (Auto) 4.7 (3-14) % Eos % (Auto) 0.8 L (2-4) % Baso % (Auto) 0.4 (0-2) % Neut # (Auto) 9400 H (4322-1875) /uL Lymph # (Auto) 1000 L (0906-9672) /uL [place] # (Auto) 500 (0-900) /uL Eos # (Auto) 100 (0-450) /uL Baso # (Auto) 0 (0-100) /uL PT 32.0 H (10.1-12.7) SECONDS INR 2.8 H (0.9-1.3) Sodium 138 (137-145) mmol/L Potassium 4.3 (3.4-5.1) mmol/L Chloride 105 (98-107) mmol/L Carbon Dioxide 23 (22-32) mmol/L BUN 39 H (7-17) mg/dL Creatinine 1.72 H (0.52-1.04) mg/dL Estimated GFR 31 L (>60) mL/min BUN/Creatinine Ratio 22.7 H (6-22) Glucose 169 H (80-110) mg/dL Lactate (0.7-2.1) mmol/L Calcium 8.6 (8.4-10.2) mg/dL Total Bilirubin 0.6 (0.2-1.3) mg/dL AST 31 (14-36) IU/L ALT 20 (<35) IU/L Alkaline Phosphatase 99 (38-126) U/L Total Protein 7.8 (6.3-8.2) g/dL Albumin 4.4 (3.5-5.0) g/dL Globulin 3.4 (1.7-4.1) g/dL Albumin/Globulin Ratio 1.3 (1.0-2.8) Lipase 37 (23-300) U/L Ur Bilirubin Confirm (Negative) Urine RBC (0-5/HPF) Urine WBC (0-5/HPF) Ur Squamous Epith Cells (0-5/HPF) Amorphous Sediment Urine Bacteria (None) Urine Mucus (Negative) Ur Culture Indicated? SARS-CoV-2 (PCR) (Negative) 10/01/21 10/01/21 10/01/21 Range/Units 10:45 10:47 12:00 WBC (4.5-11.0) X10^3/uL RBC (4.0-5.2) X10^6/uL Hgb (12.0-16.0) g/dL Hct (36-46) % MCV (80-100) fL MCH (26-34) PG MCHC (30-36) % RDW (11.6-14.8) % Plt Count (150-400) X10^3/uL Neut % (Auto) (50-75) % Lymph % (Auto) (25-40) % [place] % (Auto) (3-14) % Eos % (Auto) (2-4) % Baso % (Auto) (0-2) % Neut # (Auto) (8600-3102) /uL Lymph # (Auto) (0391-2004) /uL [place] # (Auto) (0-900) /uL Eos # (Auto) (0-450) /uL Baso # (Auto) (0-100) /uL PT (10.1-12.7) SECONDS INR (0.9-1.3) Sodium (137-145) mmol/L Potassium (3.4-5.1) mmol/L Chloride (98-107) mmol/L Carbon Dioxide (22-32) mmol/L BUN (7-17) mg/dL Creatinine (0.52-1.04) mg/dL Estimated GFR (>60) mL/min BUN/Creatinine Ratio (6-22) Glucose (80-110) mg/dL Lactate 0.9 (0.7-2.1) mmol/L Calcium (8.4-10.2) mg/dL Total Bilirubin (0.2-1.3) mg/dL AST (14-36) IU/L ALT (<35) IU/L Alkaline Phosphatase (38-126) U/L Total Protein (6.3-8.2) g/dL Albumin (3.5-5.0) g/dL Globulin (1.7-4.1) g/dL Albumin/Globulin Ratio (1.0-2.8) Lipase (23-300) U/L Ur Bilirubin Confirm (Negative) Urine RBC 0-1/hpf (0-5/HPF) Urine WBC 30-100/hpf H (0-5/HPF) Ur Squamous Epith Cells 0-1 /hpf (0-5/HPF) Amorphous Sediment 1+ Urine Bacteria Many (>30) H (None) Urine Mucus 1+ H (Negative) Ur Culture Indicated? Specimen cultured SARS-CoV-2 (PCR) Negative (Negative) 10/01/21 Range/Units 12:00 WBC (4.5-11.0) X10^3/uL RBC (4.0-5.2) X10^6/uL Hgb (12.0-16.0) g/dL Hct (36-46) % MCV (80-100) fL MCH (26-34) PG MCHC (30-36) % RDW (11.6-14.8) % Plt Count (150-400) X10^3/uL Neut % (Auto) (50-75) % Lymph % (Auto) (25-40) % [place] % (Auto) (3-14) % Eos % (Auto) (2-4) % Baso % (Auto) (0-2) % Neut # (Auto) (4444-5101) /uL Lymph # (Auto) (7287-3666) /uL [place] # (Auto) (0-900) /uL Eos # (Auto) (0-450) /uL Baso # (Auto) (0-100) /uL PT (10.1-12.7) SECONDS INR (0.9-1.3) Sodium (137-145) mmol/L Potassium (3.4-5.1) mmol/L Chloride (98-107) mmol/L Carbon Dioxide (22-32) mmol/L BUN (7-17) mg/dL Creatinine (0.52-1.04) mg/dL Estimated GFR (>60) mL/min BUN/Creatinine Ratio (6-22) Glucose (80-110) mg/dL Lactate (0.7-2.1) mmol/L Calcium (8.4-10.2) mg/dL Total Bilirubin (0.2-1.3) mg/dL AST (14-36) IU/L ALT (<35) IU/L Alkaline Phosphatase (38-126) U/L Total Protein (6.3-8.2) g/dL Albumin (3.5-5.0) g/dL Globulin (1.7-4.1) g/dL Albumin/Globulin Ratio (1.0-2.8) Lipase (23-300) U/L Ur Bilirubin Confirm Negative (Negative) Urine RBC (0-5/HPF) Urine WBC (0-5/HPF) Ur Squamous Epith Cells (0-5/HPF) Amorphous Sediment Urine Bacteria (None) Urine Mucus (Negative) Ur Culture Indicated? SARS-CoV-2 (PCR) (Negative) Point of care testing: Urine Dip Bedside Urine Glucose Negative Bedside Urine Bilirubin + 1 Bedside Urine Ketone - Negative Urine Specific [place] 1.030 Bedside Urine Occult Blood +/- Bedside Urine pH 6 Bedside Urine Protein +/- 15 Bedside Urine Urobilinogen - Negative Bedside Urine Nitrite + Positive Bedside Urine Leukocytes + [address] scan - abdomen/pelvis: Radiologist's Impression: [place] [id number] [address] Scan Report Signed Patient: Leticia Posey MR#: [id number] : 1950 Acct:[id number] Age/Sex: 71 / F Date of Service: 10/01/21 Loc: ED Accession Number: [id number] ?? Procedure: CT abdomen pelvis w con Ordering Provider: Amanda Hastings D.O. PROCEDURE:? CT ABDOMEN PELVIS W CON ? INDICATIONS:? increased pain large hernia ? TECHNIQUE:? After the administration of oral and IV contrast, axial sections were acquired from the lung bases to the pubic symphysis.? Coronal and sagittal reformats were performed.? For radiation dose reduction, the following was used:? automated exposure control, adjustment of mA and/or kV according to patient size. ? COMPARISON:? [facility], CT, CT ABDOMEN PELVIS W CON, 03/01/2019, 19:13.? [facility], CT, CT ABDOMEN PELVIS W CON, 01/01/2019, 5:08. ? FINDINGS:? Image quality:? There is artifact associated with the metallic hardware. ? ? Lung bases:? Unremarkable.? ? A small hiatal hernia is incidentally noted.? Heart:? No significant findings. ? ? ABDOMEN: Liver:? Unremarkable.? ? Gallbladder:? Removed.? ? Biliary ducts:? Unremarkable.? ? Pancreas:? Unremarkable.? ? Spleen:? Unremarkable.? ? Adrenal Glands:? Unremarkable.? ? Kidneys and Ureters:? Unremarkable.? ? ? Stomach and Bowel:? Bariatric surgery can be seen. Abnormally dilated loops of small bowel can be seen proximally, with d ecompressed loops seen distally.? The largest dilated loops of small bowel measures 8.6 cm, at a site of prior small bowel anastomotic cysts The precise site of the transition point is not identified, yet is within the large pannus hernia.? Peritoneum:? No abnormal intraperitoneal fluid.? No free air.? ? Ventral Wall:? A large pannus hernia is seen, which contains both dilated loops of small bowel and nondilated loops of small bowel.? Nondilated sacrum and transverse colon can also seen within the hernia. Abdominal Nodes:? No retroperitoneal or mesenteric adenopathy by size criteria.? Vessels:? Aorta and inferior vena cava are normal in size.? ? PELVIS: Pelvic Organs:? Unremarkable.? ? Bladder:? Unremarkable.? ? Pelvic Nodes: No enlarged lymph nodes.? Miscellaneous: No inguinal hernias are seen. ? ? ? Bones:? Focal lower lumbar spine degenerative change is seen, with milder degenerative changes seen elsewhere.? Bilateral hip arthroplasty hardware is seen, with associated bilateral streak artifact. ? ? IMPRESSION:? ? Small-bowel obstruction, with a transition point within the large pannus hernia. ? ? Incidental note is made of: Small hiatal hernia Bariatric surgery Cholecystectomy Lower lumbar spine degenerative change Bilateral hip arthroplasty hardware ? ? Note: Case discussed by telephone with Dr. Hastings at 12:43 p.m. on October 01, 2021.? ? ? Dictated by: Nicholas Garcia M.D. on 10/01/2021 at 12:38 ? ? [facility] Narrative Medical decision making narrative: Patient has an obvious large pannus hernia she the skin is actually little bit more taut and hard in the right lower side. Her pain is controlled with Dilaudid. CT confirms a small bowel obstruction with a transition point. She has not really had persistent vomiting she continues to pass gas. Dr. Tay on-call surgery has been consulted recommends NG tube. However patient states that she has a gastric bypass surgery patient she is not supposed to have an NG tube. Waiting for Dr. Tay is approval to put in an NG. Lactate is 0.9 unlikely to be ischemia. At this time she is not a surgical candidate. Discharge Plan Departure Patient Disposition: Admitted As Inpatient Clinical Impression: Small bowel obstruction Admit Date/Time: 10/01/21 14:10 Admit Provider: Brenton Patel
--- NOTE | 2021-10-01 11:43 | DI.CT.S_ITS ---
PROCEDURE: CT ABDOMEN PELVIS W CON INDICATIONS: increased pain large hernia TECHNIQUE: After the administration of oral and IV contrast, axial sections were acquired from the lung bases to the pubic symphysis. Coronal and sagittal reformats were performed. For radiation dose reduction, the following was used: automated exposure control, adjustment of mA and/or kV according to patient size. COMPARISON: [facility], CT, CT ABDOMEN PELVIS W CON, 03/01/2019, 19:13. [facility], CT, CT ABDOMEN PELVIS W CON, 01/01/2019, 5:08. FINDINGS: Image quality: There is artifact associated with the metallic hardware. Lung bases: Unremarkable. A small hiatal hernia is incidentally noted. Heart: No significant findings. ABDOMEN: Liver: Unremarkable. Gallbladder: Removed. Biliary ducts: Unremarkable. Pancreas: Unremarkable. Spleen: Unremarkable. Adrenal Glands: Unremarkable. Kidneys and Ureters: Unremarkable. Stomach and Bowel: Bariatric surgery can be seen. Abnormally dilated loops of small bowel can be seen proximally, with decompressed loops seen distally. The largest dilated loops of small bowel measures 8.6 cm, at a site of prior small bowel anastomotic cysts The precise site of the transition point is not identified, yet is within the large pannus hernia. Peritoneum: No abnormal intraperitoneal fluid. No free air. Ventral Wall: A large pannus hernia is seen, which contains both dilated loops of small bowel and nondilated loops of small bowel. Nondilated sacrum and transverse colon can also seen within the hernia. Abdominal Nodes: No retroperitoneal or mesenteric adenopathy by size criteria. Vessels: Aorta and inferior vena cava are normal in size. PELVIS: Pelvic Organs: Unremarkable. Bladder: Unremarkable. Pelvic Nodes: No enlarged lymph nodes. Miscellaneous: No inguinal hernias are seen. Bones: Focal lower lumbar spine degenerative change is seen, with milder degenerative changes seen elsewhere. Bilateral hip arthroplasty hardware is seen, with associated bilateral streak artifact. IMPRESSION: Small-bowel obstruction, with a transition point within the large pannus hernia. Incidental note is made of: Small hiatal hernia Bariatric surgery Cholecystectomy Lower lumbar spine degenerative change Bilateral hip arthroplasty hardware Note: Case discussed by telephone with Dr. aHstings at 12:43 p.m. on October 01, 2021. Dictated by: Nicholas Garcia M.D. on 10/01/2021 at 12:38 Approved by: Nicholas Garcia M.D. on 10/01/2021 at 12:44
[2021-10-01] MEDS: HYDROMORPHONE 1 MG INJ IV ×4 (11:54→21:36)
[2021-10-01 12:01] LABS: INR 2.8 (0.9-1.3)
[2021-10-01 12:02] LABS: COVID19 -Nasal RAPID Negative (Negative)
[2021-10-01 13:31] LABS: RBC Urine 0-1/HPF (0-5/HPF); Squamous Epithelial Cell Urine 0-1 /HPF (0-5/HPF); WBC Urine 30-100/HPF (0-5/HPF)
[2021-10-01 13:32] LABS: Amorphous Sediment Urine 1+; Bacteria Urine Many (>30); Culture Indicated Urine Specimen Cultured; Mucus Urine 1+ (Negative)
[2021-10-01 13:35] LABS: Ictotest Urine Negative (Negative)
[2021-10-01 14:05] LABS: Lactate (Lactic Acid) 0.9 mmol/L (0.7-2.1)
--- NOTE | 2021-10-01 15:23 | PC.NURSE ---
1523: Dr. Tay called and states OK to place NG tube. Notified provider and RN Pam.
--- NOTE | 2021-10-01 16:22 | DI.RAD.S_ITS ---
PROCEDURE: XR CHEST 1V INDICATIONS: NG tube placement TECHNIQUE: One view of the chest was acquired. COMPARISON: [facility], CT, CT ABDOMEN PELVIS W CON, 10/01/2021, 12:11. [facility], CR, XR CHEST 1V, 03/01/2019, 18:31. FINDINGS: Surgical changes and devices: The tip of the gastric tube overlies the proximal to mid stomach. The side hole is seen just below level of the diaphragm. Lungs and pleura: An incomplete inspiratory result is noted, causing a crowded appearance to the lung markings. No focal infiltrates are seen. No pneumothorax or significant pleural effusions are seen. Mediastinum: Mediastinal contours appear normal. Heart size is normal. Atherosclerotic calcification of the aortic arch is noted. Bones and chest wall: Age-appropriate bony degenerative changes are seen. No suspicious bony lesions. Mild prominence of small bowel loops can be seen within the visualized upper abdomen. IMPRESSION: The tip of the gastric tube protrudes below the level of the diaphragm. Please consider advancement, if clinically appropriate. Dictated by: Nicholas Garcia M.D. on 10/01/2021 at 17:06 Approved by: Nicholas Garcia M.D. on 10/01/2021 at 17:07
--- NOTE | 2021-10-01 16:58 | PC.NURSE ---
Addendum entered by Carmen Viera R.N. 10/01/21 18:41: Patient has some brownish colored fluid in her ng cannister, around 400cc. Given 1mg of iv dilaudid and patient is asleep now. Addendum entered by Carmen Viera R.N. 10/01/21 17:12: NG actually placed down r.nare with 16f, patient tolerated well. Note below states L.side placement and this is incorrect. Original Note: Patient admitted to room 208 with abd pain, n/v and sbo. NG tube placed down l.nares and patient has some light brown to clear drainage in suction canister. just here and xray of NG placement and it is correct. Patient had a gastric bypass surgery in the past. She has a large hernia to her abdomen. Skin with some bruising, patient is allergic to heparin and she asked that a sign be placed above her bed so that staff can see this. She is now resting comfortably in her room. She is npo, accept for ice chips and sips.
--- NOTE | 2021-10-01 17:08 | PM.CN ---
History of Present Illness Consult details Date Patient Seen: 10/01/21 Time Patient Seen: 17:08 Chief complaint: Abd pain, vomiting Narrative: Leticia is a 71-year-old woman who presents with 3 days of abdominal pain associated with her known large ventral. She has been vomiting and she has not passed gas. She reports that she had a gastric bypass around 2004 and then it sounds like she had an internal hernia the around 2009 with some ischemic bowel and had to have an ex lap. She subsequently developed her large ventral hernia. Normally she reports being able to reduce the hernia but she has not been able to for 3 days. Meds Home Medications and Allergies Home Medications Medication Instructions Recorded Confirmed Type albuterol sulfate 90 mcg/actuation 2 puff inhalation Q6H PRN SOB 10/26/18 11/14/19 History aerosol inhaler celecoxib 200 mg capsule 200 mg PO DAILY 10/26/18 11/14/19 History cholecalciferol (vitamin D3) 125 5,000 unit PO DAILY 10/26/18 11/14/19 History mcg (5,000 unit) tablet (Vitamin D3) cyclobenzaprine 10 mg tablet 10 mg PO TID PRN Muscle Spasm 10/26/18 11/14/19 History fexofenadine 180 mg tablet 180 mg PO DAILY 10/26/18 11/14/19 History (Janet Allergy) fluticasone propionate 50 1 spray intranasal DAILY PRN 10/26/18 11/14/19 History mcg/actuation nasal Congestion spray,suspension (Flonase Allergy Relief) hydrochlorothiazide 50 mg tablet 50 mg PO DAILY 10/26/18 11/14/19 History hydrocodone 7.5 mg-acetaminophen 2 tab PO Q4HR PRN pain 10/26/18 11/14/19 History 325 mg tablet insulin degludec 100 unit/mL (3 30 units SUBCUT DAILY 10/26/18 11/14/19 History mL) subcutaneous pen levothyroxine 200 mcg tablet 200 mcg PO DAILY 10/26/18 11/14/19 History montelukast 10 mg tablet 10 mg PO QPM 10/26/18 11/14/19 History (Singulair) obrdvuyo-ohz-hdvnw acid 0.4 1 tab PO DAILY 10/26/18 11/14/19 History mg-lycopene 300 mcg-lutein 250 mcg tablet (Centrum Silver) pregabalin 50 mg capsule 50 mg PO TID 10/26/18 11/14/19 History rabeprazole 20 mg tablet,delayed 20 mg PO DAILY 10/26/18 11/14/19 History release (AcipHex) tolterodine 4 mg capsule,extended 4 mg PO DAILY 10/26/18 11/14/19 History release 24 hr warfarin 5 mg tablet 7.5 mg PO DAILY 03/01/19 11/14/19 History Humalog KwikPen Insulin See Rx Instructions .Route .COMPLEX 11/14/19 11/14/19 History exenatide microspheres 2 mg/0.85 2 mg SUBCUT WEEKLY 11/14/19 11/14/19 History mL subcutaneous auto-injector (Bydureon BCise) levothyroxine 200 mcg tablet 400 mcg PO USEASDIRECTD 11/14/19 11/14/19 History (Synthroid) oxycodone 5 mg/5 mL oral solution 5 mg PO Q4H PRN Pain, Severe 11/14/19 11/14/19 History Allergies Allergy/AdvReac Type Severity Reaction Status Date / Time cefamandole [From Mandol] AdvReac Verified 10/01/21 11:17 clindamycin AdvReac Verified 10/01/21 11:17 heparin AdvReac Verified 10/01/21 11:17 meperidine [From Demerol] AdvReac Verified 10/01/21 11:17 naproxen AdvReac Verified 10/01/21 11:17 NSAIDS (Non-Steroidal AdvReac Verified 10/01/21 11:17 Anti-Inflamma promethazine [From Phenergan] AdvReac Verified 10/01/21 11:17 rofecoxib [From Vioxx] AdvReac Verified 10/01/21 11:17 sulfamethoxazole AdvReac Verified 10/01/21 11:17 [From Septra] trimethoprim [From Septra] AdvReac Verified 10/01/21 11:17 Exam Vital Signs (past 8 hours): - 10/01/21 09:40 10/01/21 09:49 10/01/21 09:50 Temperature 98.9 F Pulse Rate 97 H 98 H Respiratory Rate 18 Blood Pressure 161/75 H 161/75 H Pulse Oximetry 99 95 Oxygen Delivery Method Room Air Oxygen Flow Rate 10/01/21 09:50 10/01/21 10:00 10/01/21 10:00 Temperature Pulse Rate 96 H 90 Respiratory Rate Blood Pressure 156/85 H Pulse Oximetry 95 95 Oxygen Delivery Method Oxygen Flow Rate 10/01/21 10:30 10/01/21 10:30 10/01/21 11:00 Temperature Pulse Rate 87 87 Respiratory Rate Blood Pressure 169/79 H Pulse Oximetry 97 97 Oxygen Delivery Method Oxygen Flow Rate 10/01/21 11:01 10/01/21 11:01 10/01/21 11:30 Temperature Pulse Rate 90 86 Respiratory Rate Blood Pressure 169/74 H Pulse Oximetry 97 96 Oxygen Delivery Method Oxygen Flow Rate 10/01/21 11:31 10/01/21 11:31 10/01/21 12:27 Temperature Pulse Rate 88 94 H Respiratory Rate Blood Pressure 178/82 H Pulse Oximetry 96 95 Oxygen Delivery Method Oxygen Flow Rate 10/01/21 12:28 10/01/21 12:28 10/01/21 12:30 Temperature Pulse Rate 92 H 92 H Respiratory Rate Blood Pressure 129/60 Pulse Oximetry 94 93 Oxygen Delivery Method Oxygen Flow Rate 10/01/21 12:31 10/01/21 12:31 10/01/21 13:00 Temperature Pulse Rate 93 H Respiratory Rate Blood Pressure 106/57 L 139/66 Pulse Oximetry 93 Oxygen Delivery Method Oxygen Flow Rate 10/01/21 13:00 10/01/21 13:30 10/01/21 13:30 Temperature Pulse Rate 91 H 92 H Respiratory Rate Blood Pressure 150/66 H Pulse Oximetry 91 92 Oxygen Delivery Method Oxygen Flow Rate 10/01/21 14:00 10/01/21 14:00 10/01/21 14:30 Temperature Pulse Rate 98 H Respiratory Rate Blood Pressure 155/76 H 156/74 H Pulse Oximetry 96 Oxygen Delivery Method Oxygen Flow Rate 10/01/21 14:30 10/01/21 15:00 10/01/21 15:00 Temperature Pulse Rate 90 95 H Respiratory Rate Blood Pressure 144/73 H Pulse Oximetry 93 95 Oxygen Delivery Method Oxygen Flow Rate 10/01/21 15:30 10/01/21 16:00 Temperature 97.4 F L Pulse Rate 92 H Respiratory Rate 18 Blood Pressure 166/69 H 148/70 H Pulse Oximetry 96 Oxygen Delivery Method Oxygen Flow Rate 0 Oxygen Delivery Method Room Air Oxygen Flow Rate 0 Narrative Exam Narrative: There is a large ventral hernia which is not reducible The hernia is soft There are no peritoneal findings Objective Labs Result Diagrams: 10/01/21 10:45 10/01/21 10:45 Labs: Laboratory Results - last 24 hr 10/01/21 10/01/21 10/01/21 10:45 10:45 10:45 WBC 11.1 H RBC 4.45 Hgb 13.0 Hct 39.4 MCV 88.5 MCH 29.1 MCHC 32.9 RDW 13.8 Plt Count 267 Neut % (Auto) 85.1 H Lymph % (Auto) 9.0 L [place] % (Auto) 4.7 Eos % (Auto) 0.8 L Baso % (Auto) 0.4 Neut # (Auto) 9400 H Lymph # (Auto) 1000 L [place] # (Auto) 500 Eos # (Auto) 100 Baso # (Auto) 0 PT 32.0 H INR 2.8 H Sodium 138 Potassium 4.3 Chloride 105 Carbon Dioxide 23 BUN 39 H Creatinine 1.72 H Estimated GFR 31 L BUN/Creatinine Ratio 22.7 H Glucose 169 H Lactate Calcium 8.6 Total Bilirubin 0.6 AST 31 ALT 20 Alkaline Phosphatase 99 Total Protein 7.8 Albumin 4.4 Globulin 3.4 Albumin/Globulin Ratio 1.3 Lipase 37 Ur Bilirubin Confirm Urine RBC Urine WBC Ur Squamous Epith Cells Amorphous Sediment Urine Bacteria Urine Mucus Ur Culture Indicated? SARS-CoV-2 (PCR) 10/01/21 10/01/21 10/01/21 10:45 10:47 12:00 WBC RBC Hgb Hct MCV MCH MCHC RDW Plt Count Neut % (Auto) Lymph % (Auto) [place] % (Auto) Eos % (Auto) Baso % (Auto) Neut # (Auto) Lymph # (Auto) [place] # (Auto) Eos # (Auto) Baso # (Auto) PT INR Sodium Potassium Chloride Carbon Dioxide BUN Creatinine Estimated GFR BUN/Creatinine Ratio Glucose Lactate 0.9 Calcium Total Bilirubin AST ALT Alkaline Phosphatase Total Protein Albumin Globulin Albumin/Globulin Ratio Lipase Ur Bilirubin Confirm Urine RBC 0-1/hpf Urine WBC 30-100/hpf H Ur Squamous Epith Cells 0-1 /hpf Amorphous Sediment 1+ Urine Bacteria Many (>30) H Urine Mucus 1+ H Ur Culture Indicated? Specimen cultured SARS-CoV-2 (PCR) Negative 10/01/21 12:00 WBC RBC Hgb Hct MCV MCH MCHC RDW Plt Count Neut % (Auto) Lymph % (Auto) [place] % (Auto) Eos % (Auto) Baso % (Auto) Neut # (Auto) Lymph # (Auto) [place] # (Auto) Eos # (Auto) Baso # (Auto) PT INR Sodium Potassium Chloride Carbon Dioxide BUN Creatinine Estimated GFR BUN/Creatinine Ratio Glucose Lactate Calcium Total Bilirubin AST ALT Alkaline Phosphatase Total Protein Albumin Globulin Albumin/Globulin Ratio Lipase Ur Bilirubin Confirm Negative Urine RBC Urine WBC Ur Squamous Epith Cells Amorphous Sediment Urine Bacteria Urine Mucus Ur Culture Indicated? SARS-CoV-2 (PCR) [facility] Medical History (Updated 10/01/21 @ 16:01 by Amanda Hastings DO) Anticoagulated on Coumadin Bilateral leg edema Diabetes Heparin induced thrombocytopenia (HIT) Joint infection Kidney stones Lymphedema of both lower extremities Morbid obesity Osteomyelitis Pyelonephritis Venous stasis dermatitis of both lower extremities Ventral hernia Surgical History Hip replacement planned History of ankle fusion History of History of carpal tunnel repair History of cholecystectomy History of hysterectomy History of Christine-en-Y gastric bypass History of total knee arthroplasty History of total left hip arthroplasty History of ureter stent Social History marital status: household members: spouse Tobacco & Substance Use Smoking Status: Never smoker alcohol intake: current Assessment & Plan Assessment and plan (1) Small bowel obstruction: Status: Acute Plan She is a poor surgical candidate due to her obesity and loss of domain associated with her large ventral hernia. Surgery would be high risk. The NG tube appears to be in the gastric pouch and will help with decompression proximal to a bowel obstruction. With time and patience I expect that the obstruction will resolve. Time Spent With Patient Critical Care time: I spent a total of [] minutes of critical care time on this patient's care today; this time is exclusive of procedural time.
[2021-10-01 18:12] LABS: Hemoglobin A1C% w Est Avg Glu 6.6 % (4.0-6.0)
[2021-10-01] MEDS: LIDOCAINE TOP (18:24)
--- NOTE | 2021-10-01 20:48 | P.HP_ITS ---
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 Patient states about 3 days ago she developed worsening nausea and vomiting and abdominal pain over her ventral hernia. She has not had a bowel movement in several days. She has a history of multiple abdominal surgeries including a previous bowel obstruction requiring laparotomy due to bowel perforation during surgery. Has never had a spontaneous small-bowel obstruction before. In the ED a abd CT scan showed a large ventral hernia containing small bowel with several dilated loops of bowel and transition point at the hernia site. General surgery was consulted who recommended placing NG tube. Patient states her current abdominal pain is present over the ventral hernia. She not passed any gas today but was yesterday. Patient History Medical History (Updated 10/01/21 @ 16:01 by Amanda Hastings DO) Anticoagulated on Coumadin Bilateral leg edema Diabetes Heparin induced thrombocytopenia (HIT) Joint infection Kidney stones Lymphedema of both lower extremities Morbid obesity Osteomyelitis Pyelonephritis Venous stasis dermatitis of both lower extremities Ventral hernia Surgical History Hip replacement planned History of ankle fusion History of History of carpal tunnel repair History of cholecystectomy History of hysterectomy History of Christine-en-Y gastric bypass History of total knee arthroplasty History of total left hip arthroplasty History of ureter stent Family & Social History Social History: household members spouse Prior Living Arrangements House Safety & Behavioral: Feels Safe in Current Yes Environment Tobacco & Substance use: Smoking Status Never smoker alcohol intake current alcohol intake frequency holiday/special occasion Substance Use Type does not use Meds Home Medications and Allergies Home Medications Medication Instructions Recorded Confirmed Type albuterol sulfate 90 mcg/actuation 2 puff inhalation Q6H PRN SOB 10/26/18 11/14/19 History aerosol inhaler celecoxib 200 mg capsule 200 mg PO DAILY 10/26/18 11/14/19 History cholecalciferol (vitamin D3) 125 5,000 unit PO DAILY 10/26/18 11/14/19 History mcg (5,000 unit) tablet (Vitamin D3) cyclobenzaprine 10 mg tablet 10 mg PO TID PRN Muscle Spasm 10/26/18 11/14/19 History fexofenadine 180 mg tablet 180 mg PO DAILY 10/26/18 11/14/19 History (Janet Allergy) fluticasone propionate 50 1 spray intranasal DAILY PRN 10/26/18 11/14/19 History mcg/actuation nasal Congestion spray,suspension (Flonase Allergy Relief) hydrochlorothiazide 50 mg tablet 50 mg PO DAILY 10/26/18 11/14/19 History hydrocodone 7.5 mg-acetaminophen 2 tab PO Q4HR PRN pain 10/26/18 11/14/19 History 325 mg tablet insulin degludec 100 unit/mL (3 30 units SUBCUT DAILY 10/26/18 11/14/19 History mL) subcutaneous pen levothyroxine 200 mcg tablet 200 mcg PO DAILY 10/26/18 11/14/19 History montelukast 10 mg tablet 10 mg PO QPM 10/26/18 11/14/19 History (Singulair) ttnrbylc-vza-mwyao acid 0.4 1 tab PO DAILY 10/26/18 11/14/19 History mg-lycopene 300 mcg-lutein 250 mcg tablet (Centrum Silver) pregabalin 50 mg capsule 50 mg PO TID 10/26/18 11/14/19 History rabeprazole 20 mg tablet,delayed 20 mg PO DAILY 10/26/18 11/14/19 History release (AcipHex) tolterodine 4 mg capsule,extended 4 mg PO DAILY 10/26/18 11/14/19 History release 24 hr warfarin 5 mg tablet 7.5 mg PO DAILY 03/01/19 11/14/19 History Humalog KwikPen Insulin See Rx Instructions .Route .COMPLEX 11/14/19 11/14/19 History exenatide microspheres 2 mg/0.85 2 mg SUBCUT WEEKLY 11/14/19 11/14/19 History mL subcutaneous auto-injector (Bydureon BCise) levothyroxine 200 mcg tablet 400 mcg PO USEASDIRECTD 11/14/19 11/14/19 History (Synthroid) oxycodone 5 mg/5 mL oral solution 5 mg PO Q4H PRN Pain, Severe 11/14/19 11/14/19 History Allergies Allergy/AdvReac Type Severity Reaction Status Date / Time cefamandole [From Mandol] AdvReac Verified 10/01/21 11:17 clindamycin AdvReac Verified 10/01/21 11:17 heparin AdvReac Verified 10/01/21 11:17 meperidine [From Demerol] AdvReac Verified 10/01/21 11:17 naproxen AdvReac Verified 10/01/21 11:17 NSAIDS (Non-Steroidal AdvReac Verified 10/01/21 11:17 Anti-Inflamma promethazine [From Phenergan] AdvReac Verified 10/01/21 11:17 rofecoxib [From Vioxx] AdvReac Verified 10/01/21 11:17 sulfamethoxazole AdvReac Verified 10/01/21 11:17 [From Septra] trimethoprim [From Septra] AdvReac Verified 10/01/21 11:17 Review of Systems Review of Systems Narrative: All other systems reviewed with the patient and are negative unless otherwise stated. Exam Vital Signs (past 8 hours): - 10/01/21 13:00 10/01/21 13:00 10/01/21 13:30 Temperature Pulse Rate 91 H Respiratory Rate Blood Pressure 139/66 150/66 H Pulse Oximetry 91 Oxygen Flow Rate 10/01/21 13:30 10/01/21 14:00 10/01/21 14:00 Temperature Pulse Rate 92 H 98 H Respiratory Rate Blood Pressure 155/76 H Pulse Oximetry 92 96 Oxygen Flow Rate 10/01/21 14:30 10/01/21 14:30 10/01/21 15:00 Temperature Pulse Rate 90 Respiratory Rate Blood Pressure 156/74 H 144/73 H Pulse Oximetry 93 Oxygen Flow Rate 10/01/21 15:00 10/01/21 15:30 10/01/21 16:00 Temperature 97.4 F L Pulse Rate 95 H 92 H Respiratory Rate 18 Blood Pressure 166/69 H 148/70 H Pulse Oximetry 95 96 Oxygen Flow Rate 0 Oxygen Delivery Method Room Air Oxygen Flow Rate 0 Narrative Exam Narrative: GEN: Morbidly obese female, no acute distress HEENT: moist mucous membranes, PERRL NECK: trachea midline, no JVD CV: regular rate and rhythm, no murmurs PULM: clear bilaterally ABD: Large ventral hernia with bowel sounds present inside hernia EXT: warm and well perfused with no edema, surgical scars present on the left leg from prior surgery NEURO: awake, alert, oriented, no focal deficits Objective Labs Result Diagrams: 10/01/21 10:45 10/01/21 10:45 Labs: Laboratory Results - last 24 hr 10/01/21 10/01/21 10/01/21 10:45 10:45 10:45 WBC 11.1 H RBC 4.45 Hgb 13.0 Hct 39.4 MCV 88.5 MCH 29.1 MCHC 32.9 RDW 13.8 Plt Count 267 Neut % (Auto) 85.1 H Lymph % (Auto) 9.0 L [place] % (Auto) 4.7 Eos % (Auto) 0.8 L Baso % (Auto) 0.4 Neut # (Auto) 9400 H Lymph # (Auto) 1000 L [place] # (Auto) 500 Eos # (Auto) 100 Baso # (Auto) 0 PT 32.0 H INR 2.8 H Sodium 138 Potassium 4.3 Chloride 105 Carbon Dioxide 23 BUN 39 H Creatinine 1.72 H Estimated GFR 31 L BUN/Creatinine Ratio 22.7 H Glucose 169 H Hemoglobin A1c Lactate Calcium 8.6 Total Bilirubin 0.6 AST 31 ALT 20 Alkaline Phosphatase 99 Total Protein 7.8 Albumin 4.4 Globulin 3.4 Albumin/Globulin Ratio 1.3 Lipase 37 Ur Bilirubin Confirm Urine RBC Urine WBC Ur Squamous Epith Cells Amorphous Sediment Urine Bacteria Urine Mucus Ur Culture Indicated? SARS-CoV-2 (PCR) 10/01/21 10/01/21 10/01/21 10:45 10:45 10:47 WBC RBC Hgb Hct MCV MCH MCHC RDW Plt Count Neut % (Auto) Lymph % (Auto) [place] % (Auto) Eos % (Auto) Baso % (Auto) Neut # (Auto) Lymph # (Auto) [place] # (Auto) Eos # (Auto) Baso # (Auto) PT INR Sodium Potassium Chloride Carbon Dioxide BUN Creatinine Estimated GFR BUN/Creatinine Ratio Glucose Hemoglobin A1c 6.6 H Lactate 0.9 Calcium Total Bilirubin AST ALT Alkaline Phosphatase Total Protein Albumin Globulin Albumin/Globulin Ratio Lipase Ur Bilirubin Confirm Urine RBC Urine WBC Ur Squamous Epith Cells Amorphous Sediment Urine Bacteria Urine Mucus Ur Culture Indicated? SARS-CoV-2 (PCR) Negative 10/01/21 10/01/21 12:00 12:00 WBC RBC Hgb Hct MCV MCH MCHC RDW Plt Count Neut % (Auto) Lymph % (Auto) [place] % (Auto) Eos % (Auto) Baso % (Auto) Neut # (Auto) Lymph # (Auto) [place] # (Auto) Eos # (Auto) Baso # (Auto) PT INR Sodium Potassium Chloride Carbon Dioxide BUN Creatinine Estimated GFR BUN/Creatinine Ratio Glucose Hemoglobin A1c Lactate Calcium Total Bilirubin AST ALT Alkaline Phosphatase Total Protein Albumin Globulin Albumin/Globulin Ratio Lipase Ur Bilirubin Confirm Negative Urine RBC 0-1/hpf Urine WBC 30-100/hpf H Ur Squamous Epith Cells 0-1 /hpf Amorphous Sediment 1+ Urine Bacteria Many (>30) H Urine Mucus 1+ H Ur Culture Indicated? Specimen cultured SARS-CoV-2 (PCR) Assessment & Plan Assessment & Plan narrative: # acute small-bowel obstruction -secondary to large ventral hernia, CT abdomen confirmed transition point at hernia site with several large dilated loops of bowel -general surgery consulted and recommended placing NG tube to suction, high risk surgical candidate secondary to obesity and comorbidities -continue NG to suction -NPO -IV pain control # type 2 diabetes, chronic -continue home Lantus -sliding scale insulin -check A1c # history of DVT on warfarin -INR currently 2.8 -hold warfarin warfarin due to remote possibility of surgery if SBO does not r esolve -daily INR checks -will start therapeutic Lovenox if INR drops below 1.7 # hypertension, chronic -continue home hydrochlorothiazide # hypothyroidism, chronic -continue home Synthroid -check TSH # asymptomatic bacteriuria -UA containing pyuria -patient denies urinary symptoms so will not treat # morbid obesity -BMI 41 Code status is DNR. COVID negative. DVT prophylaxis not use due to INR of 2 point. Proxy is David. I have reviewed home meds and used all available resources to reconcile the home meds. Time Spent With Patient Critical Care time: I spent a total of [] minutes of critical care time on this patient's care today; this time is exclusive of procedural time. Quality VTE Deep Vein Thrombosis/Pulmonary Embolism Present on Admission: No
[2021-10-01] MEDS: PREGABALIN 50 MG CAPSULE PO (21:38)
[2021-10-01 22:43] LABS: Magnesium 1.9 mg/dL (1.6-2.3)
[2021-10-02] VITALS: BP 143/73; PULSE 89; RESP 18; TEMP 36.2; O2SAT 95
[2021-10-02] MEDS: BENZOCAINE/MENTHOL 1 LOZ PKT 1 EACH PO ×2 (00:50→09:45)
[2021-10-02] MEDS: HYDROMORPHONE 1 MG INJ IV ×3 (01:29→09:27)
[2021-10-02] MEDS: SODIUM CHLORIDE 0.9% FLUSH 10 ML IV ×3 (05:19→09:32)
[2021-10-02] MEDS: ONDANSETRON 4 MG/2 ML INJ IV ×2 (05:42→09:38)
[2021-10-02 06:00] VITALS: BP 158/69; PULSE 84; RESP 18; TEMP 36.2; O2SAT 96
[2021-10-02 06:26] LABS: Add Manual Diff / Slide Review NO; Basophils Absolute Auto 100 /uL (0-100); Basophils Percent Auto 0.7 % (0-2); Eosinophils Absolute Auto 200 /uL (0-450); Eosinophils Percent Auto 2.9 % (2-4); Hematocrit 35.5 % (36-46); Hemoglobin 12.1 g/dL (12.0-16.0); Lymphocytes Absolute Auto 2000 /uL (1100-4500); Lymphocytes Percent Auto 23.5 % (25-40); Mean Corpuscular HGB Conc 34.1 % (30-36); Mean Corpuscular Hemoglobin 29.5 PG (26-34); Mean Corpuscular Volume 86.3 fL (80-100); Monocytes Absolute Auto 700 /uL (0-900); Monocytes Percent Auto 8.3 % (3-14); Neutrophils Absolute Auto 5400 /uL (1500-7000); Neutrophils Percent Auto 64.6 % (50-75); Platelet Count 235 X10^3/uL (150-400); Red Blood Cell Count 4.11 X10^6/uL (4.0-5.2); Red Cell Distribution Width 13.7 % (11.6-14.8); White Blood Cell Count 8.3 X10^3/uL (4.5-11.0)
[2021-10-02 06:28] LABS: BUN Creatinine Ratio 27.2 (6-22); Blood Urea Nitrogen 37 mg/dL (7-17); Calcium 8.2 mg/dL (8.4-10.2); Carbon Dioxide 24 mmol/L (22-32); Chloride 107 mmol/L (98-107); Estimated Glomerular Filt Rate 42 mL/min (>60); Glucose 93 mg/dL (80-110); HEMOLYSIS 23 (0-50); Potassium 3.7 mmol/L (3.4-5.1); Sodium 141 mmol/L (137-145)
[2021-10-02] MEDS: LEVOTHYROXINE 100 MCG TABLET 200 MCG PO (06:38)
--- NOTE | 2021-10-02 07:00 | DI.RAD.S_ITS ---
PROCEDURE: XR ABDOMEN MIN 2V INDICATIONS: eval for SBO resolution TECHNIQUE: 2 views of the abdomen were acquired. COMPARISON: [facility], CT, CT ABDOMEN PELVIS W CON, 10/01/2021, 12:11. [facility], CR, XR CHEST 1V, 10/01/2021, 16:44. FINDINGS: Surgical changes and devices: A gastric tube is seen, with the tip overlying the mid stomach. The side hole is seen just above the level of the diaphragm. Cholecystectomy clips are seen. Bilateral hip arthroplasty hardware can be seen. Bowel: Abnormally dilated loops of small bowel are seen that measure up to 4 cm. On the upright images, no free air is seen. No frankly pathologic air-fluid levels are seen. Soft tissues: No masses; visualized solid organ contours appear normal in size. No suspicious abdominal calcifications. Excreting contrast can be seen within the urinary bladder. Bones: No suspicious bony abnormalities. Age-appropriate bony degenerative changes are seen. IMPRESSION: Abnormally dilated loops of small bowel are seen, which are consistent with continued small-bowel obstruction. The tip of the gastric tube is seen overlying the mid stomach. However, the side hole is seen just above the level of the diaphragm. Please consider advancement. Dictated by: Nicholas Garcia M.D. on 10/02/2021 at 9:00 Approved by: Nicholas Garcia M.D. on 10/02/2021 at 9:02
[2021-10-02 07:54] LABS: TSH w/ Reflex to FT4 0.14 uIU/mL (0.47-4.68)
--- NOTE | 2021-10-02 07:59 | P.PN_ITS ---
Subjective Subjective Date Patient Seen: 10/02/21 Time Patient Seen: 17:38 Interval history: Now passing gas with less abd pain and firmness of ventral hernia. Tolerating clears without nausea or vomiting. NG taken out by surgery. Patient requesting stool softeners. Exam Vital Signs (past 8 hours): - 10/02/21 00:00 10/02/21 06:00 Temperature 97.1 F L 97.1 F L Pulse Rate 89 84 Respiratory Rate 18 18 Blood Pressure 143/73 H 158/69 H Pulse Oximetry 95 96 Oxygen Flow Rate 0 Oxygen Delivery Method Room Air Oxygen Flow Rate 0 Narrative Exam Narrative: GEN: Morbidly obese female, no acute distress HEENT: moist mucous membranes, PERRL NECK: trachea midline, no JVD CV: regular rate and rhythm, no murmurs PULM: clear bilaterally ABD: Large ventral hernia less firm today with bowel sounds present inside hernia EXT: warm and well perfused with no edema, surgical scars present on the left leg from prior surgery NEURO: awake, alert, oriented, no focal deficits Objective Labs Result Diagrams: 10/02/21 06:05 10/02/21 06:05 Labs: Laboratory Results - last 24 hr 10/01/21 10/01/21 10/01/21 10:45 10:45 10:45 WBC 11.1 H RBC 4.45 Hgb 13.0 Hct 39.4 MCV 88.5 MCH 29.1 MCHC 32.9 RDW 13.8 Plt Count 267 Neut % (Auto) 85.1 H Lymph % (Auto) 9.0 L [place] % (Auto) 4.7 Eos % (Auto) 0.8 L Baso % (Auto) 0.4 Neut # (Auto) 9400 H Lymph # (Auto) 1000 L [place] # (Auto) 500 Eos # (Auto) 100 Baso # (Auto) 0 PT 32.0 H INR 2.8 H Sodium 138 Potassium 4.3 Chloride 105 Carbon Dioxide 23 BUN 39 H Creatinine 1.72 H Estimated GFR 31 L BUN/Creatinine Ratio 22.7 H Glucose 169 H Hemoglobin A1c Lactate Calcium 8.6 Magnesium Total Bilirubin 0.6 AST 31 ALT 20 Alkaline Phosphatase 99 Total Protein 7.8 Albumin 4.4 Globulin 3.4 Albumin/Globulin Ratio 1.3 Lipase 37 Ur Bilirubin Confirm Urine RBC Urine WBC Ur Squamous Epith Cells Amorphous Sediment Urine Bacteria Urine Mucus Ur Culture Indicated? SARS-CoV-2 (PCR) 08/02/22 08/02/22 08/02/22 10:45 10:45 10:47 WBC RBC Hgb Hct MCV MCH MCHC RDW Plt Count Neut % (Auto) Lymph % (Auto) [place] % (Auto) Eos % (Auto) Baso % (Auto) Neut # (Auto) Lymph # (Auto) [place] # (Auto) Eos # (Auto) Baso # (Auto) PT INR Sodium Potassium Chloride Carbon Dioxide BUN Creatinine Estimated GFR BUN/Creatinine Ratio Glucose Hemoglobin A1c 6.6 H Lactate 0.9 Calcium Magnesium Total Bilirubin AST ALT Alkaline Phosphatase Total Protein Albumin Globulin Albumin/Globulin Ratio Lipase Ur Bilirubin Confirm Urine RBC Urine WBC Ur Squamous Epith Cells Amorphous Sediment Urine Bacteria Urine Mucus Ur Culture Indicated? SARS-CoV-2 (PCR) Negative 10/01/21 10/01/21 10/01/21 12:00 12:00 22:23 WBC RBC Hgb Hct MCV MCH MCHC RDW Plt Count Neut % (Auto) Lymph % (Auto) [place] % (Auto) Eos % (Auto) Baso % (Auto) Neut # (Auto) Lymph # (Auto) [place] # (Auto) Eos # (Auto) Baso # (Auto) PT INR Sodium Potassium Chloride Carbon Dioxide BUN Creatinine Estimated GFR BUN/Creatinine Ratio Glucose Hemoglobin A1c Lactate Calcium Magnesium 1.9 Total Bilirubin AST ALT Alkaline Phosphatase Total Protein Albumin Globulin Albumin/Globulin Ratio Lipase Ur Bilirubin Confirm Negative Urine RBC 0-1/hpf Urine WBC 30-100/hpf H Ur Squamous Epith Cells 0-1 /hpf Amorphous Sediment 1+ Urine Bacteria Many (>30) H Urine Mucus 1+ H Ur Culture Indicated? Specimen cultured SARS-CoV-2 (PCR) 10/02/21 10/02/21 10/02/21 06:05 06:05 06:05 WBC 8.3 RBC 4.11 Hgb 12.1 Hct 35.5 L MCV 86.3 MCH 29.5 MCHC 34.1 RDW 13.7 Plt Count 235 Neut % (Auto) 64.6 D Lymph % (Auto) 23.5 L [place] % (Auto) 8.3 Eos % (Auto) 2.9 Baso % (Auto) 0.7 Neut # (Auto) 5400 Lymph # (Auto) 2000 [place] # (Auto) 700 Eos # (Auto) 200 Baso # (Auto) 100 PT 23.0 H D INR 2.0 H Sodium 141 Potassium 3.7 Chloride 107 Carbon Dioxide 24 BUN 37 H Creatinine 1.36 H Estimated GFR 42 L BUN/Creatinine Ratio 27.2 H Glucose 93 Hemoglobin A1c Lactate Calcium 8.2 L Magnesium Total Bilirubin AST ALT Alkaline Phosphatase Total Protein Albumin Globulin Albumin/Globulin Ratio Lipase Ur Bilirubin Confirm Urine RBC Urine WBC Ur Squamous Epith Cells Amorphous Sediment Urine Bacteria Urine Mucus Ur Culture Indicated? SARS-CoV-2 (PCR) [facility] Medical History Anticoagulated on Coumadin Bilateral leg edema Diabetes Heparin induced thrombocytopenia (HIT) Joint infection Kidney stones Lymphedema of both lower extremities Morbid obesity Osteomyelitis Pyelonephritis Venous stasis dermatitis of both lower extremities Ventral hernia Surgical History Hip replacement planned History of ankle fusion History of History of carpal tunnel repair History of cholecystectomy History of hysterectomy History of Christine-en-Y gastric bypass History of total knee arthroplasty History of total left hip arthroplasty History of ureter stent Social History marital status: household members: spouse Smoking Status: Never smoker alcohol intake: current Assessment & Plan Assessment & Plan narrative: # acute small-bowel obstruction, improving -secondary to large ventral hernia, CT abdomen confirmed transition point at hernia site with several large dilated loops of bowel -general surgery consulted and recommended placing NG tube to suction, high risk surgical candidate secondary to obesity and comorbidities -Abd XR 10/03 shows continued obstruction -NG now removed as patient passing gas -surgery advanced to clear liquid diet without NV -start colace -IV pain control # type 2 diabetes, chronic -continue home Lantus -sliding scale insulin -A1c 6.6 # history of DVT on warfarin -INR currently 2.8 -hold warfarin warfarin due to remote possibility of surgery if SBO does not resolve -daily INR checks -will start therapeutic Lovenox if INR drops below 1.7 # hypertension, chronic -continue home hydrochlorothiazide # hypothyroidism, chronic -continue home Synthroid -TSH low at 0.14 with normal free T4 of 1.91 -may need to lower her home synthroid dose, will defer to PCP # asymptomatic bacteriuria -UA containing pyuria -patient denies urinary symptoms so will not treat # morbid obesity -BMI 41 Code status is DNR. COVID negative. DVT prophylaxis not use due to INR of 2. Proxy is David. I have reviewed home meds and used all available resources to reconcile the home meds. Dispo: Likely d/c on 10/03 if tolerating po intake and having BM's. Time Spent With Patient Critical Care time: I spent a total of [] minutes of critical care time on this patient's care today; this time is exclusive of procedural time. Quality VTE Deep Vein Thrombosis/Pulmonary Embolism Present on Admission: No
[2021-10-02 08:00] LABS: Free T4, Direct Thyroxine 1.91 ng/dL (0.78-2.19)
[2021-10-02 12:00] VITALS: BP 150/66; PULSE 87; RESP 16; TEMP 36.7; O2SAT 95
--- NOTE | 2021-10-02 12:32 | P.PN_ITS ---
Subjective Subjective Date Patient Seen: 10/02/21 Time Patient Seen: 12:32 Interval history: Leticia started passing gas around midnight. She feels that her hernia is softer now. Exam Vital Signs (past 8 hours): - 10/02/21 06:00 10/02/21 12:00 Temperature 97.1 F L 98.0 F Pulse Rate 84 87 Respiratory Rate 18 16 Blood Pressure 158/69 H 150/66 H Pulse Oximetry 96 95 Oxygen Flow Rate 0 0 Oxygen Delivery Method Room Air Oxygen Flow Rate 0 Narrative Exam Narrative: Abdomen soft, nontender Hernia is partially reducible Objective Labs Result Diagrams: 10/02/21 06:05 10/02/21 06:05 Labs: Laboratory Results - last 24 hr 10/01/21 10/01/21 10/01/21 10:45 10:45 12:00 WBC RBC Hgb Hct MCV MCH MCHC RDW Plt Count Neut % (Auto) Lymph % (Auto) [place] % (Auto) Eos % (Auto) Baso % (Auto) Neut # (Auto) Lymph # (Auto) [place] # (Auto) Eos # (Auto) Baso # (Auto) PT INR Sodium Potassium Chloride Carbon Dioxide BUN Creatinine Estimated GFR BUN/Creatinine Ratio Glucose Hemoglobin A1c 6.6 H Lactate 0.9 Calcium Magnesium TSH Free T4 Ur Bilirubin Confirm Urine RBC 0-1/hpf Urine WBC 30-100/hpf H Ur Squamous Epith Cells 0-1 /hpf Amorphous Sediment 1+ Urine Bacteria Many (>30) H Urine Mucus 1+ H Ur Culture Indicated? Specimen cultured 10/01/21 10/01/21 10/02/21 12:00 22:23 06:05 WBC RBC Hgb Hct MCV MCH MCHC RDW Plt Count Neut % (Auto) Lymph % (Auto) [place] % (Auto) Eos % (Auto) Baso % (Auto) Neut # (Auto) Lymph # (Auto) [place] # (Auto) Eos # (Auto) Baso # (Auto) PT 23.0 H D INR 2.0 H Sodium Potassium Chloride Carbon Dioxide BUN Creatinine Estimated GFR BUN/Creatinine Ratio Glucose Hemoglobin A1c Lactate Calcium Magnesium 1.9 TSH Free T4 Ur Bilirubin Confirm Negative Urine RBC Urine WBC Ur Squamous Epith Cells Amorphous Sediment Urine Bacteria Urine Mucus Ur Culture Indicated? 10/02/21 10/02/21 10/02/21 06:05 06:05 06:05 WBC 8.3 RBC 4.11 Hgb 12.1 Hct 35.5 L MCV 86.3 MCH 29.5 MCHC 34.1 RDW 13.7 Plt Count 235 Neut % (Auto) 64.6 D Lymph % (Auto) 23.5 L [place] % (Auto) 8.3 Eos % (Auto) 2.9 Baso % (Auto) 0.7 Neut # (Auto) 5400 Lymph # (Auto) 2000 [place] # (Auto) 700 Eos # (Auto) 200 Baso # (Auto) 100 PT INR Sodium 141 Potassium 3.7 Chloride 107 Carbon Dioxide 24 BUN 37 H Creatinine 1.36 H Estimated GFR 42 L BUN/Creatinine Ratio 27.2 H Glucose 93 Hemoglobin A1c Lactate Calcium 8.2 L Magnesium TSH 0.14 L Free T4 1.91 Ur Bilirubin Confirm Urine RBC Urine WBC Ur Squamous Epith Cells Amorphous Sediment Urine Bacteria Urine Mucus Ur Culture Indicated? [facility] Medical History Anticoagulated on Coumadin Bilateral leg edema Diabetes Heparin induced thrombocytopenia (HIT) Joint infection Kidney stones Lymphedema of both lower extremities Morbid obesity Osteomyelitis Pyelonephritis Venous stasis dermatitis of both lower extremities Ventral hernia Surgical History Hip replacement planned History of ankle fusion History of History of carpal tunnel repair History of cholecystectomy History of hysterectomy History of Christine-en-Y gastric bypass History of total knee arthroplasty History of total left hip arthroplasty History of ureter stent Social History marital status: household members: spouse Smoking Status: Never smoker alcohol intake: current Assessment & Plan Assessment and plan (1) Small bowel obstruction: Status: Acute Plan SBO appears to be resolving. DC NG tube and start clears. Time Spent With Patient Critical Care time: I spent a total of [] minutes of critical care time on this patient's care today; this time is exclusive of procedural time. Quality VTE Deep Vein Thrombosis/Pulmonary Embolism Present on Admission: No
--- NOTE | 2021-10-02 13:41 | CM.DANOTE ---
DCP/Assessment: Reviewed chart. Patient is a 71yr old female admitted to [facility] with SBO. PCP listed is Rosi Tam. Primary payor is 1)Med[employer]are 2)[employer]. Met with patient and spouse at bedside. Patient clearly uncomfortable at time of PLATER SUPERVISOR visit. Patient NPO with NG tube. At this time it is unclear if surgery indicated. Patient reports that she is I in ADL's and plans to go home once stable. P: Home when medicallys stable. CM team to continue to follow as needed. LEX Discharge Planning/Care Management CM Discharge Assessment Start: 10/02/21 13:33 Freq: Status: Active Protocol: Document 10/02/21 13:33 MARKS (Rec: 10/02/21 13:41 LEX [id number]) Discharge Planning Assessment Assigned Spray Operator MARCELINO Thomson Contact Information David Posey (spouse) # [phone] Advance Directives? Yes Advance Directives on File No History Provided By Patient,Significant Other, Medical Record Prior Living Arrangements House Household Members spouse Type of transporation used prior to Drives own vehicle admit Independent with ADL's Yes Is patient alert and oriented? Yes Caregiver for Another No DME Already Rented / Owned FWW / Walker,Cane Comment Patient has both FWW and cane if needed at residence. Patient reports that she does not use DME at baseline. Barriers to Discharge No Comment Patient denies any d/c planning needs. Discharge Plan Home Transportation Arrangement Family to provide transport. Referrals Initiated Other Additional Comment Patient currently with SBO with NG tube. Surgery not indicated at this time. Patient plans to d/c home with supportive spouse when medically stable. Whiteboard Updated in Patient Room with Yes name and ext. # of Spray Operator Review Status In Process Next Review Type Continued Stay Review
[2021-10-02 14:53] LABS: Magnesium 1.8 mg/dL (1.6-2.3)
--- NOTE | 2021-10-02 15:20 | PC.NURSE ---
Pt w/ + BT MD here to see. NG discontinued as per orders Began clear liquids., tolerating well Med x 1 for discomfort w/good relief. Pt taking shower w/o incidence. Call light w/in reach, pt calls appropriately for needs. Continue w/plan of care.
[2021-10-02] MEDS: hydroCHLOROthiazide 25 MG TABLET 50 MG PO (15:39)
[2021-10-02] MEDS: PREGABALIN 50 MG CAPSULE PO ×2 (15:39→20:28)
[2021-10-02] MEDS: INSULIN LISPRO 100 UNIT/ML 3ML VIAL SUBCUT (17:25)
[2021-10-02 18:00] VITALS: BP 150/61; PULSE 86; RESP 18; TEMP 36.5; O2SAT 96
[2021-10-02] MEDS: DOCUSATE 100 MG CAPSULE PO (18:10)
[2021-10-02] MEDS: HYDROCODONE/ACET 5/325 TABLET 1 TAB PO (20:28)
[2021-10-02 20:30] VITALS: BP 130/51; PULSE 81; RESP 16; TEMP 36.7; O2SAT 99
[2021-10-02] MEDS: AMOXICILLIN 250 MG CAPSULE 500 MG PO (22:43)
[2021-10-03] MEDS: ONDANSETRON 4 MG ODT SL ×2 (02:34→06:25)
[2021-10-03 04:00] VITALS: BP 158/64; PULSE 87; RESP 16; TEMP 36.6; O2SAT 96
[2021-10-03] MEDS: HYDROCODONE/ACET 5/325 TABLET 1 TAB PO ×2 (04:40→09:38)
[2021-10-03] MEDS: DOCUSATE 100 MG CAPSULE PO (04:40)
[2021-10-03 06:11] LABS: Add Manual Diff / Slide Review NO; Basophils Absolute Auto 100 /uL (0-100); Basophils Percent Auto 0.9 % (0-2); Eosinophils Absolute Auto 400 /uL (0-450); Hematocrit 35.5 % (36-46); Hemoglobin 11.8 g/dL (12.0-16.0); Lymphocytes Absolute Auto 1600 /uL (1100-4500); Lymphocytes Percent Auto 20.6 % (25-40); Mean Corpuscular HGB Conc 33.1 % (30-36); Mean Corpuscular Hemoglobin 29.2 PG (26-34); Monocytes Absolute Auto 600 /uL (0-900); Monocytes Percent Auto 7.8 % (3-14); Neutrophils Absolute Auto 5000 /uL (1500-7000); Neutrophils Percent Auto 65.7 % (50-75); Platelet Count 203 X10^3/uL (150-400); Red Blood Cell Count 4.04 X10^6/uL (4.0-5.2); Red Cell Distribution Width 13.5 % (11.6-14.8); White Blood Cell Count 7.7 X10^3/uL (4.5-11.0)
[2021-10-03 06:12] LABS: INR 1.4 (0.9-1.3); Prothrombin Time 15.4 SECONDS (10.1-12.7)
[2021-10-03 06:20] LABS: BUN Creatinine Ratio 23.1 (6-22); Blood Urea Nitrogen 30 mg/dL (7-17); Calcium 8.2 mg/dL (8.4-10.2); Carbon Dioxide 26 mmol/L (22-32); Chloride 104 mmol/L (98-107); Estimated Glomerular Filt Rate 44 mL/min (>60); Glucose 150 mg/dL (80-110); HEMOLYSIS < 15 (0-50); Potassium 3.3 mmol/L (3.4-5.1); Sodium 139 mmol/L (137-145)
[2021-10-03] MEDS: LEVOTHYROXINE 100 MCG TABLET 200 MCG PO (06:25)
[2021-10-03] MEDS: ACETAMINOPHEN 325 MG TABLET 650 MG PO (06:25)
[2021-10-03] MEDS: CALCIUM CARBONATE 500 MG TAB PO (06:57)
[2021-10-03] MEDS: POTASSIUM CHLORIDE 20 MEQ TAB 40 MEQ PO (06:57)
--- NOTE | 2021-10-03 07:28 | PM.PN.1 ---
Exam Vital Signs (past 8 hours): - 10/03/21 04:00 Temperature 97.8 F Pulse Rate 87 Respiratory Rate 16 Blood Pressure 158/64 H Pulse Oximetry 96 Oxygen Flow Rate 0 Oxygen Delivery Method Room Air Oxygen Flow Rate 0 Narrative Exam Narrative: GEN: Morbidly obese female, no acute distress HEENT: moist mucous membranes, PERRL NECK: trachea midline, no JVD CV: regular rate and rhythm, no murmurs PULM: clear bilaterally ABD: Large ventral hernia less firm today with bowel sounds present inside hernia EXT: warm and well perfused with no edema, surgical scars present on the left leg from prior surgery NEURO: awake, alert, oriented, no focal deficits Objective Labs Result Diagrams: 10/03/21 05:40 10/03/21 05:40 Labs: Laboratory Results - last 24 hr 10/02/21 10/02/21 10/03/21 06:05 14:27 05:40 WBC RBC Hgb Hct MCV MCH MCHC RDW Plt Count Neut % (Auto) Lymph % (Auto) [place] % (Auto) Eos % (Auto) Baso % (Auto) Neut # (Auto) Lymph # (Auto) [place] # (Auto) Eos # (Auto) Baso # (Auto) PT 15.4 H D INR 1.4 H Sodium Potassium Chloride Carbon Dioxide BUN Creatinine Estimated GFR BUN/Creatinine Ratio Glucose Calcium Magnesium 1.8 TSH 0.14 L Free T4 1.91 10/03/21 10/03/21 05:40 05:40 WBC 7.7 RBC 4.04 Hgb 11.8 L Hct 35.5 L MCV 88.0 MCH 29.2 MCHC 33.1 RDW 13.5 Plt Count 203 Neut % (Auto) 65.7 Lymph % (Auto) 20.6 L [place] % (Auto) 7.8 Eos % (Auto) 5.0 H Baso % (Auto) 0.9 Neut # (Auto) 5000 Lymph # (Auto) 1600 [place] # (Auto) 600 Eos # (Auto) 400 Baso # (Auto) 100 PT INR Sodium 139 Potassium 3.3 L Chloride 104 Carbon Dioxide 26 BUN 30 H Creatinine 1.30 H Estimated GFR 44 L BUN/Creatinine Ratio 23.1 H Glucose 150 H Calcium 8.2 L Magnesium TSH Free T4 [facility] Medical History Anticoagulated on Coumadin Bilateral leg edema Diabetes Heparin induced thrombocytopenia (HIT) Joint infection Kidney stones Lymphedema of both lower extremities Morbid obesity Osteomyelitis Pyelonephritis Venous stasis dermatitis of both lower extremities Ventral hernia Surgical History Hip replacement planned History of ankle fusion History of History of carpal tunnel repair History of cholecystectomy History of hysterectomy History of Christine-en-Y gastric bypass History of total knee arthroplasty History of total left hip arthroplasty History of ureter stent Social History marital status: household members: spouse Smoking Status: Never smoker alcohol intake: current Assessment & Plan Assessment & Plan narrative: # acute small-bowel obstruction, improving -secondary to large ventral hernia, CT abdomen confirmed transition point at hernia site with several large dilated loops of bowel -general surgery consulted and recommended placing NG tube to suction, high risk surgical candidate secondary to obesity and comorbidities -Abd XR 10/03 shows continued obstruction -NG now removed as patient passing gas -surgery advanced to clear liquid diet without NV -start colace -IV pain control # type 2 diabetes, chronic -continue home Lantus -sliding scale insulin -A1c 6.6 # history of DVT on warfarin -INR currently 2.8 -hold warfarin warfarin due to remote possibility of surgery if SBO does not resolve -daily INR checks -will start therapeutic Lovenox if INR drops below 1.7 # hypertension, chronic -continue home hydrochlorothiazide # hypothyroidism, chronic -continue home Synthroid -TSH low at 0.14 with normal free T4 of 1.91 -may need to lower her home synthroid dose, will defer to PCP # asymptomatic bacteriuria -UA containing pyuria -patient denies urinary symptoms so will not treat # morbid obesity -BMI 41 Code status is DNR. COVID negative. DVT prophylaxis not use due to INR of 2. Proxy is David. I have reviewed home meds and used all available resources to reconcile the home meds. Dispo: Likely d/c on 10/03 if tolerating po intake and having BM's. Time Spent With Patient Critical Care time: I spent a total of [] minutes of critical care time on this patient's care today; this time is exclusive of procedural time. Quality VTE Deep Vein Thrombosis/Pulmonary Embolism Present on Admission: No
[2021-10-03] MEDS: hydroCHLOROthiazide 25 MG TABLET 50 MG PO (09:28)
[2021-10-03] MEDS: PREGABALIN 50 MG CAPSULE PO (09:28)
[2021-10-03] MEDS: AMOXICILLIN 250 MG CAPSULE 500 MG PO (09:33)
--- NOTE | 2021-10-03 10:06 | P.PN_ITS ---
Subjective Subjective Date Patient Seen: 10/03/21 Time Patient Seen: 10:06 Interval history: Doing well tolerating regular diet and having bowel function Exam Vital Signs (past 8 hours): - 10/03/21 04:00 Temperature 97.8 F Pulse Rate 87 Respiratory Rate 16 Blood Pressure 158/64 H Pulse Oximetry 96 Oxygen Flow Rate 0 Oxygen Delivery Method Room Air Oxygen Flow Rate 0 Const General: comfortable Objective Labs Result Diagrams: 10/03/21 05:40 10/03/21 05:40 Labs: Laboratory Results - last 24 hr 10/02/21 10/03/21 10/03/21 14:27 05:40 05:40 WBC 7.7 RBC 4.04 Hgb 11.8 L Hct 35.5 L MCV 88.0 MCH 29.2 MCHC 33.1 RDW 13.5 Plt Count 203 Neut % (Auto) 65.7 Lymph % (Auto) 20.6 L [place] % (Auto) 7.8 Eos % (Auto) 5.0 H Baso % (Auto) 0.9 Neut # (Auto) 5000 Lymph # (Auto) 1600 [place] # (Auto) 600 Eos # (Auto) 400 Baso # (Auto) 100 PT 15.4 H D INR 1.4 H Sodium Potassium Chloride Carbon Dioxide BUN Creatinine Estimated GFR BUN/Creatinine Ratio Glucose Calcium Magnesium 1.8 10/03/21 05:40 WBC RBC Hgb Hct MCV MCH MCHC RDW Plt Count Neut % (Auto) Lymph % (Auto) [place] % (Auto) Eos % (Auto) Baso % (Auto) Neut # (Auto) Lymph # (Auto) [place] # (Auto) Eos # (Auto) Baso # (Auto) PT INR Sodium 139 Potassium 3.3 L Chloride 104 Carbon Dioxide 26 BUN 30 H Creatinine 1.30 H Estimated GFR 44 L BUN/Creatinine Ratio 23.1 H Glucose 150 H Calcium 8.2 L Magnesium [facility] Medical History Anticoagulated on Coumadin Bilateral leg edema Diabetes Heparin induced thrombocytopenia (HIT) Joint infection Kidney stones Lymphedema of both lower extremities Morbid obesity Osteomyelitis Pyelonephritis Venous stasis dermatitis of both lower extremities Ventral hernia Surgical History Hip replacement planned History of ankle fusion History of History of carpal tunnel repair History of cholecystectomy History of hysterectomy History of Christine-en-Y gastric bypass History of total knee arthroplasty History of total left hip arthroplasty History of ureter stent Social History marital status: household members: spouse Smoking Status: Never smoker alcohol intake: current Assessment & Plan Assessment and plan (1) Small bowel obstruction: Status: Acute Plan SBO resolved. Okay to discharge home Time Spent With Patient Critical Care time: I spent a total of [] minutes of critical care time on this patient's care today; this time is exclusive of procedural time. Quality VTE Deep Vein Thrombosis/Pulmonary Embolism Present on Admission: No
--- NOTE | 2021-10-03 10:24 | P.DS_ITS ---
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 Patient states about 3 days ago she developed worsening nausea and vomiting and abdominal pain over her ventral hernia. She has not had a bowel movement in several days. She has a history of multiple abdominal surgeries including a previous bowel obstruction requiring laparotomy due to bowel perforation during surgery. Has never had a spontaneous small-bowel obstruction before. In the ED a abd CT scan showed a large ventral hernia containing small bowel with several dilated loops of bowel and transition point at the hernia site. General surgery was consulted who recommended placing NG tube. Patient states her current abdominal pain is present over the ventral hernia. She not passed any gas today but was yesterday. Discharge Providers Provider Date of admission: 10/01/21 14:10 Discharge Date: 10/03/21 Primary care physician: Rosi Tam MD Consults: 10/01/21 14:18 Consult to General Surgery Routine Comment: Consulting Provider: Osmin Tay Reason for consultation: SBO Discharge provider: Brenton Patel DO Summary Hospital Course Discharge Diagnosis: # acute small-bowel obstruction, resolved -secondary to large ventral hernia, CT abdomen confirmed transition point at hernia site with several large dilated loops of bowel -general surgery consulted and recommended placing NG tube to suction, high risk surgical candidate secondary to obesity and comorbidities -Abd XR 10/03 shows continued obstruction -NG out on 10/02 and patient began passing gas, had normal BM on 10/03 -diet advanced to regular without NV or abd pain -used colace -IV pain control # type 2 diabetes, chronic -continue home Lantus -sliding scale insulin -A1c 6.6 # history of DVT on warfarin -INR currently 2.8 -hold warfarin warfarin due to remote possibility of surgery if SBO does not resolve -INR 1.4 on discharge, patient alerted of this and told to resume her warfarin # hypertension, chronic -continue home hydrochlorothiazide # hypothyroidism, chronic -continue home Synthroid -TSH low at 0.14 with normal free T4 of 1.91 -may need to lower her home synthroid dose, will defer to PCP # asymptomatic bacteriuria -UA containing pyuria -patient denies urinary symptoms so will not treat # morbid obesity -BMI 41 Hospital Course: Admitted for SBO which resolved after NG placement and time. CT abd showed zarate sition point at site of large ventral hernia. Gen surg noted she was too high risk to operate. After 2 days she began passing gas then had a BM, and tolerated a regular diet without NV or abd pain. Exam Vital Signs (past 8 hours): - 10/03/21 04:00 Temperature 97.8 F Pulse Rate 87 Respiratory Rate 16 Blood Pressure 158/64 H Pulse Oximetry 96 Oxygen Flow Rate 0 Oxygen Delivery Method Room Air Oxygen Flow Rate 0 Narrative Exam Narrative: GEN: Morbidly obese female, no acute distress HEENT: moist mucous membranes, PERRL NECK: trachea midline, no JVD CV: regular rate and rhythm, no murmurs PULM: clear bilaterally ABD: Large ventral hernia less firm today with bowel sounds present inside hernia EXT: warm and well perfused with no edema, surgical scars present on the left leg from prior surgery NEURO: awake, alert, oriented, no focal deficits Objective Labs Result Diagrams: 10/03/21 05:40 10/03/21 05:40 Labs: Laboratory Results - last 24 hr 10/02/21 10/03/21 10/03/21 14:27 05:40 05:40 WBC 7.7 RBC 4.04 Hgb 11.8 L Hct 35.5 L MCV 88.0 MCH 29.2 MCHC 33.1 RDW 13.5 Plt Count 203 Neut % (Auto) 65.7 Lymph % (Auto) 20.6 L [place] % (Auto) 7.8 Eos % (Auto) 5.0 H Baso % (Auto) 0.9 Neut # (Auto) 5000 Lymph # (Auto) 1600 [place] # (Auto) 600 Eos # (Auto) 400 Baso # (Auto) 100 PT 15.4 H D INR 1.4 H Sodium Potassium Chloride Carbon Dioxide BUN Creatinine Estimated GFR BUN/Creatinine Ratio Glucose Calcium Magnesium 1.8 10/03/21 05:40 WBC RBC Hgb Hct MCV MCH MCHC RDW Plt Count Neut % (Auto) Lymph % (Auto) [place] % (Auto) Eos % (Auto) Baso % (Auto) Neut # (Auto) Lymph # (Auto) [place] # (Auto) Eos # (Auto) Baso # (Auto) PT INR Sodium 139 Potassium 3.3 L Chloride 104 Carbon Dioxide 26 BUN 30 H Creatinine 1.30 H Estimated GFR 44 L BUN/Creatinine Ratio 23.1 H Glucose 150 H Calcium 8.2 L Magnesium PFSH Medical History Anticoagulated on Coumadin Bilateral leg edema Diabetes Heparin induced thrombocytopenia (HIT) Joint infection Kidney stones Lymphedema of both lower extremities Morbid obesity Osteomyelitis Pyelonephritis Venous stasis dermatitis of both lower extremities Ventral hernia Surgical History Hip replacement planned History of ankle fusion History of History of carpal tunnel repair History of cholecystectomy History of hysterectomy History of Christine-en-Y gastric bypass History of total knee arthroplasty History of total left hip arthroplasty History of ureter stent Social History marital status: household members: spouse Smoking Status: Never smoker alcohol intake: current Discharge Plan Discharge Plan Patient Disposition: Home Provider Discharge Comment: You were admitted for small bowel obstruction. It resolved with an NG tube and time. Watch out for this occurring again and use laxatives + stool softeners to keep yourself regular. Discharge orders & Medications Prescriptions: Continued celecoxib 200 mg capsule 200 mg PO DAILY rabeprazole [AcipHex] 20 mg Tablet,Delayed Release (Dr/Ec) 20 mg PO DAILY hydrochlorothiazide 50 mg tablet 50 mg PO DAILY tolterodine 4 mg capsule,extended release 24hr 4 mg PO DAILY montelukast [Singulair] 10 mg Tablet 10 mg PO QPM levothyroxine 200 mcg tablet 200 mcg PO DAILY Rx Instructions: 200mcg -, 400mcg Thursday pregabalin 50 mg Capsule 50 mg PO TID insulin degludec 100 unit/mL (3 mL) insulin pen 30 units subcut DAILY cyclobenzaprine 10 mg tablet 10 mg PO TID PRN (Reason: Muscle Spasm) fexofenadine [Janet Allergy] 180 mg Tablet 180 mg PO DAILY hydrocodone-acetaminophen 7.5-325 mg tablet 2 tab PO Q4HR PRN (Reason: pain) albuterol sulfate 90 mcg/actuation Hfa Aerosol Inhaler 2 puff INHALATION Q6H PRN (Reason: SOB) fluticasone propionate [Flonase Allergy Relief] 50 mcg/actuation [place],Suspension 1 spray intranasal DAILY PRN (Reason: Congestion) Centrum Silver 0.4-300-250 mg-mcg-mcg Tablet 1 tab PO DAILY cholecalciferol (vitamin D3) [Vitamin D3] 5,000 unit Tablet 5,000 unit PO DAILY warfarin 5 mg tablet 7.5 mg PO DAILY Bydureon BCise 2 mg/0.85 mL auto-injector 2 mg SUBCUT WEEKLY oxycodone 5 mg/5 mL solution 5 mg PO Q4H PRN (Reason: Pain, Severe) levothyroxine [Synthroid] 200 mcg tablet 400 mcg PO USEASDIRECTD Rx Instructions: Take 400 mcg tablet on Sundays Humalog KwikPen Insulin 100 units See Rx Instructions .ROUTE .COMPLEX Rx Instructions: Per sliding scale >150, 1 Unit per 10 mg/dl blood sugar over 100. Follow up/Referrals: Rosi Tam MD [Primary Care Provider] - Discharge Data Primary Care Provider: Rosi Tam Quality VTE Deep Vein Thrombosis/Pulmonary Embolism Present on Admission: No
--- NOTE | 2021-10-03 10:49 | PC.NURSE ---
Pt denies discomfort. MD in to see D/C orders received Pt & spouse given D/C instructions w/understanding Pt escorted by staff via W/C to waiting vehicle D/C in stable sttus.
== END 2021-10-03 10:35 | disposition home or self-care (01) | DRG 394 ==
LOC: ED 10:04 → AC 14:10
PROVIDERS: Nurse Practitioner Family; Admitting Provider Student in an Organized Health Care Education/Training Program; Emergency Provider Emergency Medicine; PCP Internal Medicine; Referring Provider Emergency Medicine; Visit Provider Student in an Organized Health Care Education/Training Program
DX: K45.0 Other specified abdominal hernia with obstruction, without gangrene (principal); Z68.41 Body mass index [BMI] 40.0-44.9, adult; E66.01 Morbid (severe) obesity due to excess calories; E11.9 Type 2 diabetes mellitus without complications; Z79.4 Long term (current) use of insulin; I10 Essential (primary) hypertension; E03.9 Hypothyroidism, unspecified; J45.909 Unspecified asthma, uncomplicated; Z86.718 Personal history of other venous thrombosis and embolism; Z79.01 Long term (current) use of anticoagulants; Z20.822 Contact with and (suspected) exposure to COVID-19; Z98.84 Bariatric surgery status; Z98.0 Intestinal bypass and anastomosis status
CPT/HCPCS: 36415; 71045; 74019; 74177; 80048; 80053; 81003; 81015; 82962; 83036; 83605; 83690; 83735; 84439; 84443; 85025; 85610; 87077; 87086; 87186; 87635; 96361; 96374; 96375; 99231; 99232; 99285; C9803; J1170; J1815; J2405; Q9967

== ENCOUNTER → 2021-12-19 10:52 | Outpatient (CLI) | payer MEDICARE, OTHER, SELFPAY ==
[2021-10-01 15:53] VITALS: BMI 41.3
--- NOTE | 2021-12-19 | DI.CT.S_ITS ---
PROCEDURE: CT UE LT WO CON INDICATIONS: ROTATOR CUFF ARTHROPATHY LEFT SHOULDER/CHRONIC TEAR TECHNIQUE: Noncontrast 1-1.5 mm thick sections acquired from the acromioclavicular joint to the inferior scapula, with coronal and sagittal reformatting. COMPARISON: [facility] [place], CR, XR SHOULDER 2+ VIEWS LEFT, 11/15/2021, 10:12. FINDINGS: Image quality: Excellent. Bones: No acute osseous fracture. Severe degenerative changes are seen in the glenohumeral joint with full-thickness joint space narrowing, subchondral sclerosis and subchondral cystic changes, and marginal osteophyte formation. There is mild remodeling of the glenoid articular surface without significant glenoid retroversion or anteversion relative to the midplane of the scapula at the mid glenoid level. The humeral head is high riding and abuts the undersurface of the acromion with associated degenerative changes. [id number] degenerative changes are seen at the acromioclavicular joint. Degenerative changes are noted at the left sternoclavicular joint. Soft tissues: No significant glenohumeral effusion. There is moderate atrophy and grade 3 fatty infiltration of the supraspinatus muscle. The remaining rotator cuff muscles are within normal limits in bulk. The rotator cuff tendons, ligaments, articular cartilages, and labrum are not well evaluated on standard CT. A few left axillary lymph nodes are within normal limits in size. The left lung is clear. Aortic atherosclerotic calcifications are present. IMPRESSION: 1. Humeral head is high riding and abuts the undersurface of the acromion with associated degenerative changes. There is moderate atrophy and grade 3 fatty infiltration of the supraspinatus muscle. Findings are consistent with chronic complete full-thickness supraspinatus tendon tearing. 2. Severe glenohumeral degenerative changes with full-thickness cartilage loss, subchondral sclerosis and cystic changes, and remodeling of the articular surfaces as well as marginal osteophyte formation. 3. Mild to moderate acromioclavicular joint osteoarthrosis. Approved by: Ricardo Jade M.D. on 12/19/2021 at 16:42
== END ==
PROVIDERS: PCP Internal Medicine; Referring Provider Orthopaedic Surgery; Visit Provider Orthopaedic Surgery
DX: M12.812 Other specific arthropathies, not elsewhere classified, left shoulder (principal); M62.512 Muscle wasting and atrophy, not elsewhere classified, left shoulder
CPT/HCPCS: 73200

== ENCOUNTER 2022-02-19 06:38 | Day surgery (SDC) | payer MEDICARE, OTHER, SELFPAY ==
[2021-10-01 15:53] VITALS: BMI 41.3
[2022-02-17 08:06] VITALS: BMI 40.2
[2022-02-19] VITALS (13 sets, daily range): BP systolic 119–146; BP diastolic 59–85; PULSE 80–94; RESP 12–19; TEMP 35.9–36.6; O2SAT 93–99; BMI 39.6
--- NOTE | 2022-02-19 08:28 | SUR.OPER ---
Beach chair with Marita/Sylvie shoulder positioner. Lower body on padded OR bed. Head in foam padded head cradle, secured with straps. Non-operative arm secured <90 degrees abduction. Pillow under knees. Safety belt at thigh. Cloth tape over blanket over lower legs.
--- NOTE | 2022-02-19 08:36 | DI.RAD.S_ITS ---
PROCEDURE: XR SHOULDER LT 1V INDICATIONS: post op total shoulder TECHNIQUE: 1 views of the shoulder were acquired. COMPARISON: None. FINDINGS: Bones: Patient is status post left reverse shoulder arthroplasty. The shoulder alignment is anatomic. No fractures or dislocations. No suspicious bony lesions. Visualized ribs appear intact. Soft tissues: Expected postsurgical changes are seen in left shoulder soft tissue. IMPRESSION: Postop changes from reverse total left shoulder arthroplasty with anatomic shoulder alignment. Dictated by: Sang Petersen M.D. on 02/19/2022 at 11:45 Approved by: Sang Petersen M.D. on 02/19/2022 at 11:59
--- NOTE | 2022-02-19 08:37 | PM.PREOP ---
Pre-operative Note COVID-19 COVID-19 status: Negative Result date/Date tested (Pos, Neg/Pending): 02/19/22 Interval Note History & Physical reviewed/Exam performed by Physician: Yes Changes to H&P: No
[2022-02-19 08:52] LABS: COVID19 -Nasal RAPID Negative (Negative)
[2022-02-19] MEDS: LACTATED RINGERS 1,000 ML 42 ML IV (09:07)
[2022-02-19] MEDS: CEFAZOLIN 2 GM/100 ML PREMIX 100 ML IV ×2 (09:15→16:35)
[2022-02-19] MEDS: BUPIVACAINE 0.5% W/ EPI (PF) 30 ML VIAL INJ (09:30)
[2022-02-19] MEDS: TRANEXAMIC ACID 1,000 MG in SODIUM CHLORIDE 0.9% 100 ML 200 MG IV (09:30)
[2022-02-19] MEDS: TRANEXAMIC ACID 1,000 MG VIAL 2000 MG INJ (10:20)
--- NOTE | 2022-02-19 10:55 | P.OP_ITS ---
Operative Date/Time/Diagnoses Date of procedure: 02/19/22 Time of procedure: 10:55 Pre-op diagnosis: Left shoulder rotator cuff arthropathy Post-op diagnosis: same Procedure & Clinicians Procedure: Left reverse total shoulder replacement Same procedure as scheduled: Yes Indications: The patient is had chronic left shoulder pain unresponsive to nonoperative therapies. Radiographic studies have revealed changes consistent with a massive rotator cuff tear and arthritis. They have elected to proceed with reverse total shoulder replacement after discussion of the risks benefits and alternatives. Risks discussed included but were not limited to: Failure to improve, instability, infection, nerve damage, deep venous thrombosis, pulmonary e mbolism, stroke, coma, myocardial infarction and . Surgeon: Miguel Marroquin [employer]argo Tank Mechanic: Gemma Aguirre Click Yes if Unassisted: No Anesthesia Type: General and Peripheral nerve block Operative Notes Findings: Severe eburnation of cartilage on the humeral head and glenoid, complete rupture of the rotator cuff with the exception of the teres minor. Closure Type: primary Specimen(s): none sent Prosthetic devices, grafts, tissues, transplants, or devices: Implants used in this procedure manufactured by the [employer] and i ncluded an RSP reverse total shoulder system with a glenoid base plate with a 30 mm screw, 4 locking screws measuring 26 mm, 26 mm, 22 mm and 14 mm in length, a 32 mm -4 offset glenoid head with retaining screw, a 12 mm small shell humeral stem and a 32 mm neutral E +polyethylene small socket insert. Applied: implant(s) Estimated Blood Loss (mL): 200 Blood products transfused: none Procedure in detail: The patient was seen in the pre-operative area, where the patient identified the left shoulder as the operative site and this was marked with my initials. The patient received pre-operative antibiotics, underwent an interscalene block, and was taken to the operating room and placed on the operative table in the supine position. After satisfactory anesthesia, a full ?time out? was performed. The patient was repositioned in the ?beach chair? position using a dedicated po sitioner. All pressure points were well padded, and the knees were slightly bent to prevent tension on the sciatic nerves. The left arm was prepared from the fingers to the base of the neck with ChloroPrep in the usual fashion and draped through sterile drapes. An approximately 15 cm incision was created, starting at the clavicle above the coracoid process and extended towards the deltoid insertion. The deltopectoral interval was used to access the shoulder. The cephalic vein was taken laterally. A self retaining retractor was placed. The upper centimeter of the pectoralis major tendon was released. The ?three sisters? were identified and cauterized. The axillary nerve was palpated and protected throughout the case. The biceps had ruptured, the bicipital groove was used as a guide to the anterior shoulder. The subscapularis was completely ruptured, the anterior scar tissue was released from the lesser tuberosity. The shoulder was dislocated and a cutting guide was used for the proximal humeral osteotomy in 30 degrees of retroversion. A proximal humeral protector was then placed. We then removed the self-retaining retractor and placed retractors to access the glenoid. The soft tissue around the glenoid was released with care being taken to protect the axillary nerve with the inferior portion of this procedure. The remnant of labrum and biceps stump were removed. The guide was used to place the drill hole in the glenoid and the tap placed. The tap shaft was used as a guide for the Reamer. The glenoid base plate was then placed. This had good fixation. The peripheral locking screws were then placed. A trial glenoid head was applied. We returned our attention to the humerus. Cylindrical reamers were used until cortical bite was obtained. We then broached to a line to line fit with the Reamer. The guide for the metaphyseal Reamer was applied and the metaphysis reamed to accept a small shell. The trial small shell was attached to the broach and a trial cup placed. Stability was checked with no ?shucking? and 90? external rotation in abduction, 70? internal rotation in abduction without impingement in no evidence of instability with maximal internal and external rotation of the arm at the side. I demonstrated that the hand was able to reach her groin, her mouth and the top of her head without dislocation. This was felt to be satisfactory and the appropriate implants were opened. The final glenoid head was applied and impacted into position. Stability was confirmed in rotation and traction prior to placing the set screw. The final humeral implant was then placed. The shoulder was relocated 1 final time. The joint was irrigated. The deltopectoral interval was closed with interrupted 0 Vicryl. The subcutaneous layer was closed with 3-0 Vicryl, and the skin with a running 3-0 V-Lock suture and SteriStrips. An Aquacel Ag dressing was applied, the patient?s arm was placed in a sling, and the patient was taken to recovery having tolerated the procedure well. A skilled dental chairside assistant was required during the surgery to provide positioning, exposure of the surgical site and retraction to protect vital structures. Without a skilled dental chairside assistant the surgery could not have been performed safely and expediently. Complications: none Post-operative Condition: stable Disposition: PACU Plan for aftercare: The patient will be maintained in the hospital overnight. She will be allowed to use her hand in front of her body below shoulder level to lift 1-2 lb. She will likely be discharged tomorrow if pain control is satisfactory.
[2022-02-19] MEDS: ONDANSETRON 4 MG/2 ML INJ IV (11:15)
[2022-02-19] MEDS: INSULIN LISPRO 100 UNIT/ML 3ML VIAL 8 UNIT SUBCUT (11:44)
[2022-02-19] MEDS: LACTATED RINGERS 1,000 ML 100 ML IV ×2 (13:16→23:40)
[2022-02-19] MEDS: ACETAMINOPHEN 325 MG TABLET 650 MG PO ×3 (13:16→23:11)
[2022-02-19] MEDS: PREGABALIN 50 MG CAPSULE PO ×2 (14:50→21:27)
--- NOTE | 2022-02-19 16:46 | PT.IIE ---
Current Diagnoses Other specific arthropathies, not elsewhere classified, left shoulder (02/19/22) Surgery Performed Operation Date: 02/19/22 08:45 Actual Procedures p Total Shoulder Arthroplasty - Reverse(Left) - Miguel Marroquin MD Surgical History (Last Reviewed 10/02/21 @ 08:00 by Brenton Patel DO) Hip replacement planned History of ankle fusion History of History of carpal tunnel repair History of cholecystectomy History of hysterectomy History of Christine-en-Y gastric bypass History of total knee arthroplasty History of total left hip arthroplasty History of ureter stent Medical History (Last Reviewed 10/02/21 @ 08:00 by Brenton Patel DO) Anticoagulated on Coumadin Bilateral leg edema Diabetes Heparin induced thrombocytopenia (HIT) Joint infection Kidney stones Lymphedema of both lower extremities Morbid obesity Osteomyelitis Pyelonephritis Venous stasis dermatitis of both lower extremities Ventral hernia Physical Therapy Inpatient Evaluation/Re-Eval M1 PT/OT-IP Prior Functional Status Start: 02/19/22 17:18 Freq: NEEDED Status: Active Protocol: Document 02/19/22 16:46 AB (Rec: 02/19/22 17:28 AB [id number]) Medical Review Prior Functional Status Medical History Reviewed Yes Communication able to make needs known Mobility and Gait pt stated that she is independent with all mobilities and ambulation without AD Social History Household Members spouse,family Living Arrangements House Number of Floors (Floors) One Floor Number of Stairs To Enter/Railing? 1 step to enter Home Environment High Toilet,Walk in Shower Home Equipment Four Wheel Walker,Straight Cane,Shower Seat with Backrest ,Hand Held Shower Additional Social History Comment spouse will be the main person that will assist pt but will also have her son and DIL at home to assist her M2 PT-IP Current Condition Start: 02/19/22 17:18 Freq: NEEDED Status: Active Protocol: Document 02/19/22 16:46 AB (Rec: 02/19/22 17:28 AB [id number]) Physical Therapy Current Condition Current Condition Evaluation Date 02/19/22 Treatment Diagnosis s/p L TSA reverse; difficulty in walking Onset Date 02/19/22 M3 PT-IP Subjective Start: 02/19/22 17:18 Freq: NEEDED Status: Active Protocol: Document 02/19/22 16:46 AB (Rec: 02/19/22 17:28 [email or web address]) Subjective Physical Therapy Visit Type Type Initial Evaluation Visit Start Time 16:46 Visit Stop Time 17:15 Total Visit Minutes 29 Number of BAR PILOT Visits 0 Physical Therapy Visit Comments Patient Comments pt initially refusing PT but provided PLOF and home set up info. pt then requested to use the toilet and agreed to mobilize with PT Therapy Pain Assessment Pain Present Pain Present Denied Pain M4 PT-IP Mobility and Gait Start: 02/19/22 17:18 Freq: NEEDED Status: Active Protocol: Document 02/19/22 16:46 AB (Rec: 02/19/22 17:28 [email or web address]) PT-Bed Mobility Assessment Supine to Sit Supine to Sit Standby Assistance,Head of Bed Elevated,Bedrails PT-Transfer Assessment Sit to and From Stand Sit to and from Stand Standby Assistance Equipment Transfer Assistive Device None,Gait Belt Orthotic/Prosthetic Devices or Brace: Yes Transfers Transfer Destination Bedside Commode Transfer Technique Stand Step Pivot Transfer Ability Level of Assist Standby Assistance,Use of Upper Extremities Comments Mobility Comments educated pt on shoulder precautions. pt requesting to use the toilet but refuse to ambulate to the toilet and wants to use the bedside commode. completed supine to sit SBA with HOB elevated and pt used bed rail. assisted with sling management/ adjustments. bedside commode positioned next to pt. pt completed sit to stand SBA and step transfer to commode SBA. pt able to complete hygiene care SBA. transferred back to bed SBA. pt sat on EOB and nurse took over care. caregiver training set up tomorrow at 10 am. PT-Balance Assessment Sitting Balance and Reactions Static Sitting Balance Ability Normal Dynamic Sitting Balance Ability Good Standing Balance and Reactions Static Standing Balance Ability Good Dynamic Standing Balance Ability Fair Device Used without AD M5 PT-IP Objective Assessments Start: 02/19/22 17:18 Freq: NEEDED Status: Active Protocol: Document 02/19/22 16:46 AB (Rec: 02/19/22 17:28 [email or web address]) Orientation Orientation/Cognition Level of Alertness Alert Orientation Name,Age,Place Language Function Ability No Deficits Noted Safety Awareness Decreased Safety Awareness Memory Description No Deficits Noted Gross Range of Motion Lower Extremity ROM Assessment Within Functional Limits Strength Lower Extremity Strength Hip 4-/5 Knee 4-/5 Sensation Assessment Sensation Sensation Description Numbness Comments Sensation Comments LUE still is numb and has no motor control back yet Muscle Tone Muscle Tone WNL No Comments Muscle Tone Comments LUE still does not have motor control M6 PT-IP Treatment Start: 02/19/22 17:18 Freq: NEEDED Status: Active Protocol: Document 02/19/22 16:46 AB (Rec: 02/19/22 17:28 AB [email or web address]) Physical Therapy Treatment Education Education Provided Precautions,Weight Bearing Status,Post-Op Packet,Safety M7 PT-IP Assessment and Plan Start: 02/19/22 17:18 Freq: NEEDED Status: Active Protocol: Document 02/19/22 16:46 AB (Rec: 02/19/22 17:28 AB [email or web address]) PT Summary Assessment and Plan Potential Rehabilitation Potential Fair Status of Condition at Evaluation Evolving Summary Impairments Pain,ROM,Strength,Balance, Coordination,Sensation,Tone, Cognition,Bed Mobility, Transfers,Gait,Activity Tolerance Assessment Summary pt requiring SBA with transfer without AD but pt refuse at this time. Caregiver training set up for tomorrow at 10 am. will continue to assess. Goals Bed Mobility Goal Independent Transfer Goal Independent Gait Goal Independent Gait Distance 150 Other Goals up/down 1 step without AD SBA Days to Meet Goals 5 Frequency of Treatment Frequency Of Treatment Twice a Day Treatment Plan Physical Therapy Treatment Plan Bed Mobility Training,Transfer Training,Gait Training, Therapeutic Exercise,Balance Retraining,Post Op Education, Discharge Planning,Hot or Cold Pack,Neuromuscular Re-ed, Coordination Retraining,Manual Therapy Precautions Shoulder Precautions Sling,PROM,Internal Rotation to Body,No External Rotation, No Abduction,Forward Flexion to 90 degrees,Pendulums Weight Bearing Status Weight Bearing Status Non-Weight Bearing Allowed Weight Bearing Amount (enter % LUE NWB or #) (%) Recommendations To Nursing Amount of Assist Needed 1 Person Assist Discharge Recommendations PT Discharge Recommendations Home with Assistance,Home with 22/09 Assist Available,Home Health,Outpatient PT Transportation Needs at Discharge Private Vehicle,Wheelchair/ Cabulance
[2022-02-19] MEDS: INSULIN LISPRO 100 UNIT/ML 3ML VIAL SUBCUT ×2 (17:17→21:27)
[2022-02-19] MEDS: DOCUSATE 100 MG CAPSULE PO (21:27)
[2022-02-19] MEDS: OXYCODONE IR 10 MG TABLET PO (23:11)
[2022-02-19] MEDS: ONDANSETRON 4 MG ODT PO (23:40)
[2022-02-20 00:30] VITALS: BP 147/64; PULSE 90; RESP 18; TEMP 36.3; O2SAT 95
[2022-02-20] MEDS: HYDROMORPHONE 2 MG TABLET PO ×2 (00:36→07:43)
[2022-02-20] MEDS: CEFAZOLIN 2 GM/100 ML PREMIX 100 ML IV (00:37)
[2022-02-20] MEDS: OXYCODONE IR 10 MG TABLET PO ×2 (04:14→09:34)
[2022-02-20] MEDS: ONDANSETRON 4 MG ODT PO (04:37)
[2022-02-20 05:00] VITALS: BP 122/58; PULSE 87; RESP 22; TEMP 36.2; O2SAT 96
[2022-02-20 05:31] LABS: Hematocrit 28.8 % (36-46); Hemoglobin 9.7 g/dL (12.0-16.0)
[2022-02-20] MEDS: ACETAMINOPHEN 325 MG TABLET 650 MG PO ×2 (05:44→09:33)
[2022-02-20] MEDS: LEVOTHYROXINE 100 MCG TABLET 200 MCG PO (05:44)
--- NOTE | 2022-02-20 07:44 | P.DS_ITS ---
History of Present Illness History of Present Illness Date Patient Seen: 02/20/22 Time Patient Seen: 07:44 Chief complaint: TSA reverse *OPB* Narrative: History and physical is contained in the chart in a previously completed note. Please refer to that note for this information. Discharge Providers Provider Date of admission: February 19, 2022 Discharge Date: 02/20/22 Primary care physician: Rosi Tam MD Consults: 02/19/22 12:03 Consult to Discharge Planning Routine Comment: Consult to Physical Therapy Evaluate & Treat Comment: Physician Instructions: PROM 90 FF, 0 abd, 0 ER, IR to body, pendulums Discharge provider: Miguel Marroquin MD Summary Hospital Course Discharge Diagnosis: 1. Left shoulder rotator cuff tear arthropathy 2. Post hemorrhagic anemia Hospital Course: The patient was admitted to the hospital and taken directly to the operating room on February 19, 2022. She underwent a left shoulder reverse total shoulder replacement without complications. On postoperative day 1 she had complaints of nausea with her pain reliever and moderate pain control difficulty but otherwise was stable. At the time of this dictation it is anticipated she will be able to go home today. Status at Discharge Cognitive/behavioral status at discharge: at baseline, oriented Functional status at discharge: independent ambulation Overall status at discharge: patient is progressing back to baseline Time Spent with Patient Time spent: Less than 30 minutes Exam Vital Signs (past 8 hours): - 02/20/22 00:30 02/20/22 05:00 Temperature 97.3 F L 97.1 F L Pulse Rate 90 87 Respiratory Rate 18 22 Blood Pressure 147/64 H 122/58 L Pulse Oximetry 95 96 Oxygen Flow Rate 0 0 Oxygen Delivery Method Nasal Cannula Oxygen Flow Rate 0 Narrative Exam Narrative: Left upper extremity wound is dressed with no drainage on the bandage. Light touch is intact in the radial, ulnar, median, muscular cutaneous and axillary nerve distributions. She can extend her thumb, abduct her thumb, abduct her fingers and can fire her biceps and deltoid. Objective Labs Result Diagrams: 02/20/22 05:11 Labs: Laboratory Results - last 24 hr 02/19/22 02/20/22 08:25 05:11 Hgb 9.7 L Hct 28.8 L SARS-CoV-2 (PCR) Negative [facility] Medical History Anticoagulated on Coumadin Bilateral leg edema Diabetes Heparin induced thrombocytopenia (HIT) Joint infection Kidney stones Lymphedema of both lower extremities Morbid obesity Osteomyelitis Pyelonephritis Venous stasis dermatitis of both lower extremities Ventral hernia Surgical History Hip replacement planned History of ankle fusion History of History of carpal tunnel repair History of cholecystectomy History of hysterectomy History of Christine-en-Y gastric bypass History of total knee arthroplasty History of total left hip arthroplasty History of ureter stent Social History marital status: household members: spouse and family Smoking Status: Never smoker alcohol intake: current Discharge Assessment & Plan Assessment and Plan Assessment: Stable postoperative day 1 status post left reverse total shoulder arthroplasty for rotator cuff tear arthropathy. She has a moderate post hemorrhagic anemia. Despite stopping her Coumadin she did have moderate bleeding at the time of surgery. There does not appear to be any active drainage on the bandage. Plan of Treatment: Discharge to home with follow-up at my office in 10-14 days. It is anticipated that the anemia will improve with normal diet. She will be allowed to use her hand in front of her body below shoulder level to lift 1-2 lb for 6 weeks and then physical therapy will be initiated. She is been given a prescription for oxycodone for pain and Zofran for nausea. She has been instructed to use Tylenol for additional pain relief. She will be restarting her baseline Coumadin and this will function as her DVT prophylaxis. Discharge Plan Discharge Plan Patient Disposition: Home Discharge orders & Medications Discharge Orders: Discharge (Order); Ordered 02/20/22 Ordered By: Miguel Marroquin Prescriptions: New acetaminophen 325 mg Tablet 650 mg PO Q6HR Qty: 250 0RF ondansetron 4 mg Tablet,Disintegrating 4 mg PO Q4HR PRN (Reason: Nausea And Vomiting) Qty: 20 0RF oxycodone 5 mg Tablet 5 mg PO Q4H PRN (Reason: Pain, Moderate (4-6)) Qty: 40 0RF Continued hydrochlorothiazide 50 mg tablet 50 mg PO DAILY tolterodine 4 mg capsule,extended release 24hr 4 mg PO DAILY montelukast [Singulair] 10 mg Tablet 10 mg PO QPM levothyroxine 200 mcg tablet 200 mcg PO DAILY Rx Instructions: 200mcg -, 400mcg Thursday pregabalin 50 mg Capsule 50 mg PO TID fexofenadine [Janet Allergy] 180 mg Tablet 180 mg PO DAILY albuterol sulfate 90 mcg/actuation Hfa Aerosol Inhaler 2 puff INHALATION Q6H PRN (Reason: SOB) Centrum Silver 0.4-300-250 mg-mcg-mcg Tablet 1 tab PO DAILY cholecalciferol (vitamin D3) [Vitamin D3] 5,000 unit Tablet 5,000 unit PO DAILY warfarin 5 mg tablet 7.5 mg PO DAILY Humalog KwikPen Insulin 100 units See Rx Instructions .ROUTE .COMPLEX Rx Instructions: Per sliding scale >150, 1 Unit per 10 mg/dl blood sugar over 100. Discontinued hydrocodone-acetaminophen 7.5-325 mg tablet 2 tab PO Q4HR PRN (Reason: pain) Follow up/Referrals: Rosi Tam MD [Primary Care Provider] - Miguel Marroquin MD [Physician] - As previously scheduled Diet/Activity/Treatments Diet: Diet as Tolerated and Carb-consistent/Diabetic Activity: You may use your left hand in front of your body below shoulder level to lift 1-2 lb. You may do pendulum exercises. Cold/Heat Therapy: You may apply ice to the left shoulder for 15 minutes every hour as needed for pain control. Skin/Wound/Dressing Care Report to your healthcare provider any signs of infection, such as:: chills, fever, night sweats, increased pain, unusual drainage and unusual redness Dressing: Leave the dressing intact until your postoperative follow-up. You can shower with the dressing in place. If the central strip of the dressing becomes saturated with either water or blood, please call the office to have it evaluated. Visit Report/Discharge Packet Instructions: DI for Shoulder Replacement Stand Alone Forms: Surgery Discharge Discharge Data Primary Care Provider: Rosi Tam Attending Provider: Miguel Marroquin Quality VTE Deep Vein Thrombosis/Pulmonary Embolism Present on Admission: No
[2022-02-20] MEDS: INSULIN LISPRO 100 UNIT/ML 3ML VIAL SUBCUT (08:03)
[2022-02-20] MEDS: DOCUSATE 100 MG CAPSULE PO (08:05)
[2022-02-20] MEDS: PREGABALIN 50 MG CAPSULE PO (08:05)
[2022-02-20] MEDS: OXYBUTYNIN 5 MG ER TAB 10 MG PO (08:07)
[2022-02-20] MEDS: hydroCHLOROthiazide 25 MG TABLET 50 MG PO (08:07)
[2022-02-20] MEDS: LORATADINE 10 MG TABLET PO (08:07)
[2022-02-20] MEDS: MULTIVITAMIN 1 TABLET 1 TAB PO (08:08)
[2022-02-20 08:41] VITALS: BP 127/76; PULSE 78; RESP 18; O2SAT 98
[2022-02-20] MEDS: CHOLECALCIFEROL (VITAMIN D3) 5,000 UNIT TABLET 5000 UNIT PO (09:04)
[2022-02-20] MEDS: WARFARIN 5 MG TABLET 7.5 MG PO (09:04)
--- NOTE | 2022-02-20 09:55 | PT.IPTN ---
Current Diagnoses Other specific arthropathies, not elsewhere classified, left shoulder (02/19/22) Surgery Performed Operation Date: 02/19/22 08:45 Actual Procedures p Total Shoulder Arthroplasty - Reverse(Left) - Miguel Marroquin MD Physical Therapy Treatment Note M2 PT-IP Current Condition Start: 02/19/22 17:18 Freq: NEEDED Status: Discharge Protocol: Document 02/19/22 16:46 AB (Rec: 02/19/22 17:28 AB [email or web address]) Physical Therapy Current Condition Current Condition Evaluation Date 02/19/22 Treatment Diagnosis s/p L TSA reverse; difficulty in walking Onset Date 02/19/22 M3 PT-IP Subjective Start: 02/19/22 17:18 Freq: NEEDED Status: Discharge Protocol: Document 02/20/22 09:55 AB (Rec: 02/20/22 12:18 AB [email or web address]) Subjective Physical Therapy Visit Type Type Treatment Note Visit Start Time 09:55 Visit Stop Time 10:10 Total Visit Minutes 15 Number of BATCH ATTENDANT Visits 0 Physical Therapy Visit Comments Patient Comments agreeable to do PT Therapy Pain Assessment Pain When Pain Assessed At Rest Pain Present Pain Present Pain Reported Location Left Shoulder Intensity 6 Scale Used Numeric (0 - 10) Pain Management Techniques Distraction,Modification of Treatment,Re-positioning, Timing of Activity with Medications M4 PT-IP Mobility and Gait Start: 02/19/22 17:18 Freq: NEEDED Status: Discharge Protocol: Document 02/20/22 09:55 AB (Rec: 02/20/22 12:18 AB [id number]) PT-Transfer Assessment Sit to and From Stand Sit to and from Stand Standby Assistance Equipment Transfer Assistive Device None Orthotic/Prosthetic Devices or Brace: Yes Comments Mobility Comments pt sitting on chair. spouse in room for training. spouse was able to don/doff sling for pt. pt completed elbow/hand/ wrist exercises. attempted pendulum exercise but unable to complete due to c/o pain. spouse assisting pt in room. pt ambulated in room without AD SBA ~ 25 ft with LOB but with recovery. pt stated that she has L hip problems affecting her walking. pt agreed to use a SPC. ambulated with SPC ~ 30 ft SBA with steadier gait. pt sat back on the chair. confirmed steps to get into the house and pt stated that she does not have steps to enter the house. call light and table placed within reach. pt refused to do bed mobility training. Gait Assessment Gait Gait Assistance Required: Standby Assistance Distance (Feet) 30 Able to Maintain Weight Bearing Status Yes During Gait Assistive Devices Assistive Device None,Gait Belt,Straight Cane Orthotic/Prosthetic Devices or Brace: Yes Gait Deviations General Gait Pattern Antalgic,Decreased Stride Length,Decreased Feet Clearance Factors Limiting Gait Function Factors Limiting Gait Function Decreased Activity Tolerance, Decreased Strength,Limited Range of Motion,Pain,Poor Balance M5 PT-IP Objective Assessments Start: 02/19/22 17:18 Freq: NEEDED Status: Discharge Protocol: Document 02/19/22 16:46 AB (Rec: 02/19/22 17:28 AB [email or web address]) Orientation Orientation/Cognition Level of Alertness Alert Orientation Name,Age,Place Language Function Ability No Deficits Noted Safety Awareness Decreased Safety Awareness Memory Description No Deficits Noted Gross Range of Motion Lower Extremity ROM Assessment Within Functional Limits Strength Lower Extremity Strength Hip 4-/5 Knee 4-/5 Sensation Assessment Sensation Sensation Description Numbness Comments Sensation Comments LUE still is numb and has no motor control back yet Muscle Tone Muscle Tone WNL No Comments Muscle Tone Comments LUE still does not have motor control M6 PT-IP Treatment Start: 02/19/22 17:18 Freq: NEEDED Status: Discharge Protocol: Document 02/20/22 09:55 AB (Rec: 02/20/22 12:18 AB [email or web address]) Physical Therapy Treatment Exercises Exercises Shoulder Pendulums,Elbow Flexion/Extension Education Education Provided Precautions,Post-Op Packet, Safety M7 PT-IP Assessment and Plan Start: 02/19/22 17:18 Freq: NEEDED Status: Discharge Protocol: Document 02/20/22 09:55 AB (Rec: 02/20/22 12:18 AB [email or web address]) PT Summary Assessment and Plan Potential Rehabilitation Potential Fair Summary Impairments Pain,ROM,Strength,Balance, Coordination,Sensation,Tone, Cognition,Bed Mobility, Transfers,Gait,Activity Tolerance Progress Towards Goals Slow Progress due to Pain Assessment Summary caregiver training conducted and spouse was able to assist pt safely. pt plans to go home and spouse to assit. Goals Bed Mobility Goal Independent Transfer Goal Independent Gait Goal Independent Gait Distance 150 Other Goals up/down 1 step without AD SBA Days to Meet Goals 5 Frequency of Treatment Frequency Of Treatment Twice a Day Treatment Plan Physical Therapy Treatment Plan Bed Mobility Training,Transfer Training,Gait Training, Therapeutic Exercise,Balance Retraining,Post Op Education, Discharge Planning,Hot or Cold Pack,Neuromuscular Re-ed, Coordination Retraining,Manual Therapy Precautions Shoulder Precautions Sling,PROM,Internal Rotation to Body,No External Rotation, No Abduction,Forward Flexion to 90 degrees,Pendulums Weight Bearing Status Weight Bearing Status Non-Weight Bearing Allowed Weight Bearing Amount (enter % LUE NWB or #) (%) Recommendations To Nursing Amount of Assist Needed 1 Person Assist Discharge Recommendations PT Discharge Recommendations Home with Assistance,Home with / Assist Available,Home Health,Outpatient PT Transportation Needs at Discharge Private Vehicle,Wheelchair/ Cabulance
--- NOTE | 2022-02-20 13:54 | CM.IDA ---
Initial DCP Assessment Note Pt is a 71 yo female, resident of [place], now POD#1 [address] shoulder surgery [address] Dr Marroquin PCP: Rosi Tam Payer: [facility] Reviewed chart, pt discussed in multidisciplinary rounds this morning. Therapy has cleared pt for return home w/family to assist and pt has planned for home, DC order from Ortho has already been initiated this morning. No barriers identified at this time to patient's safe discharge home w/family to assist; close outpatient f/u recommended. MARCELINO Bhatia
== END 2022-02-20 10:32 | disposition home or self-care (01) ==
LOC: OR 06:40 → AC 06:41
PROVIDERS: PCP Internal Medicine; Referring Provider Internal Medicine; Visit Provider Orthopaedic Surgery
PROC: (CPT 23472; principal; 2022-02-19 08:45)
DX: M12.812 Other specific arthropathies, not elsewhere classified, left shoulder (principal); M75.122 Complete rotator cuff tear or rupture of left shoulder, not specified as traumatic; D50.0 Iron deficiency anemia secondary to blood loss (chronic); G89.18 Other acute postprocedural pain; Z20.822 Contact with and (suspected) exposure to COVID-19
CPT/HCPCS: 23472; 36415; 64415; 73020; 82962; 85014; 85018; 85610; 87635; 97162; 97530; C1776; C9803; J0690; J1100; J1815; J2250; J2405; J2704; J3010

== ENCOUNTER 2022-08-27 20:01 | Inpatient (IN) | payer MEDICARE, OTHER, SELFPAY ==
[2022-02-19 12:10] VITALS: BMI 39.6
[2022-08-27] VITALS (10 sets, daily range): BP systolic 138–209; BP diastolic 62–105; PULSE 95–105; RESP 17–20; TEMP 38; O2SAT 92–100; BMI 41.4
--- NOTE | 2022-08-27 20:08 | DI.RAD.S_ITS ---
PROCEDURE: XR CHEST 1V INDICATIONS: sepsis, altered TECHNIQUE: One view of the chest was acquired. COMPARISON: [facility], CR, XR CHEST 1V, 10/01/2021, 16:44. FINDINGS: Surgical changes and devices: Left shoulder arthroplasty. Lungs and pleura: Lungs are clear. No pleural effusions or pneumothorax. Mediastinum: Mediastinal contours appear normal. Heart size is mildly prominent. Bones and chest wall: No suspicious bony lesions. Overlying soft tissues appear unremarkable. IMPRESSION: No acute pulmonary process. Dictated by: Ami Calvillo M.D. on 08/27/2022 at 20:45 Approved by: Ami Calvillo M.D. on 08/27/2022 at 20:45
--- NOTE | 2022-08-27 20:10 | ED.GENADULT ---
HPI - General Adult General Chief complaint: Neuro Symptoms/Deficit Stated complaint: Confused Time Seen by Provider: 08/27/22 20:03 History of Present Illness HPI narrative: 71-year-old female nonsmoker with a history of an unknown immune compromise state, prior Christine-en-Y gastric bypass, bowel obstructions, large chronic ventral hernia, type 2 diabetes, hypertension, hypothyroid, asthma, DVT on warfarin presents by EMS for progressive confusion developing over the course of the day. Per the patient and there is no recent trauma or injury. She was in her normal state of health yesterday and dermatology placed her on amoxicillin for the treatment of a potential cellulitis in her groin. She is had fever chills and tachycardia. She denies any headaches or blurred vision. She denies runny nose, sore throat or cough. She denies any chest pain or shortness of breath. She denies dysuria, frequency or urgency. Related Data Home Medications Medication Instructions Recorded Confirmed albuterol sulfate 90 mcg/actuation 2 puff inhalation Q6H PRN SOB 10/26/18 08/28/22 aerosol inhaler cholecalciferol (vitamin D3) 125 5,000 unit PO BEDTIME 10/26/18 08/28/22 mcg (5,000 unit) tablet (Vitamin D3) fexofenadine 180 mg tablet 180 mg PO DAILY 10/26/18 08/28/22 (Janet Allergy) hydrochlorothiazide 50 mg tablet 50 mg PO DAILY 10/26/18 08/28/22 levothyroxine 200 mcg tablet See Rx Instructions .Route .COMPLEX 10/26/18 08/28/22 montelukast 10 mg tablet 10 mg PO DAILY 10/26/18 08/28/22 (Singulair) taxqdyuu-myx-ajgfo acid 0.4 1 tab PO DAILY 10/26/18 08/28/22 mg-lycopene 300 mcg-lutein 250 mcg tablet (Centrum Silver) pregabalin 50 mg capsule 50 mg PO TID 10/26/18 08/28/22 warfarin 5 mg tablet 7.5 mg PO DAILY 03/01/19 08/28/22 Humalog KwikPen Insulin See Rx Instructions .Route .COMPLEX 11/14/19 08/28/22 Ferritin 1 tab PO DAILY 08/28/22 08/28/22 Premier Liquid Protein See Rx Instructions .Route .COMPLEX 08/28/22 08/28/22 Triseba See Rx Instructions .Route .COMPLEX 08/28/22 08/28/22 Trulisity See Rx Instructions .Route .COMPLEX 08/28/22 08/28/22 acetaminophen 325 mg tablet 650 mg PO Q6HR PRN Pain (Scale 08/28/22 08/28/22 Score 1-3) cyclobenzaprine 10 mg tablet 10 mg PO TID PRN spasms 08/28/22 08/28/22 diphenhydramine HCl 25 mg capsule 25 - 50 mg PO TID PRN Allergy 08/28/22 08/28/22 (Benadryl) Symptoms docusate sodium 100 mg capsule 100 mg PO DAILY PRN Constipation 08/28/22 08/28/22 (Dulcolax Stool Softener (docusate)) ferrous gluconate 225 mg (27 mg 225 mg PO DAILY 08/28/22 08/28/22 iron) tablet fluticasone propionate 50 1 spray intranasal DAILY 08/28/22 08/28/22 mcg/actuation nasal spray,suspension hydrocodone 7.5 mg-acetaminophen 1 tab PO Q4-6H PRN Pain (Scale 08/28/22 08/28/22 325 mg tablet Score 4-6) tolterodine 4 mg capsule,extended 4 mg PO DAILY 08/28/22 08/28/22 release 24 hr (Detrol LA) vitamin B complex 1 tab PO DAILY 08/28/22 08/28/22 Allergies Allergy/AdvReac Type Severity Reaction Status Date / Time cefamandole [From Mandol] AdvReac Hives Verified 02/19/22 08:05 clindamycin AdvReac Verified 02/19/22 08:05 heparin AdvReac Verified 02/19/22 08:05 meperidine [From Demerol] AdvReac Verified 02/19/22 08:05 naproxen AdvReac Verified 02/19/22 08:05 NSAIDS (Non-Steroidal AdvReac Verified 02/19/22 08:05 Anti-Inflamma promethazine [From Phenergan] AdvReac Verified 02/19/22 08:05 rofecoxib [From Vioxx] AdvReac Verified 02/19/22 08:05 sulfamethoxazole AdvReac Verified 02/19/22 08:05 [From Septra] trimethoprim [From ] AdvReac Verified 02/19/22 08:05 Review of Systems Review of Systems ROS Unobtainable: Unobtainable due to mental status/LOC Patient History Medical History (Updated 08/28/22 @ 01:17 by Gabo Bear DO) Anticoagulated on Coumadin Bilateral leg edema Diabetes Heparin induced thrombocytopenia (HIT) Joint infection Kidney stones Lymphedema of both lower extremities Morbid obesity Osteomyelitis Pyelonephritis Venous stasis dermatitis of both lower extremities Ventral hernia Surgical History Hip replacement planned History of ankle fusion History of History of carpal tunnel repair History of cholecystectomy History of hysterectomy History of Christine-en-Y gastric bypass History of total knee arthroplasty History of total left hip arthroplasty History of ureter stent Social History marital status: household members: spouse and family Smoking Status: Never smoker alcohol intake: current Smoking Status: Never smoker alcohol intake frequency: holidays/special occasions only Alcohol type: wine Substance Use Type: does not use Exam Narrative Exam Narrative: GENERAL: [71] year old patient appears stated age. Well-developed patient, in mild distress. Confused, GCS 14. Unaware of location or date. HEAD: Atraumatic. Normocephalic. EYES: Pupils equal round and reactive. Extraocular motions intact. No scleral icterus. No injection or drainage. ENT: Nose without bleeding, purulent drainage. Throat without erythema, tonsillar hypertrophy or exudate. Airway patent. NECK: Trachea midline. Non tender CARDIOVASCULAR: Tachycardic but regular rhythm without murmurs, gallops, or rubs. RESPIRATORY: Clear to auscultation. Breath sounds equal bilaterally. No wheezes, rales, or rhonchi. GASTROINTESTINAL: Abdomen soft, large ventral hernia, nontender, no overlying erythema or warmth EXTREMITIES: No swelling, erythema or obvious effusion of bilateral knees, patient does report history of prior septic hardware in left knee requiring surgical intervention BACK: Nontender without deformity or crepitance. No flank tenderness. NEURO: AOx1 SKIN: No rash or erythema of visible areas Initial Vital Signs Initial Vital Signs: Vital Signs Temperature 100.4 F H 08/27/22 20:09 Pulse Rate 105 H 08/27/22 20:09 Respiratory Rate 20 28/23 20:09 Blood Pressure 174/74 H 08/27/22 20:09 Pulse Oximetry 100 08/27/22 20:09 Oxygen Delivery Method Room Air 08/27/22 20:09 Course Orders Ordered: ED Orders 08/27/22 20:08 XR chest 1V Stat EKG-12 Lead Stat 08/27/22 20:10 Acetaminophen Stat Complete Blood Count AUTO DIFF Stat Comprehensive Metabolic Panel Stat Lactate (Lactic Acid) Stat NT-proBNP (BNP-Adult 18+) Stat Procalcitonin Stat Salicylate Stat Troponin & CK Cardiac Panel Stat 08/27/22 20:23 Creatinine Urine Random Stat Sodium Urine Random Stat Urinalysis and Microscopic Stat Urine Drug Screen, Rapid Stat 08/27/22 20:28 Blood Culture Stat 08/27/22 21:11 CT chest abd pel wo con Stat CT head/brain wo con Stat 08/27/22 21:20 Respiratory Panel (Film Array) Stat Hydrocodone Bitart/Acetaminophen (Hydrocodone/Acet 5/325 Tablet) 2 tab PO Q4HR PRN PRN Reason: Pain, Severe (7-10) Albuterol (Albuterol 2.5 Mg/3 Ml Neb (Adult)) 2.5 mg INH [id number] RIGOBERTO Calcium Carbonate (Calcium Carbonate 500 Mg Tab) 1,000 mg PO Q4HR PRN PRN Reason: Dyspepsia Dextrose/Sodium Chloride (Dextrose 5%-0.45% Ns) 1,000 mls @ 100 mls/hr IV CONT RIGOBERTO Ceftriaxone Sodium 2,000 mg/ (Sodium Chloride) 100 mls @ 200 mls/hr IV Q24H RIGOBERTO Levothyroxine Sodium (Levothyroxine 100 Mcg Tablet) 0 mcg PO .COMPLEX RIGOBERTO Montelukast Sodium (Montelukast 10 Mg Tablet) 10 mg PO DAILY RIGOBERTO Naloxone HCl (Naloxone 0.4 Mg/Ml Vial) 0.2 mg IV Q2MIN PRN PRN Reason: Opiate Reversal Non-Formulary Medication (Fexofenadine [Janet Allergy]) 180 mg PO DAILY [facility] Ondansetron HCl (Ondansetron 4 Mg/2 Ml Inj) 4 mg IV Q8HR PRN PRN Reason: Nausea And Vomiting Pregabalin (Pregabalin 50 Mg Capsule) 50 mg PO TID [facility] Sennosides (Sennosides 8.6 Mg Tablet) 17.2 mg PO BEDTIME RIGOBERTO Vitamin D (Cholecalciferol (Vitamin D3) 5,000 Unit Tablet) 5,000 unit PO BEDTIME RIGOBERTO Warfarin Sodium (Warfarin 5 Mg Tablet) 7.5 mg PO DAILY RIGOBERTO Discontinued Medications Hydrocodone Bitart/Acetaminophen (Hydrocodone/Acet 5/325 Tablet) 1 tab PO Q4H PRN PRN Reason: Pain, Moderate (4-6) Sodium Chloride (Normal Saline 0.9%) 1,848 mls @ 616 mls/hr 30 ml/kg infuse over 3 hr (1848 ml) IV NOW ONE Stop: 08/27/22 23:20 Last Infusion: 08/28/22 00:02 Dose: 0 mls/hr Documented By: Infusion: 08/27/22 21:40 Dose: 616 mls/hr Documented By: Infusion: 08/27/22 21:23 Dose: 0 mls/hr Documented By: Admin: 08/27/22 20:35 Dose: 616 mls/hr Documented By: HETAL Levofloxacin (Levaquin) 750 mg in 150 mls @ 100 mls/hr IV NOW ONE Stop: 08/27/22 21:51 Last Infusion: 08/27/22 23:03 Dose: 0 mls/hr Documented By: Infusion: 08/27/22 21:40 Dose: 100 mls/hr Documented By: Infusion: 08/27/22 21:23 Dose: 0 mls/hr Documented By: Admin: 08/27/22 21:06 Dose: 100 mls/hr Documented By: HETAL Reevaluation(s) Reevaluation #1: patient more alert now, answering questions much more clearly. Vitals have improved. Still confused about year and thinks it is 2011 Reevaluation #2: strongly recommended LP given fever, confusion, and lack of other obvious source. Patient very strongly refuses, stating she has had very bad experiences in the past. Lengthy discussion with patient and and she understands the risks/benefits. She states she understands the risk includes permanent disability, severe sepsis, seizures, and even . She states that she would consider allowing it if we discuss with her doctor in [place]. call to Dr. Acuna ([place]). He knows patient quite well. States she has had these presentations multiple times in the past and typically source is dermatologic. She has been on suppressive cephalosporins and penicllins in the past. He would recommend Ceftriaxone, fluids. Does not think LP is necessary. Vital Signs Vital signs: Vital Signs - 8 hr 08/27/22 20:09 08/27/22 20:30 08/27/22 20:10 Temperature 100.4 F H Pulse Rate 105 H 104 H 103 H Respiratory Rate 20 20 Blood Pressure 174/74 H 193/88 H Pulse Oximetry 100 99 99 Oxygen Delivery Method Room Air Room Air 08/27/22 20:45 08/27/22 21:10 08/27/22 21:50 Temperature Pulse Rate 99 H 95 H 103 H Respiratory Rate 20 20 20 Blood Pressure 140/105 H 209/79 H Pulse Oximetry 98 97 92 Oxygen Delivery Method Room Air Room Air 08/27/22 22:20 08/27/22 22:30 08/27/22 23:00 Temperature Pulse Rate 99 H 99 H 100 H Respiratory Rate 17 17 18 Blood Pressure 175/73 H 138/62 142/64 H Pulse Oximetry 98 98 97 Oxygen Delivery Method Room Air Room Air Room Air 08/27/22 23:30 Temperature Pulse Rate 98 H Respiratory Rate 17 Blood Pressure 152/64 H Pulse Oximetry 95 Oxygen Delivery Method Room Air Medical Decision Making Lab Data 08/27/22 20:10 08/27/22 20:10 Labs: Lab Results 08/27/22 08/27/22 08/27/22 Range/Units 20:10 20:10 20:10 WBC 12.5 H (4.5-11.0) X10^3/uL RBC 3.76 L (4.0-5.2) X10^6/uL Hgb 11.3 L (12.0-16.0) g/dL Hct 32.9 L (36-46) % MCV 87.5 (80-100) fL MCH 30.1 (26-34) PG MCHC 34.4 (30-36) % RDW 13.3 (11.6-14.8) % Plt Count 200 (150-400) X10^3/uL Neut % (Auto) 86.6 H (50-75) % Lymph % (Auto) 6.6 L (25-40) % [place] % (Auto) 5.7 (3-14) % Eos % (Auto) 0.7 L (2-4) % Baso % (Auto) 0.4 (0-2) % Neut # (Auto) 93385 H (3981-6308) /uL Lymph # (Auto) 800 L (2021-6835) /uL [place] # (Auto) 700 (0-900) /uL Eos # (Auto) 100 (0-450) /uL Baso # (Auto) 100 (0-100) /uL Sodium 136 L (137-145) mmol/L Potassium 4.0 (3.4-5.1) mmol/L Chloride 102 (98-107) mmol/L Carbon Dioxide 25 (22-32) mmol/L BUN 43 H (7-17) mg/dL Creatinine 1.87 H (0.52-1.04) mg/dL Estimated GFR 28 L (>60) mL/min BUN/Creatinine Ratio 23.0 H (6-22) Glucose 105 (80-110) mg/dL Lactate 0.8 (0.7-2.1) mmol/L Calcium 8.5 (8.4-10.2) mg/dL Total Bilirubin 0.5 (0.2-1.3) mg/dL AST 27 (14-36) IU/L ALT 24 (<35) IU/L Alkaline Phosphatase 83 (38-126) U/L Total Creatine Kinase 52 (30-135) U/L CK-MB (CK-2) TNP CK-MB (CK-2) Rel Index TNP Troponin I < 0.012 (0.01-0.034) ng/mL NT-Pro-B Natriuret Pep 383 H (<125) pg/mL Total Protein 7.4 (6.3-8.2) g/dL Albumin 3.9 (3.5-5.0) g/dL Globulin 3.5 (1.7-4.1) g/dL Albumin/Globulin Ratio 1.1 (1.0-2.8) Procalcitonin 0.16 (<0.5) ng/mL Urine Color Urine Appearance Urine pH (4.5-8.0) Ur Specific [place] (1.000-1.035) Urine Protein (Negative) Urine Glucose (UA) (Negative) g/dL Urine Ketones (NEGATIVE) Urine Occult Blood (Negative) Urine Nitrate (Negative) Urine Bilirubin (NEGATIVE) Urine Urobilinogen (0.2) E.U./dL Ur Leukocyte Esterase (NEGATIVE) Urine RBC (0-5/HPF) Urine WBC (0-5/HPF) Ur Squamous Epith Cells (0-5/HPF) Urine Bacteria (None) Ur Culture Indicated? Ur Random Sodium (30-90) mmol/L Urine Creatinine mg/dL Salicylates (<20) mg/dL U Opiates 300ng/mL cut (Negative) Ur Oxycodone Screen (Negative) Urine Methadone Screen (Negative) Acetaminophen (10-30) ug/mL Ur Barbiturates Screen (Negative) U Tricyclic Antidepress (Negative) Ur Phencyclidine Scrn (Negative) Ur Amphetamines Screen (Negative) U Methamphetamines Scrn (Negative) Ur MDMA Scrn (Ecstasy) (Negative) U Benzodiazepines Scrn (Negative) Urine Cocaine Screen (Negative) U Marijuana (THC) Screen (Negative) Chlamy pneumoniae PCR (Not Detect) Adenovirus (PCR) (Not Detect) B. pertussis DNA (PCR) (Not Detecte) B.parapertussis DNA PCR (Not Detecte) Coronavirus OC43 (PCR) (Not Detect) Coronavirus HKU1 (PCR) (Not Detect) Coronavirus 229E (PCR) (Not Detect) SARS-CoV-2 (PCR) (Not Detecte) Coronavirus NL63 (PCR) (Not Detect) Human Metapneumovir PCR (Not Detect) Influenza Type A (PCR) (Not Detect) Influenza Type B (PCR) (Not Detect) M. pneumoniae (PCR) (Not Detect) Parainfluenza 1 (PCR) (Not Detect) Parainfluenza 2 (PCR) (Not Detect) Parainfluenza 3 (PCR) (Not Detect) Parainfluenza 4 (PCR) (Not Detect) RSV (PCR) (Not Detect) Entero/Rhino (PCR) (Not Detect) 08/27/22 08/27/22 08/27/22 Range/Units 20:10 20:23 20:23 WBC (4.5-11.0) X10^3/uL RBC (4.0-5.2) X10^6/uL Hgb (12.0-16.0) g/dL Hct (36-46) % MCV (80-100) fL MCH (26-34) PG MCHC (30-36) % RDW (11.6-14.8) % Plt Count (150-400) X10^3/uL Neut % (Auto) (50-75) % Lymph % (Auto) (25-40) % [place] % (Auto) (3-14) % Eos % (Auto) (2-4) % Baso % (Auto) (0-2) % Neut # (Auto) (2125-8192) /uL Lymph # (Auto) (6412-0039) /uL [place] # (Auto) (0-900) /uL Eos # (Auto) (0-450) /uL Baso # (Auto) (0-100) /uL Sodium (137-145) mmol/L Potassium (3.4-5.1) mmol/L Chloride (98-107) mmol/L Carbon Dioxide (22-32) mmol/L BUN (7-17) mg/dL Creatinine (0.52-1.04) mg/dL Estimated GFR (>60) mL/min BUN/Creatinine Ratio (6-22) Glucose (80-110) mg/dL Lactate (0.7-2.1) mmol/L Calcium (8.4-10.2) mg/dL Total Bilirubin (0.2-1.3) mg/dL AST (14-36) IU/L ALT (<35) IU/L Alkaline Phosphatase (38-126) U/L Total Creatine Kinase (30-135) U/L CK-MB (CK-2) CK-MB (CK-2) Rel Index Troponin I (0.01-0.034) ng/mL NT-Pro-B Natriuret Pep (<125) pg/mL Total Protein (6.3-8.2) g/dL Albumin (3.5-5.0) g/dL Globulin (1.7-4.1) g/dL Albumin/Globulin Ratio (1.0-2.8) Procalcitonin (<0.5) ng/mL Urine Color Yellow Urine Appearance Clear Urine pH 5.5 (4.5-8.0) Ur Specific [place] 1.020 (1.000-1.035) Urine Protein Trace H (Negative) Urine Glucose (UA) Negative (Negative) g/dL Urine Ketones Negative (NEGATIVE) Urine Occult Blood Trace-intact (Negative) Urine Nitrate Negative (Negative) Urine Bilirubin Negative (NEGATIVE) Urine Urobilinogen 0.2 (0.2) E.U./dL Ur Leukocyte Esterase Negative (NEGATIVE) Urine RBC None seen (0-5/HPF) Urine WBC 1-5/hpf (0-5/HPF) Ur Squamous Epith Cells 1-5 /hpf (0-5/HPF) Urine Bacteria None seen (None) Ur Culture Indicated? Cult not indicated Ur Random Sodium 101 H (30-90) mmol/L Urine Creatinine 58.4 mg/dL Salicylates < 1.0 (<20) mg/dL U Opiates 300ng/mL cut (Negative) Ur Oxycodone Screen (Negative) Urine Methadone Screen (Negative) Acetaminophen < 10 (10-30) ug/mL Ur Barbiturates Screen (Negative) U Tricyclic Antidepress (Negative) Ur Phencyclidine Scrn (Negative) Ur Amphetamines Screen (Negative) U Methamphetamines Scrn (Negative) Ur MDMA Scrn (Ecstasy) (Negative) U Benzodiazepines Scrn (Negative) Urine Cocaine Screen (Negative) U Marijuana (THC) Screen (Negative) Chlamy pneumoniae PCR (Not Detect) Adenovirus (PCR) (Not Detect) B. pertussis DNA (PCR) (Not Detecte) B.parapertussis DNA PCR (Not Detecte) Coronavirus OC43 (PCR) (Not Detect) Coronavirus HKU1 (PCR) (Not Detect) Coronavirus 229E (PCR) (Not Detect) SARS-CoV-2 (PCR) (Not Detecte) Coronavirus NL63 (PCR) (Not Detect) Human Metapneumovir PCR (Not Detect) Influenza Type A (PCR) (Not Detect) Influenza Type B (PCR) (Not Detect) M. pneumoniae (PCR) (Not Detect) Parainfluenza 1 (PCR) (Not Detect) Parainfluenza 2 (PCR) (Not Detect) Parainfluenza 3 (PCR) (Not Detect) Parainfluenza 4 (PCR) (Not Detect) RSV (PCR) (Not Detect) Entero/Rhino (PCR) (Not Detect) 08/27/22 08/27/22 Range/Units 20:23 21:20 WBC (4.5-11.0) X10^3/uL RBC (4.0-5.2) X10^6/uL Hgb (12.0-16.0) g/dL Hct (36-46) % MCV (80-100) fL MCH (26-34) PG MCHC (30-36) % RDW (11.6-14.8) % Plt Count (150-400) X10^3/uL Neut % (Auto) (50-75) % Lymph % (Auto) (25-40) % [place] % (Auto) (3-14) % Eos % (Auto) (2-4) % Baso % (Auto) (0-2) % Neut # (Auto) (0573-7358) /uL Lymph # (Auto) (8632-5716) /uL [place] # (Auto) (0-900) /uL Eos # (Auto) (0-450) /uL Baso # (Auto) (0-100) /uL Sodium (137-145) mmol/L Potassium (3.4-5.1) mmol/L Chloride (98-107) mmol/L Carbon Dioxide (22-32) mmol/L BUN (7-17) mg/dL Creatinine (0.52-1.04) mg/dL Estimated GFR (>60) mL/min BUN/Creatinine Ratio (6-22) Glucose (80-110) mg/dL Lactate (0.7-2.1) mmol/L Calcium (8.4-10.2) mg/dL Total Bilirubin (0.2-1.3) mg/dL AST (14-36) IU/L ALT (<35) IU/L Alkaline Phosphatase (38-126) U/L Total Creatine Kinase (30-135) U/L CK-MB (CK-2) CK-MB (CK-2) Rel Index Troponin I (0.01-0.034) ng/mL NT-Pro-B Natriuret Pep (<125) pg/mL Total Protein (6.3-8.2) g/dL Albumin (3.5-5.0) g/dL Globulin (1.7-4.1) g/dL Albumin/Globulin Ratio (1.0-2.8) Procalcitonin (<0.5) ng/mL Urine Color Urine Appearance Urine pH (4.5-8.0) Ur Specific [place] (1.000-1.035) Urine Protein (Negative) Urine Glucose (UA) (Negative) g/dL Urine Ketones (NEGATIVE) Urine Occult Blood (Negative) Urine Nitrate (Negative) Urine Bilirubin (NEGATIVE) Urine Urobilinogen (0.2) E.U./dL Ur Leukocyte Esterase (NEGATIVE) Urine RBC (0-5/HPF) Urine WBC (0-5/HPF) Ur Squamous Epith Cells (0-5/HPF) Urine Bacteria (None) Ur Culture Indicated? Ur Random Sodium (30-90) mmol/L Urine Creatinine mg/dL Salicylates (<20) mg/dL U Opiates 300ng/mL cut Positive H (Negative) Ur Oxycodone Screen Negative (Negative) Urine Methadone Screen Negative (Negative) Acetaminophen (10-30) ug/mL Ur Barbiturates Screen Negative (Negative) U Tricyclic Antidepress Positive H (Negative) Ur Phencyclidine Scrn Negative (Negative) Ur Amphetamines Screen Negative (Negative) U Methamphetamines Scrn Negative (Negative) Ur MDMA Scrn (Ecstasy) Negative (Negative) U Benzodiazepines Scrn Negative (Negative) Urine Cocaine Screen Negative (Negative) U Marijuana (THC) Screen Negative (Negative) Chlamy pneumoniae PCR Not detected (Not Detect) Adenovirus (PCR) Not detected (Not Detect) B. pertussis DNA (PCR) Not detected (Not Detecte) B.parapertussis DNA PCR Not detected (Not Detecte) Coronavirus OC43 (PCR) Not detected (Not Detect) Coronavirus HKU1 (PCR) Not detected (Not Detect) Coronavirus 229E (PCR) Not detected (Not Detect) SARS-CoV-2 (PCR) Not detected (Not Detecte) Coronavirus NL63 (PCR) Not detected (Not Detect) Human Metapneumovir PCR Not detected (Not Detect) Influenza Type A (PCR) Not detected (Not Detect) Influenza Type B (PCR) Not detected (Not Detect) M. pneumoniae (PCR) Not detected (Not Detect) Parainfluenza 1 (PCR) Not detected (Not Detect) Parainfluenza 2 (PCR) Not detected (Not Detect) Parainfluenza 3 (PCR) Not detected (Not Detect) Parainfluenza 4 (PCR) Not detected (Not Detect) RSV (PCR) Not detected (Not Detect) Entero/Rhino (PCR) Not detected (Not Detect) Critical Care Time Critical Care Time Critical Care Time: Yes Total Critical Care Time: 30 Attestation: The high probability of a clinically significant, sudden or life threatening deterioration of the [CV] system(s) required my full and direct attention, intervention and personal management. The aggregate critical care time was [30] minutes. This time is in addition to time spent performing reported procedures but includes the following: [x] Data Review and interpretation [x] Patient assessment and monitoring of vital signs [x Documentation [x Medication orders and management Discharge Plan Departure Patient Disposition: Admitted As Inpatient Clinical Impression: Sepsis, Acute metabolic encephalopathy Admit Date/Time: 08/27/22 23:37 Admit Provider: Domenico Cyr
[2022-08-27 20:25] LABS: Add Manual Diff / Slide Review NO; Basophils Absolute Auto 100 /uL (0-100); Basophils Percent Auto 0.4 % (0-2); Eosinophils Absolute Auto 100 /uL (0-450); Eosinophils Percent Auto 0.7 % (2-4); Hematocrit 32.9 % (36-46); Hemoglobin 11.3 g/dL (12.0-16.0); Lymphocytes Absolute Auto 800 /uL (1100-4500); Lymphocytes Percent Auto 6.6 % (25-40); Mean Corpuscular HGB Conc 34.4 % (30-36); Mean Corpuscular Hemoglobin 30.1 PG (26-34); Mean Corpuscular Volume 87.5 fL (80-100); Monocytes Absolute Auto 700 /uL (0-900); Monocytes Percent Auto 5.7 % (3-14); Neutrophils Absolute Auto 10800 /uL (1500-7000); Neutrophils Percent Auto 86.6 % (50-75); Platelet Count 200 X10^3/uL (150-400); Red Blood Cell Count 3.76 X10^6/uL (4.0-5.2); Red Cell Distribution Width 13.3 % (11.6-14.8); White Blood Cell Count 12.5 X10^3/uL (4.5-11.0)
[2022-08-27 20:34] LABS: Appearance Urine UA CLEAR; Bilirubin Urine UA NEGATIVE (NEGATIVE); Color Urine UA YELLOW; Glucose Urine UA NEGATIVE (Negative); Ketones Urine UA NEGATIVE (NEGATIVE); Leukocyte Esterase Urine UA NEGATIVE (NEGATIVE); Nitrite Urine UA NEGATIVE (Negative); Occult Blood Urine UA TRACE-INTACT (Negative); Protein Urine UA TRACE (Negative); Urobilinogen Urine UA 0.2 E.U./dL (0.2)
[2022-08-27] MEDS: SODIUM CHLORIDE 0.9% 616 ML IV (20:35)
[2022-08-27 20:36] LABS: Lactate (Lactic Acid) 0.8 mmol/L (0.7-2.1)
[2022-08-27 20:37] LABS: Alanine Aminotransferase 24 IU/L (<35); Albumin 3.9 g/dL (3.5-5.0); Albumin Globulin Ratio 1.1 (1.0-2.8); Alkaline Phosphatase 83 U/L (38-126); Aspartate Aminotransferase 27 IU/L (14-36); Bilirubin Total 0.5 mg/dL (0.2-1.3); Blood Urea Nitrogen 43 mg/dL (7-17); Calcium 8.5 mg/dL (8.4-10.2); Carbon Dioxide 25 mmol/L (22-32); Chloride 102 mmol/L (98-107); Creatine Kinase 52 U/L (30-135); Estimated Glomerular Filt Rate 28 mL/min (>60); Globulin 3.5 g/dL (1.7-4.1); Glucose 105 mg/dL (80-110); HEMOLYSIS < 15 (0-50); Sodium 136 mmol/L (137-145); Total Protein 7.4 g/dL (6.3-8.2)
[2022-08-27 20:41] LABS: pH Urine UA 5.5 (4.5-8.0)
[2022-08-27 20:48] LABS: NT-proBNP (BNP-Adult 18+) 383 pg/mL (<125); Troponin I < 0.012 ng/mL (0.01-0.034)
[2022-08-27 20:50] LABS: Bacteria Urine None Seen; Culture Indicated Urine Cult Not Indicated; RBC Urine None Seen (0-5/HPF); Squamous Epithelial Cell Urine 1-5 /HPF (0-5/HPF); WBC Urine 1-5/HPF (0-5/HPF)
[2022-08-27 20:52] LABS: Procalcitonin 0.16 ng/mL (<0.5)
[2022-08-27] MEDS: levoFLOXacin 750 MG/150 ML PIGGYBACK 100 MG IV (21:06)
--- NOTE | 2022-08-27 21:11 | DI.CT.S_ITS ---
PROCEDURE: CT HEAD/BRAIN WO CON INDICATIONS: altered mental status TECHNIQUE: Noncontrast 4.5 mm thick angled axial sections acquired from the foramen magnum to the vertex, with coronal and sagittal reformats. For radiation dose reduction, the following was used: automated exposure control, adjustment of mA and/or kV according to patient size. COMPARISON: [facility], CT, CT HEAD/BRAIN WO CON, 10/26/2018, 19:51. FINDINGS: Image quality: Motion is present portions of the exam. CSF spaces: Basal cisterns are patent. No extra-axial fluid collections. The ventricles are symmetric in size and shape. Brain: No intracranial bleeds or masses. There is cerebral volume loss for age, with resultant ventricular and sulcal prominence. There are periventricular and deep white matter chronic small vessel ischemic changes. There is intracranial internal carotid artery atherosclerosis. Skull and face: Calvarium and visualized facial bones appear intact, without suspicious lesions. Sinuses: Visualized sinuses and mastoids are clear. IMPRESSION: 1. No acute intracranial process. 2. Mild atrophy and chronic microvascular ischemic changes. Dictated by: Ami Calvillo M.D. on 08/27/2022 at 22:02 Approved by: Ami Calvillo M.D. on 08/27/2022 at 22:03
--- NOTE | 2022-08-27 21:11 | DI.CT.S_ITS ---
PROCEDURE: CT CHEST ABD PEL WO CON INDICATIONS: sepsis, altered TECHNIQUE: After the administration of oral contrast, 5 mm thick sections acquired from the lung apices to the symphysis pubis. 5 mm thick coronal and sagittal reformats acquired, with additional 7 mm coronal MIP reformats through the lungs. For radiation dose reduction, the following was used: automated exposure control, adjustment of mA and/or kV according to patient size. COMPARISON: [facility], CT, CT ABDOMEN PELVIS W CON, 10/01/2021, 12:11. FINDINGS: Image quality: Portions of the lower pelvis are suboptimally evaluated secondary to metallic streak artifact from shoulder and bilateral hip arthroplasty. CHEST: Lungs and pleura: No acute pulmonary opacities. No pleural effusions or pneumothorax. Central and peripheral airways are patent are normal in caliber. Mediastinum: Heart size is normal. No pericardial effusion. No mediastinal adenopathy by CT size criteria. Thoracic aorta and central pulmonary arteries are normal in size. Esophagus is normal in caliber. Mild hiatal hernia. Chest wall: No axillary or supraclavicular adenopathy by size criteria. Thyroid gland is unremarkable . ABDOMEN: Solid organs: Liver is normal in size. Gallbladder has been removed . Pancreas is normal in contours. Spleen is normal in size. No adrenal nodules. Both kidneys are mildly atrophic. Punctate nonobstructing bilateral renal calculi. without hydronephrosis or nephrolithiasis. Peritoneum and bowel: Small and large bowel loops are normal in caliber and wall thickness. No free fluid or air. Scattered stool obstruction. Nodes and vessels: No retroperitoneal or mesenteric adenopathy by size criteria. Aorta and inferior vena cava are normal in size. Miscellaneous: Bowel containing ventral hernia incarceration or strangulation. PELVIS: Genitourinary: Bladder wall thickness is normal. Miscellaneous: No inguinal hernias or adenopathy. Bones: No suspicious bony lesions. No vertebral body compression fractures. IMPRESSION: Scattered colonic stool without obstruction. No abscess. Dictated by: Ami Calvillo M.D. on 08/27/2022 at 22:03 Approved by: Ami Calvillo M.D. on 08/27/2022 at 22:06
[2022-08-27 21:31] LABS: Acetaminophen < 10 ug/mL (10-30); Salicylate < 1.0 mg/dL (<20)
[2022-08-27 21:35] LABS: UR Morphine/Opiate cutoff 300 Positive (Negative); Ur Creatinine Normal (Normal); Ur Specific Gravity Normal (Normal); Urine Amphetamines Negative (Negative); Urine Barbiturates Negative (Negative); Urine Benzodiazepines Negative (Negative); Urine Cocaine Negative (Negative); Urine MDMA Negative (Negative); Urine Methadone Negative (Negative); Urine Methamphetamines Negative (Negative); Urine Oxycodone Negative (Negative); Urine Phencyclidine Negative (Negative); Urine Tetrahydrocannabinol Negative (Negative); Urine Tricyclic Antidepressant Positive (Negative); Urine pH Normal (Normal)
[2022-08-27 21:49] LABS: Creatinine Urine Random 58.4 mg/dL; Sodium Urine Random 101 mmol/L (30-90)
[2022-08-27 22:18] LABS: Adenovirus Not Detected (Not Detect); B. parapertussis Not Detected (Not Detecte); Bordetella pertussis Not Detected (Not Detecte); Chlamydophila pneumoniae Not Detected (Not Detect); Coronavirus 229E Not Detected (Not Detect); Coronavirus HKU1 Not Detected (Not Detect); Coronavirus NL 63 Not Detected (Not Detect); Coronavirus OC43 Not Detected (Not Detect); Human Metapneumovirus Not Detected (Not Detect); Human Rhinovirus/Enterovirus Not Detected (Not Detect); Influenza A Not Detected (Not Detect); Influenza B Not Detected (Not Detect); Mycoplasma pneumoniae Not Detected (Not Detect); Parainfluenza Virus 1 Not Detected (Not Detect); Parainfluenza Virus 2 Not Detected (Not Detect); Parainfluenza Virus 3 Not Detected (Not Detect); Parainfluenza Virus 4 Not Detected (Not Detect); Respiratory Syncytial Virus Not Detected (Not Detect); SARS- CoV-2 Not Detected (Not Detecte)
[2022-08-28 00:02] VITALS: BMI 41.4
--- NOTE | 2022-08-28 00:11 | P.HP_ITS ---
History of Present Illness History of Present Illness Date Patient Seen: 08/28/22 Time Patient Seen: 00:11 Date of Onset of Symptoms: 08/27/22 Chief complaint: Confused Narrative: The patient has a history of immune deficiency and recurrent episodes of sepsis. She is followed by Dr. Acuna (ID, [place]). She will typically get conf used during her septic episodes. She had been doing well today and then became acutely confused. This prompted her to bring her to the emergency department. Over the last several weeks she has had a perineal rash and was seen by dermatology and was initially treated with a cephalosporin but this was then switched several days ago to amoxicillin. This is based on a skin biopsy and presumably a culture. The patient denies any other skin and redness or irritation. 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 The patient denies any joint pains or swelling. The patient denies URI including rhinorrhea, cough or sh ortness of breath. No other new symptoms. The emergency physician discussed the case with her ID doctor who advised against lumbar puncture and recommended ceftriaxone and IV fluids. She was given fluid bolus of 30 milligrams/kilogram in the emergency department. Her mental status was confused upon arrival but is improving by the time of my interview. Negative respiratory PCR. She is on chronic warfarin for DVT, and uses Daphne for pain. She has a history of HIT. She is a very large chronic ventral hernia and recent changes to the hernia or pain. [facility] Medical History Anticoagulated on Coumadin Bilateral leg edema Diabetes Heparin induced thrombocytopenia (HIT) Joint infection Kidney stones Lymphedema of both lower extremities Morbid obesity Osteomyelitis Pyelonephritis Venous stasis dermatitis of both lower extremities Ventral hernia Surgical History Hip replacement planned History of ankle fusion History of History of carpal tunnel repair History of cholecystectomy History of hysterectomy History of Christine-en-Y gastric bypass History of total knee arthroplasty History of total left hip arthroplasty History of ureter stent Social History marital status: household members: spouse and family Smoking Status: Never smoker alcohol intake: current Meds Home Medications and Allergies Home Medications Medication Instructions Recorded Confirmed Type albuterol sulfate 90 mcg/actuation 2 puff inhalation Q6H PRN SOB 10/26/18 02/19/22 History aerosol inhaler cholecalciferol (vitamin D3) 125 5,000 unit PO DAILY 10/26/18 02/19/22 History mcg (5,000 unit) tablet (Vitamin D3) fexofenadine 180 mg tablet 180 mg PO DAILY 10/26/18 02/19/22 History (Janet Allergy) hydrochlorothiazide 50 mg tablet 50 mg PO DAILY 10/26/18 02/19/22 History levothyroxine 200 mcg tablet 200 mcg PO DAILY 10/26/18 02/19/22 History montelukast 10 mg tablet 10 mg PO QPM 10/26/18 02/19/22 History (Singulair) qbexaiya-abh-prmyo acid 0.4 1 tab PO DAILY 10/26/18 02/19/22 History mg-lycopene 300 mcg-lutein 250 mcg tablet (Centrum Silver) pregabalin 50 mg capsule 50 mg PO TID 10/26/18 02/19/22 History tolterodine 4 mg capsule,extended 4 mg PO DAILY 10/26/18 02/19/22 History release 24 hr warfarin 5 mg tablet 7.5 mg PO DAILY 03/01/19 02/19/22 History Humalog KwikPen Insulin See Rx Instructions .Route .COMPLEX 11/14/19 02/13/22 History acetaminophen 325 mg tablet 650 mg PO Q6HR #250 tabs 02/20/22 Rx ondansetron 4 mg disintegrating 4 mg PO Q4HR PRN Nausea And 02/20/22 Rx tablet Vomiting #20 tabs oxycodone 5 mg tablet 5 mg PO Q4H PRN Pain, Moderate 02/20/22 Rx (4-6) #40 tabs Allergies Allergy/AdvReac Type Severity Reaction Status Date / Time cefamandole [From Mandol] AdvReac Hives Verified 02/19/22 08:05 clindamycin AdvReac Verified 02/19/22 08:05 heparin AdvReac Verified 02/19/22 08:05 meperidine [From Demerol] AdvReac Verified 02/19/22 08:05 naproxen AdvReac Verified 02/19/22 08:05 NSAIDS (Non-Steroidal AdvReac Verified 02/19/22 08:05 Anti-Inflamma promethazine [From Phenergan] AdvReac Verified 02/19/22 08:05 rofecoxib [From Vioxx] AdvReac Verified 02/19/22 08:05 sulfamethoxazole AdvReac Verified 02/19/22 08:05 [From Septra] trimethoprim [From Septra] AdvReac Verified 02/19/22 08:05 Review of Systems Review of Systems Narrative: She denies fevers, chills, or vomiting.? She also denies any worsening abdominal distention.? No hematuria, or dysuria.? All else reviewed and otherwise negative. No worsening of perineal rash or pain. Exam Vital Signs (past 8 hours): - 08/27/22 20:09 08/27/22 20:30 08/27/22 20:10 Temperature 100.4 F H Pulse Rate 105 H 104 H 103 H Respiratory Rate 20 20 Blood Pressure 174/74 H 193/88 H Pulse Oximetry 100 99 99 Oxygen Delivery Method Room Air Room Air 08/27/22 20:45 08/27/22 21:10 08/27/22 21:50 Temperature Pulse Rate 99 H 95 H 103 H Respiratory Rate 20 20 20 Blood Pressure 140/105 H 209/79 H Pulse Oximetry 98 97 92 Oxygen Delivery Method Room Air Room Air 08/27/22 22:20 08/27/22 22:30 08/27/22 23:00 Temperature Pulse Rate 99 H 99 H 100 H Respiratory Rate 17 17 18 Blood Pressure 175/73 H 138/62 142/64 H Pulse Oximetry 98 98 97 Oxygen Delivery Method Room Air Room Air Room Air 08/27/22 23:30 Temperature Pulse Rate 98 H Respiratory Rate 17 Blood Pressure 152/64 H Pulse Oximetry 95 Oxygen Delivery Method Room Air Oxygen Delivery Method Room Air Narrative Exam Narrative: She is alert and oriented, she appears calm and is in no distress. Her head is a traumatic.?The patient normal nose and mouth. Eyes are notable for symmetric pupils, EOMI and and anicteric The neck is supple, no adenopathy normal range of motion. The lungs are clear, normal effort and no wheezing is appreciated. The heart is regular, without murmur or gallop or rub. The abdomen is distended with a large ventral hernia.? There is no organomegaly.? No masses are appreciated.? The extremities are free of edema, some chronic stasis changes.? She has good peripheral pulses. The skin is free of rash, lesions or ecchymosis.? She moves arms and legs spontaneously without difficulty. She has normal speech, and cranial nerves appear to be grossly intact.? There is no facial droop.? She has normal affect, and judgment. Objective Imaging CT scan - head: Radiologist's impression: IMPRESSION:? ? 1. No acute intracranial process. ? 2. Mild atrophy and chronic microvascular ischemic changes. CT scan - abdomen: Radiologist's impression: FINDINGS:? Image quality:? Portions of the lower pelvis are suboptimally evaluated secondary to metallic streak artifact from shoulder and bilateral hip arthroplasty. ? CHEST:? Lungs and pleura:? No acute pulmonary opacities.? No pleural effusions or pneumothorax.? Central and peripheral airways are patent are normal in caliber.? ? Mediastinum:? Heart size is normal.? No pericardial effusion.? No mediastinal adenopathy by CT size criteria.? Thoracic aorta and central pulmonary arteries are normal in size.? Esophagus is normal in caliber.? Mild hiatal hernia.? ? Chest wall:? No axillary or supraclavicular adenopathy by size criteria.? Thyroid gland is unremarkable .? ? ? ABDOMEN:? Solid organs:? Liver is normal in size.? Gallbladder has been removed .? Pancreas is normal in contours.? Spleen is normal in size.? No adrenal nodules.? Both kidneys are mildly atrophic.? Punctate nonobstructing bilateral renal calculi.? without hydronephrosis or nephrolithiasis.? ? Peritoneum and bowel:? Small and large bowel loops are normal in caliber and wall thickness.? No free fluid or air.? Scattered stool obstruction. ? Nodes and vessels:? No retroperitoneal or mesenteric adenopathy by size criteria.? Aorta and inferior vena cava are normal in size.? ? Miscellaneous:? Bowel containing ventral hernia incarceration or strangulation. ? ? PELVIS:? Genitourinary:? Bladder wall thickness is normal.? ? Miscellaneous:? No inguinal hernias or adenopathy.? ? Bones:? No suspicious bony lesions.? No vertebral body compression fractures.? ? IMPRESSION:? ? Scattered colonic stool without obstruction. ? ? No abscess.? ? Dictated by: Ami Calvillo M.D. on 08/27/2022 at 22:03 ? ? Approved by: Ami Calvillo M.D. on 08/27/2022 at 22:06 ? Chest x-ray: Radiologist's impression: FINDINGS:? ? Surgical changes and devices:? Left shoulder arthroplasty. ? Lungs and pleura:? Lungs are clear.? No pleural effusions or pneumothorax.? ? Mediastinum:? Mediastinal contours appear normal.? Heart size is mildly prominent. ? Bones and chest wall:? No suspicious bony lesions.? Overlying soft tissues appear unremarkable.? ? IMPRESSION:? No acute pulmonary process. ? Labs 08/27/22 20:10 08/27/22 20:10 Labs: Laboratory Results - last 24 hr 08/27/22 08/27/22 08/27/22 20:10 20:10 20:10 WBC 12.5 H RBC 3.76 L Hgb 11.3 L Hct 32.9 L MCV 87.5 MCH 30.1 MCHC 34.4 RDW 13.3 Plt Count 200 Neut % (Auto) 86.6 H Lymph % (Auto) 6.6 L [place] % (Auto) 5.7 Eos % (Auto) 0.7 L Baso % (Auto) 0.4 Neut # (Auto) 30493 H Lymph # (Auto) 800 L [place] # (Auto) 700 Eos # (Auto) 100 Baso # (Auto) 100 Sodium 136 L Potassium 4.0 Chloride 102 Carbon Dioxide 25 BUN 43 H Creatinine 1.87 H Estimated GFR 28 L BUN/Creatinine Ratio 23.0 H Glucose 105 Lactate 0.8 Calcium 8.5 Total Bilirubin 0.5 AST 27 ALT 24 Alkaline Phosphatase 83 Total Creatine Kinase 52 CK-MB (CK-2) TNP CK-MB (CK-2) Rel Index TNP Troponin I < 0.012 NT-Pro-B Natriuret Pep 383 H Total Protein 7.4 Albumin 3.9 Globulin 3.5 Albumin/Globulin Ratio 1.1 Procalcitonin 0.16 Urine Color Urine Appearance Urine pH Ur Specific [place] Urine Protein Urine Glucose (UA) Urine Ketones Urine Occult Blood Urine Nitrate Urine Bilirubin Urine Urobilinogen Ur Leukocyte Esterase Urine RBC Urine WBC Ur Squamous Epith Cells Urine Bacteria Ur Culture Indicated? Ur Random Sodium Urine Creatinine Salicylates U Opiates 300ng/mL cut Ur Oxycodone Screen Urine Methadone Screen Acetaminophen Ur Barbiturates Screen U Tricyclic Antidepress Ur Phencyclidine Scrn Ur Amphetamines Screen U Methamphetamines Scrn Ur MDMA Scrn (Ecstasy) U Benzodiazepines Scrn Urine Cocaine Screen U Marijuana (THC) Screen Chlamy pneumoniae PCR Adenovirus (PCR) B. pertussis DNA (PCR) B.parapertussis DNA PCR Coronavirus OC43 (PCR) Coronavirus HKU1 (PCR) Coronavirus 229E (PCR) SARS-CoV-2 (PCR) Coronavirus NL63 (PCR) Human Metapneumovir PCR Influenza Type A (PCR) Influenza Type B (PCR) M. pneumoniae (PCR) Parainfluenza 1 (PCR) Parainfluenza 2 (PCR) Parainfluenza 3 (PCR) Parainfluenza 4 (PCR) RSV (PCR) Entero/Rhino (PCR) 08/27/22 08/27/22 08/27/22 20:10 20:23 20:23 WBC RBC Hgb Hct MCV MCH MCHC RDW Plt Count Neut % (Auto) Lymph % (Auto) [place] % (Auto) Eos % (Auto) Baso % (Auto) Neut # (Auto) Lymph # (Auto) [place] # (Auto) Eos # (Auto) Baso # (Auto) Sodium Potassium Chloride Carbon Dioxide BUN Creatinine Estimated GFR BUN/Creatinine Ratio Glucose Lactate Calcium Total Bilirubin AST ALT Alkaline Phosphatase Total Creatine Kinase CK-MB (CK-2) CK-MB (CK-2) Rel Index Troponin I NT-Pro-B Natriuret Pep Total Protein Albumin Globulin Albumin/Globulin Ratio Procalcitonin Urine Color Yellow Urine Appearance Clear Urine pH 5.5 Ur Specific [place] 1.020 Urine Protein Trace H Urine Glucose (UA) Negative Urine Ketones Negative Urine Occult Blood Trace-intact Urine Nitrate Negative Urine Bilirubin Negative Urine Urobilinogen 0.2 Ur Leukocyte Esterase Negative Urine RBC None seen Urine WBC 1-5/hpf Ur Squamous Epith Cells 1-5 /hpf Urine Bacteria None seen Ur Culture Indicated? Cult not indicated Ur Random Sodium 101 H Urine Creatinine 58.4 Salicylates < 1.0 U Opiates 300ng/mL cut Ur Oxycodone Screen Urine Methadone Screen Acetaminophen < 10 Ur Barbiturates Screen U Tricyclic Antidepress Ur Phencyclidine Scrn Ur Amphetamines Screen U Methamphetamines Scrn Ur MDMA Scrn (Ecstasy) U Benzodiazepines Scrn Urine Cocaine Screen U Marijuana (THC) Screen Chlamy pneumoniae PCR Adenovirus (PCR) B. pertussis DNA (PCR) B.parapertussis DNA PCR Coronavirus OC43 (PCR) Coronavirus HKU1 (PCR) Coronavirus 229E (PCR) SARS-CoV-2 (PCR) Coronavirus NL63 (PCR) Human Metapneumovir PCR Influenza Type A (PCR) Influenza Type B (PCR) M. pneumoniae (PCR) Parainfluenza 1 (PCR) Parainfluenza 2 (PCR) Parainfluenza 3 (PCR) Parainfluenza 4 (PCR) RSV (PCR) Entero/Rhino (PCR) 08/27/22 08/27/22 20:23 21:20 WBC RBC Hgb Hct MCV MCH MCHC RDW Plt Count Neut % (Auto) Lymph % (Auto) [place] % (Auto) Eos % (Auto) Baso % (Auto) Neut # (Auto) Lymph # (Auto) [place] # (Auto) Eos # (Auto) Baso # (Auto) Sodium Potassium Chloride Carbon Dioxide BUN Creatinine Estimated GFR BUN/Creatinine Ratio Glucose Lactate Calcium Total Bilirubin AST ALT Alkaline Phosphatase Total Creatine Kinase CK-MB (CK-2) CK-MB (CK-2) Rel Index Troponin I NT-Pro-B Natriuret Pep Total Protein Albumin Globulin Albumin/Globulin Ratio Procalcitonin Urine Color Urine Appearance Urine pH Ur Specific [place] Urine Protein Urine Glucose (UA) Urine Ketones Urine Occult Blood Urine Nitrate Urine Bilirubin Urine Urobilinogen Ur Leukocyte Esterase Urine RBC Urine WBC Ur Squamous Epith Cells Urine Bacteria Ur Culture Indicated? Ur Random Sodium Urine Creatinine Salicylates U Opiates 300ng/mL cut Positive H Ur Oxycodone Screen Negative Urine Methadone Screen Negative Acetaminophen Ur Barbiturates Screen Negative U Tricyclic Antidepress Positive H Ur Phencyclidine Scrn Negative Ur Amphetamines Screen Negative U Methamphetamines Scrn Negative Ur MDMA Scrn (Ecstasy) Negative U Benzodiazepines Scrn Negative Urine Cocaine Screen Negative U Marijuana (THC) Screen Negative Chlamy pneumoniae PCR Not detected Adenovirus (PCR) Not detected B. pertussis DNA (PCR) Not detected B.parapertussis DNA PCR Not detected Coronavirus OC43 (PCR) Not detected Coronavirus HKU1 (PCR) Not detected Coronavirus 229E (PCR) Not detected SARS-CoV-2 (PCR) Not detected Coronavirus NL63 (PCR) Not detected Human Metapneumovir PCR Not detected Influenza Type A (PCR) Not detected Influenza Type B (PCR) Not detected M. pneumoniae (PCR) Not detected Parainfluenza 1 (PCR) Not detected Parainfluenza 2 (PCR) Not detected Parainfluenza 3 (PCR) Not detected Parainfluenza 4 (PCR) Not detected RSV (PCR) Not detected Entero/Rhino (PCR) Not detected Assessment & Plan Assessment & Plan narrative: 1. Sepsis, present on admission and active. The source is unclear but she has a history of recurrent skin source and recent perineal rash. 2. Septic encephalopathy, present on admission and active. 3. Chronic immune deficiency, present on admission and active. 4. Perineal rash currently being treated with amoxicillin, present on admission and active. 5. Acute kidney injury with creatinine of 1.87, baseline 1.3, present on ad mission and active. 6. Hypovolemic Hyponatremia, present on admission and active. 7. Remote VTE, present on admission and active. 8. Chronic anticoagulation (warfarin), present on admission and active. 9. Morbid obesity, present on admission and active. 10. Ventral hernia,present on admission and active. 11. H/O HIT, present on admission and active. 12. Venous stasis, present on admission and active. Plan: -IVF Bolus and infusion. -IV ceftriaxone as per ID ([place]). -Blood cx -resume warfarin tomorrow -Daphne for pain. -follow mental status (patient declines LP and ID does not recommend). -DNR Time Spent With Patient Time with patient: 30 to 49 minutes with 50% spent counseling/coordinating care Quality VTE Deep Vein Thrombosis/Pulmonary Embolism Present on Admission: No MIPS - Admit I confirm the patient?s Advance Care Plan is present, Code status is documented, Surrogate decision maker is in patient?s record [If Yes, STOP here]: Yes
[2022-08-28 00:40] VITALS: BP 140/90; PULSE 95; RESP 20; TEMP 37.1; O2SAT 96
[2022-08-28] MEDS: PREGABALIN 50 MG CAPSULE PO ×3 (01:20→14:14)
[2022-08-28] MEDS: DEXTROSE 5%-0.45% NS 1,000 ML 100 ML IV (01:20)
[2022-08-28] MEDS: cefTRIAXone 2,000 MG in SODIUM CHLORIDE 0.9% 100 ML 200 MG IV ×2 (02:00→13:05)
[2022-08-28] MEDS: HYDROCODONE/ACET 10/325 TABLET 1.5 TAB PO ×4 (02:00→14:14)
[2022-08-28] MEDS: ONDANSETRON 4 MG/2 ML INJ IV ×2 (02:01→09:37)
[2022-08-28 04:00] VITALS: BP 109/65; PULSE 93; RESP 20; TEMP 35.8; O2SAT 93
[2022-08-28 05:33] LABS: Add Manual Diff / Slide Review NO; Basophils Absolute Auto 0 /uL (0-100); Basophils Percent Auto 0.3 % (0-2); Eosinophils Absolute Auto 100 /uL (0-450); Eosinophils Percent Auto 0.9 % (2-4); Hematocrit 30.6 % (36-46); Hemoglobin 10.6 g/dL (12.0-16.0); Lymphocytes Absolute Auto 1000 /uL (1100-4500); Lymphocytes Percent Auto 11.3 % (25-40); Mean Corpuscular HGB Conc 34.6 % (30-36); Mean Corpuscular Hemoglobin 30.6 PG (26-34); Mean Corpuscular Volume 88.4 fL (80-100); Monocytes Absolute Auto 600 /uL (0-900); Monocytes Percent Auto 6.8 % (3-14); Neutrophils Absolute Auto 7000 /uL (1500-7000); Neutrophils Percent Auto 80.7 % (50-75); Platelet Count 179 X10^3/uL (150-400); Red Blood Cell Count 3.47 X10^6/uL (4.0-5.2); Red Cell Distribution Width 13.4 % (11.6-14.8); White Blood Cell Count 8.7 X10^3/uL (4.5-11.0)
[2022-08-28 05:52] LABS: BUN Creatinine Ratio 28.1 (6-22); Blood Urea Nitrogen 45 mg/dL (7-17); Calcium 7.9 mg/dL (8.4-10.2); Carbon Dioxide 20 mmol/L (22-32); Chloride 106 mmol/L (98-107); Estimated Glomerular Filt Rate 34 mL/min (>60); Glucose 179 mg/dL (80-110); HEMOLYSIS < 15 (0-50); Potassium 3.4 mmol/L (3.4-5.1); Sodium 136 mmol/L (137-145)
[2022-08-28] MEDS: LEVOTHYROXINE 100 MCG TABLET 200 MCG PO (06:03)
[2022-08-28 06:18] LABS: Prothrombin Time 35.2 SECONDS (10.1-12.7)
[2022-08-28 08:00] VITALS: BP 125/61; PULSE 86; RESP 18; TEMP 36.2; O2SAT 96
[2022-08-28] MEDS: LORATADINE 10 MG TABLET PO (08:55)
[2022-08-28] MEDS: MONTELUKAST 10 MG TABLET PO (08:55)
--- NOTE | 2022-08-28 09:19 | CM.DANOTE ---
Initial DCP Assessment Note Pt is a 71 yo female, resident of [place], presents in a confused state and admitted for management of Septic encephalopathy, suspicion of recurrent skin source per H+P PCP: Rosi Tam Payer: [employer] Reviewed chart, met w/patient this morning to introduce role. Patient A+Ox4 and appreciative for the visit. Patient is indp at baseline and lives with spouse. Patient is a retired [employer]. Adult children live near and can assist patient and spouse as needed Patient eager to return home and hopeful this will be today No barriers identified at this time to patient's safe discharge home w/family to assist; close outpatient f/u recommended. MARCELINO Bhatia Discharge Planning/Care Management CM Discharge Assessment Start: 08/28/22 09:17 Freq: Status: Active Protocol: Document 08/28/22 09:17 LIAM (Rec: 08/28/22 09:19 LIAM [id number]) Discharge Planning Assessment Assigned [employer] MARCELINO Elam DPOA/Assigned Designee Name David Posey, spouse Contact Information [phone] Advance Directives? Yes Advance Directives on File No History Provided By Patient,Medical Record Prior Living Arrangements House Household Members spouse Type of transporation used prior to Relies on Others admit Independent with ADL's Yes Is patient alert and oriented? Yes Needs Assistance With Home Chores / Shopping Comment Patient has both FWW and cane if needed at residence. Patient reports that she does not use DME at baseline. Comment Patient denies any d/c planning needs. Discharge Plan Home Transportation Arrangement Family to provide transport. Additional Comment Patient plans to d/c home with supportive spouse when medically stable, patient is hopeful that will be today
[2022-08-28 12:00] VITALS: BP 119/46; PULSE 83; RESP 20; TEMP 36.4; O2SAT 99
--- NOTE | 2022-08-28 13:02 | P.DS_ITS ---
History of Present Illness History of Present Illness Date Patient Seen: 08/28/22 Time Patient Seen: 00:11 Date of Onset of Symptoms: 08/27/22 Chief complaint: Confused Narrative: The patient has a history of immune deficiency and recurrent episodes of sepsis. She is followed by Dr. Acuna (ID, [place]). She will typically get conf used during her septic episodes. She had been doing well today and then became acutely confused. This prompted her to bring her to the emergency department. Over the last several weeks she has had a perineal rash and was seen by dermatology and was initially treated with a cephalosporin but this was then switched several days ago to amoxicillin. This is based on a skin biopsy and presumably a culture. The patient denies any other skin and redness or irritation. 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 The patient denies any joint pains or swelling. The patient denies URI including rhinorrhea, cough or sh ortness of breath. No other new symptoms. The emergency physician discussed the case with her ID doctor who advised against lumbar puncture and recommended ceftriaxone and IV fluids. She was given fluid bolus of 30 milligrams/kilogram in the emergency department. Her mental status was confused upon arrival but is improving by the time of my interview. Negative respiratory PCR. She is on chronic warfarin for DVT, and uses [place] for pain. She has a history of HIT. She is a very large chronic ventral hernia and recent changes to the hernia or pain. Discharge Providers Provider Date of admission: 08/27/22 23:37 Discharge Date: 08/28/22 Primary care physician: Rosi Tam MD Discharge provider: Brenton Patel DO Summary Hospital Course Discharge Diagnosis: 1. Sepsis, present on admission and active.? The source is unclear but she has a history of recurrent skin source and recent perineal rash. Resolved with IV rocephin and discharged on 1 week po cefdinir. 2. Septic encephalopathy, present on admission and active. Resolved 3. Chronic immune deficiency, present on admission and active. 4. Perineal rash currently being treated with amoxicillin, present on admission and active. Will resume after 1 week of po cefdinir. 5. Acute kidney injury with creatinine of 1.87, baseline 1.3, present on admission and active. 6. Hypovolemic Hyponatremia, present on admission and active. 7. Remote VTE, present on admission and active. 8. Chronic anticoagulation (warfarin), present on admission and active. 9. Morbid obesity, present on admission and active. 10. Ventral hernia,present on admission and active. 11. H/O HIT, present on admission and active. 12. Venous stasis, present on admission and active. Hospital Course: Patient admitted for acute confusion and sepsis. She had recurrent episodes like these and her ID physician in [place] contacted and recommended IV ceftriaxone. Her sepsis and confusion resolved overnight and she was discharged on po cefdinir for 1 week. Time Spent with Patient Time spent: Greater than 30 minutes Exam Vital Signs (past 8 hours): - 08/28/22 08:00 08/28/22 12:00 Temperature 97.2 F L 97.5 F L Pulse Rate 86 83 Respiratory Rate 18 20 Blood Pressure 125/61 119/46 L Pulse Oximetry 96 99 Oxygen Flow Rate 0 Oxygen Delivery Method Room Air Oxygen Flow Rate 0 Narrative Exam Narrative: GEN: no acute distress, A/Ox4, obese HEENT: moist mucous membranes, PERRL NECK: trachea midline, no JVD CV: regular rate and rhythm, no murmurs PULM: clear bilaterally ABD: soft, nontender, nondistended, no organomegaly, large ventral hernia EXT: warm and well perfused with no edema NEURO: awake, alert, oriented, no focal deficits Objective Labs 08/28/22 04:55 08/28/22 04:55 Labs: Laboratory Results - last 24 hr 08/27/22 08/27/22 08/27/22 20:10 20:10 20:10 WBC 12.5 H RBC 3.76 L Hgb 11.3 L Hct 32.9 L MCV 87.5 MCH 30.1 MCHC 34.4 RDW 13.3 Plt Count 200 Neut % (Auto) 86.6 H Lymph % (Auto) 6.6 L [place] % (Auto) 5.7 Eos % (Auto) 0.7 L Baso % (Auto) 0.4 Neut # (Auto) 09746 H Lymph # (Auto) 800 L [place] # (Auto) 700 Eos # (Auto) 100 Baso # (Auto) 100 PT INR Sodium 136 L Potassium 4.0 Chloride 102 Carbon Dioxide 25 BUN 43 H Creatinine 1.87 H Estimated GFR 28 L BUN/Creatinine Ratio 23.0 H Glucose 105 Lactate 0.8 Calcium 8.5 Total Bilirubin 0.5 AST 27 ALT 24 Alkaline Phosphatase 83 Total Creatine Kinase 52 CK-MB (CK-2) TNP CK-MB (CK-2) Rel Index TNP Troponin I < 0.012 NT-Pro-B Natriuret Pep 383 H Total Protein 7.4 Albumin 3.9 Globulin 3.5 Albumin/Globulin Ratio 1.1 Procalcitonin 0.16 Urine Color Urine Appearance Urine pH Ur Specific [place] Urine Protein Urine Glucose (UA) Urine Ketones Urine Occult Blood Urine Nitrate Urine Bilirubin Urine Urobilinogen Ur Leukocyte Esterase Urine RBC Urine WBC Ur Squamous Epith Cells Urine Bacteria Ur Culture Indicated? Ur Random Sodium Urine Creatinine Salicylates U Opiates 300ng/mL cut Ur Oxycodone Screen Urine Methadone Screen Acetaminophen Ur Barbiturates Screen U Tricyclic Antidepress Ur Phencyclidine Scrn Ur Amphetamines Screen U Methamphetamines Scrn Ur MDMA Scrn (Ecstasy) U Benzodiazepines Scrn Urine Cocaine Screen U Marijuana (THC) Screen Chlamy pneumoniae PCR Adenovirus (PCR) B. pertussis DNA (PCR) B.parapertussis DNA PCR Coronavirus OC43 (PCR) Coronavirus HKU1 (PCR) Coronavirus 229E (PCR) SARS-CoV-2 (PCR) Coronavirus NL63 (PCR) Human Metapneumovir PCR Influenza Type A (PCR) Influenza Type B (PCR) M. pneumoniae (PCR) Parainfluenza 1 (PCR) Parainfluenza 2 (PCR) Parainfluenza 3 (PCR) Parainfluenza 4 (PCR) RSV (PCR) Entero/Rhino (PCR) 08/27/22 08/27/22 08/27/22 20:10 20:23 20:23 WBC RBC Hgb Hct MCV MCH MCHC RDW Plt Count Neut % (Auto) Lymph % (Auto) [place] % (Auto) Eos % (Auto) Baso % (Auto) Neut # (Auto) Lymph # (Auto) [place] # (Auto) Eos # (Auto) Baso # (Auto) PT INR Sodium Potassium Chloride Carbon Dioxide BUN Creatinine Estimated GFR BUN/Creatinine Ratio Glucose Lactate Calcium Total Bilirubin AST ALT Alkaline Phosphatase Total Creatine Kinase CK-MB (CK-2) CK-MB (CK-2) Rel Index Troponin I NT-Pro-B Natriuret Pep Total Protein Albumin Globulin Albumin/Globulin Ratio Procalcitonin Urine Color Yellow Urine Appearance Clear Urine pH 5.5 Ur Specific [place] 1.020 Urine Protein Trace H Urine Glucose (UA) Negative Urine Ketones Negative Urine Occult Blood Trace-intact Urine Nitrate Negative Urine Bilirubin Negative Urine Urobilinogen 0.2 Ur Leukocyte Esterase Negative Urine RBC None seen Urine WBC 1-5/hpf Ur Squamous Epith Cells 1-5 /hpf Urine Bacteria None seen Ur Culture Indicated? Cult not indicated Ur Random Sodium 101 H Urine Creatinine 58.4 Salicylates < 1.0 U Opiates 300ng/mL cut Ur Oxycodone Screen Urine Methadone Screen Acetaminophen < 10 Ur Barbiturates Screen U Tricyclic Antidepress Ur Phencyclidine Scrn Ur Amphetamines Screen U Methamphetamines Scrn Ur MDMA Scrn (Ecstasy) U Benzodiazepines Scrn Urine Cocaine Screen U Marijuana (THC) Screen Chlamy pneumoniae PCR Adenovirus (PCR) B. pertussis DNA (PCR) B.parapertussis DNA PCR Coronavirus OC43 (PCR) Coronavirus HKU1 (PCR) Coronavirus 229E (PCR) SARS-CoV-2 (PCR) Coronavirus NL63 (PCR) Human Metapneumovir PCR Influenza Type A (PCR) Influenza Type B (PCR) M. pneumoniae (PCR) Parainfluenza 1 (PCR) Parainfluenza 2 (PCR) Parainfluenza 3 (PCR) Parainfluenza 4 (PCR) RSV (PCR) Entero/Rhino (PCR) 08/27/22 08/27/22 08/28/22 20:23 21:20 04:55 WBC 8.7 RBC 3.47 L Hgb 10.6 L Hct 30.6 L MCV 88.4 MCH 30.6 MCHC 34.6 RDW 13.4 Plt Count 179 Neut % (Auto) 80.7 H Lymph % (Auto) 11.3 L [place] % (Auto) 6.8 Eos % (Auto) 0.9 L Baso % (Auto) 0.3 Neut # (Auto) 7000 Lymph # (Auto) 1000 L [place] # (Auto) 600 Eos # (Auto) 100 Baso # (Auto) 0 PT INR Sodium Potassium Chloride Carbon Dioxide BUN Creatinine Estimated GFR BUN/Creatinine Ratio Glucose Lactate Calcium Total Bilirubin AST ALT Alkaline Phosphatase Total Creatine Kinase CK-MB (CK-2) CK-MB (CK-2) Rel Index Troponin I NT-Pro-B Natriuret Pep Total Protein Albumin Globulin Albumin/Globulin Ratio Procalcitonin Urine Color Urine Appearance Urine pH Ur Specific [place] Urine Protein Urine Glucose (UA) Urine Ketones Urine Occult Blood Urine Nitrate Urine Bilirubin Urine Urobilinogen Ur Leukocyte Esterase Urine RBC Urine WBC Ur Squamous Epith Cells Urine Bacteria Ur Culture Indicated? Ur Random Sodium Urine Creatinine Salicylates U Opiates 300ng/mL cut Positive H Ur Oxycodone Screen Negative Urine Methadone Screen Negative Acetaminophen Ur Barbiturates Screen Negative U Tricyclic Antidepress Positive H Ur Phencyclidine Scrn Negative Ur Amphetamines Screen Negative U Methamphetamines Scrn Negative Ur MDMA Scrn (Ecstasy) Negative U Benzodiazepines Scrn Negative Urine Cocaine Screen Negative U Marijuana (THC) Screen Negative Chlamy pneumoniae PCR Not detected Adenovirus (PCR) Not detected B. pertussis DNA (PCR) Not detected B.parapertussis DNA PCR Not detected Coronavirus OC43 (PCR) Not detected Coronavirus HKU1 (PCR) Not detected Coronavirus 229E (PCR) Not detected SARS-CoV-2 (PCR) Not detected Coronavirus NL63 (PCR) Not detected Human Metapneumovir PCR Not detected Influenza Type A (PCR) Not detected Influenza Type B (PCR) Not detected M. pneumoniae (PCR) Not detected Parainfluenza 1 (PCR) Not detected Parainfluenza 2 (PCR) Not detected Parainfluenza 3 (PCR) Not detected Parainfluenza 4 (PCR) Not detected RSV (PCR) Not detected Entero/Rhino (PCR) Not detected 08/28/22 08/28/22 04:55 05:50 WBC RBC Hgb Hct MCV MCH MCHC RDW Plt Count Neut % (Auto) Lymph % (Auto) [place] % (Auto) Eos % (Auto) Baso % (Auto) Neut # (Auto) Lymph # (Auto) [place] # (Auto) Eos # (Auto) Baso # (Auto) PT 35.2 H INR 3.0 H Sodium 136 L Potassium 3.4 Chloride 106 Carbon Dioxide 20 L BUN 45 H Creatinine 1.60 H Estimated GFR 34 L BUN/Creatinine Ratio 28.1 H Glucose 179 H Lactate Calcium 7.9 L Total Bilirubin AST ALT Alkaline Phosphatase Total Creatine Kinase CK-MB (CK-2) CK-MB (CK-2) Rel Index Troponin I NT-Pro-B Natriuret Pep Total Protein Albumin Globulin Albumin/Globulin Ratio Procalcitonin Urine Color Urine Appearance Urine pH Ur Specific [place] Urine Protein Urine Glucose (UA) Urine Ketones Urine Occult Blood Urine Nitrate Urine Bilirubin Urine Urobilinogen Ur Leukocyte Esterase Urine RBC Urine WBC Ur Squamous Epith Cells Urine Bacteria Ur Culture Indicated? Ur Random Sodium Urine Creatinine Salicylates U Opiates 300ng/mL cut Ur Oxycodone Screen Urine Methadone Screen Acetaminophen Ur Barbiturates Screen U Tricyclic Antidepress Ur Phencyclidine Scrn Ur Amphetamines Screen U Methamphetamines Scrn Ur MDMA Scrn (Ecstasy) U Benzodiazepines Scrn Urine Cocaine Screen U Marijuana (THC) Screen Chlamy pneumoniae PCR Adenovirus (PCR) B. pertussis DNA (PCR) B.parapertussis DNA PCR Coronavirus OC43 (PCR) Coronavirus HKU1 (PCR) Coronavirus 229E (PCR) SARS-CoV-2 (PCR) Coronavirus NL63 (PCR) Human Metapneumovir PCR Influenza Type A (PCR) Influenza Type B (PCR) M. pneumoniae (PCR) Parainfluenza 1 (PCR) Parainfluenza 2 (PCR) Parainfluenza 3 (PCR) Parainfluenza 4 (PCR) RSV (PCR) Entero/Rhino (PCR) [facility] Medical History (Updated 08/28/22 @ 01:17 by Gabo Bear DO) Anticoagulated on Coumadin Bilateral leg edema Diabetes Heparin induced thrombocytopenia (HIT) Joint infection Kidney stones Lymphedema of both lower extremities Morbid obesity Osteomyelitis Pyelonephritis Venous stasis dermatitis of both lower extremities Ventral hernia Surgical History Hip replacement planned History of ankle fusion History of History of carpal tunnel repair History of cholecystectomy History of hysterectomy History of Christine-en-Y gastric bypass History of total knee arthroplasty History of total left hip arthroplasty History of ureter stent Social History marital status: household members: spouse Smoking Status: Never smoker alcohol intake: current Discharge Plan Discharge Plan Patient Disposition: Home Provider Discharge Comment: You were admitted for an infection causing some confusion. You improved with IV ceftriaxone so I am now putting you on 1 week of oral cefdinir which is in the same class of antibiotics. Stop augmentin and restart amoxicillin after you finish this antibiotic course. Discharge orders & Medications Prescriptions: New cefdinir 300 mg capsule 300 mg PO BID Qty: 14 0RF Rx Instructions: start on 08/29 Continued hydrochlorothiazide 50 mg tablet 50 mg PO DAILY montelukast [Singulair] 10 mg Tablet 10 mg PO DAILY levothyroxine 200 mcg tablet See Rx Instructions .ROUTE .COMPLEX Rx Instructions: 200mcg -, 400mcg Thursday pregabalin 50 mg Capsule 50 mg PO TID fexofenadine [Janet Allergy] 180 mg Tablet 180 mg PO DAILY albuterol sulfate 90 mcg/actuation Hfa Aerosol Inhaler 2 puff INHALATION Q6H PRN (Reason: SOB) Centrum Silver 0.4-300-250 mg-mcg-mcg Tablet 1 tab PO DAILY cholecalciferol (vitamin D3) [Vitamin D3] 5,000 unit Tablet 5,000 unit PO BEDTIME warfarin 5 mg tablet 7.5 mg PO DAILY acetaminophen 325 mg tablet 650 mg PO Q6HR PRN (Reason: Pain (Scale Score 1-3)) tolterodine [Detrol LA] 4 mg Capsule,Extended Release 24hr 4 mg PO DAILY hydrocodone-acetaminophen 7.5-325 mg Tablet 1 tab PO Q4-6H PRN (Reason: Pain (Scale Score 4-6)) diphenhydramine HCl [Benadryl] 25 mg Capsule 25 - 50 mg PO TID PRN (Reason: Allergy Symptoms) docusate sodium [Dulcolax Stool Softener (dss)] 100 mg Capsule 100 mg PO DAILY PRN (Reason: Constipation) vitamin B complex Tablet 1 tab PO DAILY fluticasone propionate 50 mcg/actuation [place],Suspension 1 spray INTRANASAL DAILY Rx Instructions: administer into each nostril ferrous gluconate 225 mg (27 mg iron) Tablet 225 mg PO DAILY Ferritin 1 tab PO DAILY Premier Liquid Protein See Rx Instructions .ROUTE .COMPLEX Rx Instructions: 1 carton BID Triseba See Rx Instructions .ROUTE .COMPLEX Rx Instructions: 40 units SQ daily in AM Trulisity See Rx Instructions .ROUTE .COMPLEX Rx Instructions: 0.75/0.5 SQ every Thursday @ 1700 cyclobenzaprine 10 mg Tablet 10 mg PO TID PRN (Reason: spasms) Humalog KwikPen Insulin 100 units See Rx Instructions .ROUTE .COMPLEX Rx Instructions: Per sliding scale >150, 1 Unit per 10 mg/dl blood sugar over 100. Follow up/Referrals: Rosi Tam MD [Primary Care Provider] - 2 Weeks (please call to scheddule a follow up appointment with for within 2 weeks from discharge ) Visit Report/Discharge Packet Instructions: DI for Sepsis -- Adult, Cefdinir Stand Alone Forms: Patient Portal/API, Stroke Signs & Symptoms Discharge Data Primary Care Provider: Rosi Tam Discharges patient from system. Discharge Date/Time: 08/28/22 14:25 Quality VTE Deep Vein Thrombosis/Pulmonary Embolism Present on Admission: No
== END 2022-08-28 14:25 | disposition home or self-care (01) | DRG 871 ==
LOC: ED 20:11 → AC 23:37
PROVIDERS: Admitting Provider Hospitalist; Emergency Provider Emergency Medicine; PCP Internal Medicine; Referring Provider Emergency Medicine; Visit Provider Hospitalist
DX: A41.9 Sepsis, unspecified organism (principal); G93.41 Metabolic encephalopathy; N17.9 Acute kidney failure, unspecified; D84.9 Immunodeficiency, unspecified; R21 Rash and other nonspecific skin eruption; E86.1 Hypovolemia; E11.9 Type 2 diabetes mellitus without complications; Z86.718 Personal history of other venous thrombosis and embolism; Z79.01 Long term (current) use of anticoagulants; Z79.4 Long term (current) use of insulin; Z79.85 Long-term (current) use of injectable non-insulin antidiabetic drugs
CPT/HCPCS: 36415; 70450; 71045; 71250; 74176; 80048; 80053; 80305; 80329; 81001; 82550; 82570; 83605; 83880; 84145; 84300; 84484; 85025; 85610; 87040; 87633; 93005; 93010; 96365; 96366; 99284; 99291; G0480; J0696; J1956; J2405

== ENCOUNTER → 2023-01-15 13:40 | Outpatient (CLI) | payer MEDICARE, OTHER, SELFPAY | PROVIDERS: PCP Internal Medicine; Visit Provider Surgery | DX: T81.31XA Disruption of external operation (surgical) wound, not elsewhere classified, initial encounter (principal); E11.622 Type 2 diabetes mellitus with other skin ulcer; I89.0 Lymphedema, not elsewhere classified; S31.102A Unspecified open wound of abdominal wall, epigastric region without penetration into peritoneal cavity, initial encounter; I10 Essential (primary) hypertension | CPT/HCPCS: 11042; 87070; 87075; 87077; 87147; 87186; 87205; 97605; 99203; 99213 ==

== ENCOUNTER → 2023-01-26 09:29 | Outpatient (CLI) | payer MEDICARE, OTHER, SELFPAY | PROVIDERS: PCP Internal Medicine; Referring Provider Internal Medicine; Visit Provider Physician Assistant | DX: T81.31XA Disruption of external operation (surgical) wound, not elsewhere classified, initial encounter (principal); S31.102A Unspecified open wound of abdominal wall, epigastric region without penetration into peritoneal cavity, initial encounter | CPT/HCPCS: 97605 ==

== ENCOUNTER → 2023-01-29 10:39 | Outpatient (CLI) | payer MEDICARE, OTHER, SELFPAY | PROVIDERS: PCP Internal Medicine; Referring Provider Internal Medicine; Visit Provider Surgery | DX: T81.31XA Disruption of external operation (surgical) wound, not elsewhere classified, initial encounter (principal); S31.102A Unspecified open wound of abdominal wall, epigastric region without penetration into peritoneal cavity, initial encounter; E11.622 Type 2 diabetes mellitus with other skin ulcer; I89.0 Lymphedema, not elsewhere classified; I10 Essential (primary) hypertension; E78.5 Hyperlipidemia, unspecified | CPT/HCPCS: 11042; 97605 ==

== ENCOUNTER → 2023-02-02 10:18 | Outpatient (CLI) | payer MEDICARE, OTHER, SELFPAY | PROVIDERS: PCP Internal Medicine; Referring Provider Internal Medicine; Visit Provider Surgery | DX: T81.31XA Disruption of external operation (surgical) wound, not elsewhere classified, initial encounter (principal); S31.102A Unspecified open wound of abdominal wall, epigastric region without penetration into peritoneal cavity, initial encounter | CPT/HCPCS: 97605 ==

== ENCOUNTER → 2023-02-05 13:44 | Outpatient (CLI) | payer MEDICARE, OTHER, SELFPAY | PROVIDERS: PCP Internal Medicine; Referring Provider Internal Medicine; Visit Provider Surgery | DX: T81.31XA Disruption of external operation (surgical) wound, not elsewhere classified, initial encounter (principal); S31.102A Unspecified open wound of abdominal wall, epigastric region without penetration into peritoneal cavity, initial encounter; L89.223 Pressure ulcer of left hip, stage 3 | CPT/HCPCS: 11042; 97605; 99213 ==

== ENCOUNTER → 2023-02-12 11:03 | Outpatient (CLI) | payer MEDICARE, OTHER, SELFPAY | PROVIDERS: PCP Internal Medicine; Referring Provider Internal Medicine; Visit Provider Surgery | DX: T81.31XA Disruption of external operation (surgical) wound, not elsewhere classified, initial encounter (principal); S31.102A Unspecified open wound of abdominal wall, epigastric region without penetration into peritoneal cavity, initial encounter | CPT/HCPCS: 11042 ==

== ENCOUNTER → 2024-05-09 14:57 | Outpatient (CLI) | payer MEDICARE, OTHER, SELFPAY ==
[2024-05-09 19:07] LABS: Bacteria Urine Many (>30); Culture Indicated Urine Cult Not Indicated; RBC Urine None Seen (0-5/HPF); Squamous Epithelial Cell Urine 0-1 /HPF (0-5/HPF); Urine Volume 10mL (spun); WBC Urine 0-1/HPF (0-5/HPF)
== END ==
PROVIDERS: PCP Family Medicine; Visit Provider Obstetrics & Gynecology Gynecology
DX: N39.41 Urge incontinence (principal); N39.3 Stress incontinence (female) (male); N81.9 Female genital prolapse, unspecified
CPT/HCPCS: 81015

== ENCOUNTER 2024-08-04 11:24 | Day surgery (SDC) | payer MEDICARE, OTHER, SELFPAY ==
[2024-07-27 14:17] VITALS: BMI 37.5
--- NOTE | 2024-08-02 12:56 | PM.GYNHP.1 ---
History of Present Illness History of Present Illness Narrative: Date of procedure:?? August 04, 2024 Preoperative diagnosis:? cystocele, vaginal vault prolapse Planned Procedure: Anterior colporrhaphy, sacrospinous ligament vaginal vault suspension, cystoscopy. Recent urinary tract infection, asymptomatic, so it could have been just bacteria. Regardless, she was Diagnosed July 19, has been taking cefpodoxime 200 mg twice a day for 14 days No UTI symptoms, no fever. She has been off Eliquis since July 31 Using Detrol 8 mg daily for her severe incontinence. Needs a new prescription, we will order for her. Multiple medical issues, under control, we will order a CBC, CMP, UA Postop Meds She presently takes for chronic pain, [employer], 10 mg hydrocodone with 325 mg acetaminophen, 1 pill every 4 hours, 6 pills per day Pregabalin 50 mg t.i.d., total 150 mg a day Unable to take NSAIDs Unwilling to take additional Tylenol Reports that oxycodone does not really help her. Prefers Dilaudid We will add Dilaudid pills, 20., for to take at home, for additional pain control Max dose of pregabalin is 300 mg a day, so will order her an additional 50 mg to use 3 times a day as needed, #30 pills UroGyn HPI UroGyn HPI UroGyn HPI Narrative: CC: Vaginal prolapse, severe incontinence HPI:??73-year-old female who presents for evaluation of above complaint.?? She reports onset of symptoms since November,, when she had an abdominal wall hernia repair and bowel resection.?? She considers this a?severe problem. She has several issues, including vaginal prolapse, a desire for surgery, poor candidate for abdominal surgery, severe mixed urinary incontinence symptoms, with secondary severe vulvar skin inflammation from the incontinence, obesity. She reports having a large prior basketball sized abdominal wall hernia, this was unable to be completely repaired, and also required a small bowel resection, and she has a short gut syndrome and frequent loose stools as a result of this. And she also has to wear an abdominal binder to hold her abdominal wall together, daily. She is anticoagulated on Coumadin. She has pelvic prolapse that she reports is the size of a baseball, started after she began wearing the binder. She has a prior hysterectomy. She has prolapse symptoms of bulge, heaviness, pressure, strain for bowel movement when constipated, incomplete bladder emptying. She is still sexually active and wants to be sexually active. Prior hysterectomy. She is not a candidate for abdominal surgery. So she would need a vaginal reconstructive procedure with a vaginal approach exam shows a large stage III cystocele and vaginal vault prolapse, with incomplete bladder emptying and a postvoid residual of 175 cc, today she is willing to try a pessary, with plans for surgery later. A #5. Gellhorn pessary was placed today. She might later need a possibly even larger pessary like a #6 Gellhorn, 3 in diameter. She has severe urinary incontinence, requiring 5-6 regular pads in the day and 1-2 regular pads at night. She leaks up to 10 times a day. She has triggers of both stress incontinence and urge incontinence she also has overactive bladder symptoms, has to void every 1-1/2-2 hours in the day and wakes up 4 times at night to void, with moderate to severe urgency symptoms. She has been taking Detrol LA 4 mg a day, and this gives her less urgency, but minimal impact otherwise. She is willing to try a new medication. Will give her oxybutynin at a slightly higher dose effect, so will use 5 mg twice a day and then increase up to 5 mg 3 times a day Due to the severe incontinence and the chronic constant wetness from the pads, she has vulvar inflammation and vulvar itching, which is severe, and diffuse. On exam the inflamed skin runs from the mons to the inner thighs to the perineum to behind the anus, and the lower buttocks overall it spans at least 8-10 inches in each direction. She finds herself scratching the inflamed skin often. We will manage this with betamethasone 3 times a day, as she is currently using [id number] hydrocortisone cream 1% and this is not effective. Also using an antifungal cream, not effective. To help with some of the pain and itching symptoms, we will also have her use lidocaine ointment up to 3 times a day prior hyst -??? + ? -? 1 c-sec? -??1 ? Pelvic Floor Review of Systems: (HPI) Stress Urinary Incontinence symptoms (REGGIE):??Several episodes a day Triggers include:??Sneeze cough bending standing, made worse by the presence of her abdominal binder ? Urge Incontinence symptoms (Urge UI):??Several episodes a day Triggers include:??? [Full bladder with urge,?? ? Pads: She wears 6-8 pads per day, regular size, wet. Overactive Bladder symptoms (OAB):? ? Frequency:??1.5-2 hours Nocturia:??X4? Urgency:??Moderate to severe Prior incontinence treatment includes:? Medical:??Yes, tolterodine ? Surgical:? No ? Kegels:?? Yes Physical therapy:?No? Pessary:?No? Diet / Fluids: Fluid restriction:? No Excessive fluids:?No Pain symptoms:? Painful bladder:???No Dysuria:???No Dyspareunia:? No Dysmenorrhea:? No Urinary Risk Factors UTI?s, recurrent:??No Hematuria:? No Kidney Stones:?No? Tobacco use:? No Pelvic Organ Prolapse (POP) symptoms:?? Bulge:??Yes Pressure and /or? Heaviness:??Yes Splint for defecation or voiding:??No Voiding dysfunction: Abnormal stream:?No Strain to void:? No Incomplete emptying:??Yes Voiding difficulty:??Yes, starts and stops Retention:??? No Bowel Function: Constipation:??No? Strain to defecate:??Yes Fiber:??No Laxatives:??No Fecal Incontinence:? Liquid stool:??Sometimes Solid stool:?No?? Sexually active:?No Incontinence with sex:??Unsure ? UroGyn ROS ROS Narrative ROS Narrative: General Review of Systems: Constitutional, CV, Endo, Musc-skel, Eyes, Cancer, Skin, Breast, GI, Heme/Lymph, Psych, Urinary, Neuro, Form Raiser, Resp, Sexual:??? Pertinent positives listed above in HPI All others reviewed and negative. All reviewed on patient questionnaire.? . . Medications albuterol sulfate 90 mcg/actuation aerosol inhaler 2 puff inhalation Q6H PRN SOB 10/26/18 [History Confirmed 05/09/24] cholecalciferol (vitamin D3) 125 mcg (5,000 unit) tablet (Vitamin D3) 5,000 unit PO BEDTIME 10/26/18 [History Confirmed 05/09/24] fexofenadine 180 mg tablet (Janet Allergy) 180 mg PO DAILY 10/26/18 [History Confirmed 05/09/24] hydrochlorothiazide 50 mg tablet 50 mg PO DAILY 10/26/18 [History Confirmed 05/09/24] levothyroxine 200 mcg tablet See Rx Instructions .Route .COMPLEX 10/26/18 [History Confirmed 05/09/24] montelukast 10 mg tablet (Singulair) 10 mg PO DAILY 10/26/18 [History Confirmed 05/09/24] ibdvdivu-npx-wwlrj acid 0.4 mg-lycopene 300 mcg-lutein 250 mcg tablet (Centrum Silver) 1 tab PO DAILY 10/26/18 [History Confirmed 05/09/24] pregabalin 50 mg capsule 50 mg PO TID 10/26/18 [History Confirmed 05/09/24] warfarin 5 mg tablet 7.5 mg PO DAILY 03/01/19 [History Confirmed 05/09/24] Humalog KwikPen Insulin See Rx Instructions .Route .COMPLEX 11/14/19 [History Confirmed 05/09/24] Ferritin 1 tab PO DAILY 08/28/22 [History Confirmed 05/09/24] Premier Liquid Protein See Rx Instructions .Route .COMPLEX 08/28/22 [History Confirmed 05/09/24] Triseba See Rx Instructions .Route .COMPLEX 08/28/22 [History Confirmed 05/09/24] Trulisity See Rx Instructions .Route .COMPLEX 08/28/22 [History Confirmed 05/09/24] acetaminophen 325 mg tablet 650 mg PO Q6HR PRN Pain (Scale Score 1-3) 08/28/22 [History Confirmed 05/09/24] cefdinir 300 mg capsule 300 mg PO BID #14 caps 08/28/22 [Rx Confirmed 05/09/24] cyclobenzaprine 10 mg tablet 10 mg PO TID PRN spasms 08/28/22 [History Confirmed 05/09/24] diphenhydramine HCl 25 mg capsule (Benadryl) 25 - 50 mg PO TID PRN Allergy Symptoms 08/28/22 [History Confirmed 05/09/24] docusate sodium 100 mg capsule (Dulcolax Stool Softener (docusate)) 100 mg PO DAILY PRN Constipation 08/28/22 [History Confirmed 05/09/24] ferrous gluconate 225 mg (27 mg iron) tablet 225 mg PO DAILY 08/28/22 [History Confirmed 05/09/24] fluticasone propionate 50 mcg/actuation nasal spray,suspension 1 spray intranasal DAILY 08/28/22 [History Confirmed 05/09/24] hydrocodone 7.5 mg-acetaminophen 325 mg tablet 1 tab PO Q4-6H PRN Pain (Scale Score 4-6) 08/28/22 [History Confirmed 05/09/24] vitamin B complex 1 tab PO DAILY 08/28/22 [History Confirmed 05/09/24] losartan 25 mg tablet 25 mg PO DAILY 03/08/24 [History Confirmed 05/09/24] betamethasone valerate 0.1 % topical cream 1 applic topical TID #90 grams 05/09/24 [Rx Confirmed 05/09/24] lidocaine 5 % topical ointment 1 applic topical TID #100 grams 05/09/24 [Rx Confirmed 05/09/24] oxybutynin chloride 5 mg tablet 5 mg PO TID #90 tabs 05/09/24 [Rx Confirmed 05/09/24] Allergies cefamandole [From Mandol] Adverse Reaction (Verified 05/09/24 12:51) Hivesclindamycin Adverse Reaction (Verified 05/09/24 12:51) heparin Adverse Reaction (Verified 05/09/24 12:51) meperidine [From Demerol] Adverse Reaction (Verified 05/09/24 12:51) naproxen Adverse Reaction (Verified 05/09/24 12:51) NSAIDS (Non-Steroidal Anti-Inflamma Adverse Reaction (Verified 05/09/24 12:51) promethazine [From Phenergan] Adverse Reaction (Verified 05/09/24 12:51) rofecoxib [From Vioxx] Adverse Reaction (Verified 05/09/24 12:51) sulfamethoxazole [From Septra] Adverse Reaction (Verified 05/09/24 12:51) trimethoprim [From Septra] Adverse Reaction (Verified 05/09/24 12:51) [facility] Medical History (Updated 05/09/24 @ 17:01 by Pelon Box MD) Vulvar inflammation Urge incontinence Stress incontinence, female Vulvar pruritus Incomplete bladder emptying Vaginal vault prolapse Cystocele, midline Plantar warts (~1998) Osteoarthritis Allergies Situational depression (~1994) Restless leg syndrome (~1991) Peripheral neuropathy (~1991) Headache (~1962) Shoulder pain (~2014) Lumbar disc disease Foot pain (~2011) Chronic back pain (~2011) Carpal tunnel syndrome (~2003) Ankle pain (~1999) Mumps Measles Chicken pox Thrombocytopenia Anemia Vertigo Ruptured tympanic membrane Vaginal prolapse (~2022) Heavy menstrual period Abnormal Pap smear of cervix Hypercoagulopathy Hemorrhoid (~1973) Hypothyroidism (~1973) Peripheral vascular disease (~1994) Hypertension (~1962) DVT (deep venous thrombosis) (~1994) Pyelonephritis Kidney stones Osteomyelitis Diabetes Morbid obesity Joint infection Ventral hernia Anticoagulated on Coumadin Heparin induced thrombocytopenia (HIT) Bilateral leg edema Lymphedema of both lower extremities Venous stasis dermatitis of both lower extremities Surgical History (Updated 03/13/24 @ 19:30 by Alicia Pierce) Anesthesia History of shoulder surgery (~2014) History of History of ureter stent History of ankle fusion History of carpal tunnel repair History of cholecystectomy History of total left hip arthroplasty History of hysterectomy (~1982) Hip replacement planned History of Christine-en-Y gastric bypass History of total knee arthroplasty Social History marital status: household members: spouse Tobacco & Substance Use Smoking Status: Never smoker alcohol intake: current UroGyn Exam Vitals 05/10/2511:48 Height 5 ft 7 in Weight 240 lb BMI 37.5 BP 138/80 Blood Pressure Location Lt brachial Position Sitting UroGyn Exam UroGyn Exam Narrative: General: healthy, alert, coherent, no acute distress, cooperative, nontoxic Pulmonary: normal breathing, no distress Abdomen: soft, no mass, non-distended, no hernia, non-tender wearing a large abd binder. there is space above the pubic bone to do a RP sling if later needed. Inverted T scar on abdomen Vulva: mod-severe thickened and chronically inflamed tissue from the mons to the inner thighs to behind the anus including the vulvar and perineal skin some skin cracks from likely excoriations, she describes lots of itching architecture - Normal labia majora, labia minora, introitus, and clitoris , no unusual skin lesions Urethra meatus: normal, no discharge Perineum: Normal, non-tender Urethra: No mass, non-tender Bladder: no mass, non-tender Vagina: No lesions, no discharge, mild atrophy, non-tender Prolapse stage 2 cystocele and vaginal vault Levators: Non-tender, hyst Bimanual: no mass, no adnexal mass, non-tender Anus: No lesion, non-tender, no hemorrhoid Empty Cough Stress test: Neg PVR: 175 mL by catheter Urethral angle hypermobile: [NO] Pelvic Organ Prolapse: [NO] POP-Q Exam: Aa: 0 Ba: +2 Ap: -2- Bp: -2 C: -4 D: TVL: 9.5 GH: 5 PB: 3.5 Introitus size: 2-3 fingerbreadths Cystocele stage: 3 Rectocele stage: 1 Uterine/Vault Prolapse Stage: 2 patient was fitted for a pessary ring pessaries would not work she was fitted with a #5 Gellhorn pessary, 2 3/4 , supported her POP well. remained in place with valsalva, comfortable, reassess in about 1 mo. Assessment & Plan (1) Cystocele, midline: Status: Acute (2) Vaginal vault prolapse: Status: Acute (3) Incomplete bladder emptying: Status: Acute (4) Overactive bladder: Status: Acute (5) Vulvar pruritus: Status: Acute (6) Stress incontinence, female: Status: Acute (7) Urge incontinence: Status: Acute (8) Vulvar inflammation: Status: Acute Assessment and Plan ? Patient counseled regarding above conditions.? Educational materials given to patient. 1. Pelvic Organ Prolapse - Stage 3 prolapse, with stage III cystocele stage II vaginal vault This diagnosis and its etiology was discussed with the patient.? Treatment options were discussed including: expectant management, pessary trial, and surgical intervention. We briefly discussed risks and benefits of surgery. All surgery for prolapse is not 100% successful and there is a chance of recurrence or failure. Pessary trial with a 5. Gellhorn pessary, 2.75 in Reassess in about 4-6 weeks she desires surgery later. Still sexually active, so not a candidate for colpocleisis. Also not a candidate for abdominal surgery my recommendation = if later desires surgery, then I recommend anterior repair, and sacrospinous ligament vaginal vault suspension. 2. Stress Urinary Incontinence with urethral hypermobility :? This diagnosis was discussed with the patient. The etiology was explained. Treatment options were discussed including expectant management, pelvic floor exercises, pessary trial, and surgical intervention (mid-urethral sling, [place] urethropexy, P-V sling, Jaye urethral plication, urethral bulking injection).? Risks and benefits of surgery were briefly outlined. She needs urodynamic studies next. If stress incontinence is demonstrated she likely desires a sling. Can be done at the prolapse repair 3. Overactive bladder and urge incontinence.?? This diagnosis and its etiology was discussed with the patient.? Treatment options were discussed including: Behavior changes ( Limit fluid intake, Avoiding fluid intake 3 hours before bedtime, Avoiding bladder irritants / follow bladder diet, Bladder training exercises), Kegel / pelvic floor muscle exercises,? OAB Medications, and procedures to include:? bladder botox A injections, Interstim, and PTNS.?? OAB handout given.? Bladder Diet handout given (Decrease caffeine, decrease acidic foods, decrease tobacco) . Detrol, stop New prescription for oxybutynin 5 mg twice daily, if tolerated can increase dose to 5 mg 3 times a day She voices an interest in Botox and this may need to be done later. Medications for now 4. Vulvar pruritus and vulvar inflammation Will manage this aggressively with betamethasone cream 3 times a day and lidocaine 5% ointment, 3 times per day. Stop the ftan-hnt-jyptycv 1% hydrocortisone cream 73-year-old female returns for follow-up 1. POP at prior visit, she was treated for pelvic organ prolapse with a #5 Gellhorn pessary. She reports that the pessary would fall out almost daily. And she and her partner would reinserted. She is not happy with the status of using the pessary to treat her prolapse and she would like to proceed with surgery. Per the last note, she is not a surgery candidate for an abdominal or laparoscopic approach. Extensive prior abdominal history. Extensive adhesions. Prior small bowel obstruction. Prior small bowel resection. Only a vaginal surgery approach. My recommendation at the last visit was for a sacrospinous ligament vaginal vault suspension with anterior colporrhaphy, if the pessary failed to control her symptoms, and she desired to have surgery. Surgery is scheduled for August 04, 2024, JERROD STEVE 2. OAB, urge UI She also has issues with overactive bladder. She was previously treated with Detrol LA 4 mg a day. At the last visit this was changed to oxybutynin. This did not work well for her. She had side effects of nausea and vomiting. Her medication was changed to Detrol 8 mg daily, and this is helping her quite a bit. She will continue to use this. No side effects. 3. severe vulvar perineal skin irritation She also has issues with severe skin irritation, effectively diaper rash equivalent. This is due to the severe incontinence and the soaking of her pads against her skin. She reports that this is now much better after having used the Detrol to improve her incontinence symptoms, as well as using betamethasone cream to her skin, as well as using lidocaine gel pretreatment to allow the betamethasone not to burn her skin. She is now doing so well that she does not need to use the lidocaine gel anymore. She is doing well just with the betamethasone. I told her that over time she might be able to discontinue the betamethasone. She will continue for now. 4. Anticoagulated She takes Eliquis. We will have her stop this 4 days prior to surgery 5. She also needs medical clearance for surgery, due to her extensive history of medical problems. She will ensure that she gets this. Assessment and Plan ? Patient counseled regarding above conditions.? Educational materials given to patient. 1. Pelvic Organ Prolapse - Stage 3, cystocele and vaginal vault This diagnosis and its etiology was discussed with the patient.? Treatment options were discussed including: expectant management, pessary trial, and surgical intervention. We briefly discussed risks and benefits of surgery. All surgery for prolapse is not 100% successful and there is a chance of recurrence or failure. [She declines another Pessary Trial for Prolapse she desires surgery my recommendation = sacrospinous ligament vaginal vault suspension, anterior colporrhaphy, cystoscopy see below for counseling 2. urge incontinence doing well with Detrol LA 8 mg ad 3. stress UI also she reports her REGGIE is well controlled, as the urge UI is now controlled because of her prior severe Abd adhesions, SBO / small bowel resection, and because the scar extends to the pubic bone, will not plan to do a Crede with a full bladder, during surgery, to see if she might have REGGIE or not will instead wait to see if she develops significant REGGIE sx or not, after the POP repair, then can treat accordingly with a sling or bulking. my concern is in passing a TVT type needle and bowel injury, if there small bowel adhesions to the pubic bone. She agrees with this strategy, wants to be conservative in her treatment 4. Vulvar inflammation Much improved now. Continue betamethasone Follow-up:??Preop Surgical Counselling Note Patient seen for surgical counselling.? She desires surgical repair. Please see? H & P for exam and discussion. Date of procedure:?? August 04, 2024 Preoperative diagnosis:? cystocele, vaginal vault prolapse Planned Procedure: Anterior colporrhaphy, sacrospinous ligament vaginal vault suspension, cystoscopy. Recent urinary tract infection, asymptomatic, so it could have been just bacteria. Regardless, she was Diagnosed July 19, has been taking cefpodoxime 200 mg twice a day for 14 days No UTI symptoms, no fever. She has been off Eliquis since July 31 Using Detrol 8 mg daily for her severe incontinence. Needs a new prescription, we will order for her. Multiple medical issues, under control, we will order a CBC, CMP, UA Postop Meds She presently takes for chronic pain, [employer], 10 mg hydrocodone with 325 mg acetaminophen, 1 pill every 4 hours, 6 pills per day Pregabalin 50 mg t.i.d., total 150 mg a day Unable to take NSAIDs Unwilling to take additional Tylenol Reports that oxycodone does not really help her. Prefers Dilaudid We will add Dilaudid pills, 20., for to take at home, for additional pain control Max dose of pregabalin is 300 mg a day, so will order her an additional 50 mg to use 3 times a day as needed, #30 pills Patient counseled extensively about the Risks, Benefits, and Alternatives to surgery.? She was offered the opportunity to ask any questions, and all questions were answered. ? Surgical Risks include: Bleeding, Hemorrhage, Transfusion, Infection (especially wound or bladder), Injury to adjacent organs (especially bladder, ureter, bowel, blood vessels, nerves), Postop or Chronic Pain, need for Reoperation, and Life-threatening event (especially M.I., CVA, PE, DVT). Procedure Risks include: Failure to Cure condition, Recurrence of condition months or years later, Urinary incontinence, Voiding dysfunction or Urinary Retention with prolonged catheter use, Poor wound healing, Erosions of any mesh or graft used, Dyspareunia, Vaginal scarring or narrowing, Need for additional surgery (immediate or delayed).? The expected cure and improvement and failure rates were discussed. Patient counseled to avoid the following for 6 weeks after surgery: (1) Impact sports (like running or jumping), walking and stairs OK (2) Lifting over 20# (3) Sexual intercourse No limits after 6 weeks. ? Good exercise tolerance, > 4 Mets. Her current medications were reviewed, and instructions given over which to use and which to discontinue before surgery.? Post-operative care instructions reviewed.? We discussed post-operative pain: Pain should be in the mild-moderate range, but can be moderate-severe for the first few days.?? Prescriptions will typically be given for (1) acetaminophen (Tylenol) and (2) non-steroidal anti-inflammatory drug (NSAID, like Motrin or Naprosyn), use both together, around the clock. Prescription will also be given for a (3) narcotic pain medication. Use the narcotic as needed, as a booster to the Tylenol and NSAID. You might need 0-4 narcotic pills a day typically. The narcotic will only be needed for a few days.?? Gradually use less of the narcotic, but continue the Tylenol and NSAID.? After a few days, the narcotic should no longer be needed, and only the Tylenol and NSAID will be needed.? Warm packs or cold packs can also be used for pain.??Do not drive for as long as you are using the narcotic pain medication? - this should only be a few days.?? Constipation is associated with use of narcotic pain medications, and can be improved with use of a stool softener, or fiber, or a mild laxative.? All of her questions were answered and then the consent was signed at the end of the office visit.? Patient sent for labs and her preadmission appointment. Pelon Box MD UroGynecology & Pelvic Reconstructive Surgery [facility] Medical History (Updated 07/27/24 @ 15:18 by Cassandra Cheng, RN) Incisional hernia (2022) Vulvar inflammation Urge incontinence Stress incontinence, female Vulvar pruritus Incomplete bladder emptying Vaginal vault prolapse Cystocele, midline Plantar warts (~1998) Osteoarthritis Allergies Situational depression (~1994) Restless leg syndrome (~1991) Peripheral neuropathy (~1991) Headache (~1962) Shoulder pain (~2014) Lumbar disc disease Foot pain (~2011) Chronic back pain (~2011) Carpal tunnel syndrome (~2003) Ankle pain (~1999) Mumps Measles Chicken pox Thrombocytopenia Anemia Vertigo Ruptured tympanic membrane Vaginal prolapse (~2022) Heavy menstrual period Abnormal Pap smear of cervix Hypercoagulopathy Hemorrhoid (~1973) Hypothyroidism (~1973) Peripheral vascular disease (~1994) Hypertension (~1962) DVT (deep venous thrombosis) (~1994) Pyelonephritis Kidney stones Osteomyelitis Diabetes Morbid obesity Joint infection Ventral hernia Anticoagulated on Coumadin Heparin induced thrombocytopenia (HIT) Bilateral leg edema Lymphedema of both lower extremities Venous stasis dermatitis of both lower extremities Surgical History (Updated 07/27/24 @ 15:13 by Cassandra Cheng RN) Status post total hip replacement, 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) Anesthesia History of shoulder surgery (~2014) History of History of ureter stent History of ankle fusion History of carpal tunnel repair History of cholecystectomy (1990) History of total left hip arthroplasty (1998) History of hysterectomy (1982) Hip replacement planned History of Christine-en-Y gastric bypass History of total knee arthroplasty Social History marital status: household members: spouse alcohol intake: current Meds Home Medications and Allergies Home Medications ?Medication ?Instructions ?Recorded ?Confirmed ?Type albuterol sulfate 90 mcg/actuation 2 puff inhalation Q6H PRN SOB 10/26/18 06/29/24 History aerosol inhaler cholecalciferol (vitamin D3) 125 5,000 unit PO BEDTIME 10/26/18 06/29/24 History mcg (5,000 unit) tablet (Vitamin D3) fexofenadine 180 mg tablet 180 mg PO DAILY 10/26/18 06/29/24 History (Janet Allergy) hydrochlorothiazide 50 mg tablet 50 mg PO DAILY 10/26/18 06/29/24 History levothyroxine 200 mcg tablet See Rx Instructions .Route .COMPLEX 10/26/18 06/29/24 History montelukast 10 mg tablet 10 mg PO DAILY 10/26/18 06/29/24 History (Singulair) zlfnmhsu-jmg-sowvi acid 0.4 1 tab PO DAILY 10/26/18 06/29/24 History mg-lycopene 300 mcg-lutein 250 mcg tablet (Centrum Silver) Humalog KwikPen Insulin See Rx Instructions .Route .COMPLEX 11/14/19 06/29/24 History Ferritin 1 tab PO DAILY 08/28/22 06/29/24 History Premier Liquid Protein See Rx Instructions .Route .COMPLEX 08/28/22 06/29/24 History Triseba See Rx Instructions .Route .COMPLEX 08/28/22 06/29/24 History Trulisity See Rx Instructions .Route .COMPLEX 08/28/22 06/29/24 History acetaminophen 325 mg tablet 650 mg PO Q6HR PRN Pain (Scale 08/28/22 06/29/24 History Score 1-3) cefdinir 300 mg capsule 300 mg PO BID #14 caps 08/28/22 06/29/24 Rx cyclobenzaprine 10 mg tablet 10 mg PO TID PRN spasms 08/28/22 06/29/24 History diphenhydramine HCl 25 mg capsule 25 - 50 mg PO TID PRN Allergy 08/28/22 06/29/24 History (Benadryl) Symptoms docusate sodium 100 mg capsule 100 mg PO DAILY PRN Constipation 08/28/22 06/29/24 History (Dulcolax Stool Softener (docusate)) ferrous gluconate 225 mg (27 mg 225 mg PO DAILY 08/28/22 06/29/24 History iron) tablet fluticasone propionate 50 1 spray intranasal DAILY 08/28/22 06/29/24 History mcg/actuation nasal spray,suspension hydrocodone 7.5 mg-acetaminophen 1 tab PO Q4-6H PRN Pain (Scale 08/28/22 06/29/24 History 325 mg tablet Score 4-6) vitamin B complex 1 tab PO DAILY 08/28/22 06/29/24 History losartan 25 mg tablet 25 mg PO DAILY 03/08/24 06/29/24 History betamethasone valerate 0.1 % 1 applic topical TID #90 grams 05/09/24 06/29/24 Rx topical cream lidocaine 5 % topical ointment 1 applic topical TID #100 grams 05/09/24 06/29/24 Rx apixaban 5 mg tablet (Eliquis) 5 mg PO BID 07/27/24 07/27/24 History betamethasone valerate 0.1 % 1 applic topical BID 07/27/24 07/27/24 History topical cream lidocaine 5 % topical ointment topical PRN Perineal irritation. 07/27/24 History oxybutynin chloride 5 mg tablet 5 mg PO 3XD 07/27/24 07/27/24 History hydromorphone 2 mg tablet 2 mg PO Q4-6H PRN pain #20 tabs 08/02/24 08/02/24 Rx (Dilaudid) pregabalin 50 mg capsule 50 mg PO TID PRN postop pain #30 08/02/24 08/02/24 Rx caps tolterodine 4 mg capsule,extended 8 mg (2 x 4 mg) PO DAILY #60 caps 08/02/24 08/02/24 Rx release 24 hr Allergies Allergy/AdvReac Type Severity Reaction Status Date / Time cefamandole (From Mandol) AdvReac Hives Verified 08/02/24 10:40 clindamycin AdvReac Verified 08/02/24 10:40 heparin AdvReac Thrombcytop Verified 08/02/24 10:40 enia. meperidine (From Demerol) AdvReac Verified 08/02/24 10:40 naproxen AdvReac Verified 08/02/24 10:40 NSAIDS (Non-Steroidal AdvReac Verified 08/02/24 10:40 Anti-Inflamma promethazine (From Phenergan) AdvReac Verified 08/02/24 10:40 rofecoxib (From Vioxx) AdvReac Verified 08/02/24 10:40 sulfamethoxazole (From AdvReac Verified 08/02/24 10:40 Septra) trimethoprim (From Septra) AdvReac Verified 08/02/24 10:40 Assessment & Plan Time-Based Coding :: [TOTAL MINUTES] spent with patient and on the chart (including review of chart, obtaining history, exam, reviewing outside data, placing orders, documenting exam and treatment plan, and counseling patient) on [DATE].
[2024-08-04] VITALS (7 sets, daily range): BP systolic 132–165; BP diastolic 62–87; PULSE 73–89; RESP 11–20; TEMP 36.1–36.4; O2SAT 93–99; BMI 37.3
[2024-08-04] MEDS: ACETAMINOPHEN 325 MG TABLET 975 MG PO (13:07)
[2024-08-04] MEDS: LACTATED RINGERS 1,000 ML 42 ML IV ×2 (13:08→16:50)
[2024-08-04] MEDS: PHENAZOPYRIDINE 100 MG TABLET 200 MG PO (13:08)
[2024-08-04] MEDS: CEFAZOLIN 2 GM/100 ML PREMIX 100 ML IV (14:34)
--- NOTE | 2024-08-04 14:58 | SUR.OPER ---
Lithotomy on padded OR bed, head on pillow, arms secured on padded arm boards at <90 degrees abduction. Legs secured in padded yellow fins stirrups.
[2024-08-04] MEDS: LIDOCAINE 1% 20 ML INJ (15:10)
--- NOTE | 2024-08-04 16:25 | P.OP_ITS ---
Operative Date/Time/Diagnoses Date of procedure: 08/04/24 Time of procedure: 14:47 Pre-op diagnosis: Cystocele, vaginal vault prolapse, severe urge incontinence Post-op diagnosis: same Procedure & Clinicians Procedure: Procedures Operation Date: 08/04/24 13:00 Actual Procedure Side Surgeon p Anterior Repair, sacrospinous ligament vaginal vault suspension, CYSTOSCOPY Not Applicable Pelon Box MD Operative Notes Findings: Operative Note Surgeon:? Pelon Box MD Rat Exterminator: Danika Byers MD Pre-Op Diagnosis: Cystocele, vaginal vault prolapse, severe urge incontinence Post-Op Diagnosis: Same Procedure:?? Anterior colporrhaphy Sacrospinous ligament vaginal vault suspension Cystoscopy, done for indication of severe urge incontinence Findings (brief): 1. Exam under anesthesia demonstrates stage III prolapse similar to preop exam, point BA at +2, point C at -4 2. Anterior colporrhaphy in usual fashion. Two layered repair, 1st layer on vesicle vaginal fascia. Second layer with mattress sutures x4 to plicate 3. Sacrospinous ligament suspension done via upper posterior vaginal incision. Two sutures of 0 PDS suture placed through the right sacrospinous ligament using the Capio suturing device Good support of the vaginal apex 4. Cystoscopy, indicated for severe urge incontinence. Cystoscopy demonstrated normal bladder mucosa, normal urethra, no lesions, no inflammation, nothing to biopsy, no stones, bilateral ureteral jets, no trabeculations, essentially a normal exam. Date of Surgery:? August 04, 2024 Complications:? None Specimens:? None Anesthesia Technique: General endotracheal Estimated Blood Loss (mls):? 100 cc Blood Replacement (mls):? None Drains:? Grant Condition:? Stable Procedure in detail: After consent was confirmed, the patient was taken to the operating room and placed under general anesthesia without incident.? Sequential compression devices were in place and active.? She received perioperative antibiotics.? She was then prepped and draped in the usual sterile fashion after placement in the dorsal lithotomy position using the Domenico stirrups.? A Grant catheter was placed.? Attention was then turned to the anterior vaginal wall. The anterior vaginal mucosa was grasped with Allis clamps and was injected with 10-20 cc of 0.5% lidocaine / epinephrine 1:200,000.? A midline incision was made with a scalpel, from the U-V junction to the apex. The vaginal mucosa was dissected off of the underlying pubocervical fascia until the sidewalls were reached.?? The bladder fascia was plicated with running 2-0 vicryl, and then the vaginal mucosa was plicated with horizontal mattress sutures of 2-0 vicryl. Excess anterior vaginal mucosa was trimmed and the incision was closed with 2-0 vicryl. \ ? Attention was then turned to the posterior vaginal wall. The posterior vaginal mucosa was grasped with Allis clamps and was injected with 15- 20 cc of 0.5% lidocaine / epinephrine 1:200,000.? A full-thickness midline 6-7 cm incision was made 3 cm above the posterior vaginal introitus extending up the posterior vagina to the apex.? The vagina was dissected off of the underlying rectum until the levator muscles were reached, on the right side only, and continued up to the cervix.? The para-rectal space was dissected using blunt and sharp dissection until the ischial spines and coccyx were palpated.? The sacrospinous ligament was cleared of the overlying adventitial tissue, bilaterally.? This completed the dissection for the sacrospinous ligament suspension.? The [employer] needle local owner operator truck driver was used to place two 0-PDS sutures through the right sacrospinous ligament, approx 2 cm medial to the ischial spine.?? Next the SSLF sutures were placed.? For each of the two 0-PDS sutures, both suture ends were passed through the right side of the vaginal apex, about 1 cm apart.? Next, the?posterior vaginal incision was closed with running 2-0 vicryl.? Then, each of the PDS sutures were tied down, with excellent support of the vaginal apex. Sponge, needle and instrument count was correct.? The patient tolerated the procedure well and was taken to the recovery room in stable condition. Pelon Box MD UroGynecology [facility] Pelvic Reconstructive Surgery [place], [place]
[2024-08-04] MEDS: HYDROMORPHONE 1 MG INJ IV ×2 (17:15→17:22)
[2024-08-04] MEDS: ONDANSETRON 4 MG/2 ML INJ IV (17:19)
[2024-08-04] MEDS: hydrOXYzine 50 MG/ML INJ 25 MG IM (17:28)
--- NOTE | 2024-08-04 17:58 | SUR.PHASEII ---
Patients bledsoe catheter instilled with 300ml sterile water. Patient was able to void 300ml
== END 2024-08-04 18:19 | disposition home or self-care (01) ==
PROVIDERS: PCP Family Medicine; Referring Provider Obstetrics & Gynecology Gynecology; Visit Provider Obstetrics & Gynecology Gynecology
DX: N81.3 Complete uterovaginal prolapse (principal); N39.46 Mixed incontinence; L29.2 Pruritus vulvae; N32.81 Overactive bladder; R33.9 Retention of urine, unspecified; G89.29 Other chronic pain; E66.9 Obesity, unspecified; Z68.37 Body mass index [BMI] 37.0-37.9, adult; Z79.01 Long term (current) use of anticoagulants; Z98.890 Other specified postprocedural states; Z87.440 Personal history of urinary (tract) infections
CPT/HCPCS: 57282; 57240; 82962; J0330; J0690; J1100; J1171; J2405; J2704; J3010; J3410; J3490

== ENCOUNTER → 2024-09-26 11:18 | Outpatient (CLI) | payer MEDICARE, OTHER, SELFPAY ==
[2024-09-26 12:51] LABS: Appearance Urine UA CLEAR; Bilirubin Urine UA NEGATIVE (NEGATIVE); Color Urine UA YELLOW; Glucose Urine UA NEGATIVE (Negative); Ketones Urine UA NEGATIVE (NEGATIVE); Leukocyte Esterase Urine UA NEGATIVE (NEGATIVE); Nitrite Urine UA NEGATIVE (Negative); Occult Blood Urine UA NEGATIVE (Negative); Protein Urine UA NEGATIVE (Negative); Specific Gravity Urine UA 1.020 (1.000-1.035); Urobilinogen Urine UA 0.2 E.U./dL (0.2)
[2024-09-26 12:57] LABS: pH Urine UA 5.5 (4.5-8.0)
[2024-09-26 13:07] LABS: Culture Indicated Urine Cult Not Indicated
== END ==
PROVIDERS: PCP Family Medicine; Visit Provider Obstetrics & Gynecology Gynecology
DX: N39.46 Mixed incontinence (principal); N39.41 Urge incontinence
CPT/HCPCS: 81001

== ENCOUNTER 2024-10-06 21:17 | Emergency (ER) | payer MEDICARE, OTHER, SELFPAY ==
[2024-10-06] VITALS (9 sets, daily range): BP systolic 176–222; BP diastolic 75–89; PULSE 74–88; RESP 19; TEMP 36.8; O2SAT 71–98; BMI 38.3
--- NOTE | 2024-10-06 21:48 | ED.ABDPAIN ---
HPI - Abdominal Pain General Chief Complaint: Abdominal Pain Stated Complaint: Abdominal Pain, Vomiting Time Seen by Provider: 10/06/24 21:44 History of Present Illness HPI narrative: 74-year-old female patient with a history of hypertension, type 2 diabetes, obesity with gastric bypass surgery, hypothyroidism, multiple abdominal surgeries and chronic abdominal pain with chronic back pain who was recently admitted for 3 days 2 [facility] for aspiration pneumonia and UTI. She was sent home on antibiotics but her infectious disease doctor changed her to levofloxacin today. After taking 1 pill she had increased abdominal pain, bloating and nausea and vomiting. No fever, chills or diarrhea. Related Data Home Medications ?Medication ?Instructions ?Recorded ?Confirmed albuterol sulfate 90 mcg/actuation 2 puff inhalation Q6H PRN SOB 10/26/18 08/04/24 aerosol inhaler cholecalciferol (vitamin D3) 125 5,000 unit PO BEDTIME 10/26/18 08/04/24 mcg (5,000 unit) tablet (Vitamin D3) fexofenadine 180 mg tablet 180 mg PO DAILY 10/26/18 08/04/24 (Janet Allergy) hydrochlorothiazide 50 mg tablet 50 mg PO DAILY 10/26/18 08/04/24 levothyroxine 200 mcg tablet See Rx Instructions .Route .COMPLEX 10/26/18 08/04/24 montelukast 10 mg tablet 10 mg PO DAILY 10/26/18 08/04/24 (Singulair) tljarmct-fto-bxdwi acid 0.4 1 tab PO DAILY 10/26/18 08/04/24 mg-lycopene 300 mcg-lutein 250 mcg tablet (Centrum Silver) Ferritin 1 tab PO DAILY 08/28/22 08/04/24 Premier Liquid Protein See Rx Instructions .Route .COMPLEX 08/28/22 08/04/24 Triseba See Rx Instructions .Route .COMPLEX 08/28/22 08/04/24 Trulisity See Rx Instructions .Route .COMPLEX 08/28/22 08/04/24 acetaminophen 325 mg tablet 650 mg PO Q6HR PRN Pain (Scale 08/28/22 08/04/24 Held on 08/04/24. Score 1-3) Instructions: other medications cyclobenzaprine 10 mg tablet 10 mg PO TID PRN spasms 08/28/22 08/04/24 diphenhydramine HCl 25 mg capsule 25 - 50 mg PO TID PRN Allergy 08/28/22 08/04/24 (Benadryl) Symptoms docusate sodium 100 mg capsule 100 mg PO DAILY PRN Constipation 08/28/22 08/04/24 (Dulcolax Stool Softener (docusate)) ferrous gluconate 225 mg (27 mg 225 mg PO DAILY 08/28/22 08/04/24 iron) tablet fluticasone propionate 50 1 spray intranasal DAILY 08/28/22 08/04/24 mcg/actuation nasal spray,suspension vitamin B complex 1 tab PO DAILY 08/28/22 08/04/24 losartan 25 mg tablet 25 mg PO DAILY 03/08/24 08/04/24 apixaban 5 mg tablet (Eliquis) 5 mg PO BID 07/27/24 08/04/24 betamethasone valerate 0.1 % 1 applic topical BID 07/27/24 07/27/24 topical cream lidocaine 5 % topical ointment topical PRN Perineal irritation. 07/27/24 amlodipine 10 mg tablet 10 mg PO DAILY 08/04/24 08/04/24 cefpodoxime 200 mg tablet 200 mg PO BID 08/04/24 08/04/24 cholestyramine (with sugar) 4 gram ea PO 3XD 08/04/24 oral powder glipizide 5 mg tablet, extended 5 mg PO DAILY 08/04/24 08/04/24 release 24 hr hyoscyamine sulfate 0.125 mg sublingual 08/04/24 sublingual tablet ondansetron 4 mg disintegrating PO 08/04/24 tablet Previous Rx's ?Medication ?Instructions ?Recorded cefdinir 300 mg capsule 300 mg PO BID #14 caps 08/28/22 betamethasone valerate 0.1 % 1 applic topical TID #90 grams 05/09/24 topical cream lidocaine 5 % topical ointment 1 applic topical TID #100 grams 05/09/24 pregabalin 50 mg capsule 50 mg PO TID PRN postop pain #30 08/02/24 caps estradiol 0.01% (0.1 mg/gram) 1 g vaginal 3XW #42.5 grams 09/26/24 vaginal cream (Estrace) methenamine hippurate 1 gram tablet 1 g PO BID #180 tabs 09/26/24 tolterodine 4 mg capsule,extended 8 mg (2 x 4 mg) PO DAILY #180 caps 09/26/24 release 24 hr Allergies Allergy/AdvReac Type Severity Reaction Status Date / Time Sulfa (Sulfonamide Allergy Mild ITCHING Verified 08/04/24 12:09 Antibiotics) aspirin Allergy Unknown Verified 10/06/24 21:50 bee venom protein (honey bee) Allergy Unknown Verified 10/06/24 21:50 metformin Allergy Unknown Verified 10/06/24 21:50 ALYSSA Inhibitors AdvReac Mild Cough Verified 10/06/24 21:50 Dpjagdr-YNP-IpK Reductase AdvReac Unknown Verified 10/06/24 21:50 Inhibitor cefamandole (From Mandol) AdvReac Hives Verified 08/04/24 12:09 clindamycin AdvReac Verified 10/06/24 21:50 heparin AdvReac Thrombcytop Verified 10/06/24 21:50 enia. levofloxacin (From Levaquin) AdvReac Vomiting Verified 10/06/24 21:50 meperidine (From Demerol) AdvReac Verified 08/04/24 12:09 naproxen AdvReac Verified 08/04/24 12:09 NSAIDS (Non-Steroidal AdvReac Verified 10/06/24 21:50 Anti-Inflamma promethazine (From Phenergan) AdvReac Verified 10/06/24 21:50 rofecoxib (From Vioxx) AdvReac Verified 08/04/24 12:09 sulfamethoxazole (From AdvReac Verified 08/04/24 12:09 Septra) trimethoprim (From Septra) AdvReac Verified 08/04/24 12:09 Review of Systems Review of Systems ROS Unobtainable: All systems reviewed & are unremarkable except as noted in HPI and below Cardiovascular Cardiovascular: Denies chest pain and Denies dyspnea Respiratory Respiratory: Denies chest congestion, Denies cough and Denies dyspnea Gastrointestinal Gastrointestinal: Reports as per HPI Patient History Medical History (Updated 10/06/24 @ 23:38 by Jose Juan Tucker MD) Recurrent UTI Incisional hernia (2022) Vulvar inflammation Urge incontinence Stress incontinence, female Vulvar pruritus Incomplete bladder emptying Vaginal vault prolapse Cystocele, midline Plantar warts (~1998) Osteoarthritis Allergies Situational depression (~1994) Restless leg syndrome (~1991) Peripheral neuropathy (~1991) Headache (~1962) Shoulder pain (~2014) Lumbar disc disease Foot pain (~2011) Chronic back pain (~2011) Carpal tunnel syndrome (~2003) Ankle pain (~1999) Mumps Measles Chicken pox Thrombocytopenia Anemia Vertigo Ruptured tympanic membrane Vaginal prolapse (~2022) Heavy menstrual period Abnormal Pap smear of cervix Hypercoagulopathy Hemorrhoid (~1973) Hypothyroidism (~1973) Peripheral vascular disease (~1994) Hypertension (~1962) DVT (deep venous thrombosis) (~1994) Pyelonephritis Kidney stones Osteomyelitis Diabetes Morbid obesity Joint infection Ventral hernia Anticoagulated on Coumadin Heparin induced thrombocytopenia (HIT) Bilateral leg edema Lymphedema of both lower extremities Venous stasis dermatitis of both lower extremities Surgical History (Updated 07/27/24 @ 15:13 by Cassandra Cheng RN) Status post total hip replacement, 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 Mild to moderate distress. Appears well nourished and well hydrated Craniofacial: No evidence of trauma. Nontender and no swelling. Eyes: PERRLA EOMI conjunctiva clear Lungs: Clear to auscultation with good air movement. No wheezing, rales or rhonchi. No respiratory distress Cardiac: Regular rate and rhythm with no appreciable murmur or gallop Abdomen: Soft, mild to moderate diffuse tenderness with no distention or masses. Normal bowel sounds. No rebound or guarding Musculoskeletal: Exam of the extremities, axial spine and ribcage reveals no deformity, bony tenderness or swelling. Range of motion intact Neuro: Alert and oriented. Cranial nerves, motor, sensory and cerebellar all grossly intact. No focal deficit Skin: Warm and normal color. No rashes Psychological: Normal affect and interaction. No evidence of delusion or psychosis. Normal mood. Initial Vital Signs Initial Vital Signs: Vital Signs Temperature 98.2 F 10/06/24 21:44 Pulse Rate 88 10/06/24 21:44 Respiratory Rate 19 10/06/24 21:44 Blood Pressure 185/81 H 10/06/24 21:44 Pulse Oximetry 96 10/06/24 21:44 Oxygen Delivery Method Room Air 10/06/24 21:44 Const General: cooperative Course Orders Ordered: ED Orders 10/06/24 21:50 Complete Blood Count AUTO DIFF Stat Comprehensive Metabolic Panel Stat Lipase Stat Discontinued Medications Hydromorphone HCl (Hydromorphone 1 Mg Inj) 0.5 mg IV NOW ONE Stop: 10/06/24 21:55 Last Admin: 10/06/24 22:01 Dose: 0.5 mg Documented By: RICHELLE Hydromorphone HCl (Hydromorphone 1 Mg Inj) 1 mg IV NOW ONE Stop: 10/06/24 22:44 Last Admin: 10/06/24 23:00 Dose: 1 mg Documented By: RICHELLE Sodium Chloride (Normal Saline 0.9%) 1,000 mls @ 1,000 mls/hr IV BOLUS ONE Stop: 10/06/24 22:53 Last Infusion: 10/06/24 23:50 Dose: Infused Documented By: Admin: 10/06/24 22:00 Dose: 1,000 mls/hr Documented By: RICHELLE Ondansetron HCl (Ondansetron 4 Mg/2 Ml Inj) 4 mg IV NOW ONE Stop: 10/06/24 21:55 Last Admin: 10/06/24 22:00 Dose: 4 mg Documented By: RICHELLE Ondansetron HCl (Ondansetron 4 Mg/2 Ml Inj) 4 mg IV NOW ONE Stop: 10/06/24 23:37 Last Admin: 10/06/24 23:40 Dose: 4 mg Documented By: RICHELLE Vital Signs Vital signs: Vital Signs - 8 hr 10/06/24 21:44 10/06/24 22:01 10/06/24 22:02 Temperature 98.2 F Pulse Rate 88 82 Respiratory Rate 19 Blood Pressure 185/81 H 222/89 H Pulse Oximetry 96 71 L Oxygen Delivery Method Room Air 10/06/24 22:30 10/06/24 22:31 10/06/24 22:31 Temperature Pulse Rate 80 79 Respiratory Rate Blood Pressure 176/75 H Pulse Oximetry 97 97 Oxygen Delivery Method 10/06/24 23:00 10/06/24 23:01 10/06/24 23:01 Temperature Pulse Rate 78 78 Respiratory Rate Blood Pressure 213/85 H Pulse Oximetry 98 98 Oxygen Delivery Method 10/06/24 23:30 10/06/24 23:31 10/06/24 23:31 Temperature Pulse Rate 74 75 Respiratory Rate Blood Pressure 187/77 H Pulse Oximetry 94 95 Oxygen Delivery Method 10/07/24 00:12 Temperature Pulse Rate Respiratory Rate Blood Pressure Pulse Oximetry 98 Oxygen Delivery Method MDM - Abdominal Pain Differential Diagnosis Differential diagnosis: Likely abdominal pain, constipation, gastroenteritis and small bowel obstruction Condition is:: Improved Chronic Condition is having:: Moderate exacerbation Medical Records Attestation: I reviewed the patient's medical records. Lab Data Attestation: I reviewed the patient's lab results. Lab results narrative: Mildly elevated WBCs. Otherwise no acute changes. Any mild abnormalities are chronic. 10/06/24 21:50 10/06/24 21:50 Labs: Lab Results 10/06/24 Range/Units 21:50 WBC 11.8 H (4.5-11.0) X10^3/uL RBC 3.90 L (4.0-5.2) X10^6/uL Hgb 11.8 L (12.0-16.0) g/dL Hct 34.7 L (36-46) % MCV 89.0 (80-100) fL MCH 30.1 (26-34) PG MCHC 33.9 (30-36) % RDW 13.6 (11.6-14.8) % Plt Count 224 (150-400) X10^3/uL Neut % (Auto) 82.1 H (50-75) % Lymph % (Auto) 11.4 L (25-40) % [place] % (Auto) 4.4 (3-14) % Eos % (Auto) 1.8 L (2-4) % Baso % (Auto) 0.3 (0-2) % Neut # (Auto) 9700 H (5652-5930) /uL Lymph # (Auto) 1300 (1428-4072) /uL [place] # (Auto) 500 (0-900) /uL Eos # (Auto) 200 (0-450) /uL Baso # (Auto) 0 (0-100) /uL Sodium 143 (137-145) mmol/L Potassium 3.8 (3.4-5.1) mmol/L Chloride 107 (98-107) mmol/L Carbon Dioxide 22 (22-32) mmol/L BUN 34 H (7-17) mg/dL Creatinine 1.55 H (0.52-1.04) mg/dL Estimated GFR 35 L (>60) mL/min BUN/Creatinine Ratio 21.9 (6-22) Glucose 77 (70-99) mg/dL Calcium 9.2 (8.4-10.2) mg/dL Total Bilirubin 0.3 (0.2-1.3) mg/dL AST 31 (14-36) IU/L ALT 18 (<35) IU/L Alkaline Phosphatase 82 (38-126) U/L Total Protein 8.4 H (6.3-8.2) g/dL Albumin 4.6 (3.5-5.0) g/dL Globulin 3.8 (1.7-4.1) g/dL Albumin/Globulin Ratio 1.2 (1.0-2.8) Lipase 68 (23-300) U/L MDM Narrative Medical decision making narrative: Patient has chronic abdominal problems with pain, nausea and diarrhea. She has had exacerbation of her symptoms after taking levofloxacin for UTI and ?aspiration pneumonia? recommended by her Infectious Disease doctor today as it is change from her discharge medications. Currently improved with IV fluids and nausea medication in the ER. Lab work reassuring. Patient will continue her home medications including pain and nausea medications. She will discuss antibiotic choice with her infectious disease doctor and primary care tomorrow. She will return to the ER if worse. Discharge Plan Departure Patient Disposition: Home Clinical Impression: Increased nausea and vomiting Instructions: DI for Abdominal Pain-Adult, Nausea and Vomiting-Adult Activity Restrictions/Additional Instructions: Hydration, rest and supportive care. Continue your nausea and pain medications at home alone with her other medications. Monitor symptoms. Contact primary care and Infectious Disease tomorrow regarding treatment of UTI. Whether to switch antibiotics or continue your current prescription. Return to the ER if worse Prescriptions: No Action betamethasone valerate 0.1 % cream 1 applic topical TID Qty: 90 6RF lidocaine 5 % ointment 1 applic topical TID Qty: 100 6RF losartan 25 mg tablet 25 mg PO DAILY tolterodine 4 mg capsule,extended release 24hr 8 mg PO DAILY Qty: 180 3RF Rx Instructions: Okay to use indefinitely methenamine hippurate 1 gram tablet 1 g PO BID Qty: 180 3RF Rx Instructions: for UTI prevention, okay to use indefinitely estradiol [Estrace] 0.01 % (0.1 mg/gram) cream 1 g vaginal 3XW Qty: 42.5 6RF Rx Instructions: apply 1 gm to vagina 3 nights a week. OK to use indefinitely. pregabalin 50 mg capsule 50 mg PO TID PRN (Reason: postop pain) Qty: 30 0RF Rx Instructions: She already takes 50 mg t.i.d. pregabalin, for postop pain, we will add an additional 50 mg t.i.d. as needed., so this would put her at a maximum dose of 300 mg pregabalin daily hydrochlorothiazide 50 mg tablet 50 mg PO DAILY montelukast [Singulair] 10 mg Tablet 10 mg PO DAILY levothyroxine 200 mcg tablet See Rx Instructions .ROUTE .COMPLEX Rx Instructions: 200mcg M-S, 400mcg Thursday fexofenadine [Janet Allergy] 180 mg Tablet 180 mg PO DAILY albuterol sulfate 90 mcg/actuation Hfa Aerosol Inhaler 2 puff INHALATION Q6H PRN (Reason: SOB) Centrum Silver 0.4-300-250 mg-mcg-mcg Tablet 1 tab PO DAILY cholecalciferol (vitamin D3) [Vitamin D3] 5,000 unit Tablet 5,000 unit PO BEDTIME acetaminophen 325 mg tablet 650 mg PO Q6HR PRN (Reason: Pain (Scale Score 1-3)) diphenhydramine HCl [Benadryl] 25 mg Capsule 25 - 50 mg PO TID PRN (Reason: Allergy Symptoms) docusate sodium [Dulcolax Stool Softener (dss)] 100 mg Capsule 100 mg PO DAILY PRN (Reason: Constipation) vitamin B complex Tablet 1 tab PO DAILY fluticasone propionate 50 mcg/actuation [place],Suspension 1 spray INTRANASAL DAILY Rx Instructions: administer into each nostril ferrous gluconate 225 mg (27 mg iron) Tablet 225 mg PO DAILY Ferritin 1 tab PO DAILY Premier Liquid Protein See Rx Instructions .ROUTE .COMPLEX Rx Instructions: 1 carton BID Triseba See Rx Instructions .ROUTE .COMPLEX Rx Instructions: 25 units SQ daily in AM Trulisity See Rx Instructions .ROUTE .COMPLEX Rx Instructions: 0.75/0.5 SQ every Thursday @ 1700 cyclobenzaprine 10 mg Tablet 10 mg PO TID PRN (Reason: spasms) cefdinir 300 mg capsule 300 mg PO BID Qty: 14 0RF Rx Instructions: start on 08/29 betamethasone valerate 0.1 % cream 1 applic topical BID lidocaine 5 % ointment topical PRN (Reason: Perineal irritation.) Eliquis 5 mg tablet 5 mg PO BID cefpodoxime 200 mg tablet 200 mg PO BID glipizide 5 mg tablet extended release 24hr 5 mg PO DAILY amlodipine 10 mg tablet 10 mg PO DAILY hyoscyamine sulfate 0.125 mg tablet, sublingual sublingual ondansetron 4 mg tablet,disintegrating PO cholestyramine (with sugar) 4 gram powder PO 3XD Referrals: Tung Treadwell MD [Primary Care Provider, Family Practice] Stand Alone Forms: Patient Portal/API
[2024-10-06] MEDS: SODIUM CHLORIDE 0.9% 1,000 ML 1000 ML IV (22:00)
[2024-10-06] MEDS: ONDANSETRON 4 MG/2 ML INJ IV ×2 (22:00→23:40)
[2024-10-06] MEDS: HYDROMORPHONE 1 MG INJ 0.5 MG IV (22:01)
[2024-10-06 22:06] LABS: Add Manual Diff / Slide Review NO; Alanine Aminotransferase 18 IU/L (<35); Albumin 4.6 g/dL (3.5-5.0); Albumin Globulin Ratio 1.2 (1.0-2.8); Alkaline Phosphatase 82 U/L (38-126); Blood Urea Nitrogen 34 mg/dL (7-17); Calcium 9.2 mg/dL (8.4-10.2); Carbon Dioxide 22 mmol/L (22-32); Chloride 107 mmol/L (98-107); Estimated Glomerular Filt Rate 35 mL/min (>60); Globulin 3.8 g/dL (1.7-4.1); Glucose 77 mg/dL (70-99); HEMOLYSIS < 15 (0-50); Hematocrit 34.7 % (36-46); Hemoglobin 11.8 g/dL (12.0-16.0); Lipase 68 U/L (23-300); Lymphocytes Absolute Auto 1300 /uL (1100-4500); Mean Corpuscular HGB Conc 33.9 % (30-36); Mean Corpuscular Hemoglobin 30.1 PG (26-34); Mean Corpuscular Volume 89.0 fL (80-100); Platelet Count 224 X10^3/uL (150-400); Potassium 3.8 mmol/L (3.4-5.1); Sodium 143 mmol/L (137-145); Total Protein 8.4 g/dL (6.3-8.2)
[2024-10-06] MEDS: HYDROMORPHONE 1 MG INJ IV (23:00)
[2024-10-07 00:12] VITALS: O2SAT 98
== END 2024-10-07 | disposition home or self-care (01) ==
PROVIDERS: Emergency Provider Emergency Medicine; PCP Family Medicine
DX: R11.2 Nausea with vomiting, unspecified (principal); Z79.01 Long term (current) use of anticoagulants
CPT/HCPCS: 36415; 80053; 83690; 85025; 96361; 96374; 96375; 96376; 99284; J1171; J2405